=== PATIENT | male | born 1945 | race Caucasian/White ===

== ENCOUNTER 2020-01-21 07:41 | Inpatient (IN) | payer MEDICARE, OTHER, SELFPAY ==
[2020-01-21] VITALS (10 sets, daily range): BP systolic 139–201; BP diastolic 62–94; PULSE 57–77; RESP 14–30; TEMP 36.6–37.2; O2SAT 94–97; BMI 39.9
--- NOTE | 2020-01-21 07:46 | ED.SOB ---
HPI - SOB/Dyspnea General Chief Complaint: Shortness of Breath/Dyspnea Stated Complaint: SOB/ COUGH 4-5X DAYS Time Seen by Provider: 01/21/20 07:45 Source: patient and family Mode of arrival: Ambulatory Limitations: no limitations History of Present Illness HPI Narrative: 74-year-old male nonsmoker with history of asthma, hypertension hyperlipidemia presents with his in the chief complaint of 4-5 days with worsening shortness of breath cough and fever. He has not measured his fever. He denies any headache or sore throat. He denies any nausea, vomiting or diarrhea. He denies recent travel or exposure to persons known to have COVID-19. He has become weak, fatigued with poor appetite. MD Complaint: shortness of breath and cough Onset (ago): day(s) Severity: moderate Relieving factors: rest Exacerbating factors: nothing Known history of: asthma Associated symptoms: fever, cough and wheezing Treatment prior to arrival: none Related Data Home oxygen amount: none Home Medications Medication Instructions Recorded Confirmed albuterol sulfate See Rx Instructions .ROUTE .COMPLEX 01/21/20 01/21/20 atorvastatin 20 mg PO DAILY 01/21/20 01/21/20 dorzolamide-timolol See Rx Instructions .ROUTE .COMPLEX 01/21/20 01/21/20 felodipine 10 mg PO DAILY 01/21/20 01/21/20 latanoprost See Rx Instructions .ROUTE .COMPLEX 01/21/20 01/21/20 levothyroxine 200 mcg DAILY 01/21/20 01/21/20 lisinopril 40 mg PO DAILY 01/21/20 01/21/20 Allergies Allergy/AdvReac Type Severity Reaction Status Date / Time No Known Drug Allergies Allergy Verified 01/21/20 09:18 Review of Systems Constitutional Constitutional: Denies chills, Denies fatigue, Denies fever(s), Denies frequent falls, Denies lethargy and Denies weakness Eyes Eyes: Denies change in vision, Denies eye discharge, Denies irritation and Denies loss of vision ENT Ears, Nose, Mouth, and Throat: Denies change in voice, Denies dizziness, Denies neck pain, Denies sore throat and Denies throat swelling Cardiovascular Cardiovascular: Denies chest pain, Denies irregular heart rhythm, Denies lightheadedness, Denies palpitations, Denies dyspnea, Denies dyspnea on exertion and Denies orthopnea Respiratory Respiratory: Denies cough, Denies dyspnea, Denies dyspnea on exertion and Denies wheezing Gastrointestinal Gastrointestinal: Denies abdominal pain, Denies change in bowel habits, Denies diarrhea, Denies nausea and Denies vomiting Genitourinary Genitourinary: Denies hematuria, Denies flank pain, Denies urinary incontinence and Denies urinary urgency Musculoskeletal Musculoskeletal: Denies back pain, Denies muscle weakness, Denies neck pain, Denies numbness and Denies tingling Integumentary/Breasts Skin/Breast: Denies pruritus, Denies erythema, Denies rash and Denies wounds Neurologic Neurologic: Denies behavioral changes, Denies confusion, Denies dizziness, Denies frequent falls, Denies loss of vision, Denies numbness, Denies tingling and Denies weakness Psychiatric Psychiatric: Denies anxiety, Denies behavioral changes, Denies confusion, Denies depression, Denies homicidal ideation and Denies suicidal ideation Endocrine Endocrine: Denies fatigue, Denies flushing and Denies palpitations Hematologic/Lymphatic Hematologic/Lymphatic: Denies easy bruising Allergic/Immunologic Allergic/Immunologic: Denies urticaria, Denies throat swelling and Denies wheezing Patient History Social History household members: spouse Smoking Status: Never smoker Exam Narrative Exam Narrative: GENERAL: [74] year old patient appears stated age. Ill-appearing, fatigued and weak HEAD: Atraumatic. Normocephalic. EYES: Pupils equal round and reactive. Extraocular motions intact. No scleral icterus. No injection or drainage. ENT: Dry mucous membranes Nose without bleeding, purulent drainage. Throat without erythema, tonsillar hypertrophy or exudate. Airway patent. NECK: Trachea midline. Non tender CARDIOVASCULAR: Regular rate and rhythm without murmurs, gallops, or rubs. RESPIRATORY: Tachypnea crackles in bilateral bases GASTROINTESTINAL: Abdomen soft, non-tender, nondistended. EXTREMITIES: No edema or joint tenderness. BACK: Nontender without deformity or crepitance. No flank tenderness. NEURO: AOx3. SKIN: Poor skin turgor No rash or erythema of visible areas Initial Vital Signs Initial Vital Signs: Vital Signs Temperature 98.1 F 01/21/20 08:07 Pulse Rate 67 01/21/20 08:07 Respiratory Rate 22 01/21/20 08:07 Blood Pressure 149/68 H 01/21/20 08:07 Pulse Oximetry 95 01/21/20 08:07 Course Course Course Narrative: Patient with advanced age and comorbidities presents with increasing shortness of breath and subjective fever over the past few days. Chest x-ray shows a lobar infiltrate and CT demonstrates a multi lobar in a pattern consistent with COVID-19. He is clinically dehydrated with dry mucous membranes and poor skin turgor and it is thought that the crackles noted on his exam are consistent with viral pneumonia and not exacerbation of CHF hence my decision to treat with IV fluids Orders Ordered: ED Orders 01/21/20 08:20 XR chest 1V Stat 01/21/20 08:36 EKG-12 Lead Routine 01/21/20 08:40 Basic Metabolic Panel Stat C-Reactive Protein Quant Stat Complete Blood Count AUTO DIFF Stat Ferritin Stat Influenza A & B (PCR) Stat Lactate (Lactic Acid) Stat NT-proBNP (BNP-Adult 18+) Stat Procalcitonin Stat Troponin & CK Cardiac Panel Stat 01/21/20 08:45 CT chest wo con Stat 01/21/20 09:02 Blood Culture Stat Acetaminophen (Tylenol) 650 mg PO Q6HR PRN PRN Reason: Fever/Mild Pain (1-3) Albuterol/Ipratropium (Combivent Respimat) 2 puff INH RTQ6HR KEVAN Atorvastatin Calcium (Lipitor) 20 mg PO BEDTIME KEVAN Dorzolamide/Timolol (Cosopt Eye Drops) 1 drops EYE-BOTH .COMPLEX KEVAN Enoxaparin Sodium (Lovenox) 30 mg SUBCUT DAILY KEVAN Felodipine (Plendil) 10 mg PO DAILY KEVAN Latanoprost (Xalatan 0.005% Ophth) 1 drops EYE-BOTH .COMPLEX KEVAN Levothyroxine Sodium (Synthroid) 200 mcg PO 0600 KEVAN Magnesium Hydroxide (Milk Of Magnesia) 30 ml PO DAILY PRN PRN Reason: Constipation Naloxone HCl (Narcan) 0.2 mg IV Q2MIN PRN PRN Reason: Opiate Reversal Stored In Pharmacy 1 each PO PRN PRN PRN Reason: PROTOCOL Discontinued Medications Sodium Chloride (Normal Saline 0.9%) 500 mls @ 1,000 mls/hr IV BOLUS ONE Stop: 01/21/20 10:26 Last Infusion: 01/21/20 11:31 Dose: 0 mls/hr Documented by: Admin: 01/21/20 10:18 Dose: 1,000 mls/hr Documented by: EZRASENCeci Methylprednisolone (Solu-Medrol 125 Mg Vial) 125 mg IV NOW ONE Stop: 01/21/20 08:19 Last Admin: 01/21/20 08:42 Dose: 125 mg Documented by: EZRASENCeci Simvastatin (Zocor) 80 mg PO QPM KEVAN Vital Signs Vital signs: Vital Signs - 8 hr 01/21/20 08:07 01/21/20 08:30 01/21/20 08:47 Temperature 98.1 F Pulse Rate 67 63 77 Respiratory Rate 22 30 H Blood Pressure 149/68 H Blood Pressure [Left Arm] 149/68 H Pulse Oximetry 95 95 95 01/21/20 08:56 01/21/20 10:05 01/21/20 10:27 Temperature 99.0 F Pulse Rate 60 66 63 Respiratory Rate 14 16 18 Blood Pressure Blood Pressure [Left Arm] 176/73 H 201/88 H 188/83 H Pulse Oximetry 95 96 01/21/20 10:41 Temperature Pulse Rate 57 L Respiratory Rate 24 Blood Pressure Blood Pressure [Left Arm] 163/72 H Pulse Oximetry 94 MDM - SOB/Dyspnea Lab Data Result diagrams: 01/21/20 08:40 01/21/20 08:40 Labs: Lab Results 01/21/20 01/21/20 01/21/20 Range/Units 08:40 08:40 08:40 WBC 7.6 (4.5-11.0) X10^3/uL RBC 4.17 L (4.5-5.9) X10^6/uL Hgb 13.1 L (13.5-17.5) g/dL Hct 39.0 L (41-53) % MCV 93.5 (80-100) fL MCH 31.4 (26-34) PG MCHC 33.6 (30-36) % RDW 13.4 (11.6-14.8) % Plt Count 156 (150-400) X10^3/uL Neut % (Auto) Not Reportable Lymph % (Auto) Not Reportable Mcleod % (Auto) Not Reportable Eos % (Auto) Not Reportable Baso % (Auto) Not Reportable Lymph # (Auto) Not Reportable Mcleod # (Auto) Not Reportable Baso # (Auto) Not Reportable Total Counted 100 Seg Neutrophils % 61.0 (38-70) % Band Neutrophils % 12.0 H (3-7) % Lymphocytes % (Manual) 9.0 L (25-45) % Atypical Lymphs % 5.0 H ( - 0) % Monocytes % (Manual) 9.0 (2-11) % Eosinophils % (Manual) 4.0 (2-4) % Neutrophils # (Manual) 5548 (2269-9730) /uL Toxic Vacuolation Present H RBC Morphology Normal morphology Sodium 135 L (137-145) mmol/L Potassium 4.4 (3.4-5.1) mmol/L Chloride 104 (98-107) mmol/L Carbon Dioxide 25 (22-32) mmol/L BUN 26 H (9-20) mg/dL Creatinine 1.81 H (0.66-1.25) mg/dL Estimated GFR 36.6 L (>60) mL/min BUN/Creatinine Ratio 14.4 (6-22) Glucose 108 (80-110) mg/dL Lactate (0.7-2.1) mmol/L Calcium 8.3 L (8.4-10.2) mg/dL Ferritin 154 (18-464) ng/mL Total Creatine Kinase (55-170) U/L CK-MB (CK-2) (<2.37) ng/mL CK-MB (CK-2) Rel Index (1.5-5.0) % Troponin I (0.01-0.034) ng/mL C-Reactive Protein 5.6 H (<1.0) mg/dL NT-Pro-B Natriuret Pep (<450) pg/mL Procalcitonin (<0.5) ng/mL Influenza A (RT-PCR) (NEGATIVE) Influenza B (RT-PCR) (NEGATIVE) 01/21/20 01/21/20 01/21/20 Range/Units 08:40 08:40 08:40 WBC (4.5-11.0) X10^3/uL RBC (4.5-5.9) X10^6/uL Hgb (13.5-17.5) g/dL Hct (41-53) % MCV (80-100) fL MCH (26-34) PG MCHC (30-36) % RDW (11.6-14.8) % Plt Count (150-400) X10^3/uL Neut % (Auto) Lymph % (Auto) Mcleod % (Auto) Eos % (Auto) Baso % (Auto) Lymph # (Auto) Mcleod # (Auto) Baso # (Auto) Total Counted Seg Neutrophils % (38-70) % Band Neutrophils % (3-7) % Lymphocytes % (Manual) (25-45) % Atypical Lymphs % ( - 0) % Monocytes % (Manual) (2-11) % Eosinophils % (Manual) (2-4) % Neutrophils # (Manual) (4156-4930) /uL Toxic Vacuolation RBC Morphology Sodium (137-145) mmol/L Potassium (3.4-5.1) mmol/L Chloride (98-107) mmol/L Carbon Dioxide (22-32) mmol/L BUN (9-20) mg/dL Creatinine (0.66-1.25) mg/dL Estimated GFR (>60) mL/min BUN/Creatinine Ratio (6-22) Glucose (80-110) mg/dL Lactate 0.9 (0.7-2.1) mmol/L Calcium (8.4-10.2) mg/dL Ferritin (18-464) ng/mL Total Creatine Kinase 114 (55-170) U/L CK-MB (CK-2) 1.39 (<2.37) ng/mL CK-MB (CK-2) Rel Index 1.2 L (1.5-5.0) % Troponin I 0.020 (0.01-0.034) ng/mL C-Reactive Protein (<1.0) mg/dL NT-Pro-B Natriuret Pep 1100 H (<450) pg/mL Procalcitonin < 0.05 (<0.5) ng/mL Influenza A (RT-PCR) (NEGATIVE) Influenza B (RT-PCR) (NEGATIVE) 01/21/20 Range/Units 08:40 WBC (4.5-11.0) X10^3/uL RBC (4.5-5.9) X10^6/uL Hgb (13.5-17.5) g/dL Hct (41-53) % MCV (80-100) fL MCH (26-34) PG MCHC (30-36) % RDW (11.6-14.8) % Plt Count (150-400) X10^3/uL Neut % (Auto) Lymph % (Auto) Mcleod % (Auto) Eos % (Auto) Baso % (Auto) Lymph # (Auto) Mcleod # (Auto) Baso # (Auto) Total Counted Seg Neutrophils % (38-70) % Band Neutrophils % (3-7) % Lymphocytes % (Manual) (25-45) % Atypical Lymphs % ( - 0) % Monocytes % (Manual) (2-11) % Eosinophils % (Manual) (2-4) % Neutrophils # (Manual) (3089-9236) /uL Toxic Vacuolation RBC Morphology Sodium (137-145) mmol/L Potassium (3.4-5.1) mmol/L Chloride (98-107) mmol/L Carbon Dioxide (22-32) mmol/L BUN (9-20) mg/dL Creatinine (0.66-1.25) mg/dL Estimated GFR (>60) mL/min BUN/Creatinine Ratio (6-22) Glucose (80-110) mg/dL Lactate (0.7-2.1) mmol/L Calcium (8.4-10.2) mg/dL Ferritin (18-464) ng/mL Total Creatine Kinase (55-170) U/L CK-MB (CK-2) (<2.37) ng/mL CK-MB (CK-2) Rel Index (1.5-5.0) % Troponin I (0.01-0.034) ng/mL C-Reactive Protein (<1.0) mg/dL NT-Pro-B Natriuret Pep (<450) pg/mL Procalcitonin (<0.5) ng/mL Influenza A (RT-PCR) Flu a negative (NEGATIVE) Influenza B (RT-PCR) Flu b negative (NEGATIVE) Imaging Data CT scan - chest: Radiologist's Impression: SuhaProsper M 1945 [address] [address] [address] Scan Report Signed Patient: Prosper Borden R#: [id number] : 3Acct:[id number] Age/Sex: 74 / MDate of Service: 01/21/20 Loc: ED Accession Number: [id number] Procedure: CT chest wo con Ordering Provider: Jamie Case D.O. PROCEDURE: CT CHEST WO CON INDICATIONS: SOB, cough TECHNIQUE: Noncontrast 5 mm thick sections acquired from the pulmonary apices to the posterior costophrenic angles. 1 mm lung window, 5 mm thick coronal and sagittal and 7 mm axial MIP reformats were then acquired. For radiation dose reduction, the following was used: automated exposure control, adjustment of mA and/or kV according to patient size. COMPARISON: [facility], CT, THORAX WITH CONTRAST, 03/01/2014, 9:01. FINDINGS: Image quality: Diagnostic. Lungs and pleura:Disease is identified with associated tree and bud nodularity within the right upper lobe, posterior right lower lobe, and the posterior left lower lobe. No effusion or pneumothorax is identified. No lung masses identified. However, there is a centrally calcified pulmonary nodule within the posterior left lower lobe, compatible with a hamartoma that measures up to approximately 1.7 cm in diameter (image 47, series 2), previously measuring up to 1.4 cm in diameter. Mediastinum: Heart size is normal. No pericardial effusion. No mediastinal adenopathy by size criteria. Coronary and aortic atherosclerosis is present. Thoracic aorta and central pulmonary arteries are normal in size. Esophagus is normal in caliber. There is a small hiatal hernia. Bones and chest wall: No suspicious bony lesions. No vertebral body compression fractures. No axillary or supraclavicular adenopathy by size criteria. Moderate degenerative changes of the thoracic spine are noted. Abdomen: Visualized upper abdominal solid organs and bowel loops appear normal in the absence of contrast. IMPRESSION: 1. Patchy bibasilar dominant consolidation is most suggestive of pneumonia. Please correlate clinically to exclude the possibility of COVID-19 infection. 2. 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 Please consider [address] of the chest. 3. Small hiatal hernia. 4. Coronary and aortic atherosclerosis. Dictated by: Aleksandar Stoddard M.D. on 01/21/2020 at 8:31 Approved by: Aleksandar Stoddard M.D. on 01/21/2020 at 8:35 Discharge Plan Departure Patient Disposition: Admitted As Inpatient Clinical Impression: Acute renal failure, Viral pneumonia Discharge Date/Time: 01/21/20 11:22 Admit Date/Time: 01/21/20 10:56 Admit Provider: Hosea James ED Sign-out Cosign ED Attending Cosignature Attestation: I was immediately available in the department for consultation. This documentation has been reviewed and I agree with assessment and plan. Supervised by Jamie Case DO
--- NOTE | 2020-01-21 08:20 | DI.RAD.S_ITS ---
PROCEDURE: XR CHEST 1V INDICATIONS: SOB, cough, fever TECHNIQUE: One view of the chest was acquired. COMPARISON: [facility], , CHEST 2 VIEW, 10/02/2017, 9:39. FINDINGS: Surgical changes and devices: None. Lungs and pleura: Airspace disease within the right upper lobe is identified. No definite additional areas of significant airspace disease are appreciated. No effusion or pneumothorax is evident. Mediastinum: Mediastinal contours appear normal. Heart size is normal. Bones and chest wall: No suspicious bony lesions. Overlying soft tissues appear unremarkable. IMPRESSION: Right upper lobe airspace disease is suggestive of pneumonia. Dictated by: Aleksandar Stoddard M.D. on 01/21/2020 at 7:39 Approved by: Aleksandar Stoddard M.D. on 01/21/2020 at 7:40
[2020-01-21] MEDS: methylPREDNISolone 125 MG/2 ML VIAL IV (08:42)
--- NOTE | 2020-01-21 08:45 | DI.CT.S_ITS ---
PROCEDURE: CT CHEST WO CON INDICATIONS: SOB, cough TECHNIQUE: Noncontrast 5 mm thick sections acquired from the pulmonary apices to the posterior costophrenic angles. 1 mm lung window, 5 mm thick coronal and sagittal and 7 mm axial MIP reformats were then acquired. For radiation dose reduction, the following was used: automated exposure control, adjustment of mA and/or kV according to patient size. COMPARISON: [facility], CT, THORAX WITH CONTRAST, 03/01/2014, 9:01. FINDINGS: Image quality: Diagnostic. Lungs and pleura:Disease is identified with associated tree and bud nodularity within the right upper lobe, posterior right lower lobe, and the posterior left lower lobe. No effusion or pneumothorax is identified. No lung masses identified. However, there is a centrally calcified pulmonary nodule within the posterior left lower lobe, compatible with a hamartoma that measures up to approximately 1.7 cm in diameter (image 47, series 2), previously measuring up to 1.4 cm in diameter. Mediastinum: Heart size is normal. No pericardial effusion. No mediastinal adenopathy by size criteria. Coronary and aortic atherosclerosis is present. Thoracic aorta and central pulmonary arteries are normal in size. Esophagus is normal in caliber. There is a small hiatal hernia. Bones and chest wall: No suspicious bony lesions. No vertebral body compression fractures. No axillary or supraclavicular adenopathy by size criteria. Moderate degenerative changes of the thoracic spine are noted. Abdomen: Visualized upper abdominal solid organs and bowel loops appear normal in the absence of contrast. IMPRESSION: 1. Patchy bibasilar dominant consolidation is most suggestive of pneumonia. Please correlate clinically to exclude the possibility of COVID-19 infection. 2. 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 Please consider [address] of the chest. 3. Small hiatal hernia. 4. Coronary and aortic atherosclerosis. Dictated by: Aleksandar Stoddard M.D. on 01/21/2020 at 8:31 Approved by: Aleksandar Stoddard M.D. on 01/21/2020 at 8:35
[2020-01-21 08:50] LABS: Hemoglobin 13.1 g/dL (13.5-17.5); Mean Corpuscular HGB Conc 33.6 % (30-36); Mean Corpuscular Hemoglobin 31.4 PG (26-34); Mean Corpuscular Volume 93.5 fL (80-100); Platelet Count 156 X10^3/uL (150-400); Red Blood Cell Count 4.17 X10^6/uL (4.5-5.9); Red Cell Distribution Width 13.4 % (11.6-14.8); White Blood Cell Count 7.6 X10^3/uL (4.5-11.0)
--- NOTE | 2020-01-21 08:54 | PC.NURSE ---
able to drink fluids, denies nausea,vomiting or diarrhea, denies traveling outside [place], or contact with Covid
[2020-01-21 09:00] LABS: Lactate (Lactic Acid) 0.9 mmol/L (0.7-2.1)
[2020-01-21 09:09] LABS: Creatine Kinase 114 U/L (55-170)
[2020-01-21 09:11] LABS: BUN Creatinine Ratio 14.4 (6-22); Blood Urea Nitrogen 26 mg/dL (9-20); Calcium 8.3 mg/dL (8.4-10.2); Carbon Dioxide 25 mmol/L (22-32); Chloride 104 mmol/L (98-107); Estimated Glomerular Filt Rate 36.6 mL/min (>60); Glucose 108 mg/dL (80-110); HEMOLYSIS 35 (0-50); Potassium 4.4 mmol/L (3.4-5.1); Sodium 135 mmol/L (137-145)
[2020-01-21 09:13] LABS: C-Reactive Protein Quant 5.6 mg/dL (<1.0)
[2020-01-21 09:18] LABS: Add Manual Diff / Slide Review YES
[2020-01-21 09:20] LABS: Influenza A - CEPHEID Flu A NEGATIVE (NEGATIVE); Influenza B - CEPHEID Flu B NEGATIVE (NEGATIVE)
[2020-01-21 09:23] LABS: NT-proBNP (BNP-Adult 18+) 1100 pg/mL (<450)
[2020-01-21 09:25] LABS: CKMB % Relative Index 1.2 % (1.5-5.0); Creatine Kinase MB 1.39 ng/mL (<2.37)
[2020-01-21 09:33] LABS: Procalcitonin < 0.05 ng/mL (<0.5)
[2020-01-21 09:45] LABS: Ferritin 154 ng/mL (18-464)
[2020-01-21 09:46] LABS: Neutrophils Absolute Manual 5548 /uL (3000-5900); RBC Morphology Normal Morphology; Total Cells Counted 100; Toxic Vacuolation Present
[2020-01-21] MEDS: SODIUM CHLORIDE 0.9% 500 ML 1000 ML IV (10:18)
--- NOTE | 2020-01-21 10:18 | PC.NURSE ---
confirmed with dr alvarado bolus of 500ml ns, with bnp of 1100
--- NOTE | 2020-01-21 12:35 | P.HP_ITS ---
History of Present Illness History of Present Illness Date Patient Seen: 01/21/20 Time Patient Seen: 12:00 Chief complaint: SOB/ COUGH 4-5X DAYS Narrative: Patient is a 74-year-old male with history of asthma, hypertension, hyperlipidemia, NE, hypothyroidism presented to emergency department with complaints of shortness of breath and cough for the past 4-5 days. He states he had a fever on the 1st day but subsequently no fever. He has been using his albuterol inhaler without relief. He has had fatigue but denies myalgias. Denies headache, sore throat, nausea, vomiting or diarrhea. He denies recent travel or known exposure to novel gray virus. On ER evaluation, he was noted to have labored breathing with respiratory rate 20-30. O2 sat was 95% on room air. Showed right upper lobe airspace disease. Chest CT noncontrast showed patchy bilateral consolidation in the right upper, right lower and left lower lobes. His WBC was normal with lymphopenia and 5% atypical lymphocytes and toxic granulation. He also appeared in acute renal failure with BUN 26 and creatinine 1.81 versus prior baseline of BUN 21 and creatinine 1.1 on 11/17/2016. His NT proBNP was elevated at 1100 without clinical signs of CHF. His CRP was elevated at 5.6 and ferritin normal at 154. His procalcitonin is less than 0.05. Patient History Family & Social History Social History: household members spouse Prior Living Arrangements House Safety & Behavioral: Feels Safe in Current Yes Environment Been Physically Hurt or No Threatened By a Person Suicidal Ideation Description None Suicide Plan Description No Plan Tobacco & Substance use: Smoking Status Never smoker alcohol intake frequency holiday/special occasion Substance Use Type does not use Meds Home Medications and Allergies Allergies Allergy/AdvReac Type Severity Reaction Status Date / Time No Known Drug Allergies Allergy Verified 01/21/20 09:18 Review of Systems Review of Systems ROS: Yes All systems reviewed with the patient and are negative except as otherwise documented Exam Vital Signs (past 8 hours): - 01/21/20 08:07 01/21/20 08:30 01/21/20 08:47 Temperature 98.1 F Pulse Rate 67 63 77 Respiratory Rate 22 30 H Blood Pressure 149/68 H Blood Pressure [Left Arm] 149/68 H Pulse Oximetry 95 95 95 01/21/20 08:56 01/21/20 10:05 01/21/20 10:27 Temperature 99.0 F Pulse Rate 60 66 63 Respiratory Rate 14 16 18 Blood Pressure Blood Pressure [Left Arm] 176/73 H 201/88 H 188/83 H Pulse Oximetry 95 96 01/21/20 10:41 Temperature Pulse Rate 57 L Respiratory Rate 24 Blood Pressure Blood Pressure [Left Arm] 163/72 H Pulse Oximetry 94 Oxygen Delivery Method Room Air Narrative Exam Narrative: General: Alert male who is cooperative and at this time not in acute distress HEENT: Pupils equal and reactive Lungs: Bilateral diffuse rhonchi, no crackles Heart: Regular rhythm without murmur Abdomen: Obese, soft, nontender, no abdominal mass Extremities: No edema, no rash Neurological: Affect normal, sensorium intact, nonfocal Objective Labs Result Diagrams: 01/21/20 08:40 01/21/20 08:40 Labs: Laboratory Results - last 24 hr 01/21/20 01/21/20 01/21/20 08:40 08:40 08:40 WBC 7.6 RBC 4.17 L Hgb 13.1 L Hct 39.0 L MCV 93.5 MCH 31.4 MCHC 33.6 RDW 13.4 Plt Count 156 Neut % (Auto) Not Reportable Lymph % (Auto) Not Reportable [place] % (Auto) Not Reportable Eos % (Auto) Not Reportable Baso % (Auto) Not Reportable Lymph # (Auto) Not Reportable [place] # (Auto) Not Reportable Baso # (Auto) Not Reportable Total Counted 100 Seg Neutrophils % 61.0 Band Neutrophils % 12.0 H Lymphocytes % (Manual) 9.0 L Atypical Lymphs % 5.0 H Monocytes % (Manual) 9.0 Eosinophils % (Manual) 4.0 Neutrophils # (Manual) 5548 Toxic Vacuolation Present H RBC Morphology Normal morphology Sodium 135 L Potassium 4.4 Chloride 104 Carbon Dioxide 25 BUN 26 H Creatinine 1.81 H Estimated GFR 36.6 L BUN/Creatinine Ratio 14.4 Glucose 108 Lactate Calcium 8.3 L Ferritin 154 Total Creatine Kinase CK-MB (CK-2) CK-MB (CK-2) Rel Index Troponin I C-Reactive Protein 5.6 H NT-Pro-B Natriuret Pep Procalcitonin Influenza A (RT-PCR) Influenza B (RT-PCR) 01/21/20 01/21/20 01/21/20 08:40 08:40 08:40 WBC RBC Hgb Hct MCV MCH MCHC RDW Plt Count Neut % (Auto) Lymph % (Auto) [place] % (Auto) Eos % (Auto) Baso % (Auto) Lymph # (Auto) [place] # (Auto) Baso # (Auto) Total Counted Seg Neutrophils % Band Neutrophils % Lymphocytes % (Manual) Atypical Lymphs % Monocytes % (Manual) Eosinophils % (Manual) Neutrophils # (Manual) Toxic Vacuolation RBC Morphology Sodium Potassium Chloride Carbon Dioxide BUN Creatinine Estimated GFR BUN/Creatinine Ratio Glucose Lactate 0.9 Calcium Ferritin Total Creatine Kinase 114 CK-MB (CK-2) 1.39 CK-MB (CK-2) Rel Index 1.2 L Troponin I 0.020 C-Reactive Protein NT-Pro-B Natriuret Pep 1100 H Procalcitonin < 0.05 Influenza A (RT-PCR) Influenza B (RT-PCR) 01/21/20 08:40 WBC RBC Hgb Hct MCV MCH MCHC RDW Plt Count Neut % (Auto) Lymph % (Auto) [place] % (Auto) Eos % (Auto) Baso % (Auto) Lymph # (Auto) [place] # (Auto) Baso # (Auto) Total Counted Seg Neutrophils % Band Neutrophils % Lymphocytes % (Manual) Atypical Lymphs % Monocytes % (Manual) Eosinophils % (Manual) Neutrophils # (Manual) Toxic Vacuolation RBC Morphology Sodium Potassium Chloride Carbon Dioxide BUN Creatinine Estimated GFR BUN/Creatinine Ratio Glucose Lactate Calcium Ferritin Total Creatine Kinase CK-MB (CK-2) CK-MB (CK-2) Rel Index Troponin I C-Reactive Protein NT-Pro-B Natriuret Pep Procalcitonin Influenza A (RT-PCR) Flu a negative Influenza B (RT-PCR) Flu b negative Assessment & Plan Assessment & Plan narrative: 1. Suspect COVID-19 pneumonia, present on admission, active -patient presenting with classic findings of 4-5 days of respiratory symptoms, initial fever now resolved, bilateral infiltrates on chest x-ray, normal total WBC, with procalcitonin less than 0.05 -he has asthma comorbidity and also noted to be in acute renal failure -on exam elevated respiratory rate with diffuse rhonchi, O2 sats 95% range on room air -treat asthma component with inhaler -monitor O2 sats -repeat CBC and procalcitonin in a.m. 2. Asthma with exacerbation, present on admission, active -received Solu-Medrol 125 mg in the ED, will withhold additional steroid as undetermined whether steroid therapy pre may worsen COVID-19 pneumonia -use Combivent Respimat 2 puffs Q 6 hours with RT 3. Acute kidney injury, present on admission, active -as noted admit creatinine 1.81 versus baseline 1.10 on 11/17/2016 -likely prerenal associated with illness -received 1 L NS bolus in the ED, will withhold further IV hydration as there is some evidence IV hydration may worsen respiratory failure in COVID 19 pneumonia and better to keep these patients on the dry side -encourage p.o. fluid intake -hold patient's lisinopril -BMP in a.m. 4. Hypertension, present on admission, stable -patient mildly hypertensive but stable -continue felodipine ER but hold lisinopril 5. Questionable history of CAD, stable -patient states he has had NE in the past but no history of stents and is not on daily aspirin -continue patient's atorvastatin 6. Hypothyroidism, NOS, stable -continue patient's levothyroxine 7. Glaucoma, NOS -continue patient's routine eye drops Patient is admitted to hospital observation. He will be on droplet precautions. Quality VTE Deep Vein Thrombosis/Pulmonary Embolism Present on Admission: No
[2020-01-21] MEDS: ALBUTEROL/IPRATROPIUM MDI 2 PUFF INH ×2 (16:13→21:32)
[2020-01-21] MEDS: DORZOLAMIDE/TIMOLOL OPHTH 10 ML 1 DROPS EYE-BOTH (20:09)
[2020-01-21] MEDS: ATORVASTATIN 20 MG TABLET PO (20:09)
[2020-01-21] MEDS: LATANOPROST 0.005% OPHTH 2.5 ML 1 DROPS EYE-BOTH (20:10)
[2020-01-22] VITALS (12 sets, daily range): BP systolic 158–186; BP diastolic 62–90; PULSE 56–78; RESP 12–21; TEMP 36–37.6; O2SAT 94–96
[2020-01-22 05:51] LABS: Add Manual Diff / Slide Review NO; Basophils Absolute Auto 0 /uL (0-100); Basophils Percent Auto 0.3 % (0-2); Eosinophils Absolute Auto 0 /uL (0-450); Hematocrit 39.5 % (41-53); Lymphocytes Absolute Auto 800 /uL (1100-4500); Lymphocytes Percent Auto 6.7 % (25-40); Mean Corpuscular HGB Conc 32.9 % (30-36); Mean Corpuscular Hemoglobin 30.7 PG (26-34); Mean Corpuscular Volume 93.4 fL (80-100); Monocytes Absolute Auto 1200 /uL (0-900); Monocytes Percent Auto 10.2 % (3-14); Neutrophils Absolute Auto 9300 /uL (1500-7000); Neutrophils Percent Auto 82.8 % (50-75); Platelet Count 176 X10^3/uL (150-400); Red Blood Cell Count 4.23 X10^6/uL (4.5-5.9); Red Cell Distribution Width 13.3 % (11.6-14.8); White Blood Cell Count 11.3 X10^3/uL (4.5-11.0)
[2020-01-22 06:00] LABS: BUN Creatinine Ratio 16.8 (6-22); Blood Urea Nitrogen 32 mg/dL (9-20); Calcium 8.1 mg/dL (8.4-10.2); Carbon Dioxide 22 mmol/L (22-32); Chloride 106 mmol/L (98-107); Estimated Glomerular Filt Rate 34.4 mL/min (>60); Glucose 128 mg/dL (80-110); HEMOLYSIS < 15 (0-50); Potassium 5.2 mmol/L (3.4-5.1); Sodium 135 mmol/L (137-145)
[2020-01-22 06:16] LABS: Procalcitonin < 0.05 ng/mL (<0.5)
[2020-01-22] MEDS: ALBUTEROL/IPRATROPIUM MDI 2 PUFF INH ×5 (06:28→22:02)
[2020-01-22] MEDS: LEVOTHYROXINE 100 MCG TABLET 200 MCG PO (06:48)
[2020-01-22] MEDS: ENOXAPARIN 30 MG/0.3 ML SYRINGE SUBCUT (09:31)
[2020-01-22] MEDS: FELODIPINE ER 5 MG TAB 10 MG PO (09:37)
--- NOTE | 2020-01-22 12:37 | CM.DANOTE ---
DCP Assessment: EMR Reviewed: Patient is a 74 yr old male who was admitted for possible Covid-[address] Acevedo. CM/Rn called patient on hospital phone and explained role. Patient was alert and oriented x3 during Cm/RN conversation. Patient was wheezing and coughing loud enough for CM/RN to hear it over the phone. Patients nurse notified and Respiratory therapy was called. Patient lives in [facility] [place] in a single level home. Patient states he is independent with all ADLs and drives at base line. I: Medicare and [facility] medical Plan: D/C home with his to self quarantine until covid-19 test results come back. No identified D/C planning needs noted at this time. CM department will follow patient to assist with any new D/C planning needs that may arise. Taylor Phelps RN. Discharge Planning/Care Management CM Discharge Assessment Start: 01/22/20 12:32 Freq: Status: Active Protocol: Document 01/22/20 12:34 HS (Rec: 01/22/20 12:37 HS [id number]) Discharge Planning Assessment Assigned Fan Balancer Taylor Phelps RN DPOA/Assigned Designee Name Lacy Marie () Contact Information [phone] Advance Directives? Yes History Provided By Patient,Medical Record Has Patient been admitted in last 30 No days? Prior Living Arrangements House Household Members spouse Type of transporation used prior to Drives own vehicle admit Independent with ADL's Yes Is patient alert and oriented? Yes Caregiver for Another No Barriers to Discharge No Discharge Plan Home Referrals Initiated None needed Whiteboard Updated in Patient Room with No name and ext. # of Fan Balancer Comment not able to update white board due to patient being on [place] precautions and not able to go into the room.- CM information give to nurse to give to lotus when she goes into the room next. Review Status In Process Next Review Type Continued Stay Review
--- NOTE | 2020-01-22 13:44 | PC.NURSE ---
RA=95%; Rhonchi and wheezing BL throughout; pt denies SOB; intermittent cough; using phone, as needed; call light within reach; independent in room
[2020-01-22] MEDS: AZITHROMYCIN 250 MG TABLET 500 MG PO (16:05)
--- NOTE | 2020-01-22 17:35 | P.PN_ITS ---
Subjective Subjective Date Patient Seen: 01/22/20 Interval history: Prosper Borden is a 74-year-old male with a past medical history significant for hypertension, hyperlipidemia, previous MD, hypothyroidism and asthma who presented to ED with complaints of shortness of breath and cough for the past 4- 5 days. The patient is resting in bed and appears mildly uncomfortable. He continues to have a very harsh cough with paroxysms, subjective shortness of breath and wheezing. A respiratory PCR was not obtained at time of admission and has been sent and pending. He endorses mild pleurisy due to severity of cough. He has no other complaints and denies headache, chest pain, abdominal pain, nausea, vomiting, fever, chills, dysuria, diarrhea or constipation. He is voiding and eliminating without difficulty. He is up ambulating without assistance. Exam Vital Signs (past 8 hours): - 01/22/20 11:22 01/22/20 12:36 01/22/20 16:00 Temperature 96.8 F L 98.6 F Pulse Rate 62 62 Respiratory Rate 15 17 Blood Pressure 158/62 H 186/73 H Pulse Oximetry 94 95 96 01/22/20 16:14 Temperature Pulse Rate Respiratory Rate Blood Pressure Pulse Oximetry 96 Oxygen Delivery Method Room Air Oxygen Flow Rate 0 Narrative Exam Narrative: General: Older gentleman sitting in bed and in no acute distress, appears mildly uncomfortable with harsh cough and cough paroxysms, well-developed, well- nourished, appropriately interactive. HEENT: Normocephalic, atraumatic. External ears without defect. Pupils equal, round, and reactive to light. Anicteric sclerae, moist conjunctivae, and no lid lag. Neck: Supple with full range of motion. No jugular venous distension. No bruits. No lymphadenopathy or thyromegaly. Cardiovascular: Regular rate and rhythm without murmurs, rubs, or gallops appreciated. Pulmonary: Diffuse rhonchi with scattered wheeze. Normal respiratory effort with no use of accessory muscles. Abdomen: Soft, obese, bowel sounds present, nontender, nondistended. No hepatosplenomegaly or masses appreciated. Extremities: No clubbing, cyanosis, or edema. Skin: Normal temperature, turgor, and texture; no rash, ulcers, or subcutaneous nodules appreciated. Neurological: Cranial nerves grossly intact. Psychiatric: Normal mood and affect. Alert and oriented to person, place, and time. Objective Labs Result Diagrams: 01/22/20 05:28 01/22/20 05:28 Labs: Laboratory Results - last 24 hr 01/22/20 01/22/20 01/22/20 05:28 05:28 05:28 WBC 11.3 H RBC 4.23 L Hgb 13.0 L Hct 39.5 L MCV 93.4 MCH 30.7 MCHC 32.9 RDW 13.3 Plt Count 176 Neut % (Auto) 82.8 H Lymph % (Auto) 6.7 L [place] % (Auto) 10.2 Eos % (Auto) 0.0 L Baso % (Auto) 0.3 Neut # (Auto) 9300 H Lymph # (Auto) 800 L [place] # (Auto) 1200 H Eos # (Auto) 0 Baso # (Auto) 0 Sodium 135 L Potassium 5.2 H Chloride 106 Carbon Dioxide 22 BUN 32 H Creatinine 1.91 H Estimated GFR 34.4 L BUN/Creatinine Ratio 16.8 Glucose 128 H Calcium 8.1 L Procalcitonin < 0.05 Assessment & Plan Assessment & Plan narrative: Prosper Borden is a 74-year-old male with a past medical history significant for hypertension, hyperlipidemia, previous MD, hypothyroidism and asthma who presented to ED with complaints of shortness of breath and cough for the past 4- 5 days. 1. Acute viral pneumonia, possibly secondary to COVID- 19, present on admission. Active -Patient presented with classic findings of COVID- 19 viral infection with 4-5 days of respiratory symptoms, initial fever now resolved, bilateral infiltrates on chest x-ray, acute kidney injury, normal total WBC, with procalcitonin less than 0.05. Patient has asthma comorbidity. -Ordered respiratory PCR, pending. Influenza a and B negative. Coronavirus PCR pending. -Continue supportive care with supplemental oxygen as necessary to keep oxygen saturations 88-92%, Mucinex 1200 mg twice daily and Acapella 10x every 1 hour while awake. -Started azithromycin 500 mg daily for pulmonary anti-inflammatory effects and early studies showing improvement with COVID-19 infection. 2. Asthma with exacerbation, present on admission. Active. -Received Solu-Medrol 125 mg in the ED. Held any additional steroid initially due to possibility that steroid therapy may worsen COVID-19 viral pneumonia. However, patient continues to have significant wheezing and started prednisone 40 mg daily. -Continue Combivent Respimat 2 puffs every 4 hours and albuterol every 2 hours as needed for shortness of breath or wheezing. -Started azithromycin 500 mg daily for pulmonary anti-inflammatory effects and early studies showing improvement with COVID-19 infection. 3. Acute kidney injury, present on admission. Active. -Likely prerenal in associated with acute viral illness. - Initial creatinine 1.81. Unclear baseline creatinine as most recent was 1.10 in 11/17/2016. Requested records from PCP's office but no metabolic panel. Creatinine increased to 1.91 today. -Continue to avoid nephrotoxic agents. -Received 1 L NS bolus in the ED. Plan to give additional 1 L of normal saline at 100 mL/hr help improve renal function. Will then continue to hold off on further IV fluid hydration as there is some evidence IV fluid hydration may worsen respiratory failure in COVID 19 viral pneumonia and it is better to keep these patients on the dry side. -Continue to encourage p.o. fluid intake. -Continue to hold patient's lisinopril. -Continue to monitor renal function daily. 4. Hypertension, chronic, present on admission. Stable. -Patient mildly hypertensive but stable. -Continue felodipine ER 10 mg daily. Held lisinopril as above. Ordered labetalol 10 mg IV as needed for SBP > 180 mmHg sustain for 15 minutes and HR > 60 bpm. 5. Possible history of CAD. -Patient states he has had MD in the past but no history of stents and is not on daily aspirin. -Continue patient's atorvastatin 6. Hypothyroidism, chronic, present on admission. Stable. -Continue levothyroxine 200 mcg daily. 7. Glaucoma, chronic, present on admission. Stable. -Continue home eye drops. Disposition: Patient likely to discharge in 1-2 days once patient is clinically improving and his acute kidney injury is improving. Quality VTE Deep Vein Thrombosis/Pulmonary Embolism Present on Admission: No
[2020-01-22 18:04] LABS: Human Metapneumovirus Detected (Not Detect)
[2020-01-22 18:05] LABS: Adenovirus Not Detected (Not Detect); Bordetella pertussis Not Detected (Not Detect); Chlamydophila pneumoniae Not Detected (Not Detect); Coronavirus 229E Not Detected (Not Detect); Coronavirus HKU1 Not Detected (Not Detect); Coronavirus NL 63 Not Detected (Not Detect); Coronavirus OC43 Not Detected (Not Detect); Human Rhinovirus/Enterovirus Not Detected (Not Detect); Influenza A Not Detected (Not Detect); Influenza B Not Detected (Not Detect); Mycoplasma pneumoniae Not Detected (Not Detect); Parainfluenza Virus 1 Not Detected (Not Detect); Parainfluenza Virus 2 Not Detected (Not Detect); Parainfluenza Virus 3 Not Detected (Not Detect); Parainfluenza Virus 4 Not Detected (Not Detect); Respiratory Syncytial Virus Not Detected (Not Detect)
[2020-01-22] MEDS: predniSONE 20 MG TABLET 40 MG PO (18:24)
[2020-01-22] MEDS: SODIUM CHLORIDE 0.9% 1,000 ML 100 ML IV (18:25)
[2020-01-22] MEDS: BENZOCAINE/MENTHOL 1 LOZ PKT 1 EACH PO (19:43)
--- NOTE | 2020-01-22 19:54 | PC.NURSE ---
pt c/o chills. temp 99.6, refused tylenol. IVF infusing. pt had 1 diarrhea. SOB w/exertion 95%RA. Ronchi and wheezy lung sounds. cepacol for sore throat. independent in the room. call light in reach.
[2020-01-22] MEDS: ATORVASTATIN 20 MG TABLET PO (20:44)
[2020-01-22] MEDS: guaiFENesin ER 600 MG TAB 1200 MG PO (20:44)
[2020-01-22] MEDS: LATANOPROST 0.005% OPHTH 2.5 ML 1 DROPS EYE-BOTH (21:19)
[2020-01-22] MEDS: DORZOLAMIDE/TIMOLOL OPHTH 10 ML 1 DROPS EYE-BOTH (21:25)
[2020-01-23] VITALS (10 sets, daily range): BP systolic 140–174; BP diastolic 55–101; PULSE 54–77; RESP 18–22; TEMP 36.4–36.8; O2SAT 93–97
[2020-01-23] MEDS: LEVOTHYROXINE 100 MCG TABLET 200 MCG PO (05:41)
[2020-01-23 05:49] LABS: Add Manual Diff / Slide Review NO; Basophils Absolute Auto 0 /uL (0-100); Basophils Percent Auto 0.5 % (0-2); Eosinophils Absolute Auto 0 /uL (0-450); Hematocrit 40.1 % (41-53); Hemoglobin 13.3 g/dL (13.5-17.5); Lymphocytes Absolute Auto 600 /uL (1100-4500); Mean Corpuscular HGB Conc 33.3 % (30-36); Mean Corpuscular Hemoglobin 31.3 PG (26-34); Mean Corpuscular Volume 93.9 fL (80-100); Monocytes Absolute Auto 400 /uL (0-900); Monocytes Percent Auto 4.3 % (3-14); Neutrophils Absolute Auto 7700 /uL (1500-7000); Neutrophils Percent Auto 88.2 % (50-75); Platelet Count 178 X10^3/uL (150-400); Red Blood Cell Count 4.27 X10^6/uL (4.5-5.9); Red Cell Distribution Width 13.7 % (11.6-14.8); White Blood Cell Count 8.8 X10^3/uL (4.5-11.0)
[2020-01-23 05:55] LABS: Alanine Aminotransferase 20 IU/L (<50); Albumin 3.4 g/dL (3.5-5.0); Albumin Globulin Ratio 1.1 (1.0-2.8); Alkaline Phosphatase 40 U/L (38-126); Aspartate Aminotransferase 29 IU/L (17-59); BUN Creatinine Ratio 17.6 (6-22); Bilirubin Total 0.3 mg/dL (0.2-1.3); Blood Urea Nitrogen 33 mg/dL (9-20); Calcium 7.9 mg/dL (8.4-10.2); Carbon Dioxide 23 mmol/L (22-32); Chloride 107 mmol/L (98-107); Estimated Glomerular Filt Rate 35.1 mL/min (>60); Globulin 3.1 g/dL (1.7-4.1); Glucose 132 mg/dL (80-110); HEMOLYSIS < 15 (0-50); Magnesium 2.3 mg/dL (1.6-2.3); Sodium 138 mmol/L (137-145); Total Protein 6.5 g/dL (6.3-8.2)
[2020-01-23 05:56] LABS: Potassium 6.2 mmol/L (3.4-5.1)
--- NOTE | 2020-01-23 06:12 | PC.NURSE ---
Called Dr. Weir to report a Potassium 6.2. No new orders received at this time.
[2020-01-23 06:21] LABS: Procalcitonin < 0.05 ng/mL (<0.5)
[2020-01-23] MEDS: ALBUTEROL/IPRATROPIUM MDI 2 PUFF INH ×3 (07:31→16:35)
[2020-01-23 08:17] LABS: BUN Creatinine Ratio 18.3 (6-22); Blood Urea Nitrogen 33 mg/dL (9-20); Calcium 8.3 mg/dL (8.4-10.2); Carbon Dioxide 24 mmol/L (22-32); Chloride 106 mmol/L (98-107); Estimated Glomerular Filt Rate 36.9 mL/min (>60); Glucose 133 mg/dL (80-110); HEMOLYSIS < 15 (0-50); Potassium 5.4 mmol/L (3.4-5.1); Sodium 137 mmol/L (137-145)
[2020-01-23] MEDS: guaiFENesin ER 600 MG TAB 1200 MG PO (09:10)
[2020-01-23] MEDS: predniSONE 20 MG TABLET 40 MG PO (09:12)
[2020-01-23] MEDS: ENOXAPARIN 30 MG/0.3 ML SYRINGE SUBCUT (09:13)
[2020-01-23] MEDS: FELODIPINE ER 5 MG TAB 10 MG PO (09:14)
[2020-01-23] MEDS: AZITHROMYCIN 250 MG TABLET 500 MG PO (09:17)
--- NOTE | 2020-01-23 15:59 | PM.DS.1 ---
History of Present Illness History of Present Illness Date Patient Seen: 01/21/20 Chief complaint: SOB/ COUGH 4-5X DAYS Narrative: Written by Dr. James: Patient is a 74-year-old male with history of asthma, hypertension, hyperlipidemia, W[place], hypothyroidism presented to emergency department with complaints of shortness of breath and cough for the past 4-5 days. He states he had a fever on the 1st day but subsequently no fever. He has been using his albuterol inhaler without relief. He has had fatigue but denies myalgias. Denies headache, sore throat, nausea, vomiting or diarrhea. He denies recent travel or known exposure to novel gray virus. On ER evaluation, he was noted to have labored breathing with respiratory rate 20-30. O2 sat was 95% on room air. Showed right upper lobe airspace disease. Chest CT noncontrast showed patchy bilateral consolidation in the right upper, right lower and left lower lobes. His WBC was normal with lymphopenia and 5% atypical lymphocytes and toxic granulation. He also appeared in acute renal failure with BUN 26 and creatinine 1.81 versus prior baseline of BUN 21 and creatinine 1.1 on 11/17/2016. His NT proBNP was elevated at 1100 without clinical signs of CHF. His CRP was elevated at 5.6 and ferritin normal at 154. His procalcitonin is less than 0.05. Discharge Providers Provider Date of admission: 01/22/20 16:30 Discharge Date: 01/23/20 Primary care physician: Dayana Acevedo DO Discharge provider: Sammie Morales DO Summary Hospital Course Hospital Course: Prosper Borden is a 74-year-old male with a past medical history significant for hypertension, hyperlipidemia, previous [place], hypothyroidism and asthma who presented to ED with complaints of shortness of breath and cough for the past 4-5 days. 1. Acute human metapneumovirus viral pneumonia, present on admission. Improving. -Patient presented with classic findings of COVID- 19 viral infection with 4-5 days of respiratory symptoms, initial fever now resolved, bilateral infiltrates on chest x-ray, acute kidney injury, normal total WBC, with procalcitonin less than 0.05. Patient has asthma as comorbidity. -Respiratory PCR positive for human metapneumovirus. Influenza a and B negative. Coronavirus PCR pending and will call patient with results. -Continued supportive care with Mucinex 1200 mg twice daily and Acapella 10x every 1 hour while awake. -Received azithromycin 500 mg daily x 2 doses for pulmonary anti-inflammatory effects and early studies showing improvement with COVID-19 infection. -Continued airborne and droplet precautions with negative pressure isolation. 2. Asthma with exacerbation, present on admission. Resolving. -Received Solu-Medrol 125 mg in the ED. Held any additional steroid initially due to possibility that steroid therapy may worsen COVID-19 viral pneumonia. However, patient continued to have significant wheezing and started prednisone 40 mg daily for 5 days. -Continued respiratory therapy evaluation and treatment. Continued Combivent Respimat 2 puffs every 4 hours and albuterol every 2 hours as needed for shortness of breath or wheezing. Ordered supplemental oxygen as necessary to maintain oxygen saturations 88-92% which the patient did not require. -Received azithromycin 500 mg daily x2 doses for pulmonary anti-inflammatory effects and early studies showing improvement with COVID-19 infection. 3. Acute kidney injury versus chronic kidney disease stage 3, present on admission. Resolving. -Possibly bilingual sales representative of acute kidney injury and secondary to prerenal azotemia from acute viral illness versus chronic kidney disease as baseline creatinine over the last 2 years is unknown. -Initial creatinine 1.81 and trended up to 1.91. Unclear baseline creatinine as most recent at [facility] was 1.10 in 11/17/2016. Requested records from PCP's office for which patient had creatinine of 1.35 in 10/2018. Creatinine now trending down and currently 1.8. -Continued to avoid nephrotoxic agents. -Received 1 L NS bolus in the ED and additional 1 L of normal saline at 100 mL/hr help improve renal function. Held off on further IV fluid hydration as there is some evidence IV fluid hydration may worsen respiratory failure in COVID 19 viral pneumonia and it is better to keep these patients on the dry side. -Continued to encourage p.o. fluid intake. -Held lisinopril until patient is able to follow-up with PCP and have renal function rechecked. -Continued to monitor renal function daily. -Recommend repeat BMP in 1 week to assess renal function and potassium level. 4. Hypertension, chronic, present on admission. Stable. -Patient mildly hypertensive but stable. -Continued felodipine ER 10 mg daily. Held lisinopril until patient is able to follow-up with PCP and have renal function rechecked. Ordered labetalol 10 mg IV as needed for SBP > 180 mmHg sustain for 15 minutes and HR > 60 bpm. 5. Possible history of CAD. -Patient states he has had [place] in the past but no history of stents and is not on daily aspirin. -Continued atorvastatin 20 mg daily. 6. Hypothyroidism, chronic, present on admission. Stable. -Continued levothyroxine 200 mcg daily. 7. Glaucoma, chronic, present on admission. Stable. -Continued home eye drops. Exam Vital Signs (past 8 hours): - 01/23/20 09:00 01/23/20 11:15 01/23/20 11:54 Temperature 97.7 F Pulse Rate 57 L 55 L Respiratory Rate 22 18 Blood Pressure 174/101 H Pulse Oximetry 96 95 97 Oxygen Delivery Method Room Air Oxygen Flow Rate 0 Narrative Exam Narrative: General: Older gentleman sitting in bed and in no acute distress, well-developed, well-nourished, appropriately interactive. HEENT: Normocephalic, atraumatic. External ears without defect. Pupils equal, round, and reactive to light. Anicteric sclerae, moist conjunctivae, and no lid lag. Neck: Supple with full range of motion. No jugular venous distension. No bruits. No lymphadenopathy or thyromegaly. Cardiovascular: Regular rate and rhythm without murmurs, rubs, or gallops appreciated. Pulmonary: Aeration improved with scattered rhonchi with occasional wheeze. Normal respiratory effort with no use of accessory muscles. Abdomen: Soft, obese, bowel sounds present, nontender, nondistended. No hepatosplenomegaly or masses appreciated. Extremities: No clubbing, cyanosis, or edema. Skin: Normal temperature, turgor, and texture; no rash, ulcers, or subcutaneous nodules appreciated. Neurological: Cranial nerves grossly intact. Psychiatric: Normal mood and affect. Alert and oriented to person, place, and time. Objective Labs Result Diagrams: 01/23/20 05:27 01/23/20 07:30 Labs: Laboratory Results - last 24 hr 01/22/20 01/23/20 01/23/20 16:43 05:27 05:27 WBC 8.8 RBC 4.27 L Hgb 13.3 L Hct 40.1 L MCV 93.9 MCH 31.3 MCHC 33.3 RDW 13.7 Plt Count 178 Neut % (Auto) 88.2 H Lymph % (Auto) 7.0 L Greeley % (Auto) 4.3 Eos % (Auto) 0.0 L Baso % (Auto) 0.5 Neut # (Auto) 7700 H Lymph # (Auto) 600 L Greeley # (Auto) 400 Eos # (Auto) 0 Baso # (Auto) 0 Sodium Potassium Chloride Carbon Dioxide BUN Creatinine Estimated GFR BUN/Creatinine Ratio Glucose Calcium Magnesium Total Bilirubin AST ALT Alkaline Phosphatase Total Protein Albumin Globulin Albumin/Globulin Ratio Procalcitonin < 0.05 Chlamy pneumoniae PCR Not detected Adenovirus (PCR) Not detected B.parapertussis DNA PCR Not detected Coronavirus OC43 (PCR) Not detected Coronavirus HKU1 (PCR) Not detected Coronavirus 229E (PCR) Not detected Coronavirus NL63 (PCR) Not detected Human Metapneumovir PCR Detected H Influenza Type A (PCR) Not detected Influenza Type B (PCR) Not detected M. pneumoniae (PCR) Not detected Parainfluenza 1 (PCR) Not detected Parainfluenza 2 (PCR) Not detected Parainfluenza 3 (PCR) Not detected Parainfluenza 4 (PCR) Not detected RSV (PCR) Not detected Entero/Rhino (PCR) Not detected 01/23/20 01/23/20 05:27 07:30 WBC RBC Hgb Hct MCV MCH MCHC RDW Plt Count Neut % (Auto) Lymph % (Auto) Greeley % (Auto) Eos % (Auto) Baso % (Auto) Neut # (Auto) Lymph # (Auto) Greeley # (Auto) Eos # (Auto) Baso # (Auto) Sodium 138 137 Potassium 6.2 H 5.4 H Chloride 107 106 Carbon Dioxide 23 24 BUN 33 H 33 H Creatinine 1.88 H 1.80 H Estimated GFR 35.1 L 36.9 L BUN/Creatinine Ratio 17.6 18.3 Glucose 132 H 133 H Calcium 7.9 L 8.3 L Magnesium 2.3 Total Bilirubin 0.3 AST 29 ALT 20 Alkaline Phosphatase 40 Total Protein 6.5 Albumin 3.4 L Globulin 3.1 Albumin/Globulin Ratio 1.1 Procalcitonin Chlamy pneumoniae PCR Adenovirus (PCR) B.parapertussis DNA PCR Coronavirus OC43 (PCR) Coronavirus HKU1 (PCR) Coronavirus 229E (PCR) Coronavirus NL63 (PCR) Human Metapneumovir PCR Influenza Type A (PCR) Influenza Type B (PCR) M. pneumoniae (PCR) Parainfluenza 1 (PCR) Parainfluenza 2 (PCR) Parainfluenza 3 (PCR) Parainfluenza 4 (PCR) RSV (PCR) Entero/Rhino (PCR) Discharge Plan Discharge Plan Patient Disposition: Home Discharge comment: You are being discharged home. You have human metapneumovirus viral pneumonia which is a flu-like illness for which there is no treatment other than symptomatic support. You have been prescribed prednisone 40 mg daily for 3 additional days to complete treatment for asthma exacerbation. You are also being ruled out for novel coronavirus. You will need to remain in self isolation until your test has resulted which we will call you with your results or until you're at least 3 days without fever (without the aid of medication such as Tylenol or Ibuprofen), you have improvement in your respiratory symptoms, and 7 days have elapsed since your symptoms first developed. If you go out into public after this you will need to wear mask at all times until your symptoms have resolved or until 14 days after illness onset unless your test is negative. Please try to stay well hydrated get plenty of rest. You may take Tylenol as directed on bottle and as needed for fever and/or muscle aches. Please do not take ibuprofen or any NSAID as early studies show this has been associated with bad outcomes in novel coronavirus. Please follow-up with your PCP in the next 1-2 weeks and have your kidney function checked to make sure this is back to normal. Your kidney function has slightly worsened likely due to viral infection . Please do not take your lisinopril until you follow-up with your PCP and have your kidney function re-evaluated. Discharge orders & Medications Prescriptions: New prednisone 20 mg Tablet 40 mg PO DAILY Qty: 6 RF: 0 benzonatate 100 mg Capsule 100 mg PO TID PRN (Reason: Cough) Qty: 20 RF: 0 guaifenesin [Mucus Relief ER] 600 mg Tablet Extended Release 12hr 1,200 mg PO BID Qty: 20 RF: 0 Continued atorvastatin 20 mg tablet 20 mg PO DAILY RF: 0 felodipine 10 mg tablet extended release 24 hr 10 mg PO DAILY RF: 0 levothyroxine 200 mcg tablet 200 mcg DAILY RF: 0 albuterol sulfate 90 mcg/actuation HFA aerosol inhaler See Rx Instructions .ROUTE .COMPLEX RF: 0 latanoprost 0.005 % drops See Rx Instructions .ROUTE .COMPLEX RF: 0 dorzolamide-timolol 22.3-6.8 mg/mL drops See Rx Instructions .ROUTE .COMPLEX RF: 0 Discontinued lisinopril 40 mg tablet 40 mg PO DAILY RF: 0 Other Ambulatory Orders: Basic Metabolic Panel (Stat) Timeframe: 1 Week Facility: [facility] - Location: Laboratory Ordered By: Sammie Morales Follow up/Referrals: Dayana Acevedo DO [Primary Care Provider] - 1 Week Diet/Activity/Treatments Diet: Low-fat, Low-sodium and Low-cholesterol Activity: Activity as tolerated Visit Report/Discharge Packet Instructions: DI for Viral Syndrome Discharge Data Primary Care Provider: Dayana Acevedo Quality VTE Deep Vein Thrombosis/Pulmonary Embolism Present on Admission: No
--- NOTE | 2020-01-23 18:33 | PC.NURSE ---
Patient discharged via private vehicle. Was given discharge instructions, including information for scheduled PCP appointment, and new prescriptions. took patient's belonginings. IV was removed, no tele. Inhaler was given to take home and instructed to use Q6HR until it runs out. Patient was instructed to self-isolate and that he would be contacted with results to the COVID test. Patient had no further questions and no concerns or complaints.
[2020-01-24 04:22] LABS: COVID19 Sendout Not Detected (Not Detected)
== END 2020-01-23 18:36 | disposition home or self-care (01) | DRG 194 ==
LOC: ED 07:50 → AC 01-22 09:41
PROVIDERS: Internal Medicine; Admitting Provider Internal Medicine; Emergency Provider Emergency Medicine; Family Provider Family Medicine; PCP Family Medicine; Referring Provider Emergency Medicine; Visit Provider Internal Medicine
DX: J12.3 Human metapneumovirus pneumonia (principal); J45.901 Unspecified asthma with (acute) exacerbation; N17.9 Acute kidney failure, unspecified; H40.9 Unspecified glaucoma; E03.9 Hypothyroidism, unspecified; I12.9 Hypertensive chronic kidney disease with stage 1 through stage 4 chronic kidney disease, or unspecified chronic kidney disease; N18.3 Chronic kidney disease, stage 3 (moderate); I25.10 Atherosclerotic heart disease of native coronary artery without angina pectoris; E78.5 Hyperlipidemia, unspecified; Z03.818 Encounter for observation for suspected exposure to other biological agents ruled out
CPT/HCPCS: 36415; 71045; 71250; 80048; 80053; 82550; 82553; 82728; 83605; 83735; 83880; 84145; 84484; 85025; 86140; 87040; 87502; 87633; 87635; 93005; 94640; 94660; 96361; 96374; 99284; G0378; J1650; J2930

== ENCOUNTER → 2020-06-24 08:46 | Outpatient (CLI) | payer MEDICARE, OTHER, SELFPAY ==
[2020-01-21 11:53] VITALS: BMI 39.9
--- NOTE | 2020-06-24 | DI.CT.S_ITS ---
PROCEDURE: CT CHEST WO CON INDICATIONS: Shortness of breath,Pneumonia, unspecified organis TECHNIQUE: Noncontrast 5 mm thick sections acquired from the pulmonary apices to the posterior costophrenic angles. 1 mm lung window, 5 mm thick coronal and sagittal and 7 mm axial MIP reformats were then acquired. For radiation dose reduction, the following was used: automated exposure control, adjustment of mA and/or kV according to patient size. COMPARISON: [facility], CT, CT CHEST WO CON, 01/21/2020, 8:59. FINDINGS: Image quality: Excellent. Lungs and pleura: No acute air space opacities, and there has been resolution of the patchy bibasilar pneumonia pattern, previously present 01/21/20. A partially calcified granuloma is again seen at the deep costophrenic sulcus on the left posteriorly. No pleural effusions or pneumothorax. Chronic mild interstitial prominence is present in the setting of cardiomegaly to the degree that this likely represents a sequela of prior CHF. Central and peripheral airways are patent and normal in caliber. Mediastinum: Heart size is mildly enlarged, chronically. No pericardial effusion. No mediastinal adenopathy by size criteria. Thoracic aorta and central pulmonary arteries are normal in size. Esophagus is normal in caliber. No hiatal hernia. Bones and chest wall: No suspicious bony lesions. No vertebral body compression fractures. No axillary or supraclavicular adenopathy by size criteria. Thyroid gland is not well seen. Abdomen: Visualized upper abdominal solid organs and bowel loops appear normal in the absence of contrast. IMPRESSION: Resolution of prior patchy bilateral pneumonia pattern, no new pneumonia found. Chronic mild interstitial prominence in the setting of cardiomegaly may reflect sequela of prior CHF episodes. No pulmonary fibrosis found. Dictated by: Gomez Yoon M.D. on 06/24/2020 at 12:06 Approved by: Gomez Yoon M.D. on 06/24/2020 at 12:13
--- NOTE | 2020-06-24 | DI.ECHO.S_ITS ---
[facility] +---------+ Hospital +---------+ : : [address] : : : : [id number] : : : : Phone: [phone]+ Echocardiogram Report + + :Name: BELKIS CALVERT Study Date: 06/24/2020 Height: 69 in : :[facility] Weight: 260 lb : : Gender: Male BSA: 2.3 m2 : :: 1945 Age: 74 yrs BP: 165/80 mmHg: :Reason For Study: SHORTNESS OF BREATH, PNEUMONIA : : Performed By: Yadira Campos : :Referring: DONG ROOSCO : + + Interpretation Summary The ejection fraction is estimated to be 60-65%. The left atrium is severely dilated. There is mild mitral regurgitation. There is mild aortic regurgitation. Procedure: A two-dimensional transthoracic echocardiogram with color flow and Doppler was performed. The study quality was technically adequate. Comparison is made with the echocardiogram of 12/17/2015. The patient was in sinus bradycardia with heart rates between 47-54 bpm during the exam. Left Ventricle: The left ventricle is normal in size. There is mild concentric left ventricular hypertrophy. The ejection fraction is estimated to be 60-65%. Left ventricular global longitudinal strain average is 20.2%. There has been no significant change since the previous exam. Left ventricular wall motion is normal. Diastolic parameters suggest a pseudonormalization pattern, consistent with probable elevated filling pressures. Right Ventricle: The right ventricle is normal in size and function. Atria: The left atrium is severely dilated. Right atrial size is normal. There is no Doppler evidence for an interatrial shunt. Mitral Valve: The mitral valve is normal in structure and function. There is mild mitral annular calcification. There is mild mitral regurgitation. Aortic Valve: The aortic valve is trileaflet. The aortic valve is mildly calcified. There is no aortic valve stenosis. There is mild aortic regurgitation. Tricuspid Valve: The tricuspid valve is normal in structure and function. Pulmonary artery pressures cannot be estimated because of the lack of a measurable TR jet velocity but the IVC suggests a CVP of around 3 mmHg. There is trace tricuspid regurgitation. Pulmonic Valve: The pulmonic valve leaflets are thin and pliable; valve motion is normal. There is a trace or physiologic amount of pulmonic regurgitation. Great Vessels: The aortic root is normal size. The ascending aorta is mildly enlarged. The IVC is of normal diameter and collapses greater than 50% with a sniff. This suggests a low right atrial pressure of 3 mm Hg. Pericardium/ Pleura There is no pericardial effusion. There is no pleural effusion. MMode/2D Measurements & Calculations LVIDd: 5.3 cm LVOT diam: 2.3 cm LVIDs: 3.5 cm Ao root diam: 3.7 cm FS: 34.6 % asc Aorta Diam: 3.6 cm EPSS: 1.1 cm Ao Arch Diam (Prox Trans): 3.1 cm IVSd: 1.3 cm LVPWd: 1.4 cm LV rodgers. diameter/BSA (cm/m^2): 2.3 LV sys. diameter/BSA (cm/m^2): 1.5 LA A2 area: 28.7 cm2 RA long axis: 6.2 cm LA A4 area: 32.4 cm2 RA area: 18.2 cm2 LA length (vol): 7.1 cm RA vol: 45.5 ml LA vol: 111.4 ml RA : 19.7 ml/m2 LA vol index: 48.2 ml/m2 IVC diam: 1.8 cm RVD1 (basal): 3.6 cm TAPSE: 2.5 cm Doppler Measurements & Calculations Ao V2 max: 166.8 cm/sec LVOT Max Marcelino: 111.2 cm/sec Ao V2 mean: 103.8 cm/sec LV V1 max P.9 mmHg Ao max P.1 mmHg LV V1 VTI: 26.7 cm Ao mean P.2 mmHg LEONIDES(I,D): 2.9 cm2 Ao V2 VTI: 39.5 cm LEONIDES(V,D): 2.8 cm2 sev ratio: 0.68 LEONIDES indexed to BSA (cm^2/m^2): 1.2 AI P1/2t: 591.0 msec AI dec slope: 197.0 cm/sec2 MV E max marcelino: 92.2 cm/sec PA V2 max: 95.4 cm/sec MV A max marcelino: 73.5 cm/sec PA V2 mean: 68.5 cm/sec MV E/A: 1.3 PA mean P.0 mmHg Med Peak E' Marcelino: 4.8 cm/sec PA pr(Accel): 46.5 mmHg E/E' med: 19.3 Lat Peak E' Marcelino: 5.3 cm/sec E/E' lat: 17.3 E/e' average: 18.3 MV dec time: 0.24 sec SV(LVOT): 113.6 ml Reading Physician:02:00 PM
== END ==
PROVIDERS: Family Provider Family Medicine; PCP Family Medicine; Referring Provider Internal Medicine Critical Care Medicine; Visit Provider Internal Medicine Critical Care Medicine
DX: I08.0 Rheumatic disorders of both mitral and aortic valves (principal); I77.89 Other specified disorders of arteries and arterioles; J18.9 Pneumonia, unspecified organism; R06.02 Shortness of breath
CPT/HCPCS: 71250; 93306

== ENCOUNTER → 2020-06-25 08:30 | Outpatient (CLI) | payer MEDICARE, OTHER, SELFPAY ==
[2020-01-21 11:53] VITALS: BMI 39.9
[2020-06-26 09:23] LABS: COVID19 Sendout Not Detected (Not Detect)
== END ==
PROVIDERS: Family Provider Family Medicine; PCP Family Medicine; Visit Provider Physician Assistant
DX: Z11.59 Encounter for screening for other viral diseases (principal)
CPT/HCPCS: 87635

== ENCOUNTER → 2020-06-28 08:25 | Outpatient (CLI) | payer MEDICARE, OTHER, SELFPAY ==
[2020-01-21 11:53] VITALS: BMI 39.9
--- NOTE | 2020-07-03 10:26 | PM.PFT.1 ---
Pulmonary Function Test Referral & Results Date Patient Seen: 06/28/20 Requesting provider: Ludwig Lock Indication: Asthma Results: The spirometry demonstrates an FVC of 2.45 L which is 60% of predicted. The FEV1 was measured at 1.55 L which is 53% of predicted. The FEV1/FVC ratio was 63 which is 87% of predicted. Following the administration of bronchodilator there was a 42% improvement in FEF 25-75%. Lung volumes show an SVC of 2.62 L which is 60% of predicted. The diffusing capacity was measured at 20.11 which is 64% of predicted. No hemoglobin value was provided, so no correction for potential anemia could be made, if appropriate. The maximum voluntary ventilation was reduced Interpretation: This study demonstrates mild to moderate obstructive lung disease with evidence of limited benefit following bronchodilator, particularly small airway flow based on improvement in FEF 25-75% There is also moderate restrictive lung disease present based on reduction SVC There is also reduction in diffusing capacity suggesting disease at the capillary alveolar level
== END ==
PROVIDERS: Family Provider Family Medicine; PCP Family Medicine; Referring Provider Family Medicine; Visit Provider Internal Medicine Critical Care Medicine
DX: J45.20 Mild intermittent asthma, uncomplicated (principal)
CPT/HCPCS: 94060; 94726; 94729

== ENCOUNTER → 2020-09-09 14:38 | Outpatient (CLI) | payer MEDICARE, OTHER, SELFPAY ==
[2020-01-21 11:53] VITALS: BMI 39.9
[2020-09-09 16:35] LABS: COVID19 -Nasal RAPID Negative (Negative)
== END ==
PROVIDERS: Family Provider Family Medicine; PCP Family Medicine; Visit Provider Physician Assistant
DX: Z11.59 Encounter for screening for other viral diseases (principal)
CPT/HCPCS: 87635

== ENCOUNTER → 2020-09-10 10:43 | Outpatient (CLI) | payer MEDICARE, OTHER, SELFPAY ==
[2020-01-21 11:53] VITALS: BMI 39.9
--- NOTE | 2020-09-12 04:17 | DI.NM.S_ITS ---
DATE OF SERVICE: 09/11/2020 ORDERING PROVIDER: Rosalie Powell M.D. INDICATIONS: The patient is a 75-year-old obese male with a history of CAD and dyspnea. CARDIAC STRESS: The patient was initially stressed on the treadmill, but was unable to obtain an adequate heart rate response and therefore was converted to a pharmacologic stress test after 4 minutes 30 seconds of exercise with the infusion of 0.4 mg of regadensonon. With this, he had a normal hemodynamic response. He had no chest discomfort, but had significant dyspnea. His resting ECG shows sinus rhythm with an incomplete RBBB. There were no significant ST- segment shifts with stress. He had rare isolated PVCs, but no concerning arrhythmias. Per protocol, 27.5 millicuries of technetium-99 Myoview were injected and the patient was imaged 15 minutes later using a gated SPECT acquisition protocol. He returned the following day and was reinjected with an additional 25.2 millicuries of technetium-99 Myoview and was imaged 30 minutes later, again using a gated SPECT acquisition protocol. FINDINGS: 1. Raw Data: There is marginal image quality in part because of the patient's large size. He was unable to lie prone. The lung/heart ratio was normal at 0.39 with a TID ratio of 0.92. 2. Quantitated Gated SPECT: Post-stress ejection fraction is estimated at 69% without any focal wall motion abnormality, and specifically the inferior wall has normal contractility. The resting ejection fraction is 66%. Left ventricular volumes are moderately increased with a resting end-diastolic volume of 172 mL. 3. Myocardial Perfusion Imaging: Post-stress supine images show a fairly normal myocardial perfusion pattern with a subtle diffuse decrease in tracer activity in the proximal to mid inferior wall in a pattern that would be consistent with diaphragmatic attenuation. Unfortunately, prone imaging was not available to assess for this. The resting images show an identical perfusion pattern without any areas of improvement and specifically in the inferior wall. IMPRESSION: 1. Probable normal myocardial effusion study for ischemia. 2. Subtle, diffuse fixed inferior defect that likely represents attenuation artifact given the absence of any wall motion abnormality, although prone images are not available and a previous nontransmural infarction cannot be entirely excluded. There is no evidence for any myocardial ischemia. 3. Normal left ventricular systolic function with moderately increased left ventricular volumes. 4. Reduced exercise capacity, but no angina or ECG evidence of ischemia with pharmacologic vasodilator stress. He had rare isolated PVCs, but no concerning arrhythmias. Prosper Borden - KISHAN/karishma/doris doc#: [id number]/job#: [id number] dd: 09/11/2020 13:07:00 dt: 09/11/2020 14:26:00 DICTATING MD/COPIES TO: Chilo Pastrana MD; Rosalie Powell MD; Dayana Acevedo DO COPIES MNE: ALBERT; ;
== END ==
PROVIDERS: Family Provider Family Medicine; PCP Family Medicine; Referring Provider Internal Medicine Cardiovascular Disease; Visit Provider Internal Medicine Cardiovascular Disease
DX: I25.10 Atherosclerotic heart disease of native coronary artery without angina pectoris (principal); I47.2 Ventricular tachycardia; I48.0 Paroxysmal atrial fibrillation; E66.9 Obesity, unspecified
CPT/HCPCS: 78452; 93017; A9502; J2785

== ENCOUNTER 2020-12-10 13:43 | Observation (INO) | payer MEDICARE, OTHER, SELFPAY ==
[2020-01-21 11:53] VITALS: BMI 39.9
[2020-12-10] VITALS (8 sets, daily range): BP systolic 139–196; BP diastolic 64–89; PULSE 49–62; RESP 18–25; TEMP 36.1–37.1; O2SAT 96–98; BMI 38.5
--- NOTE | 2020-12-10 14:00 | DI.RAD.S_ITS ---
PROCEDURE: XR CHEST 1V INDICATIONS: chest pain TECHNIQUE: One view of the chest was acquired. COMPARISON: [facility], CR, XR CHEST 1V, 01/21/2020, 8:30. FINDINGS: Surgical changes and devices: None. Lungs and pleura: Lungs are clear. No pleural effusions or pneumothorax. Mediastinum: Mediastinal contours appear normal. Heart size is normal. Bones and chest wall: No suspicious bony lesions. Overlying soft tissues appear unremarkable. IMPRESSION: No acute process. Dictated by: Hailey Guajardo M.D. on 12/10/2020 at 14:24 Approved by: Hailey Guajardo M.D. on 12/10/2020 at 14:24
--- NOTE | 2020-12-10 14:16 | DI.CT.S_ITS ---
PROCEDURE: CT HEAD/BRAIN WO CON INDICATIONS: L sided numbness and tingling x 3 days. TECHNIQUE: Noncontrast 4.5 mm thick angled axial sections acquired from the foramen magnum to the vertex, with coronal and sagittal reformats. For radiation dose reduction, the following was used: automated exposure control, adjustment of mA and/or kV according to patient size. COMPARISON: [facility], MR, STROKE PROTOCOL, 12/17/2015, 11:23. [facility], CT, HEAD WITHOUT CONTRAST, 11/05/2013, 20:32. [facility], CT, HEAD WITHOUT CONTRAST, 07/05/2014, 7:26. [facility], CT, HEAD WITHOUT CONTRAST, 12/16/2015, 23:23. FINDINGS: Image quality: Excellent. CSF spaces: Basal cisterns are patent. No extra-axial fluid collections. The ventricles are symmetric in size and shape. Brain: No intracranial bleeds or masses. There is cerebral volume loss for age, with resultant ventricular and sulcal prominence. There are periventricular and deep white matter chronic small vessel ischemic changes. There is intracranial internal carotid artery atherosclerosis. Skull and face: Calvarium and visualized facial bones appear intact, without suspicious lesions. Sinuses: Visualized sinuses and mastoids are clear. IMPRESSION: No imaging explanation is found for the patient's presenting symptoms. If there is strong clinical suspicion for an acute stroke, please consider an MRI for further evaluation, as it is more sensitive (assuming that there is no contraindication to MRI). Note is made of age-appropriate brain parenchymal volume loss and chronic small vessel ischemic changes. Dictated by: Jovanny Lombardi M.D. on 12/10/2020 at 14:13 Approved by: Jovanny Lombardi M.D. on 12/10/2020 at 14:16
--- NOTE | 2020-12-10 14:18 | ED.CHESTPAIN ---
HPI - Chest Pain <Teena SeguraCOREY - Last Filed: 12/10/20 16:35> General Chief Complaint: Chest Pain Stated Complaint: LEFT SIDE NUMBNESS AND CHEST PRESSURE Time Seen by Provider: 12/10/20 14:01 Source: patient Mode of arrival: Ambulatory Limitations: no limitations History of Present Illness HPI narrative: 75yo male with a history of hypertension, HLD, TIA, ME, and AFib on apixaban, presents to the emergency department for left-sided numbness and tingling for the past 3 days. Patient states this started 3 days ago on Wednesday in the numbness and tingling has slowly improved. He also developed constant substernal chest pressure at the same time. He denies any aggravating or alleviating factors to his chest pressure, denies any worsening with activity or resolution with rest. Patient states the chest pressure has remained the same. He denies any fevers, chills, shortness of breath, nausea, vomiting, diarrhea, vision changes, dizziness, facial droop, difficulty speaking, difficulty swallowing, or any other concerns. Patient states he started a new medication, ezetimibe, on Nov 20 for cholesterol. Related Data Home Medications Medication Instructions Recorded Confirmed albuterol sulfate 2 puff INHALATION Q4H PRN 01/21/20 12/10/20 atorvastatin 20 mg PO DAILY 01/21/20 12/10/20 felodipine 10 mg PO DAILY 01/21/20 12/10/20 latanoprost See Rx Instructions .ROUTE .COMPLEX 01/21/20 12/10/20 levothyroxine 200 mcg DAILY 01/21/20 12/10/20 apixaban 5 mg PO BID 12/10/20 12/10/20 aspirin 81 mg PO DAILY 12/10/20 12/10/20 dorzolamide 1 drp OPHTHALMIC (EYE) TID 12/10/20 12/10/20 finasteride 5 mg PO DAILY 12/10/20 12/10/20 fluticasone propion-salmeterol 1 inh INHALATION BID 12/10/20 12/10/20 [Advair Diskus] fluticasone propionate 2 spray INTRANASAL BEDTIME 12/10/20 12/10/20 hydralazine 10 mg PO TID 12/10/20 12/10/20 hydrochlorothiazide 25 mg PO DAILY 12/10/20 12/10/20 metoprolol succinate 25 mg PO BID 12/10/20 12/10/20 prednisolone acetate 1 drp EYE-LEFT QID 12/10/20 12/10/20 tamsulosin 0.8 mg PO BEDTIME 12/10/20 12/10/20 trospium 20 mg PO DAILY 12/10/20 12/10/20 Allergies Allergy/AdvReac Type Severity Reaction Status Date / Time No Known Drug Allergies Allergy Verified 06/25/20 09:26 Review of Systems <COREY Wagner - Last Filed: 12/10/20 16:35> Review of Systems Narrative: REVIEW OF SYSTEMS: GENERAL: Denies fevers. HENT: No head trauma. CARDIOVASCULAR: Reports chest pressure, see HPI. RESPIRATORY: No shortness of breath. GASTROINTESTINAL: No nausea or vomiting. MUSCULOSKELETAL: No weakness or injury. INTEGUMENTARY: No rash, lesions, or pruritus. NEURO: Reports numbness and tingling to left side of face, arm, and leg, see HPI. Patient History <COREY Wagner - Last Filed: 12/10/20 16:35> Medical History Atrial fibrillation CAD (coronary artery disease) CKD (chronic kidney disease) HLD (hyperlipidemia) HTN (hypertension) Hypothyroidism TIA (transient ischemic attack) Surgical History H/O knee surgery H/O shoulder surgery Social History household members: spouse Smoking Status: Never smoker Smoking Status: Never smoker alcohol intake frequency: holidays/special occasions only Substance Use Type: does not use Exam <COREY Wagner - Last Filed: 12/10/20 16:35> Initial Vital Signs Initial Vital Signs: Vital Signs Temperature 97.7 F 12/10/20 13:50 Pulse Rate 56 L 12/10/20 13:50 Respiratory Rate 18 12/10/20 13:50 Blood Pressure 196/86 H 12/10/20 13:50 Pulse Oximetry 98 12/10/20 13:50 PHYSICAL EXAMINATION: GENERAL: Awake and alert, answers questions probably. HENT: Normocephalic. Ear canals patent. Oral mucosa is pink and moist. EYES: PERRLA, EOMIs, conjunctiva pink, sclera white, no periorbital swelling. NECK: Full ROM, no midline or spinal tenderness. CARDIOVASCULAR: S1 and S2 sounds normal. Regular rate and rhythm, no murmurs, clicks, or bruits. RESPIRATORY: Normal respiratory rate, trachea midline, airway patent. No stridor, nasal flaring or accessory muscle use. Lungs are clear in all mcclain without wheeze, rhonchi, or crackles. : Abdomen soft without tenderness. MUSCULOSKELETAL: Normal gait and coordination. Equal tone and mass bilaterally. Equal strength bilaterally to upper and lower extremities. No spinal tenderness. EXTREMITIES: CMS intact. Moves all extremities. SKIN: Warm, dry, soft, appropriate color for ethnicity. No lesions, rashes, or wounds to visualized areas. NEURO: Alert and Oriented X 3. GCS: 15. Good coordination. No ataxia, or sensory deficits, or cognitive issues. Light touch sensation intact and equal to lower and upper extremities, sensation intact and equal to face. Cranial Nerves: II: Visual mcclain grossly intact. III & IV & : EOMIs V: Able to open and close jaw. VII: Facial movements symetrical. Able to close eyelids tightly. VIII: Hearing grossly intact, adequate balance. X: Uvula pronation intact. XI: Patient is able to shrug shoulders. XII: Patient is able to stick out tongue and move it side to side. PSYCH: Appropriate affect and mood. <Melanie Sierra DO - Last Filed: 12/11/20 10:03> Initial Vital Signs Initial Vital Signs: Vital Signs Temperature 97.7 F 12/10/20 13:50 Pulse Rate 56 L 12/10/20 13:50 Respiratory Rate 18 12/10/20 13:50 Blood Pressure 196/86 H 12/10/20 13:50 Pulse Oximetry 98 12/10/20 13:50 Scores <COREY Wagner - Last Filed: 12/10/20 16:35> HEART Score Heart Score history: Moderately Suspicious Heart Score EKG: Normal Heart Score Age: > or = 65 years old Heart Score risk factors: > 3 risk factors or hx of atherosclerotic disease Heart Score troponin: < or = to normal limit Heart Score Total: 5 Course <COREY Wagner - Last Filed: 12/10/20 16:35> Course Course Narrative: CT angio vaginally ordered, canceled due to bump in creatinine and decreased GFR. 1524: I spoke with hospitalist, Dr. Pepper, accepts for admission. Requesting MRI brain without. Imaging ordered, patient scheduled for MRI at 1700. 1604: Patient updated on plan of care, consents to admission. Denies any pacemaker or aneurysm clips. Orders Ordered: Acetaminophen (Acetaminophen 325 Mg Tablet) 650 mg PO Q6HR PRN PRN Reason: Fever/Mild Pain (1-3) Albuterol (Albuterol 2.5 Mg/3 Ml Neb (Adult)) 2.5 mg INH [id number] PRN PRN Reason: dyspnea Apixaban (Apixaban 5 Mg Tablet) 5 mg PO BID [facility] Last Admin: 12/11/20 08:26 Dose: 5 mg Documented by: Admin: 12/10/20 20:51 Dose: 5 mg Documented by: TERESA Aspirin (Aspirin Ec 81 Mg Tablet) 81 mg PO DAILY [facility] Last Admin: 12/11/20 08:26 Dose: 81 mg Documented by: MELISSA Atorvastatin Calcium (Atorvastatin 20 Mg Tablet) 20 mg PO DAILY [facility] Last Admin: 12/11/20 08:26 Dose: 20 mg Documented by: MELISSA Dorzolamide/Timolol (Dorzolamide/Timolol Ophth 10 Ml) 1 drops EYE-BOTH TID [facility] Last Admin: 12/11/20 08:24 Dose: 1 drops Documented by: MELISSA Famotidine (Famotidine 20 Mg Tablet) 20 mg PO BEDTIME [facility] Felodipine (Felodipine Er 5 Mg Tab) 10 mg PO DAILY [facility] Last Admin: 12/11/20 08:24 Dose: 10 mg Documented by: MELISSA Finasteride (Finasteride 5 Mg Tablet) 5 mg PO DAILY [facility] Last Admin: 12/11/20 08:26 Dose: 5 mg Documented by: MELISSA Hydralazine HCl (Hydralazine 10 Mg Tablet) 10 mg PO TID [facility] Last Admin: 12/11/20 08:25 Dose: 10 mg Documented by: Admin: 12/10/20 20:52 Dose: 10 mg Documented by: TERESA Hydrochlorothiazide (Hydrochlorothiazide 25 Mg Tablet) 25 mg PO DAILY [facility] Last Admin: 12/11/20 08:26 Dose: 25 mg Documented by: MELISSA Latanoprost (Latanoprost 0.005% Ophth 2.5 Ml) 1 drops EYE-BOTH DAILY [facility] Last Admin: 12/11/20 08:27 Dose: Not Given Documented by: Admin: 12/11/20 01:53 Dose: Not Given Documented by: ASHUTOSH Levothyroxine Sodium (Levothyroxine 100 Mcg Tablet) 200 mcg PO DAILY [facility] Last Admin: 12/11/20 08:26 Dose: 200 mcg Documented by: MELISSA Metoprolol Succinate (Metoprolol Er 25 Mg Tablet) 25 mg PO BID [facility] Last Admin: 12/11/20 08:25 Dose: 25 mg Documented by: Admin: 12/10/20 20:52 Dose: 25 mg Documented by: TERESA Prednisolone Acetate (Prednisolone Ophth Susp) 1 drops EYE-LEFT QID [facility] Last Admin: 12/11/20 08:24 Dose: 1 drop Documented by: Admin: 12/10/20 19:28 Dose: 1 drop Documented by: TERESA Fluticasone/Salmeterol (Fluticasone/Salmeterol 250/50 60 Puff Diskus) 1 puff INH BID [facility] Last Admin: 12/11/20 09:22 Dose: 1 puff Documented by: Admin: 12/10/20 21:23 Dose: Not Given Documented by: IMER Tamsulosin HCl (Tamsulosin 0.4 Mg Capsule) 0.8 mg PO BEDTIME [facility] Last Admin: 12/10/20 20:52 Dose: 0.8 mg Documented by: TERESA Discontinued Medications Albuterol/Ipratropium (Albuterol/Ipratropium 3 Ml Ampul) 3 ml INH RTBID [facility] Last Admin: 12/11/20 09:27 Dose: Not Given Documented by: Admin: 12/10/20 21:23 Dose: Not Given Documented by: IMER Famotidine (Famotidine 20 Mg Tablet) 20 mg PO BID [facility] Last Admin: 12/10/20 20:51 Dose: 20 mg Documented by: TERESA Latanoprost (Latanoprost 0.005% Ophth 2.5 Ml) 1 drops EYE-BOTH .COMPLEX [facility] Last Admin: 12/10/20 23:42 Dose: 1 drops Documented by: ASHUTOSH Consultations Consultation #1: Patient staffed with Dr. Sierra, discussed test, test results, plan of care. Vital Signs Vital signs: Vital Signs - 8 hr 12/10/20 13:50 12/10/20 14:15 12/10/20 14:30 Temperature 97.7 F Pulse Rate 56 L 54 L 49 L Respiratory Rate 18 19 25 H Blood Pressure 196/86 H Pulse Oximetry 98 98 96 12/10/20 14:31 Temperature Pulse Rate 52 L Respiratory Rate 23 Blood Pressure 169/76 H Pulse Oximetry 97 <Melanie Sierra, - Last Filed: 12/11/20 10:03> Orders Ordered: Acetaminophen (Acetaminophen 325 Mg Tablet) 650 mg PO Q6HR PRN PRN Reason: Fever/Mild Pain (1-3) Albuterol (Albuterol 2.5 Mg/3 Ml Neb (Adult)) 2.5 mg INH [id number] PRN PRN Reason: dyspnea Apixaban (Apixaban 5 Mg Tablet) 5 mg PO BID [facility] Last Admin: 12/11/20 08:26 Dose: 5 mg Documented by: Admin: 12/10/20 20:51 Dose: 5 mg Documented by: TERESA Aspirin (Aspirin Ec 81 Mg Tablet) 81 mg PO DAILY [facility] Last Admin: 12/11/20 08:26 Dose: 81 mg Documented by: MELISSA Atorvastatin Calcium (Atorvastatin 20 Mg Tablet) 20 mg PO DAILY [facility] Last Admin: 12/11/20 08:26 Dose: 20 mg Documented by: MELISSA Dorzolamide/Timolol (Dorzolamide/Timolol Ophth 10 Ml) 1 drops EYE-BOTH TID [facility] Last Admin: 12/11/20 08:24 Dose: 1 drops Documented by: MELISSA Famotidine (Famotidine 20 Mg Tablet) 20 mg PO BEDTIME [facility] Felodipine (Felodipine Er 5 Mg Tab) 10 mg PO DAILY [facility] Last Admin: 12/11/20 08:24 Dose: 10 mg Documented by: MELISSA Finasteride (Finasteride 5 Mg Tablet) 5 mg PO DAILY [facility] Last Admin: 12/11/20 08:26 Dose: 5 mg Documented by: MELISSA Hydralazine HCl (Hydralazine 10 Mg Tablet) 10 mg PO TID [facility] Last Admin: 12/11/20 08:25 Dose: 10 mg Documented by: Admin: 12/10/20 20:52 Dose: 10 mg Documented by: TERESA Hydrochlorothiazide (Hydrochlorothiazide 25 Mg Tablet) 25 mg PO DAILY [facility] Last Admin: 12/11/20 08:26 Dose: 25 mg Documented by: MELISSA Latanoprost (Latanoprost 0.005% Ophth 2.5 Ml) 1 drops EYE-BOTH DAILY [facility] Last Admin: 12/11/20 08:27 Dose: Not Given Documented by: Admin: 12/11/20 01:53 Dose: Not Given Documented by: ASHUTOSH Levothyroxine Sodium (Levothyroxine 100 Mcg Tablet) 200 mcg PO DAILY [facility] Last Admin: 12/11/20 08:26 Dose: 200 mcg Documented by: MELISSA Metoprolol Succinate (Metoprolol Er 25 Mg Tablet) 25 mg PO BID [facility] Last Admin: 12/11/20 08:25 Dose: 25 mg Documented by: Admin: 12/10/20 20:52 Dose: 25 mg Documented by: TERESA Prednisolone Acetate (Prednisolone Ophth Susp) 1 drops EYE-LEFT QID [facility] Last Admin: 12/11/20 08:24 Dose: 1 drop Documented by: Admin: 12/10/20 19:28 Dose: 1 drop Documented by: TERESA Fluticasone/Salmeterol (Fluticasone/Salmeterol 250/50 60 Puff Diskus) 1 puff INH BID [facility] Last Admin: 12/11/20 09:22 Dose: 1 puff Documented by: Admin: 12/10/20 21:23 Dose: Not Given Documented by: IMER Tamsulosin HCl (Tamsulosin 0.4 Mg Capsule) 0.8 mg PO BEDTIME [facility] Last Admin: 12/10/20 20:52 Dose: 0.8 mg Documented by: TERESA Discontinued Medications Albuterol/Ipratropium (Albuterol/Ipratropium 3 Ml Ampul) 3 ml INH RTBID [facility] Last Admin: 12/11/20 09:27 Dose: Not Given Documented by: Admin: 12/10/20 21:23 Dose: Not Given Documented by: IMER Famotidine (Famotidine 20 Mg Tablet) 20 mg PO BID [facility] Last Admin: 12/10/20 20:51 Dose: 20 mg Documented by: TERESA Latanoprost (Latanoprost 0.005% Ophth 2.5 Ml) 1 drops EYE-BOTH .COMPLEX [facility] Last Admin: 12/10/20 23:42 Dose: 1 drops Documented by: ASHUTOSH Vital Signs Vital signs: Vital Signs - 8 hr 12/10/20 13:50 12/10/20 14:15 12/10/20 14:30 Temperature 97.7 F Pulse Rate 56 L 54 L 49 L Respiratory Rate 18 19 25 H Blood Pressure 196/86 H Pulse Oximetry 98 98 96 12/10/20 14:31 Temperature Pulse Rate 52 L Respiratory Rate 23 Blood Pressure 169/76 H Pulse Oximetry 97 MDM - Chest Pain <COREY Wagner - Last Filed: 12/10/20 16:35> Medical Records Data Attestation: I reviewed the patient's medical records. Lab Data Attestation: I reviewed the patient's lab results. Result diagrams: 12/11/20 06:24 12/11/20 06:24 Labs: Lab Results 12/10/20 12/10/20 12/10/20 Range/Units 14:10 14:10 14:10 WBC 8.6 (4.5-11.0) X10^3/uL RBC 4.72 (4.5-5.9) X10^6/uL Hgb 14.5 (13.5-17.5) g/dL Hct 43.6 (41-53) % MCV 92.4 (80-100) fL MCH 30.8 (26-34) PG MCHC 33.3 (30-36) % RDW 13.6 (11.6-14.8) % Plt Count 194 (150-400) X10^3/uL Neut % (Auto) 69.1 (50-75) % Lymph % (Auto) 17.0 L (25-40) % Crane % (Auto) 9.0 (3-14) % Eos % (Auto) 4.1 H (2-4) % Baso % (Auto) 0.8 (0-2) % Neut # (Auto) 5900 (0382-5902) /uL Lymph # (Auto) 1500 (0469-9114) /uL Crane # (Auto) 800 (0-900) /uL Eos # (Auto) 400 (0-450) /uL Baso # (Auto) 100 (0-100) /uL PT 16.4 H (10.1-12.7) SECONDS INR 1.4 H (0.9-1.3) APTT 40 H (26.4-36.2) SECONDS Sodium 138 (137-145) mmol/L Potassium 4.5 (3.4-5.1) mmol/L Chloride 102 (98-107) mmol/L Carbon Dioxide 33 H (22-32) mmol/L BUN 32 H (9-20) mg/dL Creatinine 2.58 H (0.66-1.25) mg/dL Estimated GFR 24.3 L (>60) mL/min BUN/Creatinine Ratio 12.4 (6-22) Glucose 101 (80-110) mg/dL Calcium 9.4 (8.4-10.2) mg/dL Total Bilirubin 0.4 (0.2-1.3) mg/dL AST 29 (17-59) IU/L ALT 28 (<50) IU/L Alkaline Phosphatase 46 (38-126) U/L Total Creatine Kinase 64 (55-170) U/L CK-MB (CK-2) TNP CK-MB (CK-2) Rel Index TNP Troponin I 0.012 (0.01-0.034) ng/mL Total Protein 7.6 (6.3-8.2) g/dL Albumin 4.2 (3.5-5.0) g/dL Globulin 3.4 (1.7-4.1) g/dL Albumin/Globulin Ratio 1.2 (1.0-2.8) Lipase 97 (23-300) U/L SARS-CoV-2 (PCR) (Negative) 12/10/20 Range/Units 15:45 WBC (4.5-11.0) X10^3/uL RBC (4.5-5.9) X10^6/uL Hgb (13.5-17.5) g/dL Hct (41-53) % MCV (80-100) fL MCH (26-34) PG MCHC (30-36) % RDW (11.6-14.8) % Plt Count (150-400) X10^3/uL Neut % (Auto) (50-75) % Lymph % (Auto) (25-40) % Crane % (Auto) (3-14) % Eos % (Auto) (2-4) % Baso % (Auto) (0-2) % Neut # (Auto) (5340-4338) /uL Lymph # (Auto) (7854-3661) /uL Crane # (Auto) (0-900) /uL Eos # (Auto) (0-450) /uL Baso # (Auto) (0-100) /uL PT (10.1-12.7) SECONDS INR (0.9-1.3) APTT (26.4-36.2) SECONDS Sodium (137-145) mmol/L Potassium (3.4-5.1) mmol/L Chloride (98-107) mmol/L Carbon Dioxide (22-32) mmol/L BUN (9-20) mg/dL Creatinine (0.66-1.25) mg/dL Estimated GFR (>60) mL/min BUN/Creatinine Ratio (6-22) Glucose (80-110) mg/dL Calcium (8.4-10.2) mg/dL Total Bilirubin (0.2-1.3) mg/dL AST (17-59) IU/L ALT (<50) IU/L Alkaline Phosphatase (38-126) U/L Total Creatine Kinase (55-170) U/L CK-MB (CK-2) CK-MB (CK-2) Rel Index Troponin I (0.01-0.034) ng/mL Total Protein (6.3-8.2) g/dL Albumin (3.5-5.0) g/dL Globulin (1.7-4.1) g/dL Albumin/Globulin Ratio (1.0-2.8) Lipase (23-300) U/L SARS-CoV-2 (PCR) Negative (Negative) Imaging Data Chest x-ray: Radiologist's Impression: [address] [id number] ReportSigned Patient: Prosper Borden RMR#: [id number]: 3Acct:[id number]/Sex: 75 / MDate of Service: 12/10/20Loc: EDAccession Number: [id number] Procedure: XR chest 1V Ordering Provider: Melanie Sierra D.O. PROCEDURE: XR CHEST 1V INDICATIONS: chest pain TECHNIQUE: One view of the chest was acquired. COMPARISON: [facility], , XR CHEST 1V, 01/21/2020, 8:30. FINDINGS: Surgical changes and devices: None. Lungs and pleura: Lungs are clear. No pleural effusions or pneumothorax. Mediastinum: Mediastinal contours appear normal. Heart size is normal. Bones and chest wall: No suspicious bony lesions. Overlying soft tissues appear unremarkable. IMPRESSION: No acute process. Dictated by: Hailey Guajardo M.D. on 12/10/2020 at 14:24 Approved by: Hailey Guajardo M.D. on 12/10/2020 at 14:24 CT scan - head: Radiologist's Impression: [address] [id number] Scan ReportSigned Patient: Prosper Borden R#: [id number]: 1943cct:[id number]/Sex: 75 / MDate of Service: 12/10/20Loc: EDAccession Number: [id number] Procedure: CT head/brain wo con Ordering Provider: Teena Segura PROCEDURE: CT HEAD/BRAIN WO CON INDICATIONS: L sided numbness and tingling x 3 days. TECHNIQUE: Noncontrast 4.5 mm thick angled axial sections acquired from the foramen magnum to the vertex, with coronal and sagittal reformats. For radiation dose reduction, the following was used: automated exposure control, adjustment of mA and/or kV according to patient size. COMPARISON: [facility], , STROKE PROTOCOL, 12/17/2015, 11:23. [facility], CT, HEAD WITHOUT CONTRAST, 11/05/2013, 20:32. [facility], CT, HEAD WITHOUT CONTRAST, 07/05/2014, 7:26. [facility], CT, HEAD WITHOUT CONTRAST, 12/16/2015, 23:23. FINDINGS: Image quality: Excellent. CSF spaces: Basal cisterns are patent. No extra-axial fluid collections. The ventricles are symmetric in size and shape. Brain: No intracranial bleeds or masses. There is cerebral volume loss for age, with resultant ventricular and sulcal prominence. There are periventricular and deep white matter chronic small vessel ischemic changes. There is intracranial internal carotid artery atherosclerosis. Skull and face: Calvarium and visualized facial bones appear intact, without suspicious lesions. Sinuses: Visualized sinuses and mastoids are clear. IMPRESSION: No imaging explanation is found for the patient's presenting symptoms. If there is strong clinical suspicion for an acute stroke, please consider an MRI for further evaluation, as it is more sensitive (assuming that there is no contraindication to MRI). Note is made of age-appropriate brain parenchymal volume loss and chronic small vessel ischemic changes. Dictated by: Jovanny Lombardi M.D. on 12/10/2020 at 14:13 Approved by: Jovanny Lombardi M.D. on 12/10/2020 at 14:16 ECG Data Interpretation: 1354: Sinus rhythm, rate 53, LA interval 222, QTC 424. No ST elevation. Right bundle branch block as noted on previous EKG on 01/21/20. Artifact noted in lead 2 and 3. EKG also viewed by Dr. Sierra per protocol. MDM Narrative Medical decision making narrative: 75-year-old male with HTN, HLD, RF, ME, and past TIA, presents emergency department for left-sided numbness and tingling and constant chest pressure for the past 3 days. Patient's initial cardiac workup is negative for any signs of ACS at this time, EKG without ST depression or elevation. Troponin is negative, 1 troponin was drawn as chest pain has been constant for the past 3 days. Patient does have a heart score of 5 given risk factors, consulted hospitalist for admission to Obs. Dr. Pepper accepted. Left-sided numbness and tingling increases suspicion for an additional TIA. CT without contrast is negative. CT angio was originally ordered but later canceled given patient's creatinine of 2.58 and GFR 24.3. NIH score of 0, light touch sensation remains intact to face, and upper and lower extremities. Consulted with hospitalist, brain without ordered to further investigate possible TIA. It is reassuring that symptoms are improving today however, agree that further imaging and MRI as needed. No signs of infection, patient is hemodynamically stable without fever. He does have a lower heart rate in the 50s which appears to be similar from hospital stay approximately year ago. He is not symptomatic, he is not dizzy at this time. Patient was updated on plan of care, consented to admission and MRI. <Melanie Sierra, DO - Last Filed: 12/11/20 10:03> Lab Data Labs: Lab Results 12/10/20 12/10/20 12/10/20 Range/Units 14:10 14:10 14:10 WBC 8.6 (4.5-11.0) X10^3/uL RBC 4.72 (4.5-5.9) X10^6/uL Hgb 14.5 (13.5-17.5) g/dL Hct 43.6 (41-53) % MCV 92.4 (80-100) fL MCH 30.8 (26-34) PG MCHC 33.3 (30-36) % RDW 13.6 (11.6-14.8) % Plt Count 194 (150-400) X10^3/uL Neut % (Auto) 69.1 (50-75) % Lymph % (Auto) 17.0 L (25-40) % Crane % (Auto) 9.0 (3-14) % Eos % (Auto) 4.1 H (2-4) % Baso % (Auto) 0.8 (0-2) % Neut # (Auto) 5900 (0178-8781) /uL Lymph # (Auto) 1500 (2204-8771) /uL Crane # (Auto) 800 (0-900) /uL Eos # (Auto) 400 (0-450) /uL Baso # (Auto) 100 (0-100) /uL PT 16.4 H (10.1-12.7) SECONDS INR 1.4 H (0.9-1.3) APTT 40 H (26.4-36.2) SECONDS Sodium 138 (137-145) mmol/L Potassium 4.5 (3.4-5.1) mmol/L Chloride 102 (98-107) mmol/L Carbon Dioxide 33 H (22-32) mmol/L BUN 32 H (9-20) mg/dL Creatinine 2.58 H (0.66-1.25) mg/dL Estimated GFR 24.3 L (>60) mL/min BUN/Creatinine Ratio 12.4 (6-22) Glucose 101 (80-110) mg/dL Calcium 9.4 (8.4-10.2) mg/dL Total Bilirubin 0.4 (0.2-1.3) mg/dL AST 29 (17-59) IU/L ALT 28 (<50) IU/L Alkaline Phosphatase 46 (38-126) U/L Total Creatine Kinase 64 (55-170) U/L CK-MB (CK-2) TNP CK-MB (CK-2) Rel Index TNP Troponin I 0.012 (0.01-0.034) ng/mL Total Protein 7.6 (6.3-8.2) g/dL Albumin 4.2 (3.5-5.0) g/dL Globulin 3.4 (1.7-4.1) g/dL Albumin/Globulin Ratio 1.2 (1.0-2.8) Lipase 97 (23-300) U/L SARS-CoV-2 (PCR) (Negative) 12/10/20 Range/Units 15:45 WBC (4.5-11.0) X10^3/uL RBC (4.5-5.9) X10^6/uL Hgb (13.5-17.5) g/dL Hct (41-53) % MCV (80-100) fL MCH (26-34) PG MCHC (30-36) % RDW (11.6-14.8) % Plt Count (150-400) X10^3/uL Neut % (Auto) (50-75) % Lymph % (Auto) (25-40) % Crane % (Auto) (3-14) % Eos % (Auto) (2-4) % Baso % (Auto) (0-2) % Neut # (Auto) (6625-2224) /uL Lymph # (Auto) (2884-4015) /uL Crane # (Auto) (0-900) /uL Eos # (Auto) (0-450) /uL Baso # (Auto) (0-100) /uL PT (10.1-12.7) SECONDS INR (0.9-1.3) APTT (26.4-36.2) SECONDS Sodium (137-145) mmol/L Potassium (3.4-5.1) mmol/L Chloride (98-107) mmol/L Carbon Dioxide (22-32) mmol/L BUN (9-20) mg/dL Creatinine (0.66-1.25) mg/dL Estimated GFR (>60) mL/min BUN/Creatinine Ratio (6-22) Glucose (80-110) mg/dL Calcium (8.4-10.2) mg/dL Total Bilirubin (0.2-1.3) mg/dL AST (17-59) IU/L ALT (<50) IU/L Alkaline Phosphatase (38-126) U/L Total Creatine Kinase (55-170) U/L CK-MB (CK-2) CK-MB (CK-2) Rel Index Troponin I (0.01-0.034) ng/mL Total Protein (6.3-8.2) g/dL Albumin (3.5-5.0) g/dL Globulin (1.7-4.1) g/dL Albumin/Globulin Ratio (1.0-2.8) Lipase (23-300) U/L SARS-CoV-2 (PCR) Negative (Negative) Discharge Plan Departure Patient Disposition: Admitted as Observation Clinical Impression: Numbness and tingling, Chest pressure Acute renal failure Qualifiers: Acute renal failure type: unspecified Qualified Code(s): N17.9 - Acute kidney failure, unspecified Admit Date/Time: 12/10/20 16:10 Admit Provider: Delvin Pepper <Melanie Sierra DO - Last Filed: 12/11/20 10:03> Cosign ED Attending Cosignature Attestation: I was immediately available in the department for consultation. Documentation has been reviewed. Patient case was discussed at length. Patient has had chest pain for 3 days, has had tingling and numbness with otherwise normal NIH/neuro exam, patient is not an appropriate tPA candidate for potential CVA. Head CT is negative, CT angiography cannot be obtained secondary to GFR. Patient's last GFR is approximately a year ago so unclear if this is an acute kidney injury or slowly worsening renal dysfunction. Patient's troponin and EKG do not show any acute changes with 3 days of chest pain/pressure symptoms so ACS is unlikely. Patient was accepted for observation by the hospitalist they did request MRI which was obtained in the emergency department and shows no acute evidence of infarction but with diffuse atrophy and [id number] periventricular deep white matter changes. Were elevated initially but with concern for CVA did not wish to acute lower more than 25% with goal SBP < 185.
[2020-12-10 14:23] LABS: Add Manual Diff / Slide Review NO; Basophils Absolute Auto 100 /uL (0-100); Basophils Percent Auto 0.8 % (0-2); Eosinophils Absolute Auto 400 /uL (0-450); Eosinophils Percent Auto 4.1 % (2-4); Hematocrit 43.6 % (41-53); Hemoglobin 14.5 g/dL (13.5-17.5); Lymphocytes Absolute Auto 1500 /uL (1100-4500); Mean Corpuscular HGB Conc 33.3 % (30-36); Mean Corpuscular Hemoglobin 30.8 PG (26-34); Mean Corpuscular Volume 92.4 fL (80-100); Monocytes Absolute Auto 800 /uL (0-900); Neutrophils Absolute Auto 5900 /uL (1500-7000); Neutrophils Percent Auto 69.1 % (50-75); Platelet Count 194 X10^3/uL (150-400); Red Blood Cell Count 4.72 X10^6/uL (4.5-5.9); Red Cell Distribution Width 13.6 % (11.6-14.8); White Blood Cell Count 8.6 X10^3/uL (4.5-11.0)
[2020-12-10 14:29] LABS: INR 1.4 (0.9-1.3); Prothrombin Time 16.4 SECONDS (10.1-12.7)
[2020-12-10 14:32] LABS: PTT Partial Thromboplastin Tim 40 SECONDS (26.4-36.2)
[2020-12-10 14:37] LABS: Alanine Aminotransferase 28 IU/L (<50); Albumin 4.2 g/dL (3.5-5.0); Albumin Globulin Ratio 1.2 (1.0-2.8); Alkaline Phosphatase 46 U/L (38-126); Aspartate Aminotransferase 29 IU/L (17-59); BUN Creatinine Ratio 12.4 (6-22); Bilirubin Total 0.4 mg/dL (0.2-1.3); Blood Urea Nitrogen 32 mg/dL (9-20); Calcium 9.4 mg/dL (8.4-10.2); Carbon Dioxide 33 mmol/L (22-32); Chloride 102 mmol/L (98-107); Creatine Kinase 64 U/L (55-170); Estimated Glomerular Filt Rate 24.3 mL/min (>60); Globulin 3.4 g/dL (1.7-4.1); Glucose 101 mg/dL (80-110); HEMOLYSIS < 15 (0-50); Lipase 97 U/L (23-300); Potassium 4.5 mmol/L (3.4-5.1); Sodium 138 mmol/L (137-145); Total Protein 7.6 g/dL (6.3-8.2)
[2020-12-10 14:49] LABS: Troponin I 0.012 ng/mL (0.01-0.034)
--- NOTE | 2020-12-10 15:41 | DI.MRI.S_ITS ---
PROCEDURE: MR HEAD/BRAIN WO CON INDICATIONS: L sided numbness, r/o TIA/stroke TECHNIQUE: Non-contrast axial T1 spin echo, axial T2 fast spin echo, sagittal and axial FLAIR, coronal T2 fast spin echo, axial gradient echo, axial diffusion and ADC through the brain. COMPARISON: [facility], CT, CT HEAD/BRAIN WO CON, 12/10/2020, 14:54. FINDINGS: Image quality: Excellent. CSF spaces: Ventricles appear symmetric in size and shape. Basal cisterns are patent. No extra-axial fluid collections. Brain: No intracranial bleeds or mass effects. There is cerebral volume loss for age. There are periventricular and deep white matter chronic small vessel ischemic changes. Brainstem appears normal. Diffusion-weighted images show no acute ischemic insults. No chronic ischemic insults. Normal intravascular flow voids are present. Skull and face: Calvarial bone marrow is normal in signal. Orbits are normal. Sinuses: Sinuses and mastoids are clear. IMPRESSION: 1. No evidence of acute infarction. 2. No evidence of intracranial bleed, midline shift or mass effect. 3. Diffuse atrophy and [id number] periventricular and deep white matter chronic small vessel ischemic changes. Dictated by: Paulo Nagy M.D. on 12/10/2020 at 17:33 Approved by: Paulo Nagy M.D. on 12/10/2020 at 17:35
[2020-12-10 16:35] LABS: COVID19 -Nasal RAPID Negative (Negative)
--- NOTE | 2020-12-10 17:57 | PM.HP.1 ---
History of Present Illness History of Present Illness Date Patient Seen: 12/10/20 Time Patient Seen: 17:57 Chief complaint: LEFT SIDE NUMBNESS AND CHEST PRESSURE Narrative: Prosper Borden is a 75-year-old male with a past medical history of atrial fibrillation on apixaban, CAD, hypertension, hyperlipidemia, TIA, hypothyroid, BPH, COPD, possible CKD who presented with left-sided pins and needle sensation for the past 2 days and substernal chest pressure. The patient denies any focal weakness, numbness, or tingling. He is able to ambulate as much as he usually does, which is not typically far because of bilateral knee and hip pain. Shortly after this he also started complaining of a vague substernal chest pain. He cannot find the words to describe the pain but states that is best described as a pressure like sensation over the middle of his chest. It is been constant, nonradiating, not associated with exertion. He has had no nausea, vomiting, abdominal pain, diaphoresis, nocturia, slow stream. In the emergency room, patient was mildly hypertensive, baseline bradycardic with a rate in the 50s, other vital signs were unremarkable. Initial laboratory evaluation showed an unremarkable CBC. Coagulation studies showed an INR of 1.4, patient is on apixaban. Chemistry revealed a creatinine of 2.58. Last known creatinine was about a year ago at 1.8. Current baseline is unknown. No prior records are available for review, and patient's spouse does not drive in the evening so she is at home. Troponin was within normal limits at 0.012. Lipase was negative. COVID-19 testing was negative. Patient was admitted for further evaluation of possible TIA, chest pain, and mainly possible ZACH. Patient History Medical History Atrial fibrillation CAD (coronary artery disease) CKD (chronic kidney disease) HLD (hyperlipidemia) HTN (hypertension) Hypothyroidism TIA (transient ischemic attack) Surgical History H/O knee surgery H/O shoulder surgery Family & Social History Social History: household members spouse Safety & Behavioral: Feels Safe in Current Yes Environment Been Physically Hurt or No Threatened By a Person Tobacco & Substance use: Smoking Status Never smoker alcohol intake frequency holiday/special occasion Substance Use Type does not use Meds Home Medications and Allergies Home Medications Medication Instructions Recorded Confirmed Type albuterol sulfate 2 puff INHALATION Q4H PRN 01/21/20 12/10/20 History atorvastatin 20 mg PO DAILY 01/21/20 12/10/20 History felodipine 10 mg PO DAILY 01/21/20 12/10/20 History latanoprost See Rx Instructions .ROUTE .COMPLEX 01/21/20 12/10/20 History levothyroxine 200 mcg DAILY 01/21/20 12/10/20 History apixaban 5 mg PO BID 12/10/20 12/10/20 History aspirin 81 mg PO DAILY 12/10/20 12/10/20 History dorzolamide 1 drp OPHTHALMIC (EYE) TID 12/10/20 12/10/20 History finasteride 5 mg PO DAILY 12/10/20 12/10/20 History fluticasone propion-salmeterol 1 inh INHALATION BID 12/10/20 12/10/20 History [Advair Diskus] fluticasone propionate 2 spray INTRANASAL BEDTIME 12/10/20 12/10/20 History hydralazine 10 mg PO TID 12/10/20 12/10/20 History hydrochlorothiazide 25 mg PO DAILY 12/10/20 12/10/20 History metoprolol succinate 25 mg PO BID 12/10/20 12/10/20 History prednisolone acetate 1 drp EYE-LEFT QID 12/10/20 12/10/20 History tamsulosin 0.8 mg PO BEDTIME 12/10/20 12/10/20 History trospium 20 mg PO DAILY 12/10/20 12/10/20 History Allergies Allergy/AdvReac Type Severity Reaction Status Date / Time No Known Drug Allergies Allergy Verified 06/25/20 09:26 Review of Systems Review of Systems Narrative: All other systems reviewed with the patient and are negative unless otherwise stated. Exam Vital Signs (past 8 hours): - 12/10/20 13:50 12/10/20 14:15 12/10/20 14:30 Temperature 97.7 F Pulse Rate 56 L 54 L 49 L Respiratory Rate 18 19 25 H Blood Pressure 196/86 H Pulse Oximetry 98 98 96 12/10/20 14:31 Temperature Pulse Rate 52 L Respiratory Rate 23 Blood Pressure 169/76 H Pulse Oximetry 97 Oxygen Delivery Method Room Air Narrative Exam Narrative: GENERAL APPEARANCE: Well developed, well nourished, obese male with a BMI of 38.5, in no acute distress. SKIN: Inspection of the skin reveals no rashes, ulcerations or petechiae. HEENT: Normocephalic atraumatic, extraocular muscles are intact, oropharynx is clear and mucous membranes are moist, neck is supple without adenopathy NECK: Supple and symmetric. There was no thyroid enlargement, and no tenderness, or masses were felt. CHEST: Normal AP diameter and normal contour without any kyphoscoliosis. LUNGS: Auscultation of the lungs revealed no wheezes, rhonchi, or rales. CARDIOVASCULAR: There was a regular rate and rhythm without any murmurs, gallops, rubs. Peripheral pulses were 2+ and symmetric. ABDOMEN: Soft and nontender with normal bowel sounds. No ascites was noted. MUSCULOSKELETAL: There was no tenderness or effusions noted. Muscle strength and tone were normal. EXTREMITIES: No cyanosis, clubbing or edema. NEUROLOGIC: Alert and oriented x 3. Impaired short and group home memory. Strength is +5/5 in the Upper Extremities and Lower Extremities Bilaterally. Sensation to touch was normal. Psych: Flat affect, calm, cooperative with stable behavir. Objective ECG Impression: Sinus bradycardia with 1st degree AV block with premature supraventricular complexes Right bundle branch block Artifact in lead(s) and baseline wander makes interpretation difficult Imaging CT scan - head: Radiologist's impression: IMPRESSION: No imaging explanation is found for the patient's presenting symptoms. If there is strong clinical suspicion for an acute stroke, please consider an MRI for further evaluation, as it is more sensitive (assuming that there is no contraindication to MRI). Note is made of age-appropriate brain parenchymal volume loss and chronic small vessel ischemic changes. Chest x-ray: My impression: unremarkable chest xray. Radiologist's impression: PROCEDURE: XR CHEST 1V INDICATIONS: chest pain TECHNIQUE: One view of the chest was acquired. COMPARISON: [facility], , XR CHEST 1V, 01/21/2020, 8:30. FINDINGS: Surgical changes and devices: None. Lungs and pleura: Lungs are clear. No pleural effusions or pneumothorax. Mediastinum: Mediastinal contours appear normal. Heart size is normal. Bones and chest wall: No suspicious bony lesions. Overlying soft tissues appear unremarkable. IMPRESSION: No acute process. Labs Result Diagrams: 12/10/20 14:10 12/10/20 14:10 Labs: Laboratory Results - last 24 hr 12/10/20 12/10/20 12/10/20 14:10 14:10 14:10 WBC 8.6 RBC 4.72 Hgb 14.5 Hct 43.6 MCV 92.4 MCH 30.8 MCHC 33.3 RDW 13.6 Plt Count 194 Neut % (Auto) 69.1 Lymph % (Auto) 17.0 L [place] % (Auto) 9.0 Eos % (Auto) 4.1 H Baso % (Auto) 0.8 Neut # (Auto) 5900 Lymph # (Auto) 1500 [place] # (Auto) 800 Eos # (Auto) 400 Baso # (Auto) 100 PT 16.4 H INR 1.4 H APTT 40 H Sodium 138 Potassium 4.5 Chloride 102 Carbon Dioxide 33 H BUN 32 H Creatinine 2.58 H Estimated GFR 24.3 L BUN/Creatinine Ratio 12.4 Glucose 101 Calcium 9.4 Total Bilirubin 0.4 AST 29 ALT 28 Alkaline Phosphatase 46 Total Creatine Kinase 64 CK-MB (CK-2) TNP CK-MB (CK-2) Rel Index TNP Troponin I 0.012 Total Protein 7.6 Albumin 4.2 Globulin 3.4 Albumin/Globulin Ratio 1.2 Lipase 97 SARS-CoV-2 (PCR) 12/10/20 15:45 WBC RBC Hgb Hct MCV MCH MCHC RDW Plt Count Neut % (Auto) Lymph % (Auto) [place] % (Auto) Eos % (Auto) Baso % (Auto) Neut # (Auto) Lymph # (Auto) [place] # (Auto) Eos # (Auto) Baso # (Auto) PT INR APTT Sodium Potassium Chloride Carbon Dioxide BUN Creatinine Estimated GFR BUN/Creatinine Ratio Glucose Calcium Total Bilirubin AST ALT Alkaline Phosphatase Total Creatine Kinase CK-MB (CK-2) CK-MB (CK-2) Rel Index Troponin I Total Protein Albumin Globulin Albumin/Globulin Ratio Lipase SARS-CoV-2 (PCR) Negative Assessment & Plan Assessment & Plan narrative: Prosper Borden is a 75-year-old male with a past medical history of atrial fibrillation on apixaban, CAD, hypertension, hyperlipidemia, TIA, hypothyroid, BPH, COPD, possible CKD who presented with left-sided pins and needle sensation for the past 2 days and substernal chest pressure. Admitted for further evaluation of these symptoms and possible ZACH. 1. ZACH, likely on CKD stage III, present on admission - unknown baseline creatinine, most recently 1.8 about a year ago, was normal in 2017 last. Creatinine 2.58 on admission. Appears euvolemic at this time, source not entirely clear from physical exam or history. - UA pending, renal ultrasound ordered. Will check bladder scan this evening to see if obstruction is present given history of BPH. - troponin negative, patient in sinus bradycardia, cardiac hypoperfusion less likely. - will check limited TTE, recently done with stress testing as an outpatient and was unremarkable. - if stable, may be continued progression of chronic kidney disease. 2. Chest pressure, subacute, present on admission - ACS thought to be highly unlikely at this time. Troponin within normal limits. Symptoms constant x3 days. Does have prior history of CAD / DC per report, no outside records available for review. - will repeat troponin at 8 hours. EKG shows an old RBBB, no acute signs of ischemia. - trial of famotidine to see if improvement for GERD. - recent stress testing 10/2020 was deemed low risk, echocardiogram was also unremarkable. Limited TTE as noted above to reassess if any EF changes or wall motion abnormalities. 3. L sided tingling sensation, acute, present on admission, improved - patient with NIHSS of 0 on admission. No focal neurological deficits. No neck pain and negative Spurling's maneuver on admission. - Will order MRI given history of TIA and facial involvement. - Limited TTE as noted above. - patient is already on statin therapy, asa, and apixaban for atrial fibrillation - given ZACH, check MRI without contrast, consider vascular imaging if positive. - ordered PT/OT evaluations - ordered A1c, TSH. 4. paroxysmal atrial fibrillation ,chronic - sinus bradycardia on EKG and telemetry thus far. Continue home beta marcos and apixaban. 5. COPD, chronic - patient with recent outpatient PFTs showing mixed obstructive and restrictive pattern - replace home meds with duonebs BID, prn albuterol. - respiratory therapy evaluation 6. ZEESHAN, chronic - patient reports BIPAP therapy at night. Will order CPAP, ask patient to bring home machine. Given metabolic alkalosis suspect a baseline hypercarbia, no indication at the moment to check blood gases. 7. HTN, chronic - patient hypertensive in the emergency room, 169/76 upon admission to the floor. Will continue home medications this evening, suspect may need to make slight adjustments. 8. HLD, chronic - continue home statin 9. BPH, chronic - no reported symptoms. Continue home medications but check bladder scan and renal ultrasound given ZACH to r/o obstruction. 10 hypothyroidism, chronic - continue home levothyroxine, repeat TSH as noted above. Code: Full Dispo: Admitted under observation status DVT: on apixaban
--- NOTE | 2020-12-10 18:15 | DI.ECHO.S_ITS ---
[facility] +---------+ : : [address] : : : : [id number] : : : : Phone: [phone]+ Echocardiogram Report + + :Name: BELKIS CALVERT Study Date: 12/11/2020 Height: 69 in : :[facility] ReadingLocation: Weight: 260 lb : : Gender: Male BSA: 2.3 m2 : :: 1945 Age: 75 yrs BP: 139/64 mmHg: :Reason For Study: CHEST PAIN, ZACH, HISTORY OF CAD : :Ordering Physician: VERONICA, : :BRUCE VILLAR Performed By: Yadira Campos : :Referring: BRUCE MARTIN : + + Interpretation Summary The ejection fraction is estimated to be 55-60%. Left ventricular global longitudinal strain average is -17.4%. The left atrium is severely dilated. Procedure: A two-dimensional transthoracic echocardiogram with color flow and Doppler was performed in limited views only to assess wall motion and ejection fraction. The study quality was technically adequate. Comparison is made with the echocardiogram of 06/24/2020. The heart rate ranged between 45- 65 bpm during the study. Left Ventricle: The left ventricle is normal in size. There is mild concentric left ventricular hypertrophy. The ejection fraction is estimated to be 55-60%. Left ventricular global longitudinal strain average is -17.4%. Left ventricular wall motion is normal. Right Ventricle: The right ventricle is normal in size and function. Atria: The left atrium is severely dilated. The left atrium has remained unchanged in size since the prior echo exam. Right atrial size is normal. Great Vessels: The IVC is of normal diameter and collapses greater than 50% with a sniff. This suggests a low right atrial pressure of 3 mm Hg. Pericardium/ Pleura There is no pericardial effusion. There is no pleural effusion. MMode/2D Measurements & Calculations LVIDd: 5.4 cm LA A2 area: 33.4 cm2 LVIDs: 3.7 cm LA A4 area: 36.1 cm2 FS: 31.8 % LA length (vol): 7.2 cm IVSd: 1.3 cm LA vol: 142.9 ml LVPWd: 1.4 cm LA vol index: 61.9 ml/m2 LV rodgers. diameter/BSA (cm/m^2): 2.3 LV sys. diameter/BSA (cm/m^2): 1.6 RA long axis: 6.4 cm RVD1 (basal): 3.9 cm RA area: 25.0 cm2 TAPSE: 2.3 cm RA vol: 82.7 ml RA : 35.8 ml/m2 IVC diam: 1.6 cm Reading Physician:11:47 AM
[2020-12-10] MEDS: prednisoLONE OPHTH SUSP 1 DROPS EYE-LEFT (19:28)
[2020-12-10] MEDS: APIXABAN 5 MG TABLET PO (20:51)
[2020-12-10] MEDS: FAMOTIDINE 20 MG TABLET PO (20:51)
[2020-12-10] MEDS: TAMSULOSIN 0.4 MG CAPSULE 0.8 MG PO (20:52)
[2020-12-10] MEDS: METOPROLOL ER 25 MG TABLET PO (20:52)
[2020-12-10] MEDS: HYDRALAZINE 10 MG TABLET PO (20:52)
[2020-12-10 22:17] LABS: BUN Creatinine Ratio 13.4 (6-22); Blood Urea Nitrogen 33 mg/dL (9-20); Calcium 8.6 mg/dL (8.4-10.2); Carbon Dioxide 33 mmol/L (22-32); Chloride 102 mmol/L (98-107); Estimated Glomerular Filt Rate 25.5 mL/min (>60); Glucose 147 mg/dL (80-110); HEMOLYSIS < 15 (0-50); Potassium 3.6 mmol/L (3.4-5.1); Sodium 137 mmol/L (137-145)
[2020-12-10 22:29] LABS: Troponin I 0.017 ng/mL (0.01-0.034)
[2020-12-10] MEDS: LATANOPROST 0.005% OPHTH 2.5 ML 1 DROPS EYE-BOTH (23:42)
[2020-12-11] VITALS (7 sets, daily range): BP systolic 143–175; BP diastolic 58–78; PULSE 51–75; RESP 14–18; TEMP 36.6–36.8; O2SAT 93–97
--- NOTE | 2020-12-11 06:30 | PC.NURSE ---
Pt requires UA- urine collected on 12/10 but no results are available and Lab reports no samples waiting under pt's name. Provider aware, order placed and pt informed.
[2020-12-11 06:39] LABS: Add Manual Diff / Slide Review NO; Basophils Absolute Auto 100 /uL (0-100); Basophils Percent Auto 0.8 % (0-2); Eosinophils Absolute Auto 300 /uL (0-450); Hematocrit 39.5 % (41-53); Hemoglobin 12.9 g/dL (13.5-17.5); Lymphocytes Absolute Auto 1500 /uL (1100-4500); Lymphocytes Percent Auto 20.1 % (25-40); Mean Corpuscular HGB Conc 32.7 % (30-36); Mean Corpuscular Hemoglobin 30.4 PG (26-34); Mean Corpuscular Volume 92.9 fL (80-100); Monocytes Absolute Auto 600 /uL (0-900); Monocytes Percent Auto 8.7 % (3-14); Neutrophils Absolute Auto 5000 /uL (1500-7000); Neutrophils Percent Auto 66.4 % (50-75); Platelet Count 166 X10^3/uL (150-400); Red Blood Cell Count 4.25 X10^6/uL (4.5-5.9); Red Cell Distribution Width 13.5 % (11.6-14.8); White Blood Cell Count 7.5 X10^3/uL (4.5-11.0)
[2020-12-11 06:48] LABS: Alanine Aminotransferase 22 IU/L (<50); Albumin 3.4 g/dL (3.5-5.0); Albumin Globulin Ratio 1.3 (1.0-2.8); Alkaline Phosphatase 37 U/L (38-126); Aspartate Aminotransferase 23 IU/L (17-59); BUN Creatinine Ratio 13.7 (6-22); Bilirubin Total 0.4 mg/dL (0.2-1.3); Bilirubin Unconjugated 0.5 mg/dL (0.0-1.1); Blood Urea Nitrogen 32 mg/dL (9-20); Calcium 8.4 mg/dL (8.4-10.2); Carbon Dioxide 29 mmol/L (22-32); Chloride 103 mmol/L (98-107); Estimated Glomerular Filt Rate 27.2 mL/min (>60); Globulin 2.7 g/dL (1.7-4.1); Glucose 121 mg/dL (80-110); HEMOLYSIS < 15 (0-50); Potassium 4.1 mmol/L (3.4-5.1); Sodium 135 mmol/L (137-145); Total Protein 6.1 g/dL (6.3-8.2)
[2020-12-11 07:28] LABS: Bacteria Urine Few (2-10); Culture Indicated Urine Cult Not Indicated; RBC Urine 0-1/HPF (0-5/HPF); Squamous Epithelial Cell Urine 1-5 /HPF (0-5/HPF); WBC Urine 0-1/HPF (0-5/HPF)
[2020-12-11 07:41] LABS: TSH w/ Reflex to FT4 < 0.02 uIU/mL (0.47-4.68)
--- NOTE | 2020-12-11 08:00 | DI.US.S_ITS ---
PROCEDURE: US RENAL COMPLETE INDICATIONS: ZACH TECHNIQUE: Real-time scanning was performed of the kidneys and bladder, with image documentation. COMPARISON: None. FINDINGS: Kidneys: Kidneys are normal in size. Right kidney measures 11.2 cm long; left kidney measures 12.6 cm long. Right renal cortical thickness is 1.6 cm; left renal cortical thickness is 1.7 cm. Renal cortical echotexture is normal. No hydronephrosis or nephrolithiasis. No suspicious solid mass lesions. Bladder: Pre-void bladder is decompressed and not well evaluated. Miscellaneous: No free pelvic fluid. IMPRESSION: No hydronephrosis or nephrolithiasis. Dictated by: Meng Bazan M.D. on 12/11/2020 at 8:48 Approved by: Meng Bazan M.D. on 12/11/2020 at 8:49
[2020-12-11 08:16] LABS: Free T4, Direct Thyroxine 2.11 ng/dL (0.78-2.19)
[2020-12-11] MEDS: prednisoLONE OPHTH SUSP 1 DROPS EYE-LEFT ×2 (08:24→13:31)
[2020-12-11] MEDS: FELODIPINE ER 5 MG TAB 10 MG PO (08:24)
[2020-12-11] MEDS: DORZOLAMIDE/TIMOLOL OPHTH 10 ML 1 DROPS EYE-BOTH (08:24)
[2020-12-11] MEDS: METOPROLOL ER 25 MG TABLET PO (08:25)
[2020-12-11] MEDS: HYDRALAZINE 10 MG TABLET PO (08:25)
[2020-12-11] MEDS: hydroCHLOROthiazide 25 MG TABLET PO (08:26)
[2020-12-11] MEDS: FINASTERIDE 5 MG TABLET PO (08:26)
[2020-12-11] MEDS: APIXABAN 5 MG TABLET PO (08:26)
[2020-12-11] MEDS: ASPIRIN EC 81 MG TABLET PO (08:26)
[2020-12-11] MEDS: LEVOTHYROXINE 100 MCG TABLET 200 MCG PO (08:26)
[2020-12-11] MEDS: ATORVASTATIN 20 MG TABLET PO (08:26)
[2020-12-11] MEDS: FLUTICASONE/SALMETEROL 250/50 60 PUFF DISKUS INH (09:22)
[2020-12-11 10:22] LABS: Appearance Urine UA CLEAR; Bacteria Urine None Seen; Bilirubin Urine UA NEGATIVE (NEGATIVE); Color Urine UA YELLOW; Glucose Urine UA NEGATIVE (Negative); Ketones Urine UA NEGATIVE (NEGATIVE); Leukocyte Esterase Urine UA NEGATIVE (NEGATIVE); Nitrite Urine UA NEGATIVE (Negative); Occult Blood Urine UA TRACE-LYSED (Negative); Protein Urine UA 2+ (Negative); RBC Urine None Seen (0-5/HPF); Specific Gravity Urine UA 1.015 (1.000-1.035); Urobilinogen Urine UA 0.2 E.U./dL (0.2); WBC Urine None Seen (0-5/HPF)
[2020-12-11 10:29] LABS: Culture Indicated Urine Cult Not Indicated; Squamous Epithelial Cell Urine 1-5 /HPF (0-5/HPF)
--- NOTE | 2020-12-11 11:29 | PC.NURSE ---
Assess- Patient visiting with his now, he denies pain. Using the urinal to void. Patient has not shown any signs or symptoms of tia, cva. Up with one person assist. Medication and eye gtts given to patient and tolerated well. He is waiting to talk to the Doctor.
--- NOTE | 2020-12-11 12:23 | OT.IPNOTE ---
Per Dr. James pt to be discharged and OT eval orders not needed, therefore discharge Ot eval orders.
--- NOTE | 2020-12-11 12:58 | PT-IP ANOTE ---
Per Dr. James, pt does not have the need for therapy service. DC pt from PT
--- NOTE | 2020-12-11 14:05 | CM.DANOTE ---
DCP/Assessment: Reviewed chart. Patient is a 75yr old male admitted to [facility] with chest pain. PCP is Dayana Acevedo. Primary payor is 1)Medicare 2)[facility]. Met with patient and spouse/Lacy at bedside explained CM/SW role. Patient reports that he is completely I in all ADL's. Patient and spouse do not anticipate any d/c planning needs. Patient hopeful he will be discharging today. P: Home. MELLISA Valdovinos Discharge Planning/Care Management CM Discharge Assessment Start: 12/11/20 13:54 Freq: Status: Active Protocol: Document 12/11/20 13:54 KJS (Rec: 12/11/20 14:04 KJS [id number]) Discharge Planning Assessment Assigned Director Online Marketing MELLISA Valdovinos Contact Information Lacy Marie (spouse) # Advance Directives? Yes History Provided By Patient,Medical Record Prior Living Arrangements House Household Members spouse Type of transporation used prior to Drives own vehicle admit Independent with ADL's Yes Is patient alert and oriented? Yes Caregiver for Another No Barriers to Discharge No Discharge Plan Home Transportation Arrangement Family to provide transport. Referrals Initiated None needed Whiteboard Updated in Patient Room with Yes name and ext. # of Director Online Marketing Review Status In Process Next Review Type Continued Stay Review
--- NOTE | 2020-12-11 17:13 | P.DS_ITS ---
History of Present Illness History of Present Illness Chief complaint: LEFT SIDE NUMBNESS AND CHEST PRESSURE Narrative: Prosper Borden is a 75-year-old male with a past medical history of atrial fibrillation on apixaban, CAD, hypertension, hyperlipidemia, TIA, hypothyroid, BPH, COPD, possible CKD who presented with left-sided pins and needle sensation for the past 2 days and substernal chest pressure. The patient denies any focal weakness, numbness, or tingling. He is able to ambulate as much as he usually does, which is not typically far because of bilateral knee and hip pain. Shortly after this he also started complaining of a vague substernal chest pain. He cannot find the words to describe the pain but states that is best described as a pressure like sensation over the middle of his chest. It is been constant, nonradiating, not associated with exertion. He has had no nausea, vomiting, abdominal pain, diaphoresis, nocturia, slow stream. In the emergency room, patient was mildly hypertensive, baseline bradycardic with a rate in the 50s, other vital signs were unremarkable. Initial laboratory evaluation showed an unremarkable CBC. Coagulation studies showed an INR of 1.4, patient is on apixaban. Chemistry revealed a creatinine of 2.58. Last known creatinine was about a year ago at 1.8. Current baseline is unknown. No prior records are available for review, and patient's spouse does not drive in the evening so she is at home. Troponin was within normal limits at 0.012. Lipase was negative. COVID-19 testing was negative. Patient was admitted for further evaluation of possible TIA, chest pain, and mainly possible ZACH. Discharge Providers Provider Date of admission: 12/10/20 16:10 Discharge Date: 12/11/20 Primary care physician: Dayana Acevedo DO Consults: 12/10/20 18:06 Consult to Occupational Therapy Evaluate & Treat Comment: Physician Instructions: Evaluate and treat Consult to Physical Therapy Evaluate & Treat Comment: Physician Instructions: Evaluate and Treat 12/10/20 18:18 Consult to Respiratory Therapy Evaluate & Treat Comment: Physician Instructions: Evaluate and treat Discharge provider: Hosea James MD Summary Hospital Course Discharge Diagnosis: 1. Noncardiac chest pain 2. Paresthesias 3. Chronic kidney disease with progression 4. Coronary artery disease 5. Iatrogenic hyperthyroidism Patient admitted to observation service with complaints of chest pain and paresthesia. In regards to chest pain, he had serial negative enzymes and no ischemic changes on EKG/telemetry. He had very recent normal stress test in October 2020. A limited echo showed normal LVEF 55-60%, no RWMA. Patient not having chest pain at time of discharge. In regards to left-sided paresthesias, brain MRI did not show acute CVA or other findings to explain paresthesia. Doubt this is TIA. Consider outpatient Neurology if persistent or recurrent. Patient is noted to have progression of chronic kidney disease. His baseline creatinine is 1.8 from about a year ago. Creatinine on admission 2.58 with repeat creatinine 2.34. Renal ultrasound was normal. Recommend he have repeat renal labs in a month through PCP. Patient is on thyroid replacement with levothyroxine. He is noted to have suppressed TSH of 0.02 with a high normal free T4 of 2.11. I lowered his thyroid replacement from 200 mcg down to 175 mcg daily levothyroxine. Status at Discharge Cognitive/behavioral status at discharge: oriented Functional status at discharge: independent ambulation Overall status at discharge: patient is back to baseline Exam Vital Signs (past 8 hours): - 12/11/20 09:28 12/11/20 09:37 12/11/20 13:00 Temperature 98.0 F 97.8 F Pulse Rate 55 L 75 73 Respiratory Rate 14 16 17 Blood Pressure 150/65 H Pulse Oximetry 93 93 Oxygen Delivery Method Room Air Oxygen Flow Rate 0 Objective Labs Result Diagrams: 12/11/20 06:24 12/11/20 06:24 Labs: Laboratory Results - last 24 hr 12/10/20 12/11/20 12/11/20 21:54 06:24 06:24 WBC 7.5 RBC 4.25 L Hgb 12.9 L Hct 39.5 L MCV 92.9 MCH 30.4 MCHC 32.7 RDW 13.5 Plt Count 166 Neut % (Auto) 66.4 Lymph % (Auto) 20.1 L [place] % (Auto) 8.7 Eos % (Auto) 4.0 Baso % (Auto) 0.8 Neut # (Auto) 5000 Lymph # (Auto) 1500 [place] # (Auto) 600 Eos # (Auto) 300 Baso # (Auto) 100 Sodium 137 135 L Potassium 3.6 4.1 Chloride 102 103 Carbon Dioxide 33 H 29 BUN 33 H 32 H Creatinine 2.47 H 2.34 H Estimated GFR 25.5 L 27.2 L BUN/Creatinine Ratio 13.4 13.7 Glucose 147 H 121 H Hemoglobin A1c Calcium 8.6 8.4 Magnesium 2.0 Total Bilirubin 0.4 Conjugated Bilirubin 0.0 Unconjugated Bilirubin 0.5 AST 23 ALT 22 Alkaline Phosphatase 37 L Troponin I 0.017 Total Protein 6.1 L Albumin 3.4 L Globulin 2.7 Albumin/Globulin Ratio 1.3 TSH Free T4 Urine Color Urine Appearance Urine pH Ur Specific [place] Urine Protein Urine Glucose (UA) Urine Ketones Urine Occult Blood Urine Nitrate Urine Bilirubin Urine Urobilinogen Ur Leukocyte Esterase Urine RBC Urine WBC Ur Squamous Epith Cells Urine Bacteria Ur Culture Indicated? 12/11/20 12/11/20 12/11/20 06:24 06:24 07:10 WBC RBC Hgb Hct MCV MCH MCHC RDW Plt Count Neut % (Auto) Lymph % (Auto) [place] % (Auto) Eos % (Auto) Baso % (Auto) Neut # (Auto) Lymph # (Auto) [place] # (Auto) Eos # (Auto) Baso # (Auto) Sodium Potassium Chloride Carbon Dioxide BUN Creatinine Estimated GFR BUN/Creatinine Ratio Glucose Hemoglobin A1c 6.0 Calcium Magnesium Total Bilirubin Conjugated Bilirubin Unconjugated Bilirubin AST ALT Alkaline Phosphatase Troponin I Total Protein Albumin Globulin Albumin/Globulin Ratio TSH < 0.02 L Free T4 2.11 Urine Color Urine Appearance Urine pH Ur Specific [place] Urine Protein Urine Glucose (UA) Urine Ketones Urine Occult Blood Urine Nitrate Urine Bilirubin Urine Urobilinogen Ur Leukocyte Esterase Urine RBC 0-1/hpf Urine WBC 0-1/hpf Ur Squamous Epith Cells 1-5 /hpf Urine Bacteria Few (2-10) H Ur Culture Indicated? Cult not indicated 12/11/20 07:10 WBC RBC Hgb Hct MCV MCH MCHC RDW Plt Count Neut % (Auto) Lymph % (Auto) [place] % (Auto) Eos % (Auto) Baso % (Auto) Neut # (Auto) Lymph # (Auto) [place] # (Auto) Eos # (Auto) Baso # (Auto) Sodium Potassium Chloride Carbon Dioxide BUN Creatinine Estimated GFR BUN/Creatinine Ratio Glucose Hemoglobin A1c Calcium Magnesium Total Bilirubin Conjugated Bilirubin Unconjugated Bilirubin AST ALT Alkaline Phosphatase Troponin I Total Protein Albumin Globulin Albumin/Globulin Ratio TSH Free T4 Urine Color Yellow Urine Appearance Clear Urine pH 6.0 Ur Specific [place] 1.015 Urine Protein 2+ H Urine Glucose (UA) Negative Urine Ketones Negative Urine Occult Blood Trace-lysed Urine Nitrate Negative Urine Bilirubin Negative Urine Urobilinogen 0.2 Ur Leukocyte Esterase Negative Urine RBC None seen Urine WBC None seen Ur Squamous Epith Cells 1-5 /hpf Urine Bacteria None seen Ur Culture Indicated? Cult not indicated PFSH Medical History Atrial fibrillation CAD (coronary artery disease) CKD (chronic kidney disease) HLD (hyperlipidemia) HTN (hypertension) Hypothyroidism TIA (transient ischemic attack) Surgical History H/O knee surgery H/O shoulder surgery Social History household members: spouse Smoking Status: Never smoker Discharge Plan Discharge Plan Patient Disposition: Home Provider Discharge Comment: Have PCP order blood work in one month to recheck kidneys and thyroid. Discharge orders & Medications Prescriptions: New levothyroxine 175 mcg tablet 175 mcg PO DAILY Qty: 30 RF: 1 Continued atorvastatin 20 mg tablet 20 mg PO DAILY RF: 0 felodipine 10 mg tablet extended release 24 hr 10 mg PO DAILY RF: 0 albuterol sulfate 90 mcg/actuation HFA aerosol inhaler 2 puff inhalation Q4H PRN (Reason: Wheezing) RF: 0 latanoprost 0.005 % drops See Rx Instructions .ROUTE .COMPLEX RF: 0 hydralazine 10 mg Tablet 10 mg PO TID RF: 0 fluticasone propion-salmeterol [Advair Diskus] 250-50 mcg/dose Blister With Device 1 inh INHALATION BID RF: 0 prednisolone acetate 1 % Drops,Suspension 1 drp EYE-LEFT QID RF: 0 tamsulosin 0.4 mg Capsule 0.8 mg PO BEDTIME RF: 0 aspirin 81 mg Tablet 81 mg PO DAILY RF: 0 hydrochlorothiazide 25 mg Tablet 25 mg PO DAILY RF: 0 metoprolol succinate 25 mg Tablet Extended Release 24 Hr 25 mg PO BID RF: 0 fluticasone propionate 50 mcg/actuation [place],Suspension 2 spray INTRANASAL BEDTIME RF: 0 finasteride 5 mg Tablet 5 mg PO DAILY RF: 0 dorzolamide 2 % Drops 1 drp OPHTHALMIC (EYE) TID RF: 0 trospium 20 mg Tablet 20 mg PO DAILY RF: 0 apixaban 5 mg Tablet 5 mg PO BID RF: 0 Discontinued levothyroxine 200 mcg tablet 200 mcg DAILY RF: 0 Follow up/Referrals: Dayana Acevedo DO [Primary Care Provider] - Diet/Activity/Treatments Diet: Regular Visit Report/Discharge Packet Instructions: Transient Ischemic Attack, Acute Kidney Injury, Levothyroxine Discharge Data Primary Care Provider: Dayana Acevedo Attending Provider: Delvin Pepper
== END 2020-12-11 14:57 | disposition home or self-care (01) ==
LOC: ED 15:33 → AC 16:15
PROVIDERS: Emergency Medicine; Nurse Practitioner Family; Admitting Provider Internal Medicine; Emergency Provider Nurse Practitioner; Family Provider Family Medicine; PCP Family Medicine; Referring Provider Nurse Practitioner; Visit Provider Internal Medicine
DX: R07.9 Chest pain, unspecified (principal); R20.2 Paresthesia of skin; I10 Essential (primary) hypertension; E78.5 Hyperlipidemia, unspecified; Z86.73 Personal history of transient ischemic attack (TIA), and cerebral infarction without residual deficits; I25.2 Old myocardial infarction; E03.9 Hypothyroidism, unspecified; J44.9 Chronic obstructive pulmonary disease, unspecified; N18.30 Chronic kidney disease, stage 3 unspecified; I48.0 Paroxysmal atrial fibrillation; G47.33 Obstructive sleep apnea (adult) (pediatric); N40.0 Benign prostatic hyperplasia without lower urinary tract symptoms; Z20.822 Contact with and (suspected) exposure to COVID-19
CPT/HCPCS: 36415; 70450; 70551; 71045; 76770; 80048; 80053; 80076; 81001; 81003; 81015; 82550; 83036; 83690; 83735; 84439; 84443; 84484; 85025; 85610; 85730; 87635; 93005; 93307; 94640; 99284; C9803; G0378; A9270

== ENCOUNTER 2021-03-27 03:44 | Observation (INO) | payer MEDICARE, OTHER, SELFPAY ==
[2020-12-10 18:17] VITALS: BMI 38.5
[2021-03-27] VITALS (19 sets, daily range): BP systolic 130–182; BP diastolic 55–73; PULSE 48–68; RESP 13–24; TEMP 36.3–37.1; O2SAT 86–98; BMI 36.9
--- NOTE | 2021-03-27 04:01 | DI.RAD.S_ITS ---
PROCEDURE: XR CHEST 1V INDICATIONS: chest feels full, shortness of breath TECHNIQUE: One view of the chest was acquired. COMPARISON: [facility], CR, XR CHEST 1V, 12/10/2020, 14:10. FINDINGS: Surgical changes and devices: None. Lungs and pleura: Lungs are clear. No pleural effusions or pneumothorax. Mediastinum: Mediastinal contours appear normal. Heart is enlarged. Bones and chest wall: No suspicious bony lesions. Overlying soft tissues appear unremarkable. IMPRESSION: No acute cardiopulmonary disease process. Dictated by: Yaima Em MD, PhD on 03/27/2021 at 9:07 Approved by: Yaima Em MD, PhD on 03/27/2021 at 9:07
--- NOTE | 2021-03-27 04:04 | ED_ITS ---
HPI - Chest Pain General Chief Complaint: Chest Pain Stated Complaint: Numbness, possible heart issues Time Seen by Provider: 03/27/21 03:50 Source: patient Mode of arrival: Ambulatory Limitations: no limitations History of Present Illness HPI narrative: This is a 75-year-old male who comes emergency department with complaint of chest fullness. Patient states he just feels like his chest is full. He states it does not feel like pain he does not describe it as pressure but that there is a fullness to it. Patient also states it feels numb that he has had lidocaine. Patient states he has been feeling short of breath. He finds he is worse with exertion. Patient has not had any fevers, no cold, cough for chills. Patient denies any diaphoresis. No nausea or vomiting. He has not had any diarrhea constipation. He denies any new urinary symptoms. He is not appreciate any swelling or pain in his lower extremities or his upper extremities. Patient does have a cardiac history of atrial fibrillation. He is anticoagulated on aspirin 81 mg as well as Eliquis. Patient has were recently traveling and he had a lot of high sodium foods which he does not normally have. He has not had any recent medication changes in the last 2 months but did recently established with a ultrasonic seaming machine operator. He has chronic kidney disease they believe stage III. There has not been any discussion about dialysis. Patient denies any history of cardiac stents. He denies any other surgeries besides remote orthopedic surgery. Patient denies any allergies. No tobacco, occasional alcohol. No illicit. He is accompanied by his . Dayana Grover is his PCP. Dr. Powell his forensic chemist and Dr. Figueroa his ultrasonic seaming machine operator. Related Data Home Medications Medication Instructions Recorded Confirmed albuterol sulfate 2 puff INHALATION Q4H PRN 01/21/20 12/10/20 atorvastatin 20 mg PO DAILY 01/21/20 12/10/20 felodipine 10 mg PO DAILY 01/21/20 12/10/20 latanoprost See Rx Instructions .ROUTE .COMPLEX 01/21/20 12/10/20 apixaban 5 mg PO BID 12/10/20 12/10/20 aspirin 81 mg PO DAILY 12/10/20 12/10/20 dorzolamide 1 drp OPHTHALMIC (EYE) TID 12/10/20 12/10/20 finasteride 5 mg PO DAILY 12/10/20 12/10/20 fluticasone propion-salmeterol 1 inh INHALATION BID 12/10/20 12/10/20 [Advair Diskus] fluticasone propionate 2 spray INTRANASAL BEDTIME 12/10/20 12/10/20 hydralazine 10 mg PO TID 12/10/20 12/10/20 hydrochlorothiazide 25 mg PO DAILY 12/10/20 12/10/20 metoprolol succinate 25 mg PO BID 12/10/20 12/10/20 prednisolone acetate 1 drp EYE-LEFT QID 12/10/20 12/10/20 tamsulosin 0.8 mg PO BEDTIME 12/10/20 12/10/20 trospium 20 mg PO DAILY 12/10/20 12/10/20 Previous Rx's Medication Instructions Recorded levothyroxine 175 mcg PO DAILY #30 tab 12/11/20 Allergies Allergy/AdvReac Type Severity Reaction Status Date / Time No Known Drug Allergies Allergy Verified 06/25/20 09:26 Review of Systems Review of Systems ROS Unobtainable: All systems reviewed & are unremarkable except as noted in HPI and below Patient History Medical History Atrial fibrillation CAD (coronary artery disease) CKD (chronic kidney disease) HLD (hyperlipidemia) HTN (hypertension) Hypothyroidism TIA (transient ischemic attack) Surgical History H/O knee surgery H/O shoulder surgery Social History household members: spouse Smoking Status: Never smoker Smoking Status: Never smoker alcohol intake frequency: holidays/special occasions only Substance Use Type: does not use Exam Narrative Exam Narrative: GENERAL: Alert and oriented x three, obese male in mild distress. HEENT: Head normocephalic, atraumatic, EOMI, pupils reactive, face symmetric, moist mucous membranes NECK: Supple, full range of motion CARDIOVASCULAR: Regular rate and rhythm without murmurs, rubs or gallops. JVD appreciated. No swelling bilateral lower extremities. RESPIRATORY: Breath sounds equal bilaterally, no wheezes rales or rhonchi. No crackles. Tachypnea after ambulating but time patient improves shortly. Patient speaks in full sentences. ABDOMEN: Soft, nontender. Normoactive bowel sounds all 4 quadrants. No guarding or rebound, rigidity, no mass, no bruit or pulsatile mass. : No CVA tenderness EXTREMITIES: Normal range of motion, no clubbing or edema. Neurovascularly intact NEUROLOGICAL: Cranial nerves II through XII grossly intact. Moving all extremities SKIN: Warm, dry, no petechiae, no rashes or lesions. Initial Vital Signs Initial Vital Signs: Vital Signs Temperature 98 F 03/27/21 03:45 Pulse Rate 60 03/27/21 03:45 Respiratory Rate 21 03/27/21 03:45 Blood Pressure 171/72 H 03/27/21 03:45 Pulse Oximetry 97 03/27/21 03:45 Course Orders Ordered: ED Orders 03/27/21 EKG-12 Lead Stat 03/27/21 03:53 EKG-12 Lead Stat 03/27/21 03:54 EKG-12 Lead Stat 03/27/21 04:00 Complete Blood Count AUTO DIFF Stat Comprehensive Metabolic Panel Stat Lipase Stat NT-proBNP (BNP-Adult 18+) Stat Partial Thromboplastin Time Stat Prothrombin Time INR Stat Thyroid Stimulating Hormone Stat Troponin & CK Cardiac Panel Stat 03/27/21 04:01 XR chest 1V Stat 03/27/21 04:15 COVID19 - ADMIT (FRUIT VENDOR swab/PCR) Stat 03/27/21 06:05 Troponin I Stat Sodium Chloride (Normal Saline 0.9%) 1,000 mls @ 150 mls/hr IV CONT KEVAN Last Admin: 03/27/21 04:21 Dose: 150 mls/hr Documented by: NAY Nitroglycerin (Nitroglycerin 0.4 Mg Sl Tab) 0.4 mg SL [id number] PRN PRN Reason: chest pain Last Admin: 03/27/21 04:22 Dose: 0.4 mg Documented by: Admin: 03/27/21 04:13 Dose: 0.4 mg Documented by: NAY Discontinued Medications Aspirin (Aspirin 81 Mg Chew Tab) 324 mg PO NOW ONE Stop: 03/27/21 04:01 Last Admin: 03/27/21 04:10 Dose: 324 mg Documented by: NAY Furosemide (Furosemide 100 Mg/10 Ml Vial) 80 mg IV NOW ONE Stop: 03/27/21 04:51 Last Admin: 03/27/21 05:03 Dose: 80 mg Documented by: NAY Reevaluation(s) Reevaluation #1: recheck, patient was given nitro. States he may have had some change and then goes to sleep and refuses a 3rd nitro. Time: 05:38 Reevaluation #2: Patient chest fullness had resolved. Reevaluation #3: Patient was feeling improved but when he ambulates his pulse ox dropped to 86% on room air. Patient does not complain of increased chest pressure shortness of breath but he is mildly more tachypneic and appears to l ook more fatigued. Consultations Consultation #1: Dr. Eaton accepts for observation. Time: 07:16 Vital Signs Vital signs: Vital Signs - 8 hr 03/27/21 03:45 03/27/21 03:54 03/27/21 04:00 Temperature 98 F Pulse Rate 60 53 L 50 L Respiratory Rate 21 20 17 Blood Pressure 171/72 H Pulse Oximetry 97 94 96 03/27/21 04:13 03/27/21 04:15 03/27/21 04:20 Temperature Pulse Rate 48 L 48 L 49 L Respiratory Rate 18 20 Blood Pressure 159/70 H Pulse Oximetry 95 95 03/27/21 04:22 03/27/21 04:25 03/27/21 04:30 Temperature Pulse Rate 49 L 48 L 48 L Respiratory Rate 14 13 Blood Pressure 159/70 H Pulse Oximetry 93 93 03/27/21 04:31 Temperature Pulse Rate Respiratory Rate Blood Pressure 142/63 H Pulse Oximetry MDM - Chest Pain Lab Data Attestation: I reviewed the patient's lab results. Result diagrams: 03/27/21 04:00 03/27/21 04:00 Labs: Lab Results 03/27/21 03/27/21 03/27/21 Range/Units 04:00 04:00 04:00 WBC (4.5-11.0) X10^3/uL RBC (4.5-5.9) X10^6/uL Hgb (13.5-17.5) g/dL Hct (41-53) % MCV (80-100) fL MCH (26-34) PG MCHC (30-36) % RDW (11.6-14.8) % Plt Count (150-400) X10^3/uL Neut % (Auto) (50-75) % Lymph % (Auto) (25-40) % [place] % (Auto) (3-14) % Eos % (Auto) (2-4) % Baso % (Auto) (0-2) % Neut # (Auto) (4444-5085) /uL Lymph # (Auto) (9621-6809) /uL [place] # (Auto) (0-900) /uL Eos # (Auto) (0-450) /uL Baso # (Auto) (0-100) /uL PT 16.7 H (10.1-12.7) SECONDS INR 1.5 H (0.9-1.3) APTT 41 H (26.4-36.2) SECONDS Sodium (137-145) mmol/L Potassium (3.4-5.1) mmol/L Chloride (98-107) mmol/L Carbon Dioxide (22-32) mmol/L BUN (9-20) mg/dL Creatinine (0.66-1.25) mg/dL Estimated GFR (>60) mL/min BUN/Creatinine Ratio (6-22) Glucose (80-110) mg/dL Calcium (8.4-10.2) mg/dL Total Bilirubin (0.2-1.3) mg/dL AST (17-59) IU/L ALT (<50) IU/L Alkaline Phosphatase (38-126) U/L Total Creatine Kinase (55-170) U/L CK-MB (CK-2) CK-MB (CK-2) Rel Index Troponin I (0.01-0.034) ng/mL NT-Pro-B Natriuret Pep 1630 H (<450) pg/mL Total Protein (6.3-8.2) g/dL Albumin (3.5-5.0) g/dL Globulin (1.7-4.1) g/dL Albumin/Globulin Ratio (1.0-2.8) Lipase (23-300) U/L TSH 0.309 L (0.47-4.68) uIU/mL SARS-CoV-2 (PCR) (Negative) 03/27/21 03/27/21 03/27/21 Range/Units 04:00 04:00 04:15 WBC 9.1 (4.5-11.0) X10^3/uL RBC 3.98 L (4.5-5.9) X10^6/uL Hgb 12.3 L (13.5-17.5) g/dL Hct 37.1 L (41-53) % MCV 93.4 (80-100) fL MCH 30.8 (26-34) PG MCHC 33.0 (30-36) % RDW 13.8 (11.6-14.8) % Plt Count 204 (150-400) X10^3/uL Neut % (Auto) 70.3 (50-75) % Lymph % (Auto) 14.8 L (25-40) % [place] % (Auto) 8.9 (3-14) % Eos % (Auto) 5.0 H (2-4) % Baso % (Auto) 1.0 (0-2) % Neut # (Auto) 6400 (3134-7658) /uL Lymph # (Auto) 1300 (9876-1467) /uL [place] # (Auto) 800 (0-900) /uL Eos # (Auto) 500 H (0-450) /uL Baso # (Auto) 100 (0-100) /uL PT (10.1-12.7) SECONDS INR (0.9-1.3) APTT (26.4-36.2) SECONDS Sodium 137 (137-145) mmol/L Potassium 4.1 (3.4-5.1) mmol/L Chloride 105 (98-107) mmol/L Carbon Dioxide 24 (22-32) mmol/L BUN 38 H (9-20) mg/dL Creatinine 2.40 H (0.66-1.25) mg/dL Estimated GFR 26.4 L (>60) mL/min BUN/Creatinine Ratio 15.8 (6-22) Glucose 111 H (80-110) mg/dL Calcium 8.6 (8.4-10.2) mg/dL Total Bilirubin 0.4 (0.2-1.3) mg/dL AST 23 (17-59) IU/L ALT 13 (<50) IU/L Alkaline Phosphatase 45 (38-126) U/L Total Creatine Kinase 65 (55-170) U/L CK-MB (CK-2) TNP CK-MB (CK-2) Rel Index TNP Troponin I < 0.012 (0.01-0.034) ng/mL NT-Pro-B Natriuret Pep (<450) pg/mL Total Protein 7.0 (6.3-8.2) g/dL Albumin 3.9 (3.5-5.0) g/dL Globulin 3.1 (1.7-4.1) g/dL Albumin/Globulin Ratio 1.3 (1.0-2.8) Lipase 61 (23-300) U/L TSH (0.47-4.68) uIU/mL SARS-CoV-2 (PCR) Negative (Negative) 03/27/21 Range/Units 06:05 WBC (4.5-11.0) X10^3/uL RBC (4.5-5.9) X10^6/uL Hgb (13.5-17.5) g/dL Hct (41-53) % MCV (80-100) fL MCH (26-34) PG MCHC (30-36) % RDW (11.6-14.8) % Plt Count (150-400) X10^3/uL Neut % (Auto) (50-75) % Lymph % (Auto) (25-40) % [place] % (Auto) (3-14) % Eos % (Auto) (2-4) % Baso % (Auto) (0-2) % Neut # (Auto) (7233-5142) /uL Lymph # (Auto) (0514-6536) /uL [place] # (Auto) (0-900) /uL Eos # (Auto) (0-450) /uL Baso # (Auto) (0-100) /uL PT (10.1-12.7) SECONDS INR (0.9-1.3) APTT (26.4-36.2) SECONDS Sodium (137-145) mmol/L Potassium (3.4-5.1) mmol/L Chloride (98-107) mmol/L Carbon Dioxide (22-32) mmol/L BUN (9-20) mg/dL Creatinine (0.66-1.25) mg/dL Estimated GFR (>60) mL/min BUN/Creatinine Ratio (6-22) Glucose (80-110) mg/dL Calcium (8.4-10.2) mg/dL Total Bilirubin (0.2-1.3) mg/dL AST (17-59) IU/L ALT (<50) IU/L Alkaline Phosphatase (38-126) U/L Total Creatine Kinase (55-170) U/L CK-MB (CK-2) CK-MB (CK-2) Rel Index Troponin I < 0.012 (0.01-0.034) ng/mL NT-Pro-B Natriuret Pep (<450) pg/mL Total Protein (6.3-8.2) g/dL Albumin (3.5-5.0) g/dL Globulin (1.7-4.1) g/dL Albumin/Globulin Ratio (1.0-2.8) Lipase (23-300) U/L TSH (0.47-4.68) uIU/mL SARS-CoV-2 (PCR) (Negative) Imaging Data Chest x-ray: Radiologist's Impression: Cardiomegaly. No passive venous congestion. Clear lungs. ECG Data Attestation: I personally reviewed and interpreted this ECG as follows: Prior ECG tracings: available for review Interpretation: Regular AFib verses bradycardia rate of 55 QRS of 132 and QTC of 476. Patient has right bundle-branch block. Patient does have PVC. No new acute elevation is appreciated in comparison to prior from 12/10/2020. HER2 shows undetermined rhythm but appears likely sinus. Rate of 45 P are 210 QRS of 134 and QTC of 467. Right bundle branch block. MDM Narrative Medical decision making narrative: This is a 75-year-old male who comes in with complaint of chest fullness intermittently over the last few days. Patient does not describe it as chest pain or pressure but more as fullness. Patient does have chronic kidney disease, he has cardiac history with atrial fibrillation but no cardiac stents. He is anticoagulated on aspirin and Eliquis. He is on mul tiple antihypertensive, it did dyslipidemia medications the H and has Flovent and albuterol inhalers. Patient only medication change recently with his levothyroxine was adjusted last month and half. Renal disease appears to be stable. His troponin is negative x2 here in the department with no obvious acute EKG changes. Patient may be in atrial fibrillation heart rates in the 50s to 60s but it does appear regular there may be P waves present. Patient is COVID negative. Chest x-ray shows cardiomegaly but no clear pulmonary edema but BNP is elevated. Suspect patient has some fluid overload may be some difficulty with squeeze secondary to his history. Discussed with the hospitalist about keeping for observation when he dropped his O2 with ambulation. Dr. Eaton accepts and patient and family aware of plan to stay. Discharge Plan Departure Patient Disposition: Home Clinical Impression: CHF (congestive heart failure), Atypical chest pain Prescriptions: No Action atorvastatin 20 mg tablet 20 mg PO DAILY RF: 0 felodipine 10 mg tablet extended release 24 hr 10 mg PO DAILY RF: 0 albuterol sulfate 90 mcg/actuation HFA aerosol inhaler 2 puff inhalation Q4H PRN (Reason: Wheezing) RF: 0 latanoprost 0.005 % drops See Rx Instructions .ROUTE .COMPLEX RF: 0 hydralazine 10 mg Tablet 10 mg PO TID RF: 0 fluticasone propion-salmeterol [Advair Diskus] 250-50 mcg/dose Blister With Device 1 inh INHALATION BID RF: 0 prednisolone acetate 1 % Drops,Suspension 1 drp EYE-LEFT QID RF: 0 tamsulosin 0.4 mg Capsule 0.8 mg PO BEDTIME RF: 0 aspirin 81 mg Tablet 81 mg PO DAILY RF: 0 hydrochlorothiazide 25 mg Tablet 25 mg PO DAILY RF: 0 metoprolol succinate 25 mg Tablet Extended Release 24 Hr 25 mg PO BID RF: 0 fluticasone propionate 50 mcg/actuation [place],Suspension 2 spray INTRANASAL BEDTIME RF: 0 finasteride 5 mg Tablet 5 mg PO DAILY RF: 0 dorzolamide 2 % Drops 1 drp OPHTHALMIC (EYE) TID RF: 0 trospium 20 mg Tablet 20 mg PO DAILY RF: 0 apixaban 5 mg Tablet 5 mg PO BID RF: 0 levothyroxine 175 mcg tablet 175 mcg PO DAILY Qty: 30 RF: 1 Referrals: Dayana Acevedo DO [Primary Care Provider] -
[2021-03-27] MEDS: ASPIRIN 81 MG CHEW TAB 324 MG PO (04:10)
[2021-03-27] MEDS: NITROGLYCERIN 0.4 MG SL TAB SL ×2 (04:13→04:22)
[2021-03-27 04:15] LABS: Add Manual Diff / Slide Review NO; Basophils Absolute Auto 100 /uL (0-100); Eosinophils Absolute Auto 500 /uL (0-450); Hematocrit 37.1 % (41-53); Hemoglobin 12.3 g/dL (13.5-17.5); Lymphocytes Absolute Auto 1300 /uL (1100-4500); Lymphocytes Percent Auto 14.8 % (25-40); Mean Corpuscular Hemoglobin 30.8 PG (26-34); Mean Corpuscular Volume 93.4 fL (80-100); Monocytes Absolute Auto 800 /uL (0-900); Monocytes Percent Auto 8.9 % (3-14); Neutrophils Absolute Auto 6400 /uL (1500-7000); Neutrophils Percent Auto 70.3 % (50-75); Platelet Count 204 X10^3/uL (150-400); Red Blood Cell Count 3.98 X10^6/uL (4.5-5.9); Red Cell Distribution Width 13.8 % (11.6-14.8); White Blood Cell Count 9.1 X10^3/uL (4.5-11.0)
[2021-03-27] MEDS: SODIUM CHLORIDE 0.9% 1,000 ML 150 ML IV (04:21)
[2021-03-27 04:25] LABS: INR 1.5 (0.9-1.3); Prothrombin Time 16.7 SECONDS (10.1-12.7)
[2021-03-27 04:28] LABS: PTT Partial Thromboplastin Tim 41 SECONDS (26.4-36.2)
[2021-03-27 04:32] LABS: Alanine Aminotransferase 13 IU/L (<50); Albumin 3.9 g/dL (3.5-5.0); Albumin Globulin Ratio 1.3 (1.0-2.8); Alkaline Phosphatase 45 U/L (38-126); Aspartate Aminotransferase 23 IU/L (17-59); BUN Creatinine Ratio 15.8 (6-22); Bilirubin Total 0.4 mg/dL (0.2-1.3); Blood Urea Nitrogen 38 mg/dL (9-20); Calcium 8.6 mg/dL (8.4-10.2); Carbon Dioxide 24 mmol/L (22-32); Chloride 105 mmol/L (98-107); Creatine Kinase 65 U/L (55-170); Estimated Glomerular Filt Rate 26.4 mL/min (>60); Globulin 3.1 g/dL (1.7-4.1); Glucose 111 mg/dL (80-110); HEMOLYSIS 20 (0-50); Lipase 61 U/L (23-300); Potassium 4.1 mmol/L (3.4-5.1); Sodium 137 mmol/L (137-145)
[2021-03-27 04:40] LABS: NT-proBNP (BNP-Adult 18+) 1630 pg/mL (<450)
[2021-03-27 04:43] LABS: Troponin I < 0.012 ng/mL (0.01-0.034)
[2021-03-27] MEDS: FUROSEMIDE 100 MG/10 ML VIAL 80 MG IV (05:03)
[2021-03-27 05:27] LABS: Thyroid Stimulating Hormone 0.309 uIU/mL (0.47-4.68)
[2021-03-27 06:27] LABS: COVID19 - ADMIT (NP swab/PCR) Negative (Negative)
[2021-03-27 06:56] LABS: Troponin I < 0.012 ng/mL (0.01-0.034)
--- NOTE | 2021-03-27 09:09 | PC.NURSE ---
Addendum entered by Marge Wilkerson R.N. 03/27/21 09:16: Dr. Pepper at bedside with patient. Original Note: Admit note: Patient awake, alert, and oriented. Placed on Tele on arrival, no C/O chest pain or dizziness. HR 43-48, Dr. Pepper made aware. Spouse at bedside (Lacy) very helpful with health hx and medication reconciliation. Oriented to room, environment, and plan of care. Up OOB to use urinal. No change in sx with activity. Received from ED on O2 at 2L, 97%. Weaned to RA, 96%. No change in breathing effort. Uses Cpap at HS, spouse to bring from home. Bed alarm active, call light within reach.
--- NOTE | 2021-03-27 09:19 | P.HP_ITS ---
History of Present Illness History of Present Illness Date Patient Seen: 03/27/21 Time Patient Seen: 09:19 Chief complaint: Numbness, possible heart issues Narrative: Prosper Borden is a 75-year-old male with a past medical history of atrial fibrillation on apixaban, CAD, hypertension, hyperlipidemia, TIA, hypothyroid, BPH, COPD, possible CKD who presented with left-sided pins and needle sensation for the past several days days and substernal chest pressure. The patient denies any focal weakness, numbness, or tingling. He is able to ambulate as much as he usually does, which is not typically far because of bilateral knee and hip pain. Shortly after this he also started complaining of a vague substernal chest pain. He cannot find the words to describe the pain but states that is best described as a pressure like sensation over the middle of his chest. It is been constant, nonradiating, not associated with exertion. He had a very similar presentation back in December of this year with a negative evaluation at that time. He has had no nausea, vomiting, abdominal pain, diaphoresis, nocturia, slow stream. In the emergency room, the patient was mildly hypertensive, mildly bradycardic in the upper 40s to low 50s, he did desaturate to 86% on room air but the patient has a history of ZEESHAN and this was when he was sleeping. Upon arrival to the hospital floor he was saturating at 96% on room air. Initial laboratory values revealed an unremarkable CBC, INR of 1.5, negative troponin, creatinine of 2.4 although this is similar to his discharge creatinine from his prior admission and it is unknown what his current baseline is. ProBNP was mildly elevated at 1630. TSH was 0.309. COVID-19 testing was negative. Chest x-ray was unremarkable. Patient was admitted for further evaluation. Patient History Medical History Atrial fibrillation CAD (coronary artery disease) CKD (chronic kidney disease) HLD (hyperlipidemia) HTN (hypertension) Hypothyroidism TIA (transient ischemic attack) Surgical History H/O knee surgery H/O shoulder surgery Family & Social History Social History: household members spouse Prior Living Arrangements House Safety & Behavioral: Feels Safe in Current Yes Environment Tobacco & Substance use: Smoking Status Never smoker alcohol intake frequency holiday/special occasion Substance Use Type does not use Meds Home Medications and Allergies Home Medications Medication Instructions Recorded Confirmed Type albuterol sulfate 2 puff INHALATION Q4H PRN 01/21/20 03/27/21 History atorvastatin 20 mg PO DAILY 01/21/20 03/27/21 History felodipine 10 mg PO BID 01/21/20 03/27/21 History latanoprost See Rx Instructions .ROUTE .COMPLEX 01/21/20 03/27/21 History apixaban 5 mg PO BID 12/10/20 03/27/21 History aspirin 81 mg PO DAILY 12/10/20 03/27/21 History dorzolamide 1 drp OPHTHALMIC (EYE) BID 12/10/20 03/27/21 History finasteride 5 mg PO DAILY 12/10/20 03/27/21 History fluticasone propion-salmeterol 1 inh INHALATION BID 12/10/20 03/27/21 History [Advair Diskus] fluticasone propionate 2 spray INTRANASAL BEDTIME 12/10/20 03/27/21 History hydralazine 10 mg PO TID 12/10/20 03/27/21 History hydrochlorothiazide 25 mg PO DAILY 12/10/20 03/27/21 History tamsulosin 0.8 mg PO BEDTIME 12/10/20 03/27/21 History trospium 20 mg PO DAILY 12/10/20 03/27/21 History levothyroxine 175 mcg PO DAILY #30 tab 12/11/20 03/27/21 Rx clonidine HCl 0.1 mg PO DAILY 03/27/21 03/27/21 History ezetimibe 10 mg PO DAILY 03/27/21 03/27/21 History Allergies Allergy/AdvReac Type Severity Reaction Status Date / Time No Known Drug Allergies Allergy Verified 06/25/20 09:26 Review of Systems Review of Systems Narrative: All other systems reviewed with the patient and are negative unless otherwise stated. Exam Vital Signs (past 8 hours): - 03/27/21 03:45 03/27/21 03:54 03/27/21 04:00 Temperature 98 F Pulse Rate 60 53 L 50 L Respiratory Rate 21 20 17 Blood Pressure 171/72 H Pulse Oximetry 97 94 96 03/27/21 04:13 03/27/21 04:15 03/27/21 04:20 Temperature Pulse Rate 48 L 48 L 49 L Respiratory Rate 18 20 Blood Pressure 159/70 H Pulse Oximetry 95 95 03/27/21 04:22 03/27/21 04:25 03/27/21 04:30 Temperature Pulse Rate 49 L 48 L 48 L Respiratory Rate 14 13 Blood Pressure 159/70 H Pulse Oximetry 93 93 03/27/21 04:31 03/27/21 07:13 Temperature Pulse Rate 68 Respiratory Rate 24 Blood Pressure 142/63 H Pulse Oximetry 86 L Oxygen Delivery Method Room Air Narrative Exam Narrative: GENERAL APPEARANCE: Well developed, well nourished, obese male with a BMI of 36.9, in no acute distress. SKIN: Inspection of the skin reveals no rashes, ulcerations or petechiae. HEENT: Normocephalic atraumatic, extraocular muscles are intact, oropharynx is clear and mucous membranes are moist, neck is supple without adenopathy NECK: Supple and symmetric. There was no thyroid enlargement, and no tenderness, or masses were felt. CHEST: Normal AP diameter and normal contour without any kyphoscoliosis. LUNGS: Auscultation of the lungs revealed no wheezes, rhonchi, or rales. CARDIOVASCULAR: There was a regular rate and rhythm without any murmurs, gallops, rubs. Peripheral pulses were 2+ and symmetric. ABDOMEN: Soft and nontender with normal bowel sounds. No ascites was noted. MUSCULOSKELETAL: There was no tenderness or effusions noted. Muscle strength and tone were normal. EXTREMITIES: No cyanosis, clubbing. Trace - 1+ pitting edema bilateral lower extremities. NEUROLOGIC: Alert and oriented x 3. Impaired short and detention memory. Strength is +5/5 in the Upper Extremities and Lower Extremities Bilaterally. Sensation to touch was normal. Psych: Flat affect, calm, cooperative with stable behavir. Objective Labs Result Diagrams: 03/27/21 04:00 03/27/21 04:00 Labs: Laboratory Results - last 24 hr 03/27/21 03/27/21 03/27/21 04:00 04:00 04:00 WBC RBC Hgb Hct MCV MCH MCHC RDW Plt Count Neut % (Auto) Lymph % (Auto) [place] % (Auto) Eos % (Auto) Baso % (Auto) Neut # (Auto) Lymph # (Auto) [place] # (Auto) Eos # (Auto) Baso # (Auto) PT 16.7 H INR 1.5 H APTT 41 H Sodium Potassium Chloride Carbon Dioxide BUN Creatinine Estimated GFR BUN/Creatinine Ratio Glucose Calcium Total Bilirubin AST ALT Alkaline Phosphatase Total Creatine Kinase CK-MB (CK-2) CK-MB (CK-2) Rel Index Troponin I NT-Pro-B Natriuret Pep 1630 H Total Protein Albumin Globulin Albumin/Globulin Ratio Lipase TSH 0.309 L SARS-CoV-2 (PCR) 03/27/21 03/27/21 03/27/21 04:00 04:00 04:15 WBC 9.1 RBC 3.98 L Hgb 12.3 L Hct 37.1 L MCV 93.4 MCH 30.8 MCHC 33.0 RDW 13.8 Plt Count 204 Neut % (Auto) 70.3 Lymph % (Auto) 14.8 L [place] % (Auto) 8.9 Eos % (Auto) 5.0 H Baso % (Auto) 1.0 Neut # (Auto) 6400 Lymph # (Auto) 1300 [place] # (Auto) 800 Eos # (Auto) 500 H Baso # (Auto) 100 PT INR APTT Sodium 137 Potassium 4.1 Chloride 105 Carbon Dioxide 24 BUN 38 H Creatinine 2.40 H Estimated GFR 26.4 L BUN/Creatinine Ratio 15.8 Glucose 111 H Calcium 8.6 Total Bilirubin 0.4 AST 23 ALT 13 Alkaline Phosphatase 45 Total Creatine Kinase 65 CK-MB (CK-2) TNP CK-MB (CK-2) Rel Index TNP Troponin I < 0.012 NT-Pro-B Natriuret Pep Total Protein 7.0 Albumin 3.9 Globulin 3.1 Albumin/Globulin Ratio 1.3 Lipase 61 TSH SARS-CoV-2 (PCR) Negative 03/27/21 06:05 WBC RBC Hgb Hct MCV MCH MCHC RDW Plt Count Neut % (Auto) Lymph % (Auto) [place] % (Auto) Eos % (Auto) Baso % (Auto) Neut # (Auto) Lymph # (Auto) [place] # (Auto) Eos # (Auto) Baso # (Auto) PT INR APTT Sodium Potassium Chloride Carbon Dioxide BUN Creatinine Estimated GFR BUN/Creatinine Ratio Glucose Calcium Total Bilirubin AST ALT Alkaline Phosphatase Total Creatine Kinase CK-MB (CK-2) CK-MB (CK-2) Rel Index Troponin I < 0.012 NT-Pro-B Natriuret Pep Total Protein Albumin Globulin Albumin/Globulin Ratio Lipase TSH SARS-CoV-2 (PCR) Assessment & Plan Assessment & Plan narrative: Prosper Borden is a 75-year-old male with a past medical history of atrial fibrillation on apixaban, CAD, hypertension, hyperlipidemia, TIA, hypothyroid, BPH, COPD, possible CKD who presented with left-sided pins and needle sensation for the past 2 days and substernal chest pressure. Admitted for further evaluation of these symptoms and elevated Creatinine. 1. Likely CKD stage III, present on admission - unknown baseline creatinine, Creatinine 2.4 on admission, similar to previous presentation. - UA pending, renal ultrasound ordered. Will check bladder scan this evening to see if obstruction is present given history of BPH. - troponin negative, patient in sinus bradycardia, cardiac hypoperfusion less l ikely. - will check limited TTE, recently done with stress testing as an outpatient and was unremarkable. - if stable, may be continued progression of chronic kidney disease. 2. Chest pressure, subacute, present on admission - ACS thought to be highly unlikely at this time. Troponin within normal limits. Symptoms constant for some time. Does have prior history of CAD / [place] per report, no outside records available for review. - will repeat troponin at 8 hours. EKG shows an old RBBB, no acute signs of ischemia. - trial of famotidine to see if improvement for GERD. - recent stress testing 10/2020 was deemed low risk, echocardiogram was also unremarkable. Limited TTE as noted above to reassess if any EF changes or wall motion abnormalities. - possible this may be related to diastolic heart failure, will continue lasix 3. L sided tingling sensation, chronic, present on admission, improved - patient with NIHSS of 0 on admission. No focal neurological deficits. - MRI and testing worked up previous admission, recommend outpatient neurology. 4. possible acute, likely diastolic heart failure. - improved symptoms with IV lasix, will continue further diuresis. TTE ordered. 5. paroxysmal atrial fibrillation ,chronic - sinus bradycardia on EKG and telemetry thus far. Continue home beta marcos and apixaban. 6. COPD, chronic, without exacerbation - patient with recent outpatient PFTs showing mixed obstructive and restrictive pattern - replace home meds with duonebs BID, prn albuterol. - respiratory therapy evaluation 7. ZEESHAN, chronic - patient reports BIPAP therapy at night. Certainly at risk for heart failure given ZEESHAN. 8. HTN, chronic - patient hypertensive in the emergency room. Will continue home medications this evening, may need to make slight adjustments including possible diuresis. 9. HLD, chronic - continue home statin 10. BPH, chronic - no reported symptoms. Continue home medications but check bladder scan and renal ultrasound given ZACH to r/o obstruction. 11 hypothyroidism, chronic - continue home levothyroxine, TSH .307. Code: Full, surrogate decision maker is patient's spouse. Dispo: Admitted under observation status, pending TTE for further evaluation. DVT: on apixaban Quality MIPS - Admit I confirm the patient?s Advance Care Plan is present, Code status is documented, Surrogate decision maker is in patient?s record [If Yes, STOP here]: Yes
[2021-03-27] MEDS: OXYBUTYNIN 5 MG ER TAB PO (10:07)
[2021-03-27] MEDS: ASPIRIN EC 81 MG TABLET PO (10:08)
[2021-03-27] MEDS: EZETIMIBE 10 MG TABLET PO (10:08)
[2021-03-27] MEDS: FINASTERIDE 5 MG TABLET PO (10:08)
[2021-03-27] MEDS: APIXABAN 5 MG TABLET PO ×2 (10:08→21:07)
[2021-03-27] MEDS: ATORVASTATIN 20 MG TABLET PO (10:08)
[2021-03-27] MEDS: FAMOTIDINE 20 MG TABLET PO (10:08)
--- NOTE | 2021-03-27 12:22 | DI.ECHO.S_ITS ---
[facility]---------+ [facility] +---------+ : : [address] : : : : [id number] : : : : Phone: [phone]---------+ Echocardiogram Report + + :Name: BELKIS CALVERT Study Date: 03/28/2021 Height: 69 in : :[facility] ReadingLocation: Weight: 250 lb : : Gender: Male BSA: 2.3 m2 : :: 1945 Age: 75 yrs BP: 130/63 mmHg: :Reason For Study: Chest pain : :Ordering Physician: : :BRUCE MARTIN Performed By: Ravi Mina : :Referring: BRUCE MARTIN : + + Interpretation Summary The left ventricle is normal in size. Left ventricular wall thickness is mildly increased. Left ventricular systolic function is normal. The ejection fraction is estimated to be 60-65%. There are no focal wall motion abnormalities. Diastolic parameters suggest a pseudonormalization pattern, consistent with probable elevated filling pressures. The right ventricle is normal in size and function. The right ventricular systolic pressure is estimated to be at least 35 mmHg based on an estimated right atrial pressure of 3 mm Hg. The left atrium is severely dilated. The right atrium is normal in size. There is mild mitral regurgitation. There is mild to moderate aortic regurgitation. There is no other significant valvular heart disease. The ascending aorta is mildly enlarged. Procedure: A two-dimensional transthoracic echocardiogram with color flow and Doppler was performed. The study quality was technically adequate. Comparison is made with the echocardiogram of 12/11/2020. The patient was in sinus bradycardia with heart rates between 42-47 bpm during the exam. Left Ventricle: The left ventricle is normal in size. Left ventricular wall thickness is mildly increased. Left ventricular systolic function is normal. The ejection fraction is estimated to be 60-65%. There are no focal wall motion abnormalities. Diastolic parameters suggest a pseudonormalization pattern, consistent with probable elevated filling pressures. Right Ventricle: The right ventricle is normal in size and function. Atria: The left atrium is severely dilated. The right atrium is normal in size. There is no Doppler evidence for an interatrial shunt. Mitral Valve: The mitral valve is normal in structure and function. There is mild mitral regurgitation. Aortic Valve: The aortic valve is trileaflet. The aortic valve opens well. There is mild to moderate aortic regurgitation. Tricuspid Valve: The tricuspid valve is normal in structure and function. There is mild tricuspid regurgitation. The right ventricular systolic pressure is estimated to be at least 35 mmHg based on an estimated right atrial pressure of 3 mm Hg. Pulmonic Valve: The pulmonic valve is not well visualized. There is a trace or physiologic amount of pulmonic regurgitation. There is no other significant valvular heart disease. Great Vessels: The aortic root is normal size. The ascending aorta is mildly enlarged. The IVC is of normal diameter and collapses greater than 50% with a sniff. This suggests a low right atrial pressure of 3 mm Hg. Pericardium/ Pleura There is no pericardial effusion. There is no pleural effusion. MMode/2D Measurements & Calculations LVIDd: 5.6 cm LVOT diam: 2.3 cm LVIDs: 4.1 cm Ao root diam: 3.7 cm FS: 27.5 % asc Aorta Diam: 3.6 cm IVSd: 1.3 cm LVPWd: 1.4 cm LV rodgers. diameter/BSA (cm/m^2): 2.5 LV sys. diameter/BSA (cm/m^2): 1.8 LA A2 area: 32.6 cm2 RA area: 15.6 cm2 LA A4 area: 33.4 cm2 LA length (vol): 7.1 cm LA vol: 131.0 ml LA vol index: 57.7 ml/m2 TAPSE: 2.3 cm Doppler Measurements & Calculations Ao V2 max: 172.4 cm/sec LVOT Max Marcelino: 107.9 cm/sec Ao V2 mean: 115.5 cm/sec LV V1 max P.7 mmHg Ao max P.9 mmHg LV V1 VTI: 26.4 cm Ao mean P.0 mmHg LEONIDES(I,D): 2.6 cm2 Ao V2 VTI: 41.8 cm LEONIDES(V,D): 2.6 cm2 sev ratio: 0.63 LEONIDES indexed to BSA (cm^2/m^2): 1.1 AI P1/2t: 487.6 msec AI dec slope: 270.9 cm/sec2 MV E max marcelino: 85.1 cm/sec TR max marcelino: 283.2 cm/sec MV A max marcelino: 80.2 cm/sec TR max P.1 mmHg MV E/A: 1.1 PA V2 max: 128.4 cm/sec Med Peak E' Marcelino: 4.4 cm/sec PA V2 mean: 75.9 cm/sec E/E' med: 19.3 PA mean P.7 mmHg Lat Peak E' Marcelino: 5.8 cm/sec PA pr(Accel): 38.5 mmHg E/E' lat: 14.7 E/e' average: 17.0 MV dec time: 0.31 sec SV(LVOT): 108.0 ml Reading Physician:12:17 PM
[2021-03-27] MEDS: FUROSEMIDE 40 MG/4 ML VIAL IV (16:18)
[2021-03-27 16:30] LABS: BUN Creatinine Ratio 16.6 (6-22); Blood Urea Nitrogen 41 mg/dL (9-20); Calcium 8.5 mg/dL (8.4-10.2); Carbon Dioxide 27 mmol/L (22-32); Chloride 103 mmol/L (98-107); Estimated Glomerular Filt Rate 25.5 mL/min (>60); Glucose 88 mg/dL (80-110); HEMOLYSIS < 15 (0-50); Potassium 4.2 mmol/L (3.4-5.1); Sodium 137 mmol/L (137-145)
[2021-03-27 16:40] LABS: Troponin I < 0.012 ng/mL (0.01-0.034)
[2021-03-27] MEDS: TAMSULOSIN 0.4 MG CAPSULE 0.8 MG PO (21:07)
[2021-03-28] VITALS (10 sets, daily range): BP systolic 155–180; BP diastolic 52–80; PULSE 52–71; RESP 15–18; TEMP 36.6–36.8; O2SAT 93–97
[2021-03-28] MEDS: LEVOTHYROXINE 75 MCG TABLET PO (05:32)
[2021-03-28] MEDS: LEVOTHYROXINE 100 MCG TABLET PO (05:32)
[2021-03-28] MEDS: SODIUM CHLORIDE 0.9% FLUSH 10 ML IV (07:27)
[2021-03-28] MEDS: FUROSEMIDE 40 MG/4 ML VIAL IV (07:27)
[2021-03-28 07:33] LABS: BUN Creatinine Ratio 18.5 (6-22); Blood Urea Nitrogen 45 mg/dL (9-20); Calcium 8.5 mg/dL (8.4-10.2); Carbon Dioxide 26 mmol/L (22-32); Chloride 103 mmol/L (98-107); Glucose 110 mg/dL (80-110); HEMOLYSIS < 15 (0-50); Magnesium 2.2 mg/dL (1.6-2.3); Potassium 3.7 mmol/L (3.4-5.1); Sodium 137 mmol/L (137-145)
[2021-03-28 07:42] LABS: Troponin I < 0.012 ng/mL (0.01-0.034)
--- NOTE | 2021-03-28 07:45 | PC.NURSE ---
Addendum entered by Dena Webber R.N. 03/28/21 14:23: Patient A/O x 4, patient denied SOB, dizziness or lightheadedness the rest of the morning. VSS. Patient voiding in urinal. Lungs CTA, patient 96%on RA. Patient's present for discharge, given instructions regarding f/u appointment. Patient educated on medication, instructed to no longer take hydrochlorothiazide (per Dr. Pepper), educated on Lasix, daily weight, diet and s/s of worsening condition. Patient and verbalized understanding. IV removed, patient tolerated. Patient discharged via wheelchair accompanied by and with [employer] assistance. Original Note: Patient reports feeling SOB, endorses numbness in bilateral face, mild chest pressure. Denies N/V, radiating pain to UE, dizziness or lightheadedness. VS taken, notified, RT called for STAT EKG.
[2021-03-28] MEDS: FAMOTIDINE 20 MG TABLET PO (08:13)
[2021-03-28] MEDS: ASPIRIN EC 81 MG TABLET PO (08:13)
[2021-03-28] MEDS: cloNIDine 0.1 MG TABLET PO (08:13)
[2021-03-28] MEDS: APIXABAN 5 MG TABLET PO (08:13)
[2021-03-28] MEDS: ATORVASTATIN 20 MG TABLET PO (08:13)
[2021-03-28] MEDS: EZETIMIBE 10 MG TABLET PO (08:13)
[2021-03-28] MEDS: OXYBUTYNIN 5 MG ER TAB PO (08:14)
[2021-03-28] MEDS: FINASTERIDE 5 MG TABLET PO (08:14)
--- NOTE | 2021-03-28 12:54 | CM.DANOTE ---
Discharge Planning/Care Management DCP: assessment: case received, EMR reviewed and met with pt during Team Bedside Rounds. Dr. Pepper explained to all that pt would have ECHO today and he expected pt would be able to go home after that. Pt expressed his agreement with same. Admission status: OBS: confirmed by UR SANCHEZ Keating. Payer: Medicare and [facility] P: likely home after ECHO. A d/c order is in place but the d/c specifics are not completed. CM Discharge Assessment Start: 03/28/21 12:53 Freq: Status: Active Protocol: Document 03/28/21 12:53 ITV (Rec: 03/28/21 12:54 ITV [id number]) Discharge Planning Assessment Advance Directives? No History Provided By Patient,Medical Record Prior Living Arrangements House Household Members spouse Discharge Plan Home Transportation Arrangement Family to provide transport. Referrals Initiated None needed
--- NOTE | 2021-03-28 13:37 | P.DS_ITS ---
History of Present Illness History of Present Illness Date Patient Seen: 03/28/21 Time Patient Seen: 13:37 Chief complaint: Numbness, possible heart issues Narrative: Prosper Borden is a 75-year-old male with a past medical history of atrial fibrillation on apixaban, CAD, hypertension, hyperlipidemia, TIA, hypothyroid, BPH, COPD, possible CKD who presented with left-sided pins and needle sensation for the past several days days and substernal chest pressure. The patient denies any focal weakness, numbness, or tingling. He is able to ambulate as much as he usually does, which is not typically far because of bilateral knee and hip pain. Shortly after this he also started complaining of a vague substernal chest pain. He cannot find the words to describe the pain but states that is best described as a pressure like sensation over the middle of his chest. It is been constant, nonradiating, not associated with exertion. He had a very similar presentation back in December of this year with a negative evaluation at that time. He has had no nausea, vomiting, abdominal pain, diaphoresis, nocturia, slow stream. In the emergency room, the patient was mildly hypertensive, mildly bradycardic in the upper 40s to low 50s, he did desaturate to 86% on room air but the patient has a history of ZEESHAN and this was when he was sleeping. Upon arrival to the hospital floor he was saturating at 96% on room air. Initial laboratory values revealed an unremarkable CBC, INR of 1.5, negative troponin, creatinine of 2.4 although this is similar to his discharge creatinine from his prior admission and it is unknown what his current baseline is. ProBNP was mildly elevated at 1630. TSH was 0.309. COVID-19 testing was negative. Chest x-ray was unremarkable. Patient was admitted for further evaluation. Discharge Providers Provider Date of admission: 03/27/21 07:23 Discharge Date: 03/28/21 Primary care physician: Dayana Acevedo DO Discharge provider: Delvin Pepper DO Summary Hospital Course Hospital Course: Prosper Borden is a 75-year-old male with a past medical history of atrial fibrillation on apixaban, CAD, hypertension, hyperlipidemia, TIA, hypothyroid, BPH, COPD, possible CKD who presented with left-sided pins and needle sensation for the past 2 days and substernal chest pressure. Admitted for further evaluation of these symptoms and elevated Creatinine. 1. Likely CKD stage III, present on admission - unknown baseline creatinine, Creatinine 2.4 on admission, similar to previous presentation. His creatinine over the course of his stay remained near 2.4 and this likely represents his baseline. - UA pending, renal ultrasound ordered. Will check bladder scan this evening to see if obstruction is present given history of BPH. - troponin negative, patient in sinus bradycardia, cardiac hypoperfusion less likely. - if stable, may be continued progression of chronic kidney disease. 2. Acute diastolic heart failure, present on admission, improved - ACS thought to be highly unlikely at this time. Troponin within normal limits. Symptoms constant for some time. Does have prior history of CAD / CO per report, no outside records available for review. - troponins were checked and were not elevated over the course of his stay. EKG shows an old RBBB, no acute signs of ischemia. - trial of famotidine to see if improvement for GERD did not show improvement. - recent stress testing 10/2020 was deemed low risk, echocardiogram was also unremarkable. Limited TTE was performed which showed an EF of 60-65% with no focal wall motion abnormalities but did show evidence of diastolic dysfunction. -patient was diuresed with furosemide, will continue furosemide 40 mg p.o. daily and recommend close follow-up with primary care for further monitoring. 3. L sided tingling sensation, chronic, present on admission, improved - patient with NIHSS of 0 on admission. No focal neurological deficits. - MRI and testing worked up previous admission, recommend outpatient neurology evaluation. 4. Paroxysmal atrial fibrillation ,chronic - sinus bradycardia on EKG and telemetry. Continue home beta marcos and apixa ban. 5. COPD, chronic, without exacerbation - patient with recent outpatient PFTs showing mixed obstructive and restrictive pattern - replaced home meds with duonebs BID, prn albuterol during his hospital stay. 7. ZEESHAN, chronic - patient reports BIPAP therapy at night. Certainly at risk for heart failure given ZEESHAN. 8. HTN, chronic - patient hypertensive in the emergency room. No significant changes were made except for the addition of oral furosemide as noted above and his hydrochlorothiazide should be discontinued as well. 9. HLD, chronic - continued home statin 10. BPH, chronic - no reported symptoms. Continued home medications. 11 hypothyroidism, chronic - continued home levothyroxine, TSH .307. Exam Vital Signs (past 8 hours): - 03/28/21 08:00 03/28/21 08:01 03/28/21 08:13 Temperature 97.9 F Pulse Rate 68 71 Respiratory Rate 15 Blood Pressure 180/80 H 180/80 H Pulse Oximetry 97 96 03/28/21 10:17 03/28/21 11:12 03/28/21 12:00 Temperature 98.0 F Pulse Rate 64 Respiratory Rate 15 Blood Pressure 165/73 H Pulse Oximetry 96 96 97 Oxygen Delivery Method Room Air Oxygen Flow Rate 0 Narrative Exam Narrative: GENERAL APPEARANCE: Well developed, well nourished, obese male with a BMI of 36.9, in no acute distress. SKIN: Inspection of the skin reveals no rashes, ulcerations or petechiae. HEENT: Normocephalic atraumatic, extraocular muscles are intact, oropharynx is clear and mucous membranes are moist, neck is supple without adenopathy NECK: Supple and symmetric. There was no thyroid enlargement, and no tenderness, or masses were felt. CHEST: Normal AP diameter and normal contour without any kyphoscoliosis. LUNGS: Auscultation of the lungs revealed no wheezes, rhonchi, or rales. CARDIOVASCULAR: There was a regular rate and rhythm without any murmurs, gallops, rubs. Peripheral pulses were 2+ and symmetric. ABDOMEN: Soft and nontender with normal bowel sounds. No ascites was noted. MUSCULOSKELETAL: There was no tenderness or effusions noted. Muscle strength and tone were normal. EXTREMITIES: No cyanosis, clubbing. Trace - 1+ pitting edema bilateral lower extremities. NEUROLOGIC: Alert and oriented x 3. Impaired short and mcfp memory. Strength is +5/5 in the Upper Extremities and Lower Extremities Bilaterally. Sensation to touch was normal. Psych: Flat affect, calm, cooperative with stable behavir. Objective Labs Result Diagrams: 03/27/21 04:00 03/28/21 06:45 Labs: Laboratory Results - last 24 hr 03/27/21 03/27/21 03/28/21 15:29 15:29 06:45 Sodium 137 137 Potassium 4.2 3.7 Chloride 103 103 Carbon Dioxide 27 26 BUN 41 H 45 H Creatinine 2.47 H 2.43 H Estimated GFR 25.5 L 26.0 L BUN/Creatinine Ratio 16.6 18.5 Glucose 88 110 Calcium 8.5 8.5 Magnesium 2.2 Troponin I < 0.012 03/28/21 06:45 Sodium Potassium Chloride Carbon Dioxide BUN Creatinine Estimated GFR BUN/Creatinine Ratio Glucose Calcium Magnesium Troponin I < 0.012 [facility] Medical History Atrial fibrillation CAD (coronary artery disease) CKD (chronic kidney disease) HLD (hyperlipidemia) HTN (hypertension) Hypothyroidism TIA (transient ischemic attack) Surgical History H/O knee surgery H/O shoulder surgery Social History household members: spouse Smoking Status: Never smoker Discharge Plan Discharge Plan Patient Disposition: Home Provider Discharge Comment: You were admitted to the hospital with volume overload, improved with oral diuretic medication called furosemide. Please follow up with your PCP next week if possible for possible dosing adjustments. I recommend you follow your weight every day at home, try to stick to a low salt diet. Discharge orders & Medications Prescriptions: New furosemide 40 mg tablet 40 mg PO DAILY 30 Days Qty: 30 RF: 0 Continued atorvastatin 20 mg tablet 20 mg PO DAILY RF: 0 felodipine 10 mg tablet extended release 24 hr 10 mg PO BID RF: 0 albuterol sulfate 90 mcg/actuation HFA aerosol inhaler 2 puff inhalation Q4H PRN (Reason: Wheezing) RF: 0 latanoprost 0.005 % drops 1 drp EYE-BOTH BEDTIME RF: 0 hydralazine 10 mg Tablet 10 mg PO TID RF: 0 fluticasone propion-salmeterol [Advair Diskus] 250-50 mcg/dose Blister With Device 1 inh INHALATION BID RF: 0 tamsulosin 0.4 mg Capsule 0.8 mg PO BEDTIME RF: 0 aspirin 81 mg Tablet 81 mg PO DAILY RF: 0 fluticasone propionate 50 mcg/actuation [facility],Suspension 2 spray INTRANASAL BEDTIME RF: 0 finasteride 5 mg Tablet 5 mg PO DAILY RF: 0 dorzolamide 2 % Drops 1 drp ophthalmic (eye) BEDTIME RF: 0 trospium 20 mg Tablet 20 mg PO DAILY RF: 0 apixaban 5 mg Tablet 5 mg PO BID RF: 0 levothyroxine 175 mcg tablet 175 mcg PO DAILY Qty: 30 RF: 1 clonidine HCl 0.1 mg tablet 0.1 mg PO DAILY RF: 0 ezetimibe 10 mg tablet 10 mg PO DAILY RF: 0 Discontinued hydrochlorothiazide 25 mg Tablet 25 mg PO DAILY RF: 0 Follow up/Referrals: Dayana Acevedo DO [Primary Care Provider] - Diet/Activity/Treatments Diet: Diet as Tolerated and Low-sodium Activity: As tolerated Discharge Data Primary Care Provider: Dayana Acevedo Attending Provider: Ofe Eaton
== END 2021-03-28 14:15 | disposition home or self-care (01) ==
LOC: ED 07:21 → AC 07:24
PROVIDERS: Internal Medicine; Nurse Practitioner Family; Admitting Provider Internal Medicine; Emergency Provider Emergency Medicine; Family Provider Family Medicine; PCP Family Medicine; Referring Provider Emergency Medicine; Visit Provider Internal Medicine
DX: R07.9 Chest pain, unspecified (principal); R20.2 Paresthesia of skin; R79.82 Elevated C-reactive protein (CRP); I50.31 Acute diastolic (congestive) heart failure; J44.9 Chronic obstructive pulmonary disease, unspecified; I48.0 Paroxysmal atrial fibrillation; I25.10 Atherosclerotic heart disease of native coronary artery without angina pectoris; E78.5 Hyperlipidemia, unspecified; E03.9 Hypothyroidism, unspecified; I10 Essential (primary) hypertension; G47.33 Obstructive sleep apnea (adult) (pediatric); E66.9 Obesity, unspecified; Z86.73 Personal history of transient ischemic attack (TIA), and cerebral infarction without residual deficits; Z20.822 Contact with and (suspected) exposure to COVID-19
CPT/HCPCS: 36415; 71045; 80048; 80053; 82550; 83690; 83735; 83880; 84443; 84484; 85025; 85610; 85730; 87635; 93005; 93306; 94760; 96361; 96374; 96376; 99284; C9803; G0378; A9270; J1940

== ENCOUNTER 2021-09-23 07:45 | Emergency (ER) | payer MEDICARE, OTHER, SELFPAY ==
[2021-09-16 14:13] VITALS: BMI 36.9
[2021-09-23] VITALS (18 sets, daily range): BP systolic 179–202; BP diastolic 76–86; PULSE 53–73; RESP 18–26; TEMP 37; O2SAT 94–97; BMI 38.9
--- NOTE | 2021-09-23 07:50 | DI.RAD.S_ITS ---
PROCEDURE: XR CHEST 1V INDICATIONS: chest pain TECHNIQUE: One view of the chest was acquired. COMPARISON: [facility], CR, XR CHEST 1V, 03/27/2021, 4:04. FINDINGS: Surgical changes and devices: None. Lungs and pleura: Pulmonary vascular congestion is seen. No definite focal infiltrate. No pleural effusions or pneumothorax. Mediastinum: Mediastinal contours appear normal. Heart size is mildly enlarged. Bones and chest wall: No suspicious bony lesions. Overlying soft tissues appear unremarkable. IMPRESSION: Cardiomegaly and mild pulmonary vascular congestion. No definite focal infiltrate, pleural effusion or pneumothorax. Dictated by: Paulo Nagy M.D. on 09/23/2021 at 8:13 Approved by: Paulo Nagy M.D. on 09/23/2021 at 8:13
[2021-09-23 08:06] LABS: Add Manual Diff / Slide Review NO; Basophils Absolute Auto 100 /uL (0-100); Basophils Percent Auto 0.8 % (0-2); Eosinophils Absolute Auto 100 /uL (0-450); Eosinophils Percent Auto 1.4 % (2-4); Hemoglobin 12.7 g/dL (13.5-17.5); Lymphocytes Absolute Auto 400 /uL (1100-4500); Lymphocytes Percent Auto 4.3 % (25-40); Mean Corpuscular HGB Conc 33.3 % (30-36); Mean Corpuscular Hemoglobin 30.4 PG (26-34); Mean Corpuscular Volume 91.2 fL (80-100); Monocytes Absolute Auto 600 /uL (0-900); Monocytes Percent Auto 7.2 % (3-14); Neutrophils Absolute Auto 7000 /uL (1500-7000); Neutrophils Percent Auto 86.3 % (50-75); Platelet Count 171 X10^3/uL (150-400); Red Blood Cell Count 4.17 X10^6/uL (4.5-5.9); Red Cell Distribution Width 14.2 % (11.6-14.8); White Blood Cell Count 8.2 X10^3/uL (4.5-11.0)
--- NOTE | 2021-09-23 08:09 | ED_ITS ---
HPI - Chest Pain General Chief Complaint: Chest Pain Stated Complaint: chest pains Time Seen by Provider: 09/23/21 07:49 Source: patient Mode of arrival: Ambulatory Limitations: no limitations History of Present Illness HPI narrative: Patient is a 76-year-old male. History of atrial fibrillation on apixaban. Diagnosed with heart failure. Is on Lasix. Also has a history of asthma. Is here for evaluation of chest discomfort. He has had chest discomfort off and on for the past 2 weeks. He has talk with his primary doctor. He was prescribed nitroglycerin. He has been taking nitroglycerin over the past 24 hours which she states does help his discomfort but then the symptoms return. He is currently asymptomatic. He also has a history of asthma. Does not have a rescue inhaler. He has been trying to get a rescue inhaler for the past week but there is been ?miscommunication ?between the doctor in the pharmacy and he has been unable to pick this medicine up. He does have lower extremity swelling but does not think that this is any worse than what it normally is. No abdominal pain. No nausea vomiting. No fevers. He did receive his COVID and flu shot yesterday. Was admitted earlier this year for chest discomfort he states this is different than that. Related Data Home Medications Medication Instructions Recorded Confirmed albuterol sulfate 90 mcg/actuation 2 puff INHALATION Q4H PRN 01/21/20 09/18/21 aerosol inhaler atorvastatin 20 mg tablet 20 mg PO DAILY 01/21/20 09/18/21 felodipine 10 mg tablet,extended 10 mg PO BID 01/21/20 09/18/21 release 24 hr latanoprost 0.005 % eye drops 1 drp EYE-BOTH BEDTIME 01/21/20 09/18/21 apixaban 5 mg tablet 5 mg PO BID 12/10/20 09/18/21 aspirin 81 mg tablet 81 mg PO DAILY 12/10/20 09/18/21 dorzolamide 2 % eye drops 1 drp OPHTHALMIC (EYE) BEDTIME 12/10/20 09/18/21 finasteride 5 mg tablet 5 mg PO DAILY 12/10/20 09/18/21 fluticasone 250 mcg-salmeterol 50 1 inh INHALATION BID 12/10/20 09/18/21 mcg/dose blistr powdr for inhalation (Advair Diskus) fluticasone propionate 50 2 spray INTRANASAL BEDTIME 12/10/20 09/18/21 mcg/actuation nasal spray,suspension tamsulosin 0.4 mg capsule 0.8 mg PO BEDTIME 12/10/20 09/18/21 trospium 20 mg tablet 20 mg PO DAILY 12/10/20 09/18/21 clonidine HCl 0.1 mg tablet 0.1 mg PO DAILY 03/27/21 09/18/21 ezetimibe 10 mg tablet 10 mg PO DAILY 03/27/21 09/18/21 furosemide 40 mg tablet 40 mg PO DAILY tab 09/18/21 09/18/21 hydralazine 25 mg tablet 25 mg PO TID tab 09/18/21 09/18/21 metoprolol succinate 25 mg 25 mg PO BID tab 09/18/21 09/18/21 tablet,extended release 24 hr Previous Rx's Medication Instructions Recorded levothyroxine 175 mcg tablet 175 mcg PO DAILY #30 tab 12/11/20 prednisone 20 mg tablet 20 mg PO DAILY 5 Days #5 tab 09/23/21 Allergies Allergy/AdvReac Type Severity Reaction Status Date / Time No Known Drug Allergies Allergy Verified 09/23/21 08:02 Review of Systems Constitutional Constitutional: Denies fever(s) Cardiovascular Cardiovascular: Reports as per HPI, Reports system reviewed and no additional complaints, except as documented and Reports chest pain Respiratory Respiratory: Reports as per HPI and Reports system reviewed and no additional complaints, except as documented Gastrointestinal Gastrointestinal: Reports system reviewed and no additional complaints, except as documented Musculoskeletal Musculoskeletal: Reports system reviewed and no additional complaints, except as documented and Reports as per HPI Integumentary/Breasts Skin/Breast: Reports system reviewed and no additional complaints, except as documented Hematologic/Lymphatic On Anticoagulants: Yes Patient History Medical History Atrial fibrillation CAD (coronary artery disease) CKD (chronic kidney disease) HLD (hyperlipidemia) HTN (hypertension) Hypothyroidism TIA (transient ischemic attack) Surgical History H/O knee surgery H/O shoulder surgery Family History (Updated 09/18/21 @ 13:52 by Fior Carrillo RN) Father Hypertension Social History marital status: household members: spouse Smoking Status: Never smoker substance use type: does not use Smoking Status: Never smoker alcohol intake frequency: holidays/special occasions only Substance Use Type: does not use Exam Initial Vital Signs Initial Vital Signs: Vital Signs Pulse Rate 68 09/23/21 07:54 Pulse Oximetry 96 09/23/21 07:54 Const General: cooperative and healthy appearing HENMT Head: normal to inspection and normocephalic Resp Effort & Inspection: labored, no respiratory distress and tachypneic Auscultation: wheezes Cardio Rate: regular rate Rhythm: regular rhythm GI Inspection: normal to inspection Palpation: soft Skin General: no rashes or lesions noted Neuro General: patient alert, patient awake, patient oriented x3 and moves all extremities Extrem General: normal to inspection, capillary refill normal and edema Psych Appearance: grossly normal and well kempt Scores GCS [place] coma scale eye opening: Spontaneous Karla coma scale verbal response: Orientated [place] coma scale motor response: Obey commands Karla coma scale total score: 15 Course Orders Ordered: ED Orders 09/23/21 07:50 XR chest 1V Stat EKG-12 Lead Stat 09/23/21 07:59 Complete Blood Count AUTO DIFF Stat Comprehensive Metabolic Panel Stat Lipase Stat NT-proBNP (BNP-Adult 18+) Stat Partial Thromboplastin Time Stat Prothrombin Time INR Stat Troponin & CK Cardiac Panel Stat 09/23/21 08:07 RT Consult Eval and Treat Now 09/23/21 08:21 EKG-12 Lead Stat 09/23/21 08:30 COVID19 -Nasal swab/Pre-Proc Stat 09/23/21 10:10 Troponin I Stat Discontinued Medications Albuterol/Ipratropium (Albuterol/Ipratropium 3 Ml Ampul) 3 ml INH NOW ONE Stop: 09/23/21 08:08 Last Admin: 09/23/21 09:17 Dose: Not Given Documented by: COTY Methylprednisolone (Methylprednisolone 125 Mg/2 Ml Vial) 125 mg IV NOW ONE Stop: 09/23/21 09:47 Last Admin: 09/23/21 10:04 Dose: 125 mg Documented by: ROSALIO Vital Signs Vital signs: Vital Signs - 8 hr 09/23/21 07:54 09/23/21 08:00 09/23/21 08:02 Temperature 98.6 F Pulse Rate 68 66 70 Respiratory Rate 20 Blood Pressure 184/78 H 186/86 H Pulse Oximetry 96 95 96 09/23/21 08:30 09/23/21 08:31 09/23/21 09:00 Temperature Pulse Rate 61 60 55 L Respiratory Rate 24 25 H 19 Blood Pressure 179/77 H Pulse Oximetry 96 95 95 09/23/21 09:01 09/23/21 09:30 09/23/21 09:31 Temperature Pulse Rate 53 L 66 67 Respiratory Rate 18 Blood Pressure 182/79 H 189/86 H Pulse Oximetry 94 96 96 MDM - Chest Pain Lab Data Result diagrams: 09/23/21 07:59 09/23/21 07:59 Labs: Lab Results 09/23/21 09/23/21 09/23/21 Range/Units 07:59 07:59 07:59 WBC 8.2 (4.5-11.0) X10^3/uL RBC 4.17 L (4.5-5.9) X10^6/uL Hgb 12.7 L (13.5-17.5) g/dL Hct 38.0 L (41-53) % MCV 91.2 (80-100) fL MCH 30.4 (26-34) PG MCHC 33.3 (30-36) % RDW 14.2 (11.6-14.8) % Plt Count 171 (150-400) X10^3/uL Neut % (Auto) 86.3 H (50-75) % Lymph % (Auto) 4.3 L (25-40) % [place] % (Auto) 7.2 (3-14) % Eos % (Auto) 1.4 L (2-4) % Baso % (Auto) 0.8 (0-2) % Neut # (Auto) 7000 (3277-7666) /uL Lymph # (Auto) 400 L (7627-3198) /uL [place] # (Auto) 600 (0-900) /uL Eos # (Auto) 100 (0-450) /uL Baso # (Auto) 100 (0-100) /uL PT 16.0 H (10.1-12.7) SECONDS INR 1.4 H (0.9-1.3) APTT 37 H (26.4-36.2) SECONDS Sodium 137 (137-145) mmol/L Potassium 4.5 (3.4-5.1) mmol/L Chloride 104 (98-107) mmol/L Carbon Dioxide 24 (22-32) mmol/L BUN 39 H (9-20) mg/dL Creatinine 2.75 H (0.66-1.25) mg/dL Estimated GFR 22.5 L (>60) mL/min BUN/Creatinine Ratio 14.2 (6-22) Glucose 102 (80-110) mg/dL Calcium 8.5 (8.4-10.2) mg/dL Total Bilirubin 0.6 (0.2-1.3) mg/dL AST 27 (17-59) IU/L ALT 20 (<50) IU/L Alkaline Phosphatase 41 (38-126) U/L Total Creatine Kinase 106 (55-170) U/L CK-MB (CK-2) 0.64 (<2.37) ng/mL CK-MB (CK-2) Rel Index 0.6 L (1.5-5.0) % Troponin I 0.022 (0.01-0.034) ng/mL NT-Pro-B Natriuret Pep 1500 H (<450) pg/mL Total Protein 6.9 (6.3-8.2) g/dL Albumin 4.0 (3.5-5.0) g/dL Globulin 2.9 (1.7-4.1) g/dL Albumin/Globulin Ratio 1.4 (1.0-2.8) Lipase 110 (23-300) U/L SARS-CoV-2 (PCR) (Negative) 09/23/21 09/23/21 Range/Units 08:30 10:10 WBC (4.5-11.0) X10^3/uL RBC (4.5-5.9) X10^6/uL Hgb (13.5-17.5) g/dL Hct (41-53) % MCV (80-100) fL MCH (26-34) PG MCHC (30-36) % RDW (11.6-14.8) % Plt Count (150-400) X10^3/uL Neut % (Auto) (50-75) % Lymph % (Auto) (25-40) % [place] % (Auto) (3-14) % Eos % (Auto) (2-4) % Baso % (Auto) (0-2) % Neut # (Auto) (4027-0178) /uL Lymph # (Auto) (8993-3521) /uL [place] # (Auto) (0-900) /uL Eos # (Auto) (0-450) /uL Baso # (Auto) (0-100) /uL PT (10.1-12.7) SECONDS INR (0.9-1.3) APTT (26.4-36.2) SECONDS Sodium (137-145) mmol/L Potassium (3.4-5.1) mmol/L Chloride (98-107) mmol/L Carbon Dioxide (22-32) mmol/L BUN (9-20) mg/dL Creatinine (0.66-1.25) mg/dL Estimated GFR (>60) mL/min BUN/Creatinine Ratio (6-22) Glucose (80-110) mg/dL Calcium (8.4-10.2) mg/dL Total Bilirubin (0.2-1.3) mg/dL AST (17-59) IU/L ALT (<50) IU/L Alkaline Phosphatase (38-126) U/L Total Creatine Kinase (55-170) U/L CK-MB (CK-2) (<2.37) ng/mL CK-MB (CK-2) Rel Index (1.5-5.0) % Troponin I 0.018 (0.01-0.034) ng/mL NT-Pro-B Natriuret Pep (<450) pg/mL Total Protein (6.3-8.2) g/dL Albumin (3.5-5.0) g/dL Globulin (1.7-4.1) g/dL Albumin/Globulin Ratio (1.0-2.8) Lipase (23-300) U/L SARS-CoV-2 (PCR) Negative (Negative) Imaging Data Chest x-ray: Radiologist's Impression: [address] [address] XRay Report Signed Patient: Prosper Borden MR#: [id number] : 1945 Acct:[id number] Age/Sex: 76 / M Date of Service: 09/23/21 Loc: ED Accession Number: [id number] ?? Procedure: XR chest 1V Ordering Provider: Willam Landry D.O. PROCEDURE:? XR CHEST 1V ? INDICATIONS:? chest pain ? TECHNIQUE:? One view of the chest was acquired.? ? COMPARISON:? [facility], CR, XR CHEST 1V, 03/27/2021, 4:04. ? FINDINGS:? ? Surgical changes and devices:? None.? ? Lungs and pleura:? Pulmonary vascular congestion is seen.? No definite focal infiltrate.? No pleural effusions or pneumothorax.? ? Mediastinum:? Mediastinal contours appear normal.? Heart size is mildly enlarged.? ? Bones and chest wall:? No suspicious bony lesions.? Overlying soft tissues appear unremarkable.? ? IMPRESSION:? Cardiomegaly and mild pulmonary vascular congestion.? No definite focal infiltrate, pleural effusion or pneumothorax. ? ? Dictated by: Paulo Nagy M.D. on 09/23/2021 at 8:13 ? ? Approved by: Paulo Nagy M.D. on 09/23/2021 at 8:13?? ECG Data Attestation: I personally reviewed and interpreted this ECG as follows: Interpretation: Sinus rhythm Ventricular rate is 66 First-degree AV block the MN interval 216 milliseconds Right bundle branch block QRS [address] T wave changes EKG with discomfort Sinus rhythm Ventricular rate is 63 First-degree AV block MN interval 2-6 milliseconds Right bundle branch block QRS 1 to a milliseconds Occasional PACs No ST T wave changes Unchanged from initial EKG MDM Narrative Medical decision making narrative: Patient had an unchanged EKG from when he was having discomfort and when he was symptom-free. His chest x-ray is unremarkable. Troponins are negative x2. He did have quite a bit of wheezing however for some reason he declined a nebulizer and also an albuterol inhaler. He just gave statement that ?I can do it ?when asked why he would not want this medication. He did understand that I thought he would potentially improve with a treatment however he still would not like any albuterol. His is at bedside for this discussion. He was given steroids. He did agree to stay for 2nd troponin which was subsequently unremar kable. He has a prescription for albuterol at home. Will provide an AeroChamber. Will provide steroids. 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 He expressed understanding and agreement. Discharge Plan Departure Patient Disposition: Home Clinical Impression: Atypical chest pain, Diffuse wheezing Instructions: DI for Atypical Chest Pain Activity Restrictions/Additional Instructions: Recommend that you continue to take all of your medications as directed. 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 Return to the emergency department for any new or worsening symptoms. The steroids that you were given a prescription for today will start tomorrow 09/24/2021. Prescriptions: New prednisone 20 mg tablet 20 mg PO DAILY 5 Days Qty: 5 0RF No Action hydralazine 25 mg tablet 25 mg PO TID 0RF furosemide 40 mg tablet 40 mg PO DAILY 0RF metoprolol succinate 25 mg tablet extended release 24 hr 25 mg PO BID 0RF atorvastatin 20 mg tablet 20 mg PO DAILY 0RF Label Comments: TAKE 1 TABLET BY MOUTH ONCE DAILY IN THE EVENING FOR CHOLESTEROL felodipine 10 mg tablet extended release 24 hr 10 mg PO BID 0RF Label Comments: TAKE 1 TABLET BY MOUTH ONCE DAILY albuterol sulfate 90 mcg/actuation HFA aerosol inhaler 2 puff inhalation Q4H PRN (Reason: Wheezing) 0RF Label Comments: INHALE 2 PUFFS BY MOUTH EVERY 4 HOURS NEEDED FOR WHEEZE Rx Instructions: 2 puffs prn for shortness of breath latanoprost 0.005 % drops 1 drp EYE-BOTH BEDTIME 0RF Rx Instructions: 1 drop in affected BOTH eyes daily at HS fluticasone propion-salmeterol [Advair Diskus] 250-50 mcg/dose Blister With Device 1 inh INHALATION BID 0RF tamsulosin 0.4 mg Capsule 0.8 mg PO BEDTIME 0RF aspirin 81 mg Tablet 81 mg PO DAILY 0RF fluticasone propionate 50 mcg/actuation [place],Suspension 2 spray INTRANASAL BEDTIME 0RF finasteride 5 mg Tablet 5 mg PO DAILY 0RF dorzolamide 2 % Drops 1 drp ophthalmic (eye) BEDTIME 0RF trospium 20 mg Tablet 20 mg PO DAILY 0RF apixaban 5 mg Tablet 5 mg PO BID 0RF levothyroxine 175 mcg tablet 175 mcg PO DAILY Qty: 30 1RF clonidine HCl 0.1 mg tablet 0.1 mg PO DAILY 0RF Label Comments: TAKE 1 TABLET BY MOUTH ONCE DAILY FOR HIGH BLOOD PRESSURE ezetimibe 10 mg tablet 10 mg PO DAILY 0RF Referrals: Dayana Acevedo DO [Primary Care Provider] -
[2021-09-23 08:13] LABS: INR 1.4 (0.9-1.3)
[2021-09-23 08:16] LABS: PTT Partial Thromboplastin Tim 37 SECONDS (26.4-36.2)
[2021-09-23 08:19] LABS: Alanine Aminotransferase 20 IU/L (<50); Albumin Globulin Ratio 1.4 (1.0-2.8); Alkaline Phosphatase 41 U/L (38-126); Aspartate Aminotransferase 27 IU/L (17-59); BUN Creatinine Ratio 14.2 (6-22); Bilirubin Total 0.6 mg/dL (0.2-1.3); Blood Urea Nitrogen 39 mg/dL (9-20); Calcium 8.5 mg/dL (8.4-10.2); Carbon Dioxide 24 mmol/L (22-32); Chloride 104 mmol/L (98-107); Creatine Kinase 106 U/L (55-170); Estimated Glomerular Filt Rate 22.5 mL/min (>60); Globulin 2.9 g/dL (1.7-4.1); Glucose 102 mg/dL (80-110); Lipase 110 U/L (23-300); Potassium 4.5 mmol/L (3.4-5.1); Sodium 137 mmol/L (137-145); Total Protein 6.9 g/dL (6.3-8.2)
[2021-09-23 08:31] LABS: NT-proBNP (BNP-Adult 18+) 1500 pg/mL (<450); Troponin I 0.022 ng/mL (0.01-0.034)
[2021-09-23 08:34] LABS: CKMB % Relative Index 0.6 % (1.5-5.0); Creatine Kinase MB 0.64 ng/mL (<2.37)
[2021-09-23 08:35] LABS: HEMOLYSIS < 15 (0-50)
[2021-09-23 08:54] LABS: COVID19 -Nasal RAPID Negative (Negative)
[2021-09-23] MEDS: methylPREDNISolone 125 MG/2 ML VIAL IV (10:04)
[2021-09-23 11:01] LABS: Troponin I 0.018 ng/mL (0.01-0.034)
== END 2021-09-23 12:20 | disposition home or self-care (01) ==
PROVIDERS: Emergency Provider Emergency Medicine; Family Provider Family Medicine; PCP Family Medicine
DX: R07.89 Other chest pain (principal); I44.0 Atrioventricular block, first degree; I45.10 Unspecified right bundle-branch block; R06.2 Wheezing; Z20.822 Contact with and (suspected) exposure to COVID-19
CPT/HCPCS: 36415; 71045; 80053; 82550; 82553; 83690; 83880; 84484; 85025; 85610; 85730; 87635; 93005; 96374; 99284; C9803; J2930

== ENCOUNTER → 2021-10-01 09:45 | Outpatient (CLI) | payer MEDICARE, OTHER, SELFPAY ==
[2021-09-16 14:13] VITALS: BMI 36.9
[2021-10-01 12:26] LABS: COVID19 -Nasal RAPID Negative (Negative)
== END ==
PROVIDERS: Family Provider Family Medicine; PCP Family Medicine; Visit Provider Surgery
DX: Z01.812 Encounter for preprocedural laboratory examination (principal); Z20.822 Contact with and (suspected) exposure to COVID-19
CPT/HCPCS: 87635; C9803

== ENCOUNTER 2021-10-02 09:42 | Day surgery (SDC) | payer MEDICARE, OTHER, SELFPAY ==
[2021-09-16 14:13] VITALS: BMI 36.9
--- NOTE | 2021-10-02 | PATH_ITS ---
[facility] Accession Number: [id number] . 01 Material submitted: . PART A: cecum - CECAL POLYP X4 PART B: colon - TRANSVERSE COLON POLYPS X2 PART C: sigmoid colon - SIGMOID COLON POLYP X2 . 02 Diagnosis: A. Cecal Polyp x4: Multiple (approximately seven) portions of tubular adenoma. . B. Transverse Colon Polyps x2: Portions of tubular adenoma x4. . C. Sigmoid Colon Polyp x2: Portions of tubular adenoma x2. MRV 10/06/2021 1054 Local . 02 Electronically signed: . Zully Velásquez MD, Pathologist NPI- [id number] . 01 Gross description: . Part A: CECAL POLYP X4: Received in formalin are 7 fragment(s) of larios, soft tissue measuring 0.7 x 0.4 x 0.4 cm to 0.3 x 0.2 x 0.2 cm submitted entirely in 1 cassette(s) Part B: TRANSVERSE COLON POLYPS X2: Received in formalin are 4 fragment(s) of larios, soft tissue measuring 0.5 x 0.5 x 0.5 cm to 0.4 x 0.3 x 0.2 cm submitted entirely in 1 cassette(s) Part C: SIGMOID COLON POLYP X2: Received in formalin are 2 fragment(s) of larios, soft tissue measuring 0.6 x 0.4 x 0.1 cm to 0.6 x 0.3 x 0.1 cm submitted entirely in 1 cassette(s) /QBJ 10/03/2021 0835 Local . 02 Pathologist provided ICD-10: K63.5 . 02 CPT . 279181, 422803, [id number] Performed at: 01 [facility] [address] [place] [address] [address], [place] [id number] MD Rishabh Coello MD Phone: [phone] Performed at: 02 [facility] [address] [place] [id number] MD Glendy Pacheco MD Phone: [phone]
[2021-10-02 10:16] VITALS: BP 199/87; PULSE 70; RESP 16; TEMP 36.4; O2SAT 98; BMI 38.9
[2021-10-02] MEDS: LACTATED RINGERS 1,000 ML 42 ML IV (10:42)
--- NOTE | 2021-10-02 11:34 | PM.PREOP ---
Pre-operative Note COVID-19 COVID-19 status: Negative Result date/Date tested (Pos, Neg/Pending): 10/01/21 Interval Note History & Physical reviewed/Exam performed by Physician: Yes Changes to H&P: No ASA Class (for procedural sedation): III
[2021-10-02] MEDS: fentaNYL 250 MCG/5 ML INJ IV (11:45)
[2021-10-02] MEDS: MIDAZOLAM 5 MG/5 ML VIAL IV (12:00)
--- NOTE | 2021-10-02 12:19 | PM.OP.COLON ---
Operative Date/Time/Diagnoses Date of procedure: 10/02/21 Time of procedure: 12:19 Pre-op diagnosis: History of colon polyps Post-op diagnosis: same Procedure & Clinicians Study performed: Colonoscopy Same procedure as scheduled: Yes Indications: History of colon polyps Surgeon: Heriberto Mathew Procedure Notes SCOAP/Timeout: Yes Procedure in detail: Procedure: The patient was brought to the endoscopy suite, placed in left lateral decubitus position. The patient was connected to monitoring devices. A time-out was performed. Sedation was administered. Once the patient was adequately sedated, a digital rectal exam was performed and was normal. The scope was then inserted and advanced to the cecum where the appendiceal orifice was identified and photographed. The scope was then slowly withdrawn over greater than 6 minutes. Mucosa was thoroughly inspected. There were 4 polyps in the cecum, all less than 1 cm. Two of these were removed with cold forceps and 2 were removed with cold snare. There were 2 polyps in the transverse colon less than a cm removed with cold snare. There were 3 small sigmoid polyps removed with cold forceps. There were scattered sigmoid diverticula. The scope was retroflexed in the rectum. No other abnormalities were noted. The scope was straightened and removed. The patient was awakened and brought to recovery. Versed: 3 mg Fentanyl: 50 mcg EBL: 2 Findings: 4 small polyps in the cecum, 2 small polyps in the transverse colon and 2 small polyps in the sigmoid colon Scope withdrawal time: 23 Sedation minutes: 35 Findings: divertiulosis and polyp(s) Post-procedure Recommendations: Will call with biopsy results
[2021-10-02 12:21] VITALS: BP 154/66; PULSE 51; RESP 14; TEMP 36.4; O2SAT 96
[2021-10-02 12:26] VITALS: BP 164/68; PULSE 52; RESP 9; O2SAT 93
[2021-10-02 12:31] VITALS: BP 146/75; PULSE 52; RESP 10; O2SAT 95
[2021-10-02 12:51] VITALS: BP 173/89; PULSE 58; RESP 14; O2SAT 97
== END 2021-10-02 13:08 | disposition home or self-care (01) ==
PROVIDERS: Family Provider Family Medicine; PCP Family Medicine; Referring Provider Surgery; Visit Provider Surgery
PROC: 0DJD8ZZ Inspection of Lower Intestinal Tract, Via Natural or Artificial Opening Endoscopic (ICD-10-PCS; CPT 45378; principal; 2021-10-02 10:45)
DX: Z12.11 Encounter for screening for malignant neoplasm of colon (principal); Z86.010 Personal history of colon polyps; K57.30 Diverticulosis of large intestine without perforation or abscess without bleeding; I48.91 Unspecified atrial fibrillation; Z79.01 Long term (current) use of anticoagulants; D12.0 Benign neoplasm of cecum; D12.3 Benign neoplasm of transverse colon; D12.5 Benign neoplasm of sigmoid colon
CPT/HCPCS: 45385; 45380; 99152; 99153; J2250; J3010

== ENCOUNTER → 2022-03-27 09:18 | Outpatient (CLI) | payer MEDICARE, OTHER, SELFPAY ==
[2021-09-16 14:13] VITALS: BMI 36.9
--- NOTE | 2022-03-27 | DI.ECHO.S_ITS ---
[facility] +---------+ : : [address] : : : : [id number] : : : : Phone: [phone]+ Echocardiogram Report + + :Name: BELKIS CALVERT Study Date: 03/27/2022 Height: 69 in : :[facility] ReadingLocation: Weight: 264 lb : : Gender: Male BSA: 2.3 m2 : :: 1945 Age: 76 yrs BP: 139/63 mmHg: :Reason For Study: Dyspnea : :Ordering Physician: CHARLIE, : :SUSHANT Performed By: Ravi Mina : :Referring: SUSHANT GUERRA : + + Interpretation Summary Left ventricular size is at the upper limits of normal. The ejection fraction is estimated to be 60-65%. There has been no significant change in LV EF since the previous exam. Diastolic parameters suggest a pseudonormalization pattern, consistent with probable elevated filling pressures. No significant change in diastolic dysfunction. The right ventricle is normal in size and function. A patent foramen ovale is suspected. Previously not reported. There is mild to moderate mitral regurgitation. Compared to the prior echo study, there has been an increase in the severity of mitral regurgitation. There is mild to moderate aortic regurgitation. Compared to the prior echo study, there has been no change in the severity of aortic regurgitation. There is mild to moderate tricuspid regurgitation. Compared to the prior echo exam, there has been an increase in TR severity. The right ventricular systolic pressure is estimated to be at least 53 mmHg based on an estimated right atrial pressure of 3 mm Hg. Previously 35 mmHg. Compared to the prior echo exam, there has been an increase in the severity of pulmonary hypertension. Procedure: A two-dimensional transthoracic echocardiogram with color flow and Doppler was performed. The study quality was technically adequate. Comparison is made with the echocardiogram of 03/28/2021. The patient was in normal sinus rhythm during the exam. The patient had frequent PACs during the exam. Left Ventricle: There is mild concentric left ventricular hypertrophy. Left ventricular size is at the upper limits of normal. Proximal septal thickening is noted. There is no echo evidence for significant left ventricular outflow tract obstruction. There is no thrombus. Left ventricular systolic function is normal. The ejection fraction is estimated to be 60-65%. There has been no significant change since the previous exam. There are no focal wall motion abnormalities. Diastolic parameters suggest a pseudonormalization pattern, consistent with probable elevated filling pressures. Right Ventricle: The right ventricle is normal in size and function. Atria: The left atrium is severely dilated. The left atrium has remained unchanged in size since the prior echo exam. The right atrium is mildly dilated. A patent foramen ovale is suspected. The thickening of interatrial septum suggests lipomatous hypertrophy. Mitral Valve: There is mild mitral annular calcification. The mitral valve leaflets are slightly calcified. There is mild to moderate mitral regurgitation. Compared to the prior echo study, there has been an increase in the severity of mitral regurgitation. Aortic Valve: There is mild aortic valve sclerosis. There is discrete nodular thickening of the right coronary cusp. There is no aortic valve stenosis. There is mild to moderate aortic regurgitation. Compared to the prior echo study, there has been no change in the severity of aortic regurgitation. Tricuspid Valve: The tricuspid valve is normal. There is mild to moderate tricuspid regurgitation. The right ventricular systolic pressure is estimated to be at least 53 mmHg based on an estimated right atrial pressure of 3 mm Hg. Compared to the prior echo exam, there has been an increase in TR severity. Compared to the prior echo exam, there has been an increase in the severity of pulmonary hypertension. Pulmonic Valve: The pulmonic valve is not well seen, but is grossly normal. There is trace pulmonic regurgitation. Great Vessels: The aortic root is normal size. The ascending aorta is at the upper limits of normal in size. The IVC is of normal diameter and collapses greater than 50% with a sniff. This suggests a low right atrial pressure of 3 mm Hg. Pericardium/ Pleura There is no pericardial effusion. There is no pleural effusion. MMode/2D Measurements & Calculations LVIDd: 5.7 cm LVOT diam: 2.3 cm LVIDs: 3.8 cm Ao root diam: 3.5 cm FS: 33.7 % asc Aorta Diam: 3.6 cm IVSd: 1.4 cm LVPWd: 1.2 cm LV rodgers. diameter/BSA (cm/m^2): 2.5 LV sys. diameter/BSA (cm/m^2): 1.6 LA A2 area: 33.9 cm2 RA long axis: 6.2 cm LA A4 area: 36.0 cm2 RA area: 22.7 cm2 LA length (vol): 7.6 cm RA vol: 70.6 ml LA vol: 135.9 ml RA : 30.4 ml/m2 LA vol index: 58.5 ml/m2 TAPSE: 2.9 cm LVAd ap4: 42.3 cm2 Doppler Measurements & Calculations Ao V2 max: 204.4 cm/sec LVOT Max Marcelino: 117.9 cm/sec Ao V2 mean: 137.1 cm/sec LV V1 max P.6 mmHg Ao max P.7 mmHg LV V1 VTI: 26.8 cm Ao mean P.5 mmHg LEONIDES(I,D): 2.5 cm2 Ao V2 VTI: 44.1 cm LEONIDES(V,D): 2.3 cm2 sev ratio: 0.61 LEONIDES indexed to BSA (cm^2/m^2): 1.1 AI P1/2t: 315.2 msec AI dec slope: 321.8 cm/sec2 MV E max marcelino: 106.9 cm/sec TR max marcelino: 354.3 cm/sec MV A max marcelino: 71.3 cm/sec TR max P.2 mmHg MV E/A: 1.5 Med Peak E' Marcelino: 4.2 cm/sec E/E' med: 25.4 Lat Peak E' Marcelino: 5.3 cm/sec E/E' lat: 20.3 E/e' average: 22.8 MV dec time: 0.21 sec SV(LVOT): 108.2 ml Reading Physician:05:26 PM
== END ==
PROVIDERS: Family Provider Family Medicine; PCP Family Medicine; Referring Provider Internal Medicine Cardiovascular Disease; Visit Provider Internal Medicine Cardiovascular Disease
DX: R06.00 Dyspnea, unspecified (principal); I34.0 Nonrheumatic mitral (valve) insufficiency; I35.1 Nonrheumatic aortic (valve) insufficiency; I07.1 Rheumatic tricuspid insufficiency; I27.20 Pulmonary hypertension, unspecified
CPT/HCPCS: 93306

== ENCOUNTER 2022-04-06 18:38 | Emergency (ER) | payer MEDICARE, OTHER, SELFPAY ==
[2021-09-16 14:13] VITALS: BMI 36.9
[2022-04-06] VITALS (9 sets, daily range): BP systolic 167–184; BP diastolic 72–84; PULSE 64–80; RESP 16–24; TEMP 36.8; O2SAT 94–97; BMI 23.6
[2022-04-06 19:32] LABS: Add Manual Diff / Slide Review NO; Basophils Absolute Auto 100 /uL (0-100); Basophils Percent Auto 0.9 % (0-2); Eosinophils Absolute Auto 300 /uL (0-450); Eosinophils Percent Auto 4.3 % (2-4); Hematocrit 26.3 % (41-53); Hemoglobin 8.7 g/dL (13.5-17.5); Lymphocytes Absolute Auto 800 /uL (1100-4500); Lymphocytes Percent Auto 10.6 % (25-40); Mean Corpuscular HGB Conc 33.2 % (30-36); Mean Corpuscular Hemoglobin 29.5 PG (26-34); Mean Corpuscular Volume 88.7 fL (80-100); Monocytes Absolute Auto 600 /uL (0-900); Monocytes Percent Auto 7.6 % (3-14); Neutrophils Absolute Auto 6100 /uL (1500-7000); Neutrophils Percent Auto 76.6 % (50-75); Platelet Count 269 X10^3/uL (150-400); Red Blood Cell Count 2.96 X10^6/uL (4.5-5.9); Red Cell Distribution Width 15.1 % (11.6-14.8)
[2022-04-06 19:56] LABS: Alanine Aminotransferase 17 IU/L (<50); Albumin Globulin Ratio 1.2 (1.0-2.8); Alkaline Phosphatase 49 U/L (38-126); Aspartate Aminotransferase 25 IU/L (17-59); BUN Creatinine Ratio 13.5 (6-22); Bilirubin Total 0.3 mg/dL (0.2-1.3); Blood Urea Nitrogen 44 mg/dL (9-20); Calcium 8.1 mg/dL (8.4-10.2); Carbon Dioxide 28 mmol/L (22-32); Chloride 104 mmol/L (98-107); Estimated Glomerular Filt Rate 19 mL/min (>60); Globulin 3.3 g/dL (1.7-4.1); Glucose 143 mg/dL (80-110); HEMOLYSIS 17 (0-50); Potassium 4.4 mmol/L (3.4-5.1); Sodium 139 mmol/L (137-145); Total Protein 7.3 g/dL (6.3-8.2)
[2022-04-06 19:59] LABS: INR 1.7 (0.9-1.3); Prothrombin Time 19.2 SECONDS (10.1-12.7)
--- NOTE | 2022-04-06 20:57 | ED_ITS ---
HPI - Recheck/Abnormal Lab/Rx General Chief Complaint: Recheck/Abnormal Lab/Rx Stated Complaint: Needs Transfusion Time Seen by Provider: 04/06/22 20:54 Source: patient Mode of arrival: Ambulatory History of Present Illness HPI narrative: 76-year-old male nonsmoker with history of CHF, hypertension, hyperlipidemia, CKD, and Afib on anticoagulation presents at the request of his rn relief charge for evaluation. He has been feeling short of breath for the past few weeks and went to see his rn relief charge who performed examination including labs which noted his hemoglobin to be down and requested he be sent here for transfusion. He denies any abnormal bleeding or dark stools. He denies any change in medications or diet. He admits to increased shortness of breath with exertion and generalized fatigue. He is not dizzy or lightheaded. Denies any chest pain, fever, chills nor nausea or vomiting. Related Data Home Medications Medication Instructions Recorded Confirmed albuterol sulfate 90 mcg/actuation 2 puff INHALATION Q4H PRN 01/21/20 10/02/21 aerosol inhaler atorvastatin 20 mg tablet 20 mg PO DAILY 01/21/20 10/02/21 felodipine 10 mg tablet,extended 10 mg PO BID 01/21/20 10/02/21 release 24 hr latanoprost 0.005 % eye drops 1 drp EYE-BOTH BEDTIME 01/21/20 10/02/21 apixaban 5 mg tablet 5 mg PO BID 12/10/20 10/02/21 aspirin 81 mg tablet 81 mg PO DAILY 12/10/20 10/02/21 dorzolamide 2 % eye drops 1 drp OPHTHALMIC (EYE) BEDTIME 12/10/20 10/02/21 finasteride 5 mg tablet 5 mg PO DAILY 12/10/20 10/02/21 fluticasone 250 mcg-salmeterol 50 1 inh INHALATION BID 12/10/20 10/02/21 mcg/dose blistr powdr for inhalation (Advair Diskus) fluticasone propionate 50 2 spray INTRANASAL BEDTIME 12/10/20 10/02/21 mcg/actuation nasal spray,suspension tamsulosin 0.4 mg capsule 0.8 mg PO BEDTIME 12/10/20 10/02/21 trospium 20 mg tablet 20 mg PO DAILY 02/09/21 12/02/21 clonidine HCl 0.1 mg tablet 0.1 mg PO DAILY 03/27/21 10/02/21 ezetimibe 10 mg tablet 10 mg PO DAILY 03/27/21 10/02/21 furosemide 40 mg tablet 40 mg PO DAILY tab 09/18/21 10/02/21 hydralazine 25 mg tablet 25 mg PO TID tab 09/18/21 10/02/21 metoprolol succinate 25 mg 25 mg PO BID tab 09/18/21 10/02/21 tablet,extended release 24 hr Previous Rx's Medication Instructions Recorded levothyroxine 175 mcg tablet 175 mcg PO DAILY #30 tab 12/11/20 Allergies Allergy/AdvReac Type Severity Reaction Status Date / Time No Known Drug Allergies Allergy Verified 04/06/22 18:54 Review of Systems Review of Systems Narrative: GENERAL: See HPI HEENT: Denies sinus pain, ear pain, sore throat, difficulty swallowing, dizziness. RESPIRATORY: See HPI CARDIOVASCULAR: See HPI GASTROINTESTINAL: See HPI : Denies dysuria, frequency, incontinence, hematuria, urinary retention. MUSCULOSKELETAL: denies weakness, joint pain, or bony pain SKIN: Denies rash, skin lesions, or other NEUROLOGIC: Denies weakness, headache, numbness, change in speech, confusion, seizures, incoordination. PSYCHIATRIC: No concerning psychosocial issues. 12 point review of systems is negative except for those stated above Patient History Medical History Atrial fibrillation CAD (coronary artery disease) CKD (chronic kidney disease) HLD (hyperlipidemia) HTN (hypertension) Hypothyroidism TIA (transient ischemic attack) Surgical History H/O knee surgery H/O shoulder surgery H/O thyroidectomy Family History Father Hypertension Social History marital status: household members: spouse Smoking Status: Never smoker substance use type: does not use Smoking Status: Never smoker alcohol intake frequency: holidays/special occasions only Substance Use Type: does not use Exam Narrative Exam Narrative: GENERAL: [76] year old patient appears stated age. Well-developed patient, in mild distress. Short of breath with exertion with relatively decent recovery HEAD: Atraumatic. Normocephalic. EYES: Pupils equal round and reactive. Extraocular motions intact. No scleral icterus. No injection or drainage. ENT: Nose without bleeding, purulent drainage. Throat without erythema, tonsillar hypertrophy or exudate. Airway patent. NECK: Trachea midline. Non tender CARDIOVASCULAR: Regular rate and rhythm without murmurs, gallops, or rubs. RESPIRATORY: Clear to auscultation. Breath sounds equal bilaterally. No wheezes, rales, or rhonchi. GASTROINTESTINAL: Abdomen soft, non-tender, nondistended. RECTAL: Very weakly positive on Hemoccult if anything EXTREMITIES: No edema or joint tenderness. BACK: Nontender without deformity or crepitance. No flank tenderness. NEURO: AOx3. SKIN: No rash or erythema of visible areas Initial Vital Signs Initial Vital Signs: Vital Signs Temperature 98.2 F 04/06/22 18:51 Pulse Rate 80 04/06/22 18:51 Respiratory Rate 19 04/06/22 18:51 Blood Pressure 167/72 H 04/06/22 18:51 Pulse Oximetry 95 04/06/22 18:51 Course Orders Ordered: ED Orders 04/06/22 18:54 CMP [Comprehensive Metabolic Panel] Stat 04/06/22 19:02 Packed Cells Stat Type and Screen Stat 04/06/22 19:07 PT [Prothrombin Time INR] Stat 04/06/22 19:08 CBC Auto Diff [Complete Blood Count AUTO DIFF] Stat Vital Signs Vital signs: Vital Signs - 8 hr 04/06/22 21:30 04/06/22 22:00 04/06/22 22:30 Temperature Pulse Rate 64 65 78 Respiratory Rate 16 18 21 Blood Pressure Pulse Oximetry 94 96 96 04/06/22 22:49 04/06/22 23:00 04/06/22 23:30 Temperature Pulse Rate 70 75 70 Respiratory Rate 24 17 20 Blood Pressure 180/74 H Pulse Oximetry 95 94 96 04/07/22 00:00 04/07/22 00:24 04/07/22 00:29 Temperature 98.3 F Pulse Rate 67 74 66 Respiratory Rate 19 20 21 Blood Pressure 179/74 H 179/74 H Pulse Oximetry 95 95 04/07/22 00:30 04/07/22 00:40 04/07/22 00:42 Temperature 98.2 F Pulse Rate 68 75 77 Respiratory Rate 21 21 20 Blood Pressure 171/71 H 171/71 H Pulse Oximetry 95 95 04/07/22 01:00 04/07/22 01:30 04/07/22 02:00 Temperature Pulse Rate 67 68 70 Respiratory Rate 20 20 21 Blood Pressure Pulse Oximetry 94 96 96 04/07/22 02:30 04/07/22 02:31 04/07/22 02:44 Temperature 97.7 F Pulse Rate 66 63 68 Respiratory Rate 19 17 18 Blood Pressure 165/72 H 172/70 H Pulse Oximetry 94 94 95 04/07/22 02:45 04/07/22 02:59 04/07/22 03:00 Temperature 97.9 F 98.4 F Pulse Rate 61 60 67 Respiratory Rate 20 20 22 Blood Pressure 172/70 H 159/70 H Pulse Oximetry 97 94 04/07/22 03:30 04/07/22 05:04 Temperature 97.6 F Pulse Rate 65 72 Respiratory Rate 19 18 Blood Pressure 170/77 H Pulse Oximetry 94 MDM - Recheck/Abnormal Lab/Rx Lab Data Result diagrams: 04/06/22 19:08 04/06/22 18:54 Labs: Lab Results 04/06/22 04/06/22 04/06/22 Range/Units 18:54 19:02 19:07 WBC (4.5-11.0) X10^3/uL RBC (4.5-5.9) X10^6/uL Hgb (13.5-17.5) g/dL Hct (41-53) % MCV (80-100) fL MCH (26-34) PG MCHC (30-36) % RDW (11.6-14.8) % Plt Count (150-400) X10^3/uL Neut % (Auto) (50-75) % Lymph % (Auto) (25-40) % [place] % (Auto) (3-14) % Eos % (Auto) (2-4) % Baso % (Auto) (0-2) % Neut # (Auto) (8878-0647) /uL Lymph # (Auto) (7521-2674) /uL [place] # (Auto) (0-900) /uL Eos # (Auto) (0-450) /uL Baso # (Auto) (0-100) /uL PT 19.2 H (10.1-12.7) SECONDS INR 1.7 H (0.9-1.3) Sodium 139 (137-145) mmol/L Potassium 4.4 (3.4-5.1) mmol/L Chloride 104 (98-107) mmol/L Carbon Dioxide 28 (22-32) mmol/L BUN 44 H (9-20) mg/dL Creatinine 3.26 H (0.66-1.25) mg/dL Estimated GFR 19 L (>60) mL/min BUN/Creatinine Ratio 13.5 (6-22) Glucose 143 H (80-110) mg/dL Calcium 8.1 L (8.4-10.2) mg/dL Total Bilirubin 0.3 (0.2-1.3) mg/dL AST 25 (17-59) IU/L ALT 17 (<50) IU/L Alkaline Phosphatase 49 (38-126) U/L Total Protein 7.3 (6.3-8.2) g/dL Albumin 4.0 (3.5-5.0) g/dL Globulin 3.3 (1.7-4.1) g/dL Albumin/Globulin Ratio 1.2 (1.0-2.8) Blood Type O Positive Antibody Screen Negative Crossmatch See Detail 04/06/22 Range/Units 19:08 WBC 8.0 (4.5-11.0) X10^3/uL RBC 2.96 L (4.5-5.9) X10^6/uL Hgb 8.7 L (13.5-17.5) g/dL Hct 26.3 L (41-53) % MCV 88.7 (80-100) fL MCH 29.5 (26-34) PG MCHC 33.2 (30-36) % RDW 15.1 H (11.6-14.8) % Plt Count 269 (150-400) X10^3/uL Neut % (Auto) 76.6 H (50-75) % Lymph % (Auto) 10.6 L (25-40) % [place] % (Auto) 7.6 (3-14) % Eos % (Auto) 4.3 H (2-4) % Baso % (Auto) 0.9 (0-2) % Neut # (Auto) 6100 (8939-7087) /uL Lymph # (Auto) 800 L (2577-8998) /uL [place] # (Auto) 600 (0-900) /uL Eos # (Auto) 300 (0-450) /uL Baso # (Auto) 100 (0-100) /uL PT (10.1-12.7) SECONDS INR (0.9-1.3) Sodium (137-145) mmol/L Potassium (3.4-5.1) mmol/L Chloride (98-107) mmol/L Carbon Dioxide (22-32) mmol/L BUN (9-20) mg/dL Creatinine (0.66-1.25) mg/dL Estimated GFR (>60) mL/min BUN/Creatinine Ratio (6-22) Glucose (80-110) mg/dL Calcium (8.4-10.2) mg/dL Total Bilirubin (0.2-1.3) mg/dL AST (17-59) IU/L ALT (<50) IU/L Alkaline Phosphatase (38-126) U/L Total Protein (6.3-8.2) g/dL Albumin (3.5-5.0) g/dL Globulin (1.7-4.1) g/dL Albumin/Globulin Ratio (1.0-2.8) Blood Type Antibody Screen Crossmatch [facility] Narrative Medical decision making narrative: Though patient's hemoglobin is above typical caught office for transfusion he has been symptomatic for at least the past few weeks and with his cardiac history is rn relief charge wants him to receive some blood. There is no obvious source of bleeding though he is on anticoagulation which clearly raises concern. Hemoccults maybe very weakly positive but is not terribly convincing. He does have a subtle worsening of malfunction which may contribute as well. He is given 2 units of blood here in the emergency department and feels improved. Return precautions given and questions answered to his apparent satisfaction Discharge Plan Departure Patient Disposition: Home Clinical Impression: Symptomatic anemia Instructions: Anemia Activity Restrictions/Additional Instructions: *You have been diagnosed with [symptomatic anemia, given 2 units of packed red blood cells *What to do: *Please continue to take your regular medications as directed. [ ] New medication prescriptions sent to your pharmacy: [ ] [ ] New medication written as a paper prescription [x ] No new medications given *Please follow up with your primary care provider in 2-3 days, call for an appointment. Let them know you were seen in the Emergency Department and that we ask that you be seen in follow up. We will electronically transmit a record of today's note if your PCP is in our system *If you do not have a primary care provider please contact the [facility] Resource line at [phone]. They will ask some questions about your medical history and help get you set up with a doctor in the community. *Return to Emergency Department if you should have any new, worsening or concerning symptoms, such as [fever greater than 101 F, shaking chills, worsening pain, persistent vomiting or other bothersome symptoms] Prescriptions: No Action hydralazine 25 mg tablet 25 mg PO TID 0RF furosemide 40 mg tablet 40 mg PO DAILY 0RF metoprolol succinate 25 mg tablet extended release 24 hr 25 mg PO BID 0RF atorvastatin 20 mg tablet 20 mg PO DAILY 0RF Label Comments: TAKE 1 TABLET BY MOUTH ONCE DAILY IN THE EVENING FOR CHOLESTEROL felodipine 10 mg tablet extended release 24 hr 10 mg PO BID 0RF Label Comments: TAKE 1 TABLET BY MOUTH ONCE DAILY albuterol sulfate 90 mcg/actuation HFA aerosol inhaler 2 puff inhalation Q4H PRN (Reason: Wheezing) 0RF Label Comments: INHALE 2 PUFFS BY MOUTH EVERY 4 HOURS NEEDED FOR WHEEZE Rx Instructions: 2 puffs prn for shortness of breath latanoprost 0.005 % drops 1 drp EYE-BOTH BEDTIME 0RF Rx Instructions: 1 drop in affected BOTH eyes daily at HS fluticasone propion-salmeterol [Advair Diskus] 250-50 mcg/dose Blister With Device 1 inh INHALATION BID 0RF tamsulosin 0.4 mg Capsule 0.8 mg PO BEDTIME 0RF aspirin 81 mg Tablet 81 mg PO DAILY 0RF fluticasone propionate 50 mcg/actuation [place],Suspension 2 spray INTRANASAL BEDTIME 0RF finasteride 5 mg Tablet 5 mg PO DAILY 0RF dorzolamide 2 % Drops 1 drp ophthalmic (eye) BEDTIME 0RF trospium 20 mg Tablet 20 mg PO DAILY 0RF apixaban 5 mg Tablet 5 mg PO BID 0RF levothyroxine 175 mcg tablet 175 mcg PO DAILY Qty: 30 1RF clonidine HCl 0.1 mg tablet 0.1 mg PO DAILY 0RF Label Comments: TAKE 1 TABLET BY MOUTH ONCE DAILY FOR HIGH BLOOD PRESSURE ezetimibe 10 mg tablet 10 mg PO DAILY 0RF Referrals: Dayana Acevedo DO [Primary Care Provider] - Visit Report Forms: Patient Portal/API
--- NOTE | 2022-04-06 21:08 | PC.NURSE ---
Pt reports feeling SOB and really tired for the last several weeks. Pt says they were finally able to see their document control clerk who told them to come to the ER due to a low Hgb. Pt is SOB while resting in bed. Denies chest pain or headache. Pt reports hx of asthma. Call light within reach.
[2022-04-07] VITALS (17 sets, daily range): BP systolic 159–179; BP diastolic 70–77; PULSE 58–77; RESP 17–22; TEMP 36.4–36.9; O2SAT 94–97
== END 2022-04-07 06:00 | disposition home or self-care (01) ==
PROVIDERS: Emergency Medicine; Emergency Provider Emergency Medicine; Family Provider Family Medicine; PCP Family Medicine
DX: D64.89 Other specified anemias (principal)
CPT/HCPCS: 36430; 80053; 85025; 85610; 86850; 86900; 86901; 99284; P9016

== ENCOUNTER → 2022-04-09 07:50 | Outpatient (CLI) | payer MEDICARE, OTHER, SELFPAY ==
[2021-09-16 14:13] VITALS: BMI 36.9
[2022-04-09 08:44] LABS: COVID19 -Nasal RAPID Negative (Negative)
== END ==
PROVIDERS: Family Provider Family Medicine; PCP Family Medicine; Referring Provider Internal Medicine; Visit Provider Internal Medicine
DX: Z20.822 Contact with and (suspected) exposure to COVID-19 (principal)
CPT/HCPCS: 87635; C9803

== ENCOUNTER → 2022-04-09 07:52 | Outpatient (CLI) | payer MEDICARE, OTHER, SELFPAY ==
[2021-09-16 14:13] VITALS: BMI 36.9
--- NOTE | 2022-04-15 09:39 | PM.PFT.1 ---
Pulmonary Function Test Referral & Results Date Patient Seen: 04/09/22 Requesting provider: Ludwig Lock Results: The spirometry demonstrates an FVC of 1.63 L which is 41% of predicted. The FEV1 was measured at 0.94 L which is 33% of predicted. The FEV1/FVC ratio was 58 which is 80% of predicted. Following the administration of bronchodilator there was a 27% improvement in FEV1 and a 112% improvement in FEF 25-75%. Lung volumes show an SVC of 2.26 L which is 52% of predicted. The diffusing capacity was measured at 13.55 which is 43% of predicted. No hemoglobin value was provided, so no correction for potential anemia could be made, if appropriate. The maximum voluntary ventilation was reduced Interpretation: This study demonstrates probably severe obstructive lung disease based on reduction FEV1 which is notably less than 1 L. There is evidence however of significant benefit following bronchodilator based on improvement in both FEV1 and FEF 25-75% There is also moderately severe reduction in lung volumes suggesting significant restrictive lung disease is also present There is also a moderately severe reduction diffusing capacity suggesting significant disease at the capillary alveolar level Compared to PFTs performed in June 2020, current study shows further decline in FEV1 which was previously at 1.55 L now currently 0.94 L. lung volumes are also somewhat diminished as is diffusing capacity compared to previous study Clinical correlation suggested
== END ==
PROVIDERS: Family Provider Family Medicine; PCP Family Medicine; Referring Provider Internal Medicine Critical Care Medicine; Visit Provider Internal Medicine Critical Care Medicine
DX: J45.20 Mild intermittent asthma, uncomplicated (principal); Z20.822 Contact with and (suspected) exposure to COVID-19
CPT/HCPCS: 87635; 94060; 94726; 94729; C9803

== ENCOUNTER 2022-04-16 17:43 | Inpatient (IN) | payer MEDICARE, OTHER, SELFPAY ==
[2021-09-16 14:13] VITALS: BMI 36.9
[2022-04-16] VITALS (21 sets, daily range): BP systolic 147–193; BP diastolic 65–85; PULSE 59–85; RESP 19–30; TEMP 36.9; O2SAT 93–99; BMI 38.9; BMI 38.2
--- NOTE | 2022-04-16 17:49 | DI.RAD.S_ITS ---
PROCEDURE: XR CHEST 1V INDICATIONS: chest pain TECHNIQUE: One view of the chest was acquired. COMPARISON: [facility], CR, XR CHEST 1V, 09/23/2021, 7:50. FINDINGS: Surgical changes and devices: Electronic device is seen projecting over the left upper chest. Lungs and pleura: Mild hazy opacities are seen in the lung bases bilaterally. On its of the central pulmonary vasculature and interstitial markings are seen. Haziness of the costophrenic angles may represent small pleural effusions. Mediastinum: Mediastinal contours appear normal. Heart size is mildly enlarged. Bones and chest wall: No suspicious bony lesions. Overlying soft tissues appear unremarkable. Degenerative changes are seen in the shoulders. IMPRESSION: Bilateral hazy lower lung opacities and small pleural effusions are suspicious for pulmonary edema. Cardiomegaly. Dictated by: Meng Bazan M.D. on 04/16/2022 at 18:42 Approved by: Meng Bazan M.D. on 04/16/2022 at 18:44
[2022-04-16 18:09] LABS: Add Manual Diff / Slide Review NO; Basophils Absolute Auto 100 /uL (0-100); Basophils Percent Auto 0.8 % (0-2); Eosinophils Absolute Auto 300 /uL (0-450); Eosinophils Percent Auto 4.3 % (2-4); Hemoglobin 9.4 g/dL (13.5-17.5); Lymphocytes Absolute Auto 900 /uL (1100-4500); Lymphocytes Percent Auto 11.6 % (25-40); Mean Corpuscular HGB Conc 33.4 % (30-36); Mean Corpuscular Hemoglobin 29.5 PG (26-34); Mean Corpuscular Volume 88.1 fL (80-100); Monocytes Absolute Auto 800 /uL (0-900); Monocytes Percent Auto 10.2 % (3-14); Neutrophils Absolute Auto 5600 /uL (1500-7000); Neutrophils Percent Auto 73.1 % (50-75); Platelet Count 234 X10^3/uL (150-400); Red Blood Cell Count 3.18 X10^6/uL (4.5-5.9); Red Cell Distribution Width 16.2 % (11.6-14.8); White Blood Cell Count 7.7 X10^3/uL (4.5-11.0)
--- NOTE | 2022-04-16 18:12 | ED.CHESTPAIN ---
HPI - Chest Pain General Chief Complaint: Chest Pain Stated Complaint: chest pain/pressure Time Seen by Provider: 04/16/22 17:49 Source: patient and EMS Mode of arrival: EMS Limitations: no limitations History of Present Illness HPI narrative: Patient is a 76-year-old male. Has a history of asthma CHF and chronic kidney disease. Does not currently have a primary care provider. Does see cardiology and also Nephrology. Was advised to come to the emergency department today by the saturation equipment operator for evaluation of shortness of breath. Initially the patient declined to do this however earlier in the afternoon he started to have some chest discomfort. No fevers. He recently did receive blood because of a low hemoglobin and hematocrit that was ordered by his survey engineer. He also states that his survey engineer took him off of his Lasix. He has had greater than a 10 lb weight gain over the past week. He is very short of breath specifically on exertion. States he can only walk approximately 6 before having to stop. Was using his nebulizers and inhalers at home without any improvement. Does express lower extremity swelling. No abdominal tenderness. No nausea vomiting. No skin rashes. Related Data Home Medications Medication Instructions Recorded Confirmed albuterol sulfate 90 mcg/actuation 2 puff inhalation Q4H PRN Wheezing 01/21/20 10/02/21 aerosol inhaler atorvastatin 20 mg tablet 20 mg PO DAILY 01/21/20 10/02/21 felodipine 10 mg tablet,extended 10 mg PO BID 01/21/20 10/02/21 release 24 hr latanoprost 0.005 % eye drops 1 drp EYE-BOTH BEDTIME 01/21/20 10/02/21 apixaban 5 mg tablet 5 mg PO BID 12/10/20 10/02/21 aspirin 81 mg tablet 81 mg PO DAILY 12/10/20 10/02/21 dorzolamide 2 % eye drops 1 drp ophthalmic (eye) BEDTIME 12/10/20 10/02/21 finasteride 5 mg tablet 5 mg PO DAILY 12/10/20 10/02/21 fluticasone 250 mcg-salmeterol 50 1 inh inhalation BID 12/10/20 10/02/21 mcg/dose blistr powdr for inhalation (Advair Diskus) fluticasone propionate 50 2 spray intranasal BEDTIME 12/10/20 10/02/21 mcg/actuation nasal spray,suspension tamsulosin 0.4 mg capsule 0.8 mg PO BEDTIME 12/10/20 10/02/21 trospium 20 mg tablet 20 mg PO DAILY 12/10/20 10/02/21 clonidine HCl 0.1 mg tablet 0.1 mg PO DAILY Hypertension 03/27/21 10/02/21 ezetimibe 10 mg tablet 10 mg PO DAILY 03/27/21 10/02/21 furosemide 40 mg tablet 40 mg PO DAILY 09/18/21 10/02/21 hydralazine 25 mg tablet 25 mg PO TID 09/18/21 10/02/21 metoprolol succinate 25 mg 25 mg PO BID 09/18/21 10/02/21 tablet,extended release 24 hr Previous Rx's Medication Instructions Recorded levothyroxine 175 mcg tablet 175 mcg PO DAILY #30 tabs 12/11/20 Allergies Allergy/AdvReac Type Severity Reaction Status Date / Time No Known Drug Allergies Allergy Verified 04/06/22 18:54 Review of Systems Review of Systems ROS Unobtainable: All systems reviewed & are unremarkable except as noted in HPI and below Patient History Medical History Atrial fibrillation CAD (coronary artery disease) CKD (chronic kidney disease) HLD (hyperlipidemia) HTN (hypertension) Hypothyroidism TIA (transient ischemic attack) Surgical History H/O knee surgery H/O shoulder surgery H/O thyroidectomy Family History Father Hypertension Social History marital status: household members: spouse Smoking Status: Never smoker substance use type: does not use Smoking Status: Never smoker alcohol intake frequency: holidays/special occasions only Substance Use Type: does not use Exam Initial Vital Signs Initial Vital Signs: Vital Signs Pulse Rate 69 04/16/22 17:48 Respiratory Rate 30 H 04/16/22 17:48 Pulse Oximetry 93 04/16/22 17:48 Const General: cooperative, diaphoretic and ill appearing [facility] Head: normal to inspection and normocephalic Face and sinus: normal facial exam Chest Chest: normal inspection of the chest and No tenderness Resp Effort & Inspection: labored, respiratory distress and tachypneic Auscultation: diminished lung sounds, rhonchi and wheezes Cardio Rate: regular rate Rhythm: regular rhythm GI Inspection: normal to inspection Palpation: soft, No firm and No tender Skin General: no rashes or lesions noted Neuro General: patient alert, patient awake, patient oriented x3 and moves all extremities Speech: speech normal Motor: muscle tone normal throughout Extrem General: capillary refill normal and edema Psych Appearance: grossly normal and well kempt Course Orders Ordered: ED Orders 04/16/22 17:49 XR chest 1V Stat EKG-12 Lead Stat 04/16/22 17:50 Complete Blood Count AUTO DIFF Stat Comprehensive Metabolic Panel Stat Lipase Stat NT-proBNP (BNP-Adult 18+) Stat Partial Thromboplastin Time Stat Prothrombin Time INR Stat Thyroid Stimulating Hormone Stat Troponin & CK Cardiac Panel Stat 04/16/22 18:15 RT Consult Eval and Treat Now 04/16/22 19:49 COVID19 -Nasal RAPID/Pre-Proc Stat 04/16/22 20:00 EKG-12 Lead Stat 04/16/22 20:06 Magnesium Stat Troponin & CK Cardiac Panel Stat 04/16/22 20:54 Urine Microscopic Stat 04/16/22 21:58 EC echo doppler complete Stat 04/17/22 01:00 BMP [Basic Metabolic Panel] Urgent 04/17/22 05:00 Basic Metabolic Panel Routine Complete Blood Count AUTO DIFF Routine Magnesium Routine Acetaminophen (Acetaminophen 325 Mg Tablet) 650 mg PO Q6HR PRN PRN Reason: pain, fever Albuterol (Albuterol 2.5 Mg/3 Ml Neb (Adult)) 2.5 mg INH [id number] PRN PRN Reason: Shortness Of Breath Apixaban (Apixaban 5 Mg Tablet) 5 mg PO BID KEVAN Atorvastatin Calcium (Atorvastatin 20 Mg Tablet) 20 mg PO DAILY KEVAN Clonidine HCl (Clonidine 0.1 Mg Tablet) 0.1 mg PO DAILY KEVAN Finasteride (Finasteride 5 Mg Tablet) 5 mg PO DAILY KEVAN Furosemide (Furosemide 100 Mg/10 Ml Vial) 60 mg IV BID KEVAN Hydralazine HCl (Hydralazine 25 Mg Tablet) 25 mg PO TID KEVAN Levothyroxine Sodium (Levothyroxine 150 Mcg Tablet) 150 mcg PO 0600 KEVAN Levothyroxine Sodium (Levothyroxine 25 Mcg Tablet) 25 mcg PO 0600 KEVAN Metoprolol Succinate (Metoprolol Er 25 Mg Tablet) 25 mg PO BID [facility] Naloxone HCl (Naloxone 0.4 Mg/Ml Vial) 0.2 mg IV Q2MIN PRN PRN Reason: Opiate Reversal Non-Formulary Medication (Felodipine) 10 mg PO BID [facility] Ondansetron HCl (Ondansetron 4 Mg/2 Ml Inj) 4 mg IV Q8HR PRN PRN Reason: Nausea And Vomiting Tamsulosin HCl (Tamsulosin 0.4 Mg Capsule) 0.8 mg PO BEDTIME KEVAN Discontinued Medications Albuterol/Ipratropium (Albuterol/Ipratropium 3 Ml Ampul) 3 ml INH Q20M KEVAN Stop: 04/16/22 18:56 Last Admin: 04/16/22 19:08 Dose: 3 ml Documented By: Admin: 04/16/22 19:07 Dose: 3 ml Documented By: Admin: 04/16/22 18:26 Dose: 3 ml Documented By: MORIS Aspirin (Aspirin 81 Mg Chew Tab) 324 mg PO NOW ONE Stop: 04/16/22 17:50 Last Admin: 04/16/22 18:49 Dose: Not Given Documented By: GAUDENCIO Furosemide (Furosemide 100 Mg/10 Ml Vial) 80 mg IV NOW ONE Stop: 04/16/22 18:15 Last Admin: 04/16/22 18:21 Dose: 80 mg Documented By: CHELY Sodium Chloride (Normal Saline 0.9%) 1,000 mls @ 150 mls/hr IV CONT KEVAN Last Infusion: 04/16/22 23:15 Dose: 0 mls/hr Documented By: Admin: 04/16/22 18:22 Dose: 150 mls/hr Documented By: CHELY Magnesium Sulfate (Magnesium Sulfate) 2 gm in 50 mls @ 25 mls/hr IV NOW ONE Stop: 04/16/22 21:24 Last Infusion: 04/16/22 22:04 Dose: 0 mls/hr Documented By: NR Co-signed By: AT Admin: 04/16/22 19:44 Dose: 25 mls/hr Documented By: EB Co-signed By: GAUDENCIO(2) Nitroglycerin (Nitroglycerin) 50 mg in 250 mls @ 4.5 mls/hr IV TITRATE KEVAN; Protocol Last Titration: 04/16/22 23:06 Dose: 0 mcg/min, 0 mls/hr Documented By: Admin: 04/16/22 19:35 Dose: 15 mcg/min, 4.5 mls/hr Documented By: MALCOM Furosemide 120 mg/ Sodium (Chloride) 62 mls @ 124 mls/hr IV NOW ONE Stop: 04/17/22 00:01 Methylprednisolone (Methylprednisolone 125 Mg/2 Ml Vial) 125 mg IV NOW ONE Stop: 04/16/22 19:26 Last Admin: 04/16/22 19:44 Dose: 125 mg Documented By: MALCOM Metolazone (Metolazone 2.5 Mg Tablet) 2.5 mg PO NOW ONE Stop: 04/17/22 00:01 Nitroglycerin (Nitroglycerin Oint 1 Inch/Gm Oint...G.) 1 inch TOP NOW ONE Stop: 04/16/22 22:53 Last Admin: 04/16/22 23:05 Dose: 1 inch Documented By: FRANKO Non-Formulary Medication (Levothyroxine) 175 mcg PO DAILY KEVAN Vital Signs Vital signs: Vital Signs - 8 hr 04/16/22 17:53 04/16/22 17:48 04/16/22 18:00 Temperature 98.5 F Pulse Rate 63 69 Respiratory Rate 22 30 H Blood Pressure 193/85 H 177/77 H Pulse Oximetry 94 93 Oxygen Delivery Method Room Air Oxygen Flow Rate 04/16/22 18:00 04/16/22 18:25 04/16/22 18:30 Temperature Pulse Rate 61 59 L 59 L Respiratory Rate 25 H 22 23 Blood Pressure Pulse Oximetry 94 93 99 Oxygen Delivery Method Nasal Cannula Oxygen Flow Rate 3 04/16/22 18:31 04/16/22 18:31 04/16/22 19:00 Temperature Pulse Rate 59 L 60 Respiratory Rate 24 26 H Blood Pressure 180/80 H Pulse Oximetry 99 96 Oxygen Delivery Method Oxygen Flow Rate 04/16/22 19:01 04/16/22 19:01 04/16/22 19:30 Temperature Pulse Rate 60 73 Respiratory Rate 24 25 H Blood Pressure 168/74 H Pulse Oximetry 96 98 Oxygen Delivery Method Oxygen Flow Rate 04/16/22 20:00 04/16/22 20:30 04/16/22 20:56 Temperature Pulse Rate 70 73 85 Respiratory Rate 24 25 H 28 H Blood Pressure Pulse Oximetry 97 94 96 Oxygen Delivery Method Oxygen Flow Rate 04/16/22 20:56 04/16/22 21:00 04/16/22 21:00 Temperature Pulse Rate 78 Respiratory Rate 26 H Blood Pressure 189/70 H 171/74 H Pulse Oximetry 97 Oxygen Delivery Method Oxygen Flow Rate 04/16/22 21:30 04/16/22 21:31 04/16/22 21:31 Temperature Pulse Rate 73 73 Respiratory Rate 23 24 Blood Pressure 155/68 H Pulse Oximetry 96 96 Oxygen Delivery Method Oxygen Flow Rate 04/16/22 22:00 04/16/22 22:01 04/16/22 22:01 Temperature Pulse Rate 66 69 Respiratory Rate 21 19 Blood Pressure 147/65 H Pulse Oximetry 95 95 Oxygen Delivery Method Oxygen Flow Rate MDM - Chest Pain Medical Records Data Attestation: I reviewed the patient's medical records. Lab Data Attestation: I reviewed the patient's lab results. Result diagrams: 04/16/22 17:50 04/16/22 17:50 Labs: Lab Results 04/16/22 04/16/22 04/16/22 Range/Units 17:50 17:50 17:50 WBC 7.7 (4.5-11.0) X10^3/uL RBC 3.18 L (4.5-5.9) X10^6/uL Hgb 9.4 L (13.5-17.5) g/dL Hct 28.0 L (41-53) % MCV 88.1 (80-100) fL MCH 29.5 (26-34) PG MCHC 33.4 (30-36) % RDW 16.2 H (11.6-14.8) % Plt Count 234 (150-400) X10^3/uL Neut % (Auto) 73.1 (50-75) % Lymph % (Auto) 11.6 L (25-40) % [place] % (Auto) 10.2 (3-14) % Eos % (Auto) 4.3 H (2-4) % Baso % (Auto) 0.8 (0-2) % Neut # (Auto) 5600 (5858-9994) /uL Lymph # (Auto) 900 L (5941-6902) /uL [place] # (Auto) 800 (0-900) /uL Eos # (Auto) 300 (0-450) /uL Baso # (Auto) 100 (0-100) /uL PT 13.2 H D (10.1-12.7) SECONDS INR 1.2 (0.9-1.3) APTT 37 H (26.4-36.2) SECONDS Sodium 139 (137-145) mmol/L Potassium 5.5 H (3.4-5.1) mmol/L Chloride 109 H (98-107) mmol/L Carbon Dioxide 22 (22-32) mmol/L BUN 39 H (9-20) mg/dL Creatinine 3.41 H (0.66-1.25) mg/dL Estimated GFR 18 L (>60) mL/min BUN/Creatinine Ratio 11.4 (6-22) Glucose 98 (80-110) mg/dL Calcium 8.2 L (8.4-10.2) mg/dL Magnesium (1.6-2.3) mg/dL Total Bilirubin 0.5 (0.2-1.3) mg/dL AST 20 (17-59) IU/L ALT 14 (<50) IU/L Alkaline Phosphatase 46 (38-126) U/L Total Creatine Kinase 82 (55-170) U/L CK-MB (CK-2) TNP CK-MB (CK-2) Rel Index TNP Troponin I 0.020 (0.01-0.034) ng/mL NT-Pro-B Natriuret Pep (<450) pg/mL Total Protein 7.1 (6.3-8.2) g/dL Albumin 4.0 (3.5-5.0) g/dL Globulin 3.1 (1.7-4.1) g/dL Albumin/Globulin Ratio 1.3 (1.0-2.8) Lipase 59 (23-300) U/L TSH (0.47-4.68) uIU/mL Urine RBC (0-5/HPF) Urine WBC (0-5/HPF) Urine Bacteria (None) Granular Casts (None) Ur Culture Indicated? SARS-CoV-2 (PCR) (Negative) 04/16/22 04/16/22 04/16/22 Range/Units 17:50 17:50 19:49 WBC (4.5-11.0) X10^3/uL RBC (4.5-5.9) X10^6/uL Hgb (13.5-17.5) g/dL Hct (41-53) % MCV (80-100) fL MCH (26-34) PG MCHC (30-36) % RDW (11.6-14.8) % Plt Count (150-400) X10^3/uL Neut % (Auto) (50-75) % Lymph % (Auto) (25-40) % [place] % (Auto) (3-14) % Eos % (Auto) (2-4) % Baso % (Auto) (0-2) % Neut # (Auto) (1477-9742) /uL Lymph # (Auto) (3608-5698) /uL [place] # (Auto) (0-900) /uL Eos # (Auto) (0-450) /uL Baso # (Auto) (0-100) /uL PT (10.1-12.7) SECONDS INR (0.9-1.3) APTT (26.4-36.2) SECONDS Sodium (137-145) mmol/L Potassium (3.4-5.1) mmol/L Chloride (98-107) mmol/L Carbon Dioxide (22-32) mmol/L BUN (9-20) mg/dL Creatinine (0.66-1.25) mg/dL Estimated GFR (>60) mL/min BUN/Creatinine Ratio (6-22) Glucose (80-110) mg/dL Calcium (8.4-10.2) mg/dL Magnesium (1.6-2.3) mg/dL Total Bilirubin (0.2-1.3) mg/dL AST (17-59) IU/L ALT (<50) IU/L Alkaline Phosphatase (38-126) U/L Total Creatine Kinase (55-170) U/L CK-MB (CK-2) CK-MB (CK-2) Rel Index Troponin I (0.01-0.034) ng/mL NT-Pro-B Natriuret Pep 6180 H (<450) pg/mL Total Protein (6.3-8.2) g/dL Albumin (3.5-5.0) g/dL Globulin (1.7-4.1) g/dL Albumin/Globulin Ratio (1.0-2.8) Lipase (23-300) U/L TSH 0.584 (0.47-4.68) uIU/mL Urine RBC (0-5/HPF) Urine WBC (0-5/HPF) Urine Bacteria (None) Granular Casts (None) Ur Culture Indicated? SARS-CoV-2 (PCR) Negative (Negative) 04/16/22 04/16/22 04/16/22 Range/Units 20:06 20:06 20:54 WBC (4.5-11.0) X10^3/uL RBC (4.5-5.9) X10^6/uL Hgb (13.5-17.5) g/dL Hct (41-53) % MCV (80-100) fL MCH (26-34) PG MCHC (30-36) % RDW (11.6-14.8) % Plt Count (150-400) X10^3/uL Neut % (Auto) (50-75) % Lymph % (Auto) (25-40) % [place] % (Auto) (3-14) % Eos % (Auto) (2-4) % Baso % (Auto) (0-2) % Neut # (Auto) (3410-0275) /uL Lymph # (Auto) (1349-6714) /uL [place] # (Auto) (0-900) /uL Eos # (Auto) (0-450) /uL Baso # (Auto) (0-100) /uL PT (10.1-12.7) SECONDS INR (0.9-1.3) APTT (26.4-36.2) SECONDS Sodium (137-145) mmol/L Potassium (3.4-5.1) mmol/L Chloride (98-107) mmol/L Carbon Dioxide (22-32) mmol/L BUN (9-20) mg/dL Creatinine (0.66-1.25) mg/dL Estimated GFR (>60) mL/min BUN/Creatinine Ratio (6-22) Glucose (80-110) mg/dL Calcium (8.4-10.2) mg/dL Magnesium 3.4 H (1.6-2.3) mg/dL Total Bilirubin (0.2-1.3) mg/dL AST (17-59) IU/L ALT (<50) IU/L Alkaline Phosphatase (38-126) U/L Total Creatine Kinase 80 (55-170) U/L CK-MB (CK-2) TNP CK-MB (CK-2) Rel Index TNP Troponin I 0.017 (0.01-0.034) ng/mL NT-Pro-B Natriuret Pep (<450) pg/mL Total Protein (6.3-8.2) g/dL Albumin (3.5-5.0) g/dL Globulin (1.7-4.1) g/dL Albumin/Globulin Ratio (1.0-2.8) Lipase (23-300) U/L TSH (0.47-4.68) uIU/mL Urine RBC None seen (0-5/HPF) Urine WBC None seen (0-5/HPF) Urine Bacteria None seen (None) Granular Casts 0-1/lpf (None) Ur Culture Indicated? Cult not indicated SARS-CoV-2 (PCR) (Negative) Urine Dip Bedside Urine Glucose Negative Bedside Urine Bilirubin - Negative Bedside Urine Ketone - Negative Urine Specific Van 1.015 Bedside Urine Occult Blood - Negative Bedside Urine pH 5.5 Bedside Urine Protein ++ 100 Bedside Urine Urobilinogen - Negative Bedside Urine Nitrite - Negative Bedside Urine Leukocytes - Negative Esterase Imaging Data Chest x-ray: Radiologist's Impression: [address] [address] XRay Report Signed Patient: Prosper Borden MR#: [id number] : 1945 Acct:[id number] Age/Sex: 76 / M Date of Service: 04/16/22 Loc: ED Accession Number: [id number] ?? Procedure: XR chest 1V Ordering Provider: Jamie Case D.O. PROCEDURE:? XR CHEST 1V ? INDICATIONS:? chest pain ? TECHNIQUE:? One view of the chest was acquired.? ? COMPARISON:? [facility], DILEEP, XR CHEST 1V, 09/23/2021, 7:50. ? FINDINGS:? ? Surgical changes and devices:? Electronic device is seen projecting over the left upper chest. ? Lungs and pleura:? Mild hazy opacities are seen in the lung bases bilaterally.? On its of the central pulmonary vasculature and interstitial markings are seen.? Haziness of the costophrenic angles may represent small pleural effusions. ? Mediastinum:? Mediastinal contours appear normal.? Heart size is mildly enlarged.? ? Bones and chest wall:? No suspicious bony lesions.? Overlying soft tissues appear unremarkable.? Degenerative changes are seen in the shoulders. ? IMPRESSION:? Bilateral hazy lower lung opacities and small pleural effusions are suspicious for pulmonary edema.? Cardiomegaly. ? ? Dictated by: Meng Bazan M.D. on 04/16/2022 at 18:42 ? ? Approved by: Meng Bazan M.D. on 04/16/2022 at 18:44 ECG Data Attestation: I personally reviewed and interpreted this ECG as follows: Interpretation: Sinus rhythm Ventricular rate is 61 Occasional PACs Right bundle-branch block Normal axis No ST T wave changes Repeat EKG Sinus rhythm Ventricular rate of 70 Sinus arrhythmia with first-degree AV block and NV interval at 214 milliseconds I bundle branch block Normal axis No ST T wave changes MDM Narrative Medical decision making narrative: Patient was in respiratory distress. He has decreased lung sounds bilaterally with wheezing and also bilateral lower extremity edema. Chest x-ray looks like fluid overload. Has an elevated BNP. Was given DuoNeb which improved his symptoms somewhat however he potentially could be having CHF exacerbation as well. Was he hypertensive. Patient finished the 1st DuoNeb in have his 2nd he had to get up in use the restroom when he came back he was id much worse respiratory status. Was hypoxic. Requiring oxygen. His nebulizer treatments were continued. Was given magnesium and steroids. Patient was also given Lasix at the time of his 1st nebulizer treatment. He became hypoxic he was started on a nitroglycerin drip. Consider BiPAP however feel that we could initially hold on this treatment however will be started if needed. After he finished the nebulizer treatments his lung sounds were improved however still diminished in still having wheezing. He stated that he did feel somewhat better. I did discuss the case with his saturation equipment operator who stated that patient did not need emergent dialysis and should be treated with diuretics. Discussed the case with Dr. Florence on-call for Hospital Medicine who will admit for further evaluation and treatment. Critical Care Time Critical Care Time Critical Care Time: Yes Total Critical Care Time: 45 Attestation: The high probability of a clinically significant, sudden or life threatening deterioration of the cardiovascular and respiratory system(s) required my full and direct attention, intervention and personal management. The aggregate critical care time was []45 minutes. This time is in addition to time spent performing reported procedures but includes the following: []X Data Review and interpretation [x] Patient assessment and monitoring of vital signs [x] Documentation [x] Medication orders and management Discharge Plan Departure Patient Disposition: Admitted As Inpatient Clinical Impression: CHF exacerbation, Asthma exacerbation, Hypoxia, Acute respiratory distress Admit Date/Time: 04/16/22 22:07 Admit Provider: Suresh Florence
[2022-04-16 18:21] LABS: Alanine Aminotransferase 14 IU/L (<50); Albumin Globulin Ratio 1.3 (1.0-2.8); Alkaline Phosphatase 46 U/L (38-126); Aspartate Aminotransferase 20 IU/L (17-59); BUN Creatinine Ratio 11.4 (6-22); Bilirubin Total 0.5 mg/dL (0.2-1.3); Blood Urea Nitrogen 39 mg/dL (9-20); Calcium 8.2 mg/dL (8.4-10.2); Carbon Dioxide 22 mmol/L (22-32); Chloride 109 mmol/L (98-107); Creatine Kinase 82 U/L (55-170); Estimated Glomerular Filt Rate 18 mL/min (>60); Globulin 3.1 g/dL (1.7-4.1); Glucose 98 mg/dL (80-110); HEMOLYSIS < 15 (0-50); Lipase 59 U/L (23-300); Sodium 139 mmol/L (137-145); Total Protein 7.1 g/dL (6.3-8.2)
[2022-04-16] MEDS: FUROSEMIDE 100 MG/10 ML VIAL 80 MG IV (18:21)
[2022-04-16] MEDS: SODIUM CHLORIDE 0.9% 1,000 ML 150 ML IV (18:22)
[2022-04-16 18:23] LABS: INR 1.2 (0.9-1.3); Prothrombin Time 13.2 SECONDS (10.1-12.7)
[2022-04-16 18:25] LABS: PTT Partial Thromboplastin Tim 37 SECONDS (26.4-36.2)
[2022-04-16 18:26] LABS: Potassium 5.5 mmol/L (3.4-5.1)
[2022-04-16] MEDS: ALBUTEROL/IPRATROPIUM 3 ML AMPUL INH ×3 (18:26→19:08)
--- NOTE | 2022-04-16 18:42 | RT ---
pt idana neb tx well, at bedside and no distress noted. Pt on 3 lpm nc
[2022-04-16 19:08] LABS: Thyroid Stimulating Hormone 0.584 uIU/mL (0.47-4.68)
[2022-04-16] MEDS: NITROGLYCERIN 50 MG/250 ML INFUS..BTL IV (19:35)
[2022-04-16 19:36] LABS: NT-proBNP (BNP-Adult 18+) 6180 pg/mL (<450)
[2022-04-16] MEDS: MAGNESIUM SULFATE 2 GM/50 ML PIGGYBACK IV (19:44)
[2022-04-16] MEDS: methylPREDNISolone 125 MG/2 ML VIAL IV (19:44)
[2022-04-16 20:48] LABS: Magnesium 3.4 mg/dL (1.6-2.3)
[2022-04-16 20:53] LABS: Creatine Kinase 80 U/L (55-170); Troponin I 0.017 ng/mL (0.01-0.034)
--- NOTE | 2022-04-16 21:58 | DI.ECHO.S_ITS ---
[facility] + [facility] +---------+ : : [address] : : : : [address] : : : : [place], : : : : [place] [address] : : : : Phone: [phone] [id number] Echocardiogram Report + + :Name: BELKIS CALVERT Study Date: 04/17/2022 Height: 69 in : :[facility] ReadingLocation: Weight: 264 lb : : Gender: Male BSA: 2.3 m2 : :: 1945 Age: 76 yrs BP: 158/65 mmHg: :Reason For Study: Congestive Heart Failure : :Ordering Physician: : :YAS ROSE Performed By: Ravi Mina : :Referring: YAS ROSE : + + Interpretation Summary There is mild-moderate concentric left ventricular hypertrophy. The ejection fraction is estimated to be 60-65%. The right ventricle is normal in size and function. Visually the left atrium is mildly dilated. The right atrium is normal in size. There is mild mitral regurgitation. There is mild aortic regurgitation. There is mild tricuspid regurgitation. PASP is approximately 65 to 70 mmHg. Compared to the prior study dated 03/27/2022, there is a slight decrease in mitral, tricuspid and aortic regurgitation. Pulmonary artery systolic pressure has increased however. Procedure: A two-dimensional transthoracic echocardiogram with color flow and Doppler was performed in limited views only. The study quality was technically adequate. Comparison is made with the echocardiogram of 03/27/2022. Left Ventricle: The left ventricle is normal in size. There is mild-moderate concentric left ventricular hypertrophy. Left ventricular systolic function is normal. The ejection fraction is estimated to be 60-65%. There are no focal wall motion abnormalities. Diastolic function was not assessed. Right Ventricle: The right ventricle is normal in size and function. Atria: Visually the left atrium is mildly dilated. The right atrium is normal in size. Mitral Valve: The mitral valve is normal. There is mild mitral regurgitation. Aortic Valve: The aortic valve opens well. There is mild aortic regurgitation. Tricuspid Valve: The tricuspid valve is normal. There is mild tricuspid regurgitation. PASP is approximately 65 to 70 mmHg. Great Vessels: The IVC is dilated (diameter is greater than 2.1 cm) and it collapses less than 50% with a sniff. This suggests a high right atrial pressure of 15 mm Hg. Pericardium/ Pleura There is no pericardial effusion. There is no pleural effusion. MMode/2D Measurements & Calculations LVIDd: 5.7 cm TAPSE: 2.2 cm LVIDs: 3.6 cm IVSd: 1.4 cm LVPWd: 1.3 cm LV rodgers. diameter/BSA (cm/m^2): 2.5 LV sys. diameter/BSA (cm/m^2): 1.6 FS: 36.7 % IVC diam: 3.2 cm Doppler Measurements & Calculations TR max wyatt: 357.6 cm/sec TR max P.1 mmHg Reading Physician:10:49 AM
[2022-04-16 21:59] LABS: COVID19 -Nasal RAPID Negative (Negative)
[2022-04-16 22:03] LABS: Granular Casts Urine 0-1/LPF; RBC Urine None Seen (0-5/HPF); WBC Urine None Seen (0-5/HPF)
[2022-04-16 22:04] LABS: Bacteria Urine None Seen; Culture Indicated Urine Cult Not Indicated
--- NOTE | 2022-04-16 22:36 | PM.HP.1 ---
History of Present Illness History of Present Illness Date Patient Seen: 04/16/22 Time Patient Seen: 22:00 Chief complaint: chest pain/pressure Narrative: Mr. Borden is a 76M with PMH afib, CKD stage 4, CAD, HTN, hypothyroidism, asthma, ZEESHAN who presents with shortness of breath. He states he has had shortness of breath for quite some time. It has become progressively worse to have shortness of breath with very little exertion. He states he was recently taken of lasix and eliquis, but this is not clear why. He also has recently been anemic and transfused per cardiology. He has noted a 10lb weight gain within the last weak. He has tried his nebulizer with no improvement. He has lower extremity swelling. No cough, fevers/chills. In the ED workup was done, vitals notable for tachypnea and high blood pressure. He was placed on nitro drip which was able to be weaned off. Labs notable for wBC 7.7, hgb 9.4. Na 139, k 5.5, BUN 39, creatinine 3.41. INR 1.2. LFTs ok. trop 0.20. BNP 6180. COVID negative. Chest xray shows bilateral hazy lung opacities with small pleural effusions consistent with pulmonary edema and also noted cardiomegaly. He was ordered for lasix and admitted for further treatment. Patient History Medical History Atrial fibrillation CAD (coronary artery disease) CKD (chronic kidney disease) HLD (hyperlipidemia) HTN (hypertension) Hypothyroidism TIA (transient ischemic attack) Surgical History H/O knee surgery H/O shoulder surgery H/O thyroidectomy Family & Social History Family History Father Hypertension Social History: household members spouse Prior Living Arrangements House Safety & Behavioral: Feels Safe in Current Yes Environment Been Physically Hurt or No Threatened By a Person Tobacco & Substance use: Smoking Status Never smoker alcohol intake current alcohol intake frequency holiday/special occasion Substance Use Type does not use Meds Home Medications and Allergies Home Medications Medication Instructions Recorded Confirmed Type albuterol sulfate 90 mcg/actuation 2 puff inhalation Q4H PRN Wheezing 01/21/20 04/17/22 History aerosol inhaler atorvastatin 20 mg tablet 20 mg PO DAILY 01/21/20 04/17/22 History felodipine 10 mg tablet,extended 10 mg PO BID 01/21/20 04/17/22 History release 24 hr latanoprost 0.005 % eye drops 1 drp EYE-BOTH BEDTIME 01/21/20 04/17/22 History finasteride 5 mg tablet 5 mg PO DAILY 12/10/20 04/17/22 History fluticasone 250 mcg-salmeterol 50 1 inh inhalation BID 12/10/20 04/17/22 History mcg/dose blistr powdr for inhalation (Advair Diskus) tamsulosin 0.4 mg capsule 0.8 mg PO BEDTIME 12/10/20 04/17/22 History trospium 20 mg tablet 20 mg PO DAILY 12/10/20 04/17/22 History levothyroxine 175 mcg tablet 175 mcg PO DAILY #30 tabs 12/11/20 04/17/22 Rx clonidine HCl 0.1 mg tablet 0.2 mg PO DAILY Hypertension 03/27/21 04/17/22 History ezetimibe 10 mg tablet 10 mg PO DAILY 03/27/21 04/17/22 History hydralazine 25 mg tablet 25 mg PO TID 09/18/21 04/17/22 History metoprolol succinate 25 mg 25 mg PO BID 09/18/21 04/17/22 History tablet,extended release 24 hr albuterol sulfate 90 mcg/actuation 2 puff inhalation Q4HR PRN Wheezing 04/17/22 04/17/22 History aerosol inhaler montelukast 10 mg tablet 10 mg PO DAILY 04/17/22 04/17/22 History nitroglycerin 0.4 mg sublingual 0.4 mg sublingual Q5M PRN Chest 04/17/22 04/17/22 History tablet Pain Allergies Allergy/AdvReac Type Severity Reaction Status Date / Time No Known Drug Allergies Allergy Verified 04/06/22 18:54 Review of Systems Review of Systems Narrative: 14 systems reviewed and negative aside from what is noted in HPI Exam Vital Signs (past 8 hours): - 04/16/22 23:05 04/16/22 20:00 04/16/22 20:30 Temperature Pulse Rate 71 70 73 Respiratory Rate 24 25 H Blood Pressure 159/71 H Pulse Oximetry 97 94 Oxygen Delivery Method Oxygen Flow Rate 04/16/22 20:56 04/16/22 20:56 04/16/22 21:00 Temperature Pulse Rate 85 Respiratory Rate 28 H Blood Pressure 189/70 H 171/74 H Pulse Oximetry 96 Oxygen Delivery Method Oxygen Flow Rate 04/16/22 21:00 04/16/22 21:30 04/16/22 21:31 Temperature Pulse Rate 78 73 73 Respiratory Rate 26 H 23 24 Blood Pressure Pulse Oximetry 97 96 96 Oxygen Delivery Method Oxygen Flow Rate 04/16/22 21:31 04/16/22 22:00 04/16/22 22:01 Temperature Pulse Rate 66 69 Respiratory Rate 21 19 Blood Pressure 155/68 H Pulse Oximetry 95 95 Oxygen Delivery Method Oxygen Flow Rate 04/16/22 22:01 04/16/22 22:30 04/16/22 22:30 Temperature Pulse Rate 72 Respiratory Rate 23 Blood Pressure 147/65 H 151/67 H Pulse Oximetry 95 Oxygen Delivery Method Oxygen Flow Rate 04/16/22 23:00 04/16/22 23:00 04/16/22 23:30 Temperature Pulse Rate 70 Respiratory Rate 19 Blood Pressure 159/71 H 163/74 H Pulse Oximetry 97 Oxygen Delivery Method Room Air Oxygen Flow Rate 04/16/22 23:30 04/17/22 00:00 04/17/22 00:01 Temperature Pulse Rate 73 65 Respiratory Rate 21 12 Blood Pressure 147/65 H Pulse Oximetry 97 96 Oxygen Delivery Method Room Air Oxygen Flow Rate 04/17/22 00:01 04/17/22 00:30 04/17/22 00:31 Temperature Pulse Rate 60 57 L Respiratory Rate 12 24 Blood Pressure 148/68 H Pulse Oximetry 95 96 Oxygen Delivery Method Room Air Oxygen Flow Rate 04/17/22 00:31 04/17/22 01:34 04/17/22 01:26 Temperature 98.1 F Pulse Rate 59 L 77 Respiratory Rate 23 22 Blood Pressure 165/71 H Pulse Oximetry 96 96 97 Oxygen Delivery Method Nasal Cannula Oxygen Flow Rate 3 3 04/17/22 03:33 04/17/22 02:03 Temperature 97.4 F L Pulse Rate 67 Respiratory Rate 24 Blood Pressure 158/65 H Pulse Oximetry 96 Oxygen Delivery Method Nasal Cannula Oxygen Flow Rate Oxygen Delivery Method Nasal Cannula Oxygen Flow Rate 3 Narrative Exam Narrative: GEN: mild respiratory distress HEENT: moist mucous membranes, PERRL NECK: trachea midline, +jvd CV: regular rate and rhythm, no murmurs PULM: crackles bilaterally ABD: soft, nontender, nondistended, no organomegaly, normal bowel sounds EXT: warm and well perfused, 3+ pitting edema NEURO: awake, alert, oriented, no focal deficits Objective Labs Result Diagrams: 04/16/22 17:50 04/17/22 01:35 Labs: Laboratory Results - last 24 hr 04/16/22 04/16/22 04/16/22 17:50 17:50 17:50 WBC 7.7 RBC 3.18 L Hgb 9.4 L Hct 28.0 L MCV 88.1 MCH 29.5 MCHC 33.4 RDW 16.2 H Plt Count 234 Neut % (Auto) 73.1 Lymph % (Auto) 11.6 L [place] % (Auto) 10.2 Eos % (Auto) 4.3 H Baso % (Auto) 0.8 Neut # (Auto) 5600 Lymph # (Auto) 900 L [place] # (Auto) 800 Eos # (Auto) 300 Baso # (Auto) 100 PT 13.2 H D INR 1.2 APTT 37 H ABG pH ABG pCO2 ABG pO2 ABG HCO3 ABG Total CO2 ABG O2 Saturation ABG Base Excess FiO2 Sodium 139 Potassium 5.5 H Chloride 109 H Carbon Dioxide 22 BUN 39 H Creatinine 3.41 H Estimated GFR 18 L BUN/Creatinine Ratio 11.4 Glucose 98 Calcium 8.2 L Magnesium Total Bilirubin 0.5 AST 20 ALT 14 Alkaline Phosphatase 46 Total Creatine Kinase 82 CK-MB (CK-2) TNP CK-MB (CK-2) Rel Index TNP Troponin I 0.020 NT-Pro-B Natriuret Pep Total Protein 7.1 Albumin 4.0 Globulin 3.1 Albumin/Globulin Ratio 1.3 Lipase 59 TSH Urine RBC Urine WBC Urine Bacteria Granular Casts Ur Culture Indicated? SARS-CoV-2 (PCR) 04/16/22 04/16/22 04/16/22 17:50 17:50 19:49 WBC RBC Hgb Hct MCV MCH MCHC RDW Plt Count Neut % (Auto) Lymph % (Auto) [place] % (Auto) Eos % (Auto) Baso % (Auto) Neut # (Auto) Lymph # (Auto) [place] # (Auto) Eos # (Auto) Baso # (Auto) PT INR APTT ABG pH ABG pCO2 ABG pO2 ABG HCO3 ABG Total CO2 ABG O2 Saturation ABG Base Excess FiO2 Sodium Potassium Chloride Carbon Dioxide BUN Creatinine Estimated GFR BUN/Creatinine Ratio Glucose Calcium Magnesium Total Bilirubin AST ALT Alkaline Phosphatase Total Creatine Kinase CK-MB (CK-2) CK-MB (CK-2) Rel Index Troponin I NT-Pro-B Natriuret Pep 6180 H Total Protein Albumin Globulin Albumin/Globulin Ratio Lipase TSH 0.584 Urine RBC Urine WBC Urine Bacteria Granular Casts Ur Culture Indicated? SARS-CoV-2 (PCR) Negative 04/16/22 04/16/22 04/16/22 20:06 20:06 20:54 WBC RBC Hgb Hct MCV MCH MCHC RDW Plt Count Neut % (Auto) Lymph % (Auto) [place] % (Auto) Eos % (Auto) Baso % (Auto) Neut # (Auto) Lymph # (Auto) [place] # (Auto) Eos # (Auto) Baso # (Auto) PT INR APTT ABG pH ABG pCO2 ABG pO2 ABG HCO3 ABG Total CO2 ABG O2 Saturation ABG Base Excess FiO2 Sodium Potassium Chloride Carbon Dioxide BUN Creatinine Estimated GFR BUN/Creatinine Ratio Glucose Calcium Magnesium 3.4 H Total Bilirubin AST ALT Alkaline Phosphatase Total Creatine Kinase 80 CK-MB (CK-2) TNP CK-MB (CK-2) Rel Index TNP Troponin I 0.017 NT-Pro-B Natriuret Pep Total Protein Albumin Globulin Albumin/Globulin Ratio Lipase TSH Urine RBC None seen Urine WBC None seen Urine Bacteria None seen Granular Casts 0-1/lpf Ur Culture Indicated? Cult not indicated SARS-CoV-2 (PCR) 04/16/22 04/17/22 22:43 01:35 WBC RBC Hgb Hct MCV MCH MCHC RDW Plt Count Neut % (Auto) Lymph % (Auto) [place] % (Auto) Eos % (Auto) Baso % (Auto) Neut # (Auto) Lymph # (Auto) [place] # (Auto) Eos # (Auto) Baso # (Auto) PT INR APTT ABG pH 7.42 ABG pCO2 32.3 L ABG pO2 108 H ABG HCO3 21 L ABG Total CO2 22 ABG O2 Saturation 98 ABG Base Excess -3.0 L FiO2 21 Sodium 138 Potassium 5.8 H Chloride 108 H Carbon Dioxide 19 L BUN 40 H Creatinine 3.59 H Estimated GFR 17 L BUN/Creatinine Ratio 11.1 Glucose 168 H Calcium 8.1 L Magnesium Total Bilirubin AST ALT Alkaline Phosphatase Total Creatine Kinase CK-MB (CK-2) CK-MB (CK-2) Rel Index Troponin I NT-Pro-B Natriuret Pep Total Protein Albumin Globulin Albumin/Globulin Ratio Lipase TSH Urine RBC Urine WBC Urine Bacteria Granular Casts Ur Culture Indicated? SARS-CoV-2 (PCR) Assessment & Plan Assessment & Plan narrative: Mr. Borden is a 76M with PMH CAD, CKD, TIA, HTN, afib and asthma who presents to the hospital with shortness of breath found to have CHF exacerbation. 1. Acute hypoxemic respiratory failure with acute pulmonary edema and acute CHF exacerbation -lasix recently stopped as outpatient -per team facilitator has not been planned for imminent dialysis and urinates well -will diurese with 80mg IV BID lasix with goal >2L negative fluid balance daily -ordered ECHO -continue nebs PRN, think acute asthma exacerbation is less likely -fluid restriction, low salt diet 2. ZACH on CKD stage 4, with hyperkalemia -will try diuresis as above, if diurese well would expect improved creatinine and lower potassium -order insulin and dextrose -recheck BMP in four hours -if diuresis not successful will need transfer for dialysis 3. Hypertension -continue hydralazine, metoprolol 4. 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 BPH -continue tamsulosin 6. Hypothyroid -continue synthroid 7. ZEESHAN -ordered for home BIPAP CODE: Full Proxy: Lacy Marie, I have utilized all available resources to reconcile the patient's home medications. Time Spent With Patient Critical Care time: I spent a total of [] minutes of critical care time on this patient's care today; this time is exclusive of procedural time. Quality MIPS - Admit I confirm the patient?s Advance Care Plan is present, Code status is documented, Surrogate decision maker is in patient?s record [If Yes, STOP here]: Yes
[2022-04-16 22:52] LABS: Fractionated Inspired Oxygen 21; HCO3 ABG 21 mmol/L (22-26); Oxygen Saturation ABG 98 % (95-100); PCO2 ABG 32.3 mmHg (35-45); PO2 ABG 108 mmHg (80-100); TCO2 ABG 22 mmol/L (21-31); pH ABG 7.42 (7.35-7.45)
[2022-04-16] MEDS: NITROGLYCERIN OINT 1 INCH/GM OINT...G. TOP (23:05)
[2022-04-17] VITALS (25 sets, daily range): BP systolic 147–169; BP diastolic 58–74; PULSE 57–86; RESP 12–24; TEMP 36.2–37.2; O2SAT 94–97
[2022-04-17 02:02] LABS: Sodium 138 mmol/L (137-145)
[2022-04-17 02:03] LABS: BUN Creatinine Ratio 11.1 (6-22); Blood Urea Nitrogen 40 mg/dL (9-20); Calcium 8.1 mg/dL (8.4-10.2); Carbon Dioxide 19 mmol/L (22-32); Chloride 108 mmol/L (98-107); Estimated Glomerular Filt Rate 17 mL/min (>60); Glucose 168 mg/dL (80-110); Potassium 5.8 mmol/L (3.4-5.1)
[2022-04-17 02:04] LABS: HEMOLYSIS < 15 (0-50)
[2022-04-17] MEDS: FUROSEMIDE 100 MG/10 ML VIAL 80 MG IV ×3 (02:53→20:43)
[2022-04-17] MEDS: INSULIN REGULAR 100 UNIT/ML 3 ML VIAL 10 UNIT IV ×2 (02:54→07:17)
[2022-04-17] MEDS: DEXTROSE 10 % IN WATER 250 ML 999 ML IV ×2 (02:54→07:17)
--- NOTE | 2022-04-17 03:19 | PC.ADMIT ---
[email or web address] Admission Note: Pt arrived to unit in stretcher, able to ambulate to bathroom to urinate.Visibly SOB on ambulation, SPO2 @ 88% RA. Placed on 3L NC up to 94-96% Audible wheezing. Placed on telemetry, HOB raised for pt comfort. BP mildly elevated, HR WNL but irregular beat. Generalized edema, 1+ pitting. Reports SOB on exertion and at rest, reports intermittent dry nonproductive cough. Refusing Leblanc Cath insertion, provider aware. Zio patch on L upper chest. Nitro paste intact on L upper chest, provider aware, OK to leave on 12 hours, remove 11 AM 04/17. Pt reports having stopped aspirin 81 mg, apixaban 5 mg, and furosemide 80 mg BID on 04/06/2022 per provider order. Confirmed w/ spouse. Alert and oriented, denies chest pain, headache, dizziness, numbness or tingling. Airway intact. Personal night-time BiPAP placed and RT notified of pt status. The patient,Prosper Borden,76 y/o, was given written information regarding hospital policies, unit procedures and contact persons. Patient's smoking status: Never smoker. Vital Signs - 8 hr 04/16/22 23:05 04/16/22 19:30 04/16/22 20:00 Temperature Pulse Rate 71 73 70 Respiratory Rate 25 H 24 Blood Pressure 159/71 H Pulse Oximetry 98 97 Oxygen Delivery Method Oxygen Flow Rate 04/16/22 20:30 04/16/22 20:56 04/16/22 20:56 Temperature Pulse Rate 73 85 Respiratory Rate 25 H 28 H Blood Pressure 189/70 H Pulse Oximetry 94 96 Oxygen Delivery Method Oxygen Flow Rate 04/16/22 21:00 04/16/22 21:00 04/16/22 21:30 Temperature Pulse Rate 78 73 Respiratory Rate 26 H 23 Blood Pressure 171/74 H Pulse Oximetry 97 96 Oxygen Delivery Method Oxygen Flow Rate 04/16/22 21:31 04/16/22 21:31 04/16/22 22:00 Temperature Pulse Rate 73 66 Respiratory Rate 24 21 Blood Pressure 155/68 H Pulse Oximetry 96 95 Oxygen Delivery Method Oxygen Flow Rate 04/16/22 22:01 04/16/22 22:01 04/16/22 22:30 Temperature Pulse Rate 69 Respiratory Rate 19 Blood Pressure 147/65 H 151/67 H Pulse Oximetry 95 Oxygen Delivery Method Oxygen Flow Rate 04/16/22 22:30 04/16/22 23:00 04/16/22 23:00 Temperature Pulse Rate 72 70 Respiratory Rate 23 19 Blood Pressure 159/71 H Pulse Oximetry 95 97 Oxygen Delivery Method Room Air Oxygen Flow Rate 04/16/22 23:30 04/16/22 23:30 04/17/22 00:00 Temperature Pulse Rate 73 65 Respiratory Rate 21 12 Blood Pressure 163/74 H Pulse Oximetry 97 96 Oxygen Delivery Method Room Air Oxygen Flow Rate 04/17/22 00:01 04/17/22 00:01 04/17/22 00:30 Temperature Pulse Rate 60 57 L Respiratory Rate 12 24 Blood Pressure 147/65 H Pulse Oximetry 95 96 Oxygen Delivery Method Room Air Oxygen Flow Rate 04/17/22 00:31 04/17/22 00:31 04/17/22 01:34 Temperature Pulse Rate 59 L Respiratory Rate 23 Blood Pressure 148/68 H Pulse Oximetry 96 96 Oxygen Delivery Method Nasal Cannula Oxygen Flow Rate 3 04/17/22 01:26 04/17/22 02:03 Temperature 98.1 F Pulse Rate 77 Respiratory Rate 22 Blood Pressure 165/71 H Pulse Oximetry 97 Oxygen Delivery Method Nasal Cannula Oxygen Flow Rate 3
[2022-04-17 05:24] LABS: Add Manual Diff / Slide Review NO; Basophils Absolute Auto 0 /uL (0-100); Basophils Percent Auto 0.3 % (0-2); Eosinophils Absolute Auto 0 /uL (0-450); Eosinophils Percent Auto 0.1 % (2-4); Hematocrit 27.1 % (41-53); Hemoglobin 9.1 g/dL (13.5-17.5); Lymphocytes Absolute Auto 400 /uL (1100-4500); Lymphocytes Percent Auto 4.7 % (25-40); Mean Corpuscular HGB Conc 33.4 % (30-36); Mean Corpuscular Hemoglobin 29.5 PG (26-34); Mean Corpuscular Volume 88.3 fL (80-100); Monocytes Absolute Auto 100 /uL (0-900); Neutrophils Absolute Auto 8600 /uL (1500-7000); Neutrophils Percent Auto 93.9 % (50-75); Platelet Count 242 X10^3/uL (150-400); Red Blood Cell Count 3.07 X10^6/uL (4.5-5.9); Red Cell Distribution Width 16.1 % (11.6-14.8); White Blood Cell Count 9.1 X10^3/uL (4.5-11.0)
[2022-04-17] MEDS: LEVOTHYROXINE 25 MCG TABLET PO (05:51)
[2022-04-17] MEDS: LEVOTHYROXINE 150 MCG TABLET PO (05:51)
[2022-04-17 06:35] LABS: BUN Creatinine Ratio 11.8 (6-22); Blood Urea Nitrogen 42 mg/dL (9-20); Calcium 7.9 mg/dL (8.4-10.2); Carbon Dioxide 19 mmol/L (22-32); Chloride 107 mmol/L (98-107); Estimated Glomerular Filt Rate 17 mL/min (>60); Glucose 182 mg/dL (80-110); Potassium 5.8 mmol/L (3.4-5.1); Sodium 136 mmol/L (137-145)
[2022-04-17 06:36] LABS: HEMOLYSIS < 15 (0-50); Magnesium 2.8 mg/dL (1.6-2.3)
[2022-04-17] MEDS: ALBUTEROL 2.5 MG/3 ML NEB (ADULT) INH (07:10)
[2022-04-17] MEDS: SODIUM CHLORIDE 0.9% FLUSH 10 ML IV ×2 (08:08→10:24)
[2022-04-17] MEDS: CALCIUM CHLORIDE IV (08:09)
[2022-04-17] MEDS: SODIUM CHLORIDE 0.9% IV (08:09)
[2022-04-17] MEDS: APIXABAN 5 MG TABLET PO ×2 (10:16→20:40)
[2022-04-17] MEDS: ATORVASTATIN 20 MG TABLET PO (10:16)
[2022-04-17] MEDS: METOPROLOL ER 25 MG TABLET PO ×2 (10:17→20:42)
[2022-04-17] MEDS: cloNIDine 0.1 MG TABLET PO (10:17)
[2022-04-17] MEDS: FINASTERIDE 5 MG TABLET PO (10:18)
[2022-04-17] MEDS: HYDRALAZINE 25 MG TABLET PO ×3 (10:18→20:42)
[2022-04-17] MEDS: metOLazone 2.5 MG TABLET 5 MG PO (11:15)
[2022-04-17] MEDS: FELODIPINE 10 MG 10 EACH PO ×2 (11:52→20:43)
[2022-04-17 13:00] LABS: Carbon Dioxide 20 mmol/L (22-32); Chloride 106 mmol/L (98-107); Potassium 5.5 mmol/L (3.4-5.1); Sodium 138 mmol/L (137-145)
[2022-04-17 13:01] LABS: BUN Creatinine Ratio 12.9 (6-22); Blood Urea Nitrogen 44 mg/dL (9-20); Calcium 8.1 mg/dL (8.4-10.2); Estimated Glomerular Filt Rate 18 mL/min (>60); Glucose 128 mg/dL (80-110); HEMOLYSIS < 15 (0-50)
--- NOTE | 2022-04-17 14:08 | PM.PN.1 ---
Subjective Subjective Interval history: c/o weakness Exam Vital Signs (past 8 hours): - 04/17/22 07:11 04/17/22 07:00 04/17/22 10:17 Temperature 98.1 F Pulse Rate 72 77 82 Respiratory Rate 22 18 Blood Pressure 159/69 H 163/70 H Pulse Oximetry 97 96 Oxygen Delivery Method Nasal Cannula Oxygen Flow Rate 3 4 04/17/22 10:17 04/17/22 10:18 04/17/22 10:54 Temperature Pulse Rate 82 82 78 Respiratory Rate Blood Pressure 163/70 H 163/70 H 167/70 H Pulse Oximetry Oxygen Delivery Method Oxygen Flow Rate 04/17/22 10:54 04/17/22 11:25 04/17/22 11:00 Temperature 98.2 F Pulse Rate 70 75 Respiratory Rate 19 Blood Pressure 167/70 H 169/74 H Pulse Oximetry 96 95 Oxygen Delivery Method Room Air Oxygen Flow Rate 4 Oxygen Delivery Method Room Air Oxygen Flow Rate 4 Const General: cooperative and well developed Orientation: alert, awake and oriented x3 HENMT Head: normal to inspection Ears: external ears normal Mouth: oral mucosae normal Eyes Pupils: PERRL EOM: EOM intact bilaterally Neck Neck: normal visual inspection and full ROM Resp Effort & Inspection: normal respiratory effort Auscultation: clear to auscultation bilaterally Cardio Rate: regular rate Rhythm: regular rhythm GI Palpation: soft and no hepatosplenomegaly Auscultation: normal bowel sounds Skin General: no rashes or lesions noted Neuro General: patient alert, patient awake, patient oriented x3, moves all extremities and no focal motor deficits Speech: speech normal Extrem General: normal to inspection, full ROM and no pedal edema Psych Appearance: grossly normal Objective Labs Result Diagrams: 04/17/22 05:05 04/17/22 11:45 Labs: Laboratory Results - last 24 hr 04/16/22 04/16/22 04/16/22 17:50 17:50 17:50 WBC 7.7 RBC 3.18 L Hgb 9.4 L Hct 28.0 L MCV 88.1 MCH 29.5 MCHC 33.4 RDW 16.2 H Plt Count 234 Neut % (Auto) 73.1 Lymph % (Auto) 11.6 L [place] % (Auto) 10.2 Eos % (Auto) 4.3 H Baso % (Auto) 0.8 Neut # (Auto) 5600 Lymph # (Auto) 900 L [place] # (Auto) 800 Eos # (Auto) 300 Baso # (Auto) 100 PT 13.2 H D INR 1.2 APTT 37 H ABG pH ABG pCO2 ABG pO2 ABG HCO3 ABG Total CO2 ABG O2 Saturation ABG Base Excess FiO2 Sodium 139 Potassium 5.5 H Chloride 109 H Carbon Dioxide 22 BUN 39 H Creatinine 3.41 H Estimated GFR 18 L BUN/Creatinine Ratio 11.4 Glucose 98 Calcium 8.2 L Magnesium Total Bilirubin 0.5 AST 20 ALT 14 Alkaline Phosphatase 46 Total Creatine Kinase 82 CK-MB (CK-2) TNP CK-MB (CK-2) Rel Index TNP Troponin I 0.020 NT-Pro-B Natriuret Pep Total Protein 7.1 Albumin 4.0 Globulin 3.1 Albumin/Globulin Ratio 1.3 Lipase 59 TSH Urine RBC Urine WBC Urine Bacteria Granular Casts Ur Culture Indicated? SARS-CoV-2 (PCR) 04/16/22 04/16/22 04/16/22 17:50 17:50 19:49 WBC RBC Hgb Hct MCV MCH MCHC RDW Plt Count Neut % (Auto) Lymph % (Auto) [place] % (Auto) Eos % (Auto) Baso % (Auto) Neut # (Auto) Lymph # (Auto) [place] # (Auto) Eos # (Auto) Baso # (Auto) PT INR APTT ABG pH ABG pCO2 ABG pO2 ABG HCO3 ABG Total CO2 ABG O2 Saturation ABG Base Excess FiO2 Sodium Potassium Chloride Carbon Dioxide BUN Creatinine Estimated GFR BUN/Creatinine Ratio Glucose Calcium Magnesium Total Bilirubin AST ALT Alkaline Phosphatase Total Creatine Kinase CK-MB (CK-2) CK-MB (CK-2) Rel Index Troponin I NT-Pro-B Natriuret Pep 6180 H Total Protein Albumin Globulin Albumin/Globulin Ratio Lipase TSH 0.584 Urine RBC Urine WBC Urine Bacteria Granular Casts Ur Culture Indicated? SARS-CoV-2 (PCR) Negative 04/16/22 04/16/22 04/16/22 20:06 20:06 20:54 WBC RBC Hgb Hct MCV MCH MCHC RDW Plt Count Neut % (Auto) Lymph % (Auto) [place] % (Auto) Eos % (Auto) Baso % (Auto) Neut # (Auto) Lymph # (Auto) [place] # (Auto) Eos # (Auto) Baso # (Auto) PT INR APTT ABG pH ABG pCO2 ABG pO2 ABG HCO3 ABG Total CO2 ABG O2 Saturation ABG Base Excess FiO2 Sodium Potassium Chloride Carbon Dioxide BUN Creatinine Estimated GFR BUN/Creatinine Ratio Glucose Calcium Magnesium 3.4 H Total Bilirubin AST ALT Alkaline Phosphatase Total Creatine Kinase 80 CK-MB (CK-2) TNP CK-MB (CK-2) Rel Index TNP Troponin I 0.017 NT-Pro-B Natriuret Pep Total Protein Albumin Globulin Albumin/Globulin Ratio Lipase TSH Urine RBC None seen Urine WBC None seen Urine Bacteria None seen Granular Casts 0-1/lpf Ur Culture Indicated? Cult not indicated SARS-CoV-2 (PCR) 04/16/22 04/17/22 04/17/22 22:43 01:35 05:05 WBC 9.1 RBC 3.07 L Hgb 9.1 L Hct 27.1 L MCV 88.3 MCH 29.5 MCHC 33.4 RDW 16.1 H Plt Count 242 Neut % (Auto) 93.9 H D Lymph % (Auto) 4.7 L [place] % (Auto) 1.0 L Eos % (Auto) 0.1 L Baso % (Auto) 0.3 Neut # (Auto) 8600 H Lymph # (Auto) 400 L [place] # (Auto) 100 Eos # (Auto) 0 Baso # (Auto) 0 PT INR APTT ABG pH 7.42 ABG pCO2 32.3 L ABG pO2 108 H ABG HCO3 21 L ABG Total CO2 22 ABG O2 Saturation 98 ABG Base Excess -3.0 L FiO2 21 Sodium 138 Potassium 5.8 H Chloride 108 H Carbon Dioxide 19 L BUN 40 H Creatinine 3.59 H Estimated GFR 17 L BUN/Creatinine Ratio 11.1 Glucose 168 H Calcium 8.1 L Magnesium Total Bilirubin AST ALT Alkaline Phosphatase Total Creatine Kinase CK-MB (CK-2) CK-MB (CK-2) Rel Index Troponin I NT-Pro-B Natriuret Pep Total Protein Albumin Globulin Albumin/Globulin Ratio Lipase TSH Urine RBC Urine WBC Urine Bacteria Granular Casts Ur Culture Indicated? SARS-CoV-2 (PCR) 04/17/22 04/17/22 05:05 11:45 WBC RBC Hgb Hct MCV MCH MCHC RDW Plt Count Neut % (Auto) Lymph % (Auto) [place] % (Auto) Eos % (Auto) Baso % (Auto) Neut # (Auto) Lymph # (Auto) [place] # (Auto) Eos # (Auto) Baso # (Auto) PT INR APTT ABG pH ABG pCO2 ABG pO2 ABG HCO3 ABG Total CO2 ABG O2 Saturation ABG Base Excess FiO2 Sodium 136 L 138 Potassium 5.8 H 5.5 H Chloride 107 106 Carbon Dioxide 19 L 20 L BUN 42 H 44 H Creatinine 3.56 H 3.41 H Estimated GFR 17 L 18 L BUN/Creatinine Ratio 11.8 12.9 Glucose 182 H 128 H Calcium 7.9 L 8.1 L Magnesium 2.8 H Total Bilirubin AST ALT Alkaline Phosphatase Total Creatine Kinase CK-MB (CK-2) CK-MB (CK-2) Rel Index Troponin I NT-Pro-B Natriuret Pep Total Protein Albumin Globulin Albumin/Globulin Ratio Lipase TSH Urine RBC Urine WBC Urine Bacteria Granular Casts Ur Culture Indicated? SARS-CoV-2 (PCR) PFSH Medical History Atrial fibrillation CAD (coronary artery disease) CKD (chronic kidney disease) HLD (hyperlipidemia) HTN (hypertension) Hypothyroidism TIA (transient ischemic attack) Surgical History H/O knee surgery H/O shoulder surgery H/O thyroidectomy Family History Father Hypertension Social History marital status: household members: spouse Smoking Status: Never smoker alcohol intake: current substance use type: does not use Assessment & Plan Assessment & Plan narrative: Acute hypoxic respiratory failure secondary to possibly CHF exacerbation - continue diuresis - pt was pending for dialysis per his nephrology ECHO with EF 60 % -fluid restriction, low salt diet HFpEF likely preserved EF heart failure - diuresis ZACH on CKD stage 4 - continue diuresis -pt needs to be transferred to hospital with nephrology and dialysis available - transferring process started ( no beds available yet) Hyperkalemia - given insulin, D10 and lasix, calcium chloride improved from 5.8 to 5.5 - BMP daily Hypertension -continue hydralazine, metoprolol Afib -continue metoprolol -no anticoagulation ( per cardiology) BPH -continue tamsulosin Hypothyroid -continue synthroid ZEESHAN -continue home BIPAP CODE: Full Proxy: Lacy Marie, Time Spent With Patient Critical Care time: I spent a total of [] minutes of critical care time on this patient's care today; this time is exclusive of procedural time.
--- NOTE | 2022-04-17 15:00 | CM.DANOTE ---
Initial DCP Assessment Note Pt is a 76 yo male, resident of [place], arrives w/increased shortness of breath and admitted for treatment of Acute hypoxemic respiratory failure with acute pulmonary edema and acute CHF exacerbation,ZACH on CKD stage 4, with hyperkalemia, Hypertension, Afib, ZEESHAN According to Dr Norton, patient is a transfer candidate for higher level of care, possible need for dialysis, RN Coordinator is attempting PCP: Dayana Acevedo Payer: MARYLOU/Mac Reviewed chart, met w/patient to introduce role. Patient lives at home w/spouse, says he was able to tolerate more activity but since an asthma attack 2 months ago he becomes very SOB with movement and requires rest breaks with activity. Patient/spouse have three adult children. One son Annie and his live in another house on patient/spouse's property Patient awaiting more information about medical POC during this visit; states he hopes to return home [place], w/spouse to assist. Patient says spouse is indp and active and assists him as needed Awaiting transfer; if patient remains admitted at for medical management, will reassess DC needs closer to medical stability MELLISA Lea Discharge Planning/Care Management CM Discharge Assessment Start: 04/17/22 14:54 Freq: Status: Active Protocol: Document 04/17/22 14:54 CELINE (Rec: 04/17/22 15:00 CELINE [id number]) Discharge Planning Assessment Assigned Teaching Associate MELLISA Khan DPOA/Assigned Designee Name Lacy Marie, spouse Contact Information [phone] Advance Directives? Yes Advance Directives on File No History Provided By Patient,Medical Record Prior Living Arrangements House Household Members spouse Type of transportation used prior to Drives own vehicle admit Independent with ADL's Yes: Poor activity tolerance last 2 months Is patient alert and oriented? Yes Needs Assistance With Meal Prep,Managing Medications ,Home Chores / Shopping Discharge Plan Transfer to Higher Level of Care Referrals Initiated None needed
--- NOTE | 2022-04-17 16:50 | PC.NURSE ---
Pt refused urinary catheter insertion.
[2022-04-17] MEDS: ALBUTEROL/IPRATROPIUM 3 ML AMPUL INH (19:18)
[2022-04-17] MEDS: CALCIUM GLUCONATE 4.65 MEQ in SODIUM CHLORIDE 0.9% 50 ML 180 MEQ IV (20:40)
[2022-04-17] MEDS: TAMSULOSIN 0.4 MG CAPSULE 0.8 MG PO (20:40)
[2022-04-18] VITALS (23 sets, daily range): BP systolic 145–159; BP diastolic 53–69; PULSE 55–86; RESP 16–20; TEMP 36.6–36.9; O2SAT 92–97
[2022-04-18] MEDS: LEVOTHYROXINE 25 MCG TABLET PO (05:58)
[2022-04-18] MEDS: LEVOTHYROXINE 150 MCG TABLET PO (05:58)
[2022-04-18] MEDS: ALBUTEROL/IPRATROPIUM 3 ML AMPUL INH ×4 (06:59→19:23)
[2022-04-18] MEDS: cloNIDine 0.1 MG TABLET PO (08:47)
[2022-04-18] MEDS: ATORVASTATIN 20 MG TABLET PO (08:47)
[2022-04-18] MEDS: APIXABAN 5 MG TABLET PO ×2 (08:47→20:49)
[2022-04-18] MEDS: HYDRALAZINE 25 MG TABLET PO ×3 (08:48→20:49)
[2022-04-18] MEDS: FINASTERIDE 5 MG TABLET PO (08:48)
[2022-04-18] MEDS: FELODIPINE 10 MG 10 EACH PO ×2 (08:48→20:52)
[2022-04-18] MEDS: METOPROLOL ER 25 MG TABLET PO ×2 (08:49→20:49)
[2022-04-18] MEDS: FUROSEMIDE 100 MG/10 ML VIAL 80 MG IV ×2 (08:59→20:49)
--- NOTE | 2022-04-18 10:51 | P.PN_ITS ---
Subjective Subjective Interval history: pt feels better, denies chest pain, shortness of breath, nausea, vomiting Exam Vital Signs (past 8 hours): - 04/18/22 04:32 04/18/22 03:00 04/18/22 07:02 Temperature 97.9 F Pulse Rate 69 Respiratory Rate 20 Blood Pressure 154/63 H Pulse Oximetry 92 92 94 Oxygen Delivery Method Nasal Cannula Room Air Oxygen Flow Rate 0 3 04/18/22 08:47 04/18/22 08:48 04/18/22 08:49 Temperature Pulse Rate 67 67 67 Respiratory Rate Blood Pressure 158/68 H 158/68 H 158/68 H Pulse Oximetry Oxygen Delivery Method Oxygen Flow Rate 04/18/22 08:40 Temperature 98.1 F Pulse Rate 67 Respiratory Rate 20 Blood Pressure 158/68 H Pulse Oximetry 92 Oxygen Delivery Method Oxygen Flow Rate 3 Oxygen Delivery Method Room Air Oxygen Flow Rate 3 Const General: cooperative and well developed Orientation: alert, awake and oriented x3 HENMT Head: normal to inspection Ears: external ears normal Mouth: oral mucosae normal Eyes Pupils: PERRL EOM: EOM intact bilaterally Neck Neck: normal visual inspection and full ROM Resp Effort & Inspection: normal respiratory effort Auscultation: clear to auscultation bilaterally Cardio Rate: regular rate Rhythm: regular rhythm GI Palpation: soft and no hepatosplenomegaly Auscultation: normal bowel sounds Skin General: no rashes or lesions noted Neuro General: patient alert, patient awake, patient oriented x3, moves all extremities and no focal motor deficits Speech: speech normal Extrem General: normal to inspection, full ROM and no pedal edema Psych Appearance: grossly normal Objective Labs Result Diagrams: 04/17/22 05:05 04/17/22 11:45 Labs: Laboratory Results - last 24 hr 04/17/22 11:45 Sodium 138 Potassium 5.5 H Chloride 106 Carbon Dioxide 20 L BUN 44 H Creatinine 3.41 H Estimated GFR 18 L BUN/Creatinine Ratio 12.9 Glucose 128 H Calcium 8.1 L PFSH Medical History Atrial fibrillation CAD (coronary artery disease) CKD (chronic kidney disease) HLD (hyperlipidemia) HTN (hypertension) Hypothyroidism TIA (transient ischemic attack) Surgical History H/O knee surgery H/O shoulder surgery H/O thyroidectomy Family History Father Hypertension Social History marital status: household members: spouse Smoking Status: Never smoker alcohol intake: current substance use type: does not use Assessment & Plan Assessment & Plan narrative: Acute hypoxic respiratory failure secondary to possibly CHF exacerbation ( ECHO with EF 60 %) - continue diuresis -fluid restriction, low salt diet HFpEF ( ECHO with EF 60 %) likely preserved EF heart failure - continue diuresis ZACH on CKD stage 4 cr 3.4 GFR 17 - continue diuresis -pt pending for transfer to hospital with nephrology and dialysis available Hyperkalemia - 5.5 yesterday -pending for CMP now Hypertension -continue hydralazine, metoprolol Afib -continue metoprolol -no anticoagulation ( per cardiology) BPH -continue tamsulosin Hypothyroid -continue synthroid ZEESHAN -continue home BIPAP CODE: Full Proxy: Lacy Marie, dispo: pending for transfer Time Spent With Patient Critical Care time: I spent a total of [] minutes of critical care time on this patient's care to day; this time is exclusive of procedural time.
--- NOTE | 2022-04-18 11:01 | PC.NURSE ---
Pt a&o, follows commands, up with SBA. attentive at bedside. RT in to see Pt.
[2022-04-18 11:29] LABS: Add Manual Diff / Slide Review NO; Basophils Absolute Auto 100 /uL (0-100); Eosinophils Absolute Auto 200 /uL (0-450); Eosinophils Percent Auto 2.3 % (2-4); Hematocrit 29.4 % (41-53); Hemoglobin 9.8 g/dL (13.5-17.5); Lymphocytes Absolute Auto 1200 /uL (1100-4500); Lymphocytes Percent Auto 11.2 % (25-40); Mean Corpuscular HGB Conc 33.2 % (30-36); Mean Corpuscular Hemoglobin 29.2 PG (26-34); Mean Corpuscular Volume 87.9 fL (80-100); Monocytes Absolute Auto 1100 /uL (0-900); Monocytes Percent Auto 10.6 % (3-14); Neutrophils Absolute Auto 7800 /uL (1500-7000); Neutrophils Percent Auto 74.9 % (50-75); Platelet Count 248 X10^3/uL (150-400); Red Blood Cell Count 3.35 X10^6/uL (4.5-5.9); Red Cell Distribution Width 16.3 % (11.6-14.8); White Blood Cell Count 10.4 X10^3/uL (4.5-11.0)
[2022-04-18 11:40] LABS: Alanine Aminotransferase 15 IU/L (<50); Albumin 3.9 g/dL (3.5-5.0); Albumin Globulin Ratio 1.3 (1.0-2.8); Alkaline Phosphatase 42 U/L (38-126); Aspartate Aminotransferase 20 IU/L (17-59); BUN Creatinine Ratio 14.9 (6-22); Bilirubin Total 0.4 mg/dL (0.2-1.3); Blood Urea Nitrogen 55 mg/dL (9-20); Calcium 8.5 mg/dL (8.4-10.2); Carbon Dioxide 25 mmol/L (22-32); Chloride 103 mmol/L (98-107); Estimated Glomerular Filt Rate 16 mL/min (>60); Glucose 124 mg/dL (80-110); HEMOLYSIS < 15 (0-50); Potassium 4.5 mmol/L (3.4-5.1); Sodium 139 mmol/L (137-145); Total Protein 6.9 g/dL (6.3-8.2)
[2022-04-18] MEDS: TAMSULOSIN 0.4 MG CAPSULE 0.8 MG PO (20:49)
[2022-04-19] VITALS (17 sets, daily range): BP systolic 112–169; BP diastolic 36–75; PULSE 58–85; RESP 16–20; TEMP 36.5–37.1; O2SAT 92–98
[2022-04-19] MEDS: LEVOTHYROXINE 25 MCG TABLET PO (06:12)
[2022-04-19] MEDS: LEVOTHYROXINE 150 MCG TABLET PO (06:13)
[2022-04-19] MEDS: ALBUTEROL/IPRATROPIUM 3 ML AMPUL INH ×4 (07:29→19:33)
[2022-04-19] MEDS: SODIUM CHLORIDE 0.9% FLUSH 10 ML IV ×2 (08:55→21:01)
[2022-04-19] MEDS: SODIUM BICARB 8.4% SYRINGE 50 MEQ IV (08:55)
[2022-04-19 09:16] LABS: BUN Creatinine Ratio 16.3 (6-22); Blood Urea Nitrogen 63 mg/dL (9-20); Calcium 8.4 mg/dL (8.4-10.2); Carbon Dioxide 27 mmol/L (22-32); Chloride 102 mmol/L (98-107); Estimated Glomerular Filt Rate 15 mL/min (>60); Glucose 95 mg/dL (80-110); HEMOLYSIS < 15 (0-50); Potassium 4.4 mmol/L (3.4-5.1); Sodium 140 mmol/L (137-145)
--- NOTE | 2022-04-19 11:01 | P.PN_ITS ---
Subjective Subjective Interval history: pt c/o weakness, wheezing his at bedside , Exam Vital Signs (past 8 hours): - 04/19/22 06:00 04/19/22 07:29 04/19/22 09:24 Temperature 98.1 F 97.7 F Pulse Rate 58 L 61 Respiratory Rate 16 20 Blood Pressure 150/60 H 169/60 H Pulse Oximetry 93 93 98 Oxygen Delivery Method Room Air Oxygen Flow Rate 0 0 04/19/22 10:49 04/19/22 09:30 Temperature Pulse Rate 85 Respiratory Rate 18 Blood Pressure Pulse Oximetry 95 93 Oxygen Delivery Method Room Air Room Air Oxygen Flow Rate 0 Oxygen Delivery Method Room Air Oxygen Flow Rate 0 Const General: cooperative and well developed Orientation: alert, awake and oriented x3 HENMT Head: normal to inspection Ears: external ears normal Mouth: oral mucosae normal Eyes Pupils: PERRL EOM: EOM intact bilaterally Neck Neck: normal visual inspection and full ROM Resp Effort & Inspection: normal respiratory effort Auscultation: clear to auscultation bilaterally Cardio Rate: regular rate Rhythm: regular rhythm GI Palpation: soft and no hepatosplenomegaly Auscultation: normal bowel sounds Skin General: no rashes or lesions noted Neuro General: patient alert, patient awake, patient oriented x3, moves all extremities and no focal motor deficits Speech: speech normal Extrem General: normal to inspection, full ROM and no pedal edema Psych Appearance: grossly normal Objective Labs Result Diagrams: 04/18/22 11:12 04/19/22 08:30 Labs: Laboratory Results - last 24 hr 04/18/22 04/18/22 04/19/22 11:12 11:12 08:30 WBC 10.4 RBC 3.35 L Hgb 9.8 L Hct 29.4 L MCV 87.9 MCH 29.2 MCHC 33.2 RDW 16.3 H Plt Count 248 Neut % (Auto) 74.9 Lymph % (Auto) 11.2 L [place] % (Auto) 10.6 Eos % (Auto) 2.3 Baso % (Auto) 1.0 Neut # (Auto) 7800 H Lymph # (Auto) 1200 [place] # (Auto) 1100 H Eos # (Auto) 200 Baso # (Auto) 100 Sodium 139 140 Potassium 4.5 4.4 Chloride 103 102 Carbon Dioxide 25 27 BUN 55 H 63 H Creatinine 3.68 H 3.86 H Estimated GFR 16 L 15 L BUN/Creatinine Ratio 14.9 16.3 Glucose 124 H 95 Calcium 8.5 8.4 Total Bilirubin 0.4 AST 20 ALT 15 Alkaline Phosphatase 42 Total Protein 6.9 Albumin 3.9 Globulin 3.0 Albumin/Globulin Ratio 1.3 PFSH Medical History Atrial fibrillation CAD (coronary artery disease) CKD (chronic kidney disease) HLD (hyperlipidemia) HTN (hypertension) Hypothyroidism TIA (transient ischemic attack) Surgical History H/O knee surgery H/O shoulder surgery H/O thyroidectomy Family History Father Hypertension Social History marital status: household members: spouse Smoking Status: Never smoker alcohol intake: current substance use type: does not use Assessment & Plan Assessment & Plan narrative: Acute hypoxic respiratory failure secondary to possibly CHF exacerbation ( ECHO with EF 60 %) - IMPROVED, ON ra -fluid restriction, low salt diet HFpEF ( ECHO with EF 60 %) likely preserved EF heart failure - continue diuresis now 40 mg IV BID ZACH on CKD stage 4 cr 3.4 GFR 17 on admission now worsening cr 3.86, GFR 15 pt needs to be transferred to facility with nephrology and dialysis available I have notified director and staff about stst transferring him I have notified charge nurse Jeffery to call all facilities and find bed I will contact available nephrology for at least via phone consult - continue diuresis -given one dose bicarbs Hyperkalemia -improved -continue daily BMP Hypertension -continue hydralazine, metoprolol Afib -continue metoprolol -no anticoagulation ( per cardiology) BPH -continue tamsulosin Hypothyroid -continue synthroid ZEESHAN -continue home BIPAP H/O Asthma/Wheezing - duonebs Q 6 h CODE: Full Proxy: Lacy Marie, dispo: pending for transfer discussed with hospitalist director dr Florence, pt, , charge nurse Jeffery and CM Time Spent With Patient Critical Care time: I spent a total of [] minutes of critical care time on this patient's care today; this time is exclusive of procedural time.
[2022-04-19] MEDS: APIXABAN 5 MG TABLET PO ×2 (11:05→20:57)
[2022-04-19] MEDS: ATORVASTATIN 20 MG TABLET PO (11:05)
[2022-04-19] MEDS: HYDRALAZINE 25 MG TABLET PO ×2 (11:05→20:57)
[2022-04-19] MEDS: METOPROLOL ER 25 MG TABLET PO ×2 (11:05→20:57)
[2022-04-19] MEDS: FUROSEMIDE 40 MG/4 ML VIAL IV ×2 (11:06→20:57)
[2022-04-19] MEDS: FINASTERIDE 5 MG TABLET PO (11:06)
[2022-04-19] MEDS: FELODIPINE 10 MG 10 EACH PO (11:37)
[2022-04-19 12:23] LABS: COVID19 -Nasal RAPID Negative (Negative)
--- NOTE | 2022-04-19 18:41 | PC.NURSE ---
Spoke to Dr. Damon in person that pt has clonidine patch 0.2 mg weekly and that the pt states today is the 7th day that he has had the clonidine patch and removed it. Dr. Damon states she will put in order.
[2022-04-19] MEDS: TAMSULOSIN 0.4 MG CAPSULE 0.8 MG PO (21:01)
--- NOTE | 2022-04-19 22:42 | PC.NURSE ---
Addendum entered by Lela Gramajo R.N. 04/20/22 01:41: At shift change day RN was told that patient had a Clonidine patch on which he removed on day shift stating he uses a 0.2mg patch weekly and noted that he had declined his po Clonidine earlier on that shift. Order in computer for 0.1mg patch weekly starting on April 26. Ross NICOLE, contacted to clarify order (and reviewed recent BP's) but declined to do so stating she would have a.m. hospitalist clarify in the morning. Addendum entered by Lela Gramajo R.N. 04/19/22 22:46: Remains on fluid restriction of 1500cc/24h Original Note: Patient is alert and oriented. Breath sounds CTA with RA sat of 94%; denies SOB at rest but states he is SOB with exertion. HR irregular w/telemetry reading of SR w/BBB + PAC's; wearing Zio patch. Denies nausea. BT present and abdomen is soft. Has urinary urgency/frequency related to diuretic use but denies dysuria and is continent; has declined use of indwelling catheter. Independent with mobility and is steady on feet; denies weakness. Denies pain. Fall risk score is moderate but patient is independent so alarm is not activated. Verbalizes understanding to call for assistance if feeling weak or lightheaded when getting out of bed.
[2022-04-20] VITALS (7 sets, daily range): BP systolic 148–180; BP diastolic 52–65; PULSE 57–80; RESP 16–18; TEMP 36.7–37; O2SAT 93–95
[2022-04-20] MEDS: LEVOTHYROXINE 150 MCG TABLET PO (06:16)
[2022-04-20] MEDS: LEVOTHYROXINE 25 MCG TABLET PO (06:16)
[2022-04-20] MEDS: ALBUTEROL/IPRATROPIUM 3 ML AMPUL INH (07:25)
[2022-04-20 08:30] LABS: BUN Creatinine Ratio 18.5 (6-22); Blood Urea Nitrogen 69 mg/dL (9-20); Calcium 8.2 mg/dL (8.4-10.2); Carbon Dioxide 31 mmol/L (22-32); Chloride 102 mmol/L (98-107); Estimated Glomerular Filt Rate 16 mL/min (>60); Glucose 105 mg/dL (80-110); HEMOLYSIS < 15 (0-50); Potassium 4.1 mmol/L (3.4-5.1); Sodium 139 mmol/L (137-145)
[2022-04-20] MEDS: FINASTERIDE 5 MG TABLET PO (10:05)
[2022-04-20] MEDS: FUROSEMIDE 40 MG/4 ML VIAL IV (10:05)
[2022-04-20] MEDS: ATORVASTATIN 20 MG TABLET PO (10:05)
[2022-04-20] MEDS: APIXABAN 5 MG TABLET PO (10:05)
[2022-04-20] MEDS: HYDRALAZINE 25 MG TABLET PO (10:06)
[2022-04-20] MEDS: METOPROLOL ER 25 MG TABLET PO (10:06)
[2022-04-20] MEDS: SODIUM CHLORIDE 0.9% FLUSH 10 ML IV (10:06)
[2022-04-20] MEDS: FELODIPINE 10 MG 10 EACH PO (10:36)
--- NOTE | 2022-04-20 12:12 | PM.DS.1 ---
History of Present Illness History of Present Illness Date Patient Seen: 04/16/22 Time Patient Seen: 22:00 Chief complaint: chest pain/pressure Narrative: Mr. Borden is a 76M with PMH afib, CKD stage 4, CAD, HTN, hypothyroidism, asthma, ZEESHAN who presents with shortness of breath. He states he has had shortness of breath for quite some time. It has become progressively worse to have shortness of breath with very little exertion. He states he was recently taken of lasix and eliquis, but this is not clear why. He also has recently been anemic and transfused per cardiology. He has noted a 10lb weight gain within the last weak. He has tried his nebulizer with no improvement. He has lower extremity swelling. No cough, fevers/chills. In the ED workup was done, vitals notable for tachypnea and high blood pressure. He was placed on nitro drip which was able to be weaned off. Labs notable for wBC 7.7, hgb 9.4. Na 139, k 5.5, BUN 39, creatinine 3.41. INR 1.2. LFTs ok. trop 0.20. BNP 6180. COVID negative. Chest xray shows bilateral hazy lung opacities with small pleural effusions consistent with pulmonary edema and also noted cardiomegaly. He was ordered for lasix and admitted for further treatment. Discharge Providers Provider Date of admission: 04/16/22 22:07 Discharge Date: 04/20/22 Primary care physician: Doctor Carter MD Discharge provider: Rose Mary Norton Summary Hospital Course Discharge Diagnosis: CHF exacerbation, Hospital Course: ? Acute hypoxic respiratory failure- ? secondary to possibly? CHF exacerbation? ( ECHO with EF 60 %), improved on aggressive diuresis HFpEF (? ECHO with EF 60 %) likely preserved EF heart failure, continued diuresis IV, discharging on lasix 40 mg daily po ?ZACH on CKD stage 4 cr/bun remaind at baseline and on d/c 3.7 cr, GFR 16, pt needs closely f/u with his nephrology, Hyperkalemia-improved/resolved ?Hypertension-continued hydralazine, metoprolol ?Afib -continued metoprolol, no anticoagulation ( per cardiology) ? BPH -continued tamsulosin ?Hypothyroid-continued synthroid ?ZEESHAN-continued? home BIPAP H/O Asthma/Wheezing- duonebs Q 6 h Exam Vital Signs (past 8 hours): - 04/20/22 05:10 04/20/22 05:10 04/20/22 07:25 Temperature 98.6 F Pulse Rate 57 L Respiratory Rate 16 Blood Pressure 148/52 H Pulse Oximetry 95 95 93 Oxygen Delivery Method Room Air Room Air Oxygen Flow Rate 0 0 04/20/22 09:00 04/20/22 10:06 04/20/22 10:06 Temperature 98.3 F Pulse Rate 64 64 Respiratory Rate 18 Blood Pressure 180/65 H 180/65 H 180/65 H Pulse Oximetry 95 Oxygen Delivery Method Oxygen Flow Rate 0 04/20/22 10:36 04/20/22 10:36 Temperature Pulse Rate 80 80 Respiratory Rate Blood Pressure Pulse Oximetry Oxygen Delivery Method Oxygen Flow Rate Oxygen Delivery Method Room Air Oxygen Flow Rate 0 Const General: cooperative and well developed Orientation: alert, awake and oriented x3 HENMT Head: normal to inspection Ears: external ears normal Mouth: oral mucosae normal Eyes Pupils: PERRL EOM: EOM intact bilaterally Neck Neck: normal visual inspection and full ROM Resp Effort & Inspection: normal respiratory effort Auscultation: clear to auscultation bilaterally Cardio Rate: regular rate Rhythm: regular rhythm GI Palpation: soft and no hepatosplenomegaly Auscultation: normal bowel sounds Skin General: no rashes or lesions noted Neuro General: patient alert, patient awake, patient oriented x3, moves all extremities and no focal motor deficits Speech: speech normal Extrem General: normal to inspection, full ROM and no pedal edema Psych Appearance: grossly normal Objective Labs Result Diagrams: 04/18/22 11:12 04/20/22 08:03 Labs: Laboratory Results - last 24 hr 04/19/22 04/20/22 12:03 08:03 Sodium 139 Potassium 4.1 Chloride 102 Carbon Dioxide 31 BUN 69 H Creatinine 3.73 H Estimated GFR 16 L BUN/Creatinine Ratio 18.5 Glucose 105 Calcium 8.2 L SARS-CoV-2 (PCR) Negative [facility] Medical History Atrial fibrillation CAD (coronary artery disease) CKD (chronic kidney disease) HLD (hyperlipidemia) HTN (hypertension) Hypothyroidism TIA (transient ischemic attack) Surgical History H/O knee surgery H/O shoulder surgery H/O thyroidectomy Family History Father Hypertension Social History marital status: household members: spouse Smoking Status: Never smoker alcohol intake: current substance use type: does not use Discharge Plan Discharge Plan Patient Disposition: Home Discharge orders & Medications Prescriptions: New furosemide [Lasix] 40 mg tablet 40 mg PO DAILY Qty: 30 0RF Continued hydralazine 25 mg tablet 25 mg PO TID metoprolol succinate 25 mg tablet extended release 24 hr 25 mg PO BID atorvastatin 20 mg tablet 20 mg PO DAILY Label Comments: TAKE 1 TABLET BY MOUTH ONCE DAILY IN THE EVENING FOR CHOLESTEROL felodipine 10 mg tablet extended release 24 hr 10 mg PO BID Label Comments: TAKE 1 TABLET BY MOUTH ONCE DAILY albuterol sulfate 90 mcg/actuation HFA aerosol inhaler 2 puff inhalation Q4H PRN (Reason: Wheezing) Label Comments: INHALE 2 PUFFS BY MOUTH EVERY 4 HOURS NEEDED FOR WHEEZE Rx Instructions: 2 puffs prn for shortness of breath latanoprost 0.005 % drops 1 drp EYE-BOTH BEDTIME Rx Instructions: 1 drop in affected BOTH eyes daily at HS fluticasone propion-salmeterol [Advair Diskus] 250-50 mcg/dose Blister With Device 1 inh INHALATION BID tamsulosin 0.4 mg Capsule 0.8 mg PO BEDTIME finasteride 5 mg Tablet 5 mg PO DAILY trospium 20 mg Tablet 20 mg PO DAILY levothyroxine 175 mcg tablet 175 mcg PO DAILY Qty: 30 1RF clonidine HCl 0.1 mg tablet 0.2 mg PO DAILY Label Comments: TAKE 1 TABLET BY MOUTH ONCE DAILY FOR HIGH BLOOD PRESSURE ezetimibe 10 mg tablet 10 mg PO DAILY nitroglycerin 0.4 mg Tablet, Sublingual 0.4 mg SUBLINGUAL Q5M PRN (Reason: Chest Pain) Rx Instructions: do not exceed 3 doses per episode montelukast 10 mg Tablet 10 mg PO DAILY albuterol sulfate 90 mcg/actuation Hfa Aerosol Inhaler 2 puff INHALATION Q4HR PRN (Reason: Wheezing) Follow up/Referrals: Miscellaneous,Doctor, [Primary Care Provider] - Dayana Acevedo DO [Family Provider] - Discharge Data Primary Care Provider: Miscellaneous,Doctor
--- NOTE | 2022-04-20 13:13 | CM.DPC ---
DCP Discharge Home Per MD, consulted with [employer] and pt has made improvements and therefore hospital transfer no longer needed and pt medically stable to d/c home with outpt follow up. Per RN, pt has been independent in room with steady gait and some urinary frequency which is mostly baseline and very supportive spouse and local family. Plan: Patient to d/c home today via family POV and no further SW needs at this time. MELLISA Velarde
--- NOTE | 2022-04-20 15:17 | PC.NURSE ---
Discharge Note Patient A&O, VSS, RA. No complaints of pain/discomfort. Discharge packet reviewed with patient, all questions/concerns addressed. PIV/TELE discontinued. Prescriptions given to . Patient able to pack all belongings and dress self. Patient taken down via wheelchair to POV.
== END 2022-04-20 14:00 | disposition home or self-care (01) | DRG 291 ==
LOC: ED 21:50 → AC 22:07
PROVIDERS: Emergency Medicine; Internal Medicine; Admitting Provider Internal Medicine; Emergency Provider Emergency Medicine; Family Provider Family Medicine; Referring Provider Emergency Medicine; Visit Provider Internal Medicine
DX: I13.0 Hypertensive heart and chronic kidney disease with heart failure and stage 1 through stage 4 chronic kidney disease, or unspecified chronic kidney disease (principal); I50.33 Acute on chronic diastolic (congestive) heart failure; J96.01 Acute respiratory failure with hypoxia; N18.4 Chronic kidney disease, stage 4 (severe); I48.91 Unspecified atrial fibrillation; N40.0 Benign prostatic hyperplasia without lower urinary tract symptoms; E03.9 Hypothyroidism, unspecified; G47.33 Obstructive sleep apnea (adult) (pediatric); E87.5 Hyperkalemia; J45.909 Unspecified asthma, uncomplicated; E78.5 Hyperlipidemia, unspecified; I25.10 Atherosclerotic heart disease of native coronary artery without angina pectoris; Z20.822 Contact with and (suspected) exposure to COVID-19
CPT/HCPCS: 36415; 36600; 51798; 71045; 80048; 80053; 81003; 81015; 82550; 82805; 83690; 83735; 83880; 84443; 84484; 85025; 85610; 85730; 87635; 93005; 93010; 93307; 94640; 94760; 96365; 96366; 96368; 96375; 99284; 99291; C9803; J0610; J1940; J2930; J3475; J7613

== ENCOUNTER → 2022-05-27 09:57 | Outpatient (CLI) | payer MEDICARE, OTHER, SELFPAY ==
[2021-09-16 14:13] VITALS: BMI 36.9
[2022-04-16 22:25] VITALS: BMI 38.2
--- NOTE | 2022-05-27 | DI.NM.S_ITS ---
PROCEDURE: NM LENORA PERF SPECT R&S PHARM Rest and pharmacological stress myocardial perfusion SPECT with gated imaging and ejection fraction RADIOPHARMACEUTICAL: 25.8 mCi Tc-99m tetrafosmin IV at rest and 26.1 mCi Tc-99m tetrafosmin IV at peak effect of pharmacological stress. [id number] was performed. INDICATIONS: Shortness of breath TECHNIQUE: Radiopharmaceutical was injected at peak stress test, and also at rest. SPECT images were obtained. SPECT myocardial perfusion images were displayed in short axis, horizontal long axis, and vertical long axis views. Gated images were reviewed using Diarize software. COMPARISON: None. CARDIAC STRESS: A pharmacologic stress test was performed under the supervision of an attending staff, using an infusion of Regadenoson. Hemodynamic data: There is normal blood pressure and heart rate response to pharmacologic stress. Symptoms: The patient denied anginal chest pain. EKG: No diagnostic changes of ischemia; frequent PVCs noted. FINDINGS: Raw data: There is good myocardial uptake of radiotracer. No significant motion artifacts. Oetr-yg-[id number] ratio is 0.31 (normal is less than 0.38 for tetrafosmin tracer). Left ventricle function: Gated images demonstrate normal left ventricular wall thickening. No segmental wall motion abnormalities. No transient ischemic dilation; TID is 0.84 (normal less than 1.3). Left ventricle resting end diastolic volume is 183 mL. Left ventricle stress ejection fraction is 62%; normal range is above 45%. Myocardial perfusion: There is a small size, mild intensity mostly fixed distal inferolateral wall defect. IMPRESSION: 1. Probably normal myocardial perfusion. 2. There is a small size, mild intensity mostly fixed distal inferolateral wall defect however there is evidence of diaphragm elevation on the raw images. In addition, wall motion is normal making this most consistent with diaphragmatic attenuation. 3. Increased LVEDV at 183 mL. 4. Normal calculated LVEF at 62%. Dictated by: Alma Delia Gan D.O. on 05/28/2022 at 16:12 Approved by: Alma Delia Gan D.O. on 05/28/2022 at 16:17
[2022-05-27 10:58] LABS: COVID19 -Nasal RAPID Negative (Negative)
== END ==
PROVIDERS: Family Provider Family Medicine; Referring Provider Nurse Practitioner Family; Visit Provider Nurse Practitioner Family
DX: I50.30 Unspecified diastolic (congestive) heart failure (principal); R06.02 Shortness of breath; Z20.822 Contact with and (suspected) exposure to COVID-19
CPT/HCPCS: 78452; 87635; 93017; A9502; J2785

== ENCOUNTER 2022-07-22 10:39 | Inpatient (IN) | payer MEDICARE, OTHER, SELFPAY ==
[2022-04-16 22:25] VITALS: BMI 38.2
[2022-07-22] VITALS (57 sets, daily range): BP systolic 135–185; BP diastolic 68–103; PULSE 59–111; RESP 10–32; TEMP 36.3–37.1; O2SAT 87–98; BMI 36.9
--- NOTE | 2022-07-22 10:49 | DI.RAD.S_ITS ---
PROCEDURE: XR CHEST 1V INDICATIONS: shortness of breath TECHNIQUE: One view of the chest was acquired. COMPARISON: [facility], CR, XR CHEST 1V, 04/16/2022, 17:50. [facility], CR, XR CHEST 1V, 09/23/2021, 7:50. FINDINGS: Surgical changes and devices: None. Lungs and pleura: Bilateral hazy opacities most pronounced at the mid and lower lungs. Suspect small layering pleural effusions. No pneumothorax. Mediastinum: Cardiac silhouette is enlarged as before. Bones and chest wall: No suspicious bony lesions. Overlying soft tissues appear unremarkable. IMPRESSION: Findings compatible with at least moderate fluid overload/CHF, increased compared to the prior exam. Dictated by: Meng Whiet M.D. on 07/22/2022 at 11:16 Approved by: Meng White M.D. on 07/22/2022 at 11:19
--- NOTE | 2022-07-22 10:51 | ED_ITS ---
HPI - General Adult General Chief complaint: Shortness of Breath/Dyspnea Stated complaint: SOB, O2 levels at 83, sent by [facility] Time Seen by Provider: 07/22/22 10:51 Source: patient Mode of arrival: Wheelchair History of Present Illness HPI narrative: 76-year-old gentleman with a history of atrial fibrillation rate controlled on apixaban, asthma, end-stage renal disease not yet on dialysis, hypothyroidism, sleep apnea and hypertension presented to urgent care complaining of 3 months of dyspnea, orthopnea now unable to walk 3-4 feet. Oxygen saturations with minimal exertion were in the low 80s. He insisted on driving himself to the emergency department. He does not describe any recent fevers, vomiting, abdominal pain, diarrhea or constipation. He has not been having headaches. He states that he has been having difficulty sleeping because he can not lay down flat and appears physically exhausted with increased work of breathing. Related Data Home Medications Medication Instructions Recorded Confirmed albuterol sulfate 90 mcg/actuation 2 puff inhalation Q4H PRN Wheezing 01/21/20 04/17/22 aerosol inhaler atorvastatin 20 mg tablet 20 mg PO DAILY 01/21/20 04/17/22 felodipine 10 mg tablet,extended 10 mg PO BID 01/21/20 04/17/22 release 24 hr latanoprost 0.005 % eye drops 1 drp EYE-BOTH BEDTIME 01/21/20 04/17/22 finasteride 5 mg tablet 5 mg PO DAILY 12/10/20 04/17/22 fluticasone 250 mcg-salmeterol 50 1 inh inhalation BID 12/10/20 04/17/22 mcg/dose blistr powdr for inhalation (Advair Diskus) tamsulosin 0.4 mg capsule 0.8 mg PO BEDTIME 12/10/20 04/17/22 trospium 20 mg tablet 20 mg PO DAILY 12/10/20 04/17/22 clonidine HCl 0.1 mg tablet 0.2 mg PO DAILY Hypertension 03/27/21 04/17/22 ezetimibe 10 mg tablet 10 mg PO DAILY 03/27/21 04/17/22 hydralazine 25 mg tablet 25 mg PO TID 09/18/21 04/17/22 metoprolol succinate 25 mg 25 mg PO BID 09/18/21 04/17/22 tablet,extended release 24 hr albuterol sulfate 90 mcg/actuation 2 puff inhalation Q4HR PRN Wheezing 04/17/22 04/17/22 aerosol inhaler montelukast 10 mg tablet 10 mg PO DAILY 04/17/22 04/17/22 nitroglycerin 0.4 mg sublingual 0.4 mg sublingual Q5M PRN Chest 04/17/22 04/17/22 tablet Pain Previous Rx's Medication Instructions Recorded levothyroxine 175 mcg tablet 175 mcg PO DAILY #30 tabs 12/11/20 furosemide 40 mg tablet (Lasix) 40 mg PO DAILY #30 tabs 04/20/22 Allergies Allergy/AdvReac Type Severity Reaction Status Date / Time No Known Drug Allergies Allergy Verified 07/22/22 10:49 Review of Systems Review of Systems Narrative: Remainder of complete review of systems is otherwise unremarkable except for that included in the HPI. Patient History Medical History Atrial fibrillation CAD (coronary artery disease) CKD (chronic kidney disease) HLD (hyperlipidemia) HTN (hypertension) Hypothyroidism TIA (transient ischemic attack) Surgical History H/O knee surgery H/O shoulder surgery H/O thyroidectomy Family History Father Hypertension Social History marital status: household members: spouse Smoking Status: Never smoker alcohol intake: current substance use type: does not use Smoking Status: Never smoker alcohol intake frequency: holidays/special occasions only Substance Use Type: does not use Exam Initial Vital Signs Initial Vital Signs: Vital Signs Pulse Rate 94 H 07/22/22 10:44 General: Fatigued in chronically ill appearing, overall increased work of breathing but able to speak in 7 8 word sentences. Able to give a complete and coherent history. Well-nourished well-developed HEENT: Moist mucous membranes, normal sclera with reactive pupils, Neck: Unable to evaluate JVD due to body habitus Respiratory: Lungs with scattered end expiratory wheeze, poor overall movement I do not appreciate rales at this time Cardiac: Irregular rhythm, no murmurs no bruits Abdomen: Soft, obese, nontender, good bowel tones, no flank pain Skin: Warm and dry, no rashes Neurologic: Grossly neurologically intact with no obvious asymmetries or abnormalities Extremities: No trauma, well perfused, 1+ bilateral lower extremity edema Psych: Cooperative, appropriate insight and affect Course Orders Ordered: ED Orders 07/22/22 10:49 XR chest 1V Stat EKG-12 Lead Stat Measure peak expiratory flow ONCE RT Consult Eval and Treat Now 07/22/22 11:33 Complete Blood Count AUTO DIFF Stat Comprehensive Metabolic Panel Stat Lactate (Lactic Acid) Stat NT-proBNP (BNP-Adult 18+) Stat Prothrombin Time INR Stat 07/22/22 12:23 COVID19 -Nasal RAPID/Pre-Proc Stat 07/22/22 12:51 BiPAP Ventilatory Support RT PROTOCOL 07/22/22 12:53 CT chest wo con Stat 07/22/22 13:05 VBG [Venous Blood Gas] Stat 07/22/22 13:09 Respiratory Panel (Film Array) Stat 07/22/22 13:28 Blood Culture Stat Furosemide 100 mg/ Sodium (Chloride) 60 mls @ 3 mls/hr IV CONT KEVAN Last Admin: 07/22/22 18:05 Dose: 5 mg/hr, 3 mls/hr Documented By: RL Discontinued Medications Ceftriaxone Sodium 2,000 mg/ (Sodium Chloride) 100 mls @ 200 mls/hr IV NOW ONE Stop: 07/22/22 12:52 Last Infusion: 07/22/22 14:02 Dose: 0 mls/hr Documented By: Admin: 07/22/22 13:22 Dose: 200 mls/hr Documented By: RB Azithromycin 500 mg/ Dextrose 250 mls @ 250 mls/hr IV NOW ONE Stop: 07/22/22 12:52 Last Infusion: 07/22/22 15:24 Dose: 0 mls/hr Documented By: Admin: 07/22/22 13:22 Dose: 250 mls/hr Documented By: RB Furosemide 120 mg/ Sodium (Chloride) 62 mls @ 124 mls/hr IV NOW ONE Stop: 07/22/22 14:14 Last Infusion: 07/22/22 16:06 Dose: 0 mls/hr Documented By: Admin: 07/22/22 15:34 Dose: 124 mls/hr Documented By: RB Nitroglycerin (Nitroglycerin Oint 1 Inch/Gm Oint...G.) 1 inch TOP NOW ONE Stop: 07/22/22 12:52 Last Admin: 07/22/22 13:00 Dose: 1 inch Documented By: RB Vital Signs Vital signs: Vital Signs - 8 hr 07/22/22 10:45 07/22/22 10:44 07/22/22 10:45 Temperature 97.4 F L Pulse Rate 98 H 94 H 100 H Respiratory Rate 20 Blood Pressure 135/75 Pulse Oximetry 90 L Oxygen Delivery Method Room Air Oxygen Flow Rate Fraction of Inspired Oxygen 07/22/22 10:45 07/22/22 11:00 07/22/22 11:30 Temperature Pulse Rate 82 88 Respiratory Rate 22 20 Blood Pressure 135/75 Pulse Oximetry 93 94 Oxygen Delivery Method Nasal Cannula Nasal Cannula Oxygen Flow Rate 2 2 Fraction of Inspired Oxygen 07/22/22 11:35 07/22/22 11:35 07/22/22 11:45 Temperature Pulse Rate 85 88 Respiratory Rate 21 20 Blood Pressure 162/74 H Pulse Oximetry 94 94 Oxygen Delivery Method Oxygen Flow Rate Fraction of Inspired Oxygen 07/22/22 11:46 07/22/22 12:02 07/22/22 11:46 Temperature Pulse Rate 90 Respiratory Rate 19 Blood Pressure 177/103 H 173/77 H Pulse Oximetry 94 Oxygen Delivery Method Oxygen Flow Rate Fraction of Inspired Oxygen 07/22/22 12:00 07/22/22 12:00 07/22/22 12:15 Temperature Pulse Rate 76 Respiratory Rate 14 Blood Pressure 173/77 H 174/81 H Pulse Oximetry 94 Oxygen Delivery Method Oxygen Flow Rate Fraction of Inspired Oxygen 07/22/22 12:15 07/22/22 12:30 07/22/22 12:31 Temperature Pulse Rate 83 76 Respiratory Rate 13 Blood Pressure 172/78 H Pulse Oximetry 95 95 Oxygen Delivery Method Oxygen Flow Rate Fraction of Inspired Oxygen 07/22/22 12:31 07/22/22 12:45 07/22/22 12:45 Temperature Pulse Rate 79 76 Respiratory Rate 13 19 Blood Pressure 176/97 H Pulse Oximetry 94 94 Oxygen Delivery Method Oxygen Flow Rate Fraction of Inspired Oxygen 07/22/22 13:00 07/22/22 13:00 07/22/22 13:00 Temperature 97.5 F L Pulse Rate 90 90 Respiratory Rate 20 Blood Pressure 183/90 H 183/91 H Pulse Oximetry 94 Oxygen Delivery Method Oxygen Flow Rate Fraction of Inspired Oxygen 07/22/22 13:15 07/22/22 13:25 07/22/22 13:25 Temperature Pulse Rate 82 92 H Respiratory Rate 23 23 Blood Pressure 155/79 H Pulse Oximetry 93 94 Oxygen Delivery Method Nasal Cannula Oxygen Flow Rate 2 Fraction of Inspired Oxygen 07/22/22 13:30 07/22/22 13:30 07/22/22 13:56 Temperature Pulse Rate 77 90 Respiratory Rate 19 Blood Pressure 176/81 H Pulse Oximetry 93 93 Oxygen Delivery Method Nasal Cannula Nasal Cannula Oxygen Flow Rate 2 2 Fraction of Inspired Oxygen 07/22/22 13:58 07/22/22 13:58 07/22/22 14:00 Temperature Pulse Rate 91 H Respiratory Rate 23 Blood Pressure 181/83 H 171/84 H Pulse Oximetry 95 Oxygen Delivery Method Oxygen Flow Rate Fraction of Inspired Oxygen 07/22/22 14:00 07/22/22 14:15 07/22/22 14:15 Temperature Pulse Rate 97 H 88 Respiratory Rate 23 15 Blood Pressure 180/79 H Pulse Oximetry 94 95 Oxygen Delivery Method Oxygen Flow Rate Fraction of Inspired Oxygen 07/22/22 14:30 07/22/22 14:30 07/22/22 14:45 Temperature Pulse Rate 96 H Respiratory Rate 20 Blood Pressure 165/86 H 172/83 H Pulse Oximetry 93 Oxygen Delivery Method Oxygen Flow Rate Fraction of Inspired Oxygen 07/22/22 14:45 07/22/22 15:00 07/22/22 15:00 Temperature Pulse Rate 89 85 Respiratory Rate 21 21 Blood Pressure 162/77 H Pulse Oximetry 96 96 Oxygen Delivery Method BiPAP BiPAP Oxygen Flow Rate Fraction of Inspired Oxygen 07/22/22 15:00 07/22/22 15:15 07/22/22 15:15 Temperature Pulse Rate 76 Respiratory Rate 22 Blood Pressure 172/83 H 185/79 H Pulse Oximetry 97 Oxygen Delivery Method Oxygen Flow Rate Fraction of Inspired Oxygen 35 07/22/22 15:30 07/22/22 15:30 07/22/22 15:45 Temperature Pulse Rate 59 L Respiratory Rate 12 Blood Pressure 175/80 H 164/81 H Pulse Oximetry 97 Oxygen Delivery Method Oxygen Flow Rate Fraction of Inspired Oxygen 07/22/22 15:45 Temperature Pulse Rate 64 Respiratory Rate 14 Blood Pressure Pulse Oximetry 96 Oxygen Delivery Method Oxygen Flow Rate Fraction of Inspired Oxygen Medical Decision Making Lab Data Result diagrams: 07/22/22 11:33 07/22/22 11:33 Labs: Lab Results 07/22/22 07/22/22 07/22/22 Range/Units 11:33 11:33 11:33 WBC 15.2 H (4.5-11.0) X10^3/uL RBC 2.87 L (4.5-5.9) X10^6/uL Hgb 8.9 L (13.5-17.5) g/dL Hct 26.3 L (41-53) % MCV 91.7 (80-100) fL MCH 30.9 (26-34) PG MCHC 33.7 (30-36) % RDW 16.9 H (11.6-14.8) % Plt Count 224 (150-400) X10^3/uL Neut % (Auto) Not Reportable Lymph % (Auto) Not Reportable [place] % (Auto) Not Reportable Eos % (Auto) Not Reportable Baso % (Auto) Not Reportable Lymph # (Auto) Not Reportable [place] # (Auto) Not Reportable Baso # (Auto) Not Reportable Total Counted 100 Seg Neutrophils % 83.0 H (38-70) % Lymphocytes % (Manual) 5.0 L (25-45) % Atypical Lymphs % 1.0 H ( - 0) % Monocytes % (Manual) 10.0 (2-11) % Eosinophils % (Manual) 1.0 L (2-4) % Neutrophils # (Manual) 20454 H (0821-4697) /uL Nucleated RBCs 1 H ( - 0) #/Diff RBC Morphology Not Reportable Anisocytosis 2+ H PT 20.1 H (10.1-12.7) SECONDS INR 1.7 H (0.9-1.3) VBG pH (7.33-7.43) VBG pCO2 (45-50) mmHg VBG pO2 (35-45) mmHg VBG HCO3 (23-28) mmol/L VBG Total CO2 (24-29) mmol/L VBG O2 Saturation (70-75) % VBG Base Excess (0-4) mmol/L Sodium 140 (137-145) mmol/L Potassium 4.5 (3.4-5.1) mmol/L Chloride 108 H (98-107) mmol/L Carbon Dioxide 19 L (22-32) mmol/L BUN 73 H (9-20) mg/dL Creatinine 3.28 H (0.66-1.25) mg/dL Estimated GFR 19 L (>60) mL/min BUN/Creatinine Ratio 22.3 H (6-22) Glucose 120 H (80-110) mg/dL Lactate (0.7-2.1) mmol/L Calcium 7.9 L (8.4-10.2) mg/dL Total Bilirubin 0.8 (0.2-1.3) mg/dL AST 20 (17-59) IU/L ALT 19 (<50) IU/L Alkaline Phosphatase 35 L (38-126) U/L NT-Pro-B Natriuret Pep 66623 H (<450) pg/mL Total Protein 6.8 (6.3-8.2) g/dL Albumin 4.0 (3.5-5.0) g/dL Globulin 2.8 (1.7-4.1) g/dL Albumin/Globulin Ratio 1.4 (1.0-2.8) Chlamy pneumoniae PCR (Not Detect) Adenovirus (PCR) (Not Detect) B. pertussis DNA (PCR) (Not Detecte) B.parapertussis DNA PCR (Not Detecte) Coronavirus OC43 (PCR) (Not Detect) Coronavirus HKU1 (PCR) (Not Detect) Coronavirus 229E (PCR) (Not Detect) SARS-CoV-2 (PCR) (Negative) Coronavirus NL63 (PCR) (Not Detect) Human Metapneumovir PCR (Not Detect) Influenza Type A (PCR) (Not Detect) Influenza Type B (PCR) (Not Detect) M. pneumoniae (PCR) (Not Detect) Parainfluenza 1 (PCR) (Not Detect) Parainfluenza 2 (PCR) (Not Detect) Parainfluenza 3 (PCR) (Not Detect) Parainfluenza 4 (PCR) (Not Detect) RSV (PCR) (Not Detect) Entero/Rhino (PCR) (Not Detect) 07/22/22 07/22/22 07/22/22 Range/Units 11:33 12:23 13:05 WBC (4.5-11.0) X10^3/uL RBC (4.5-5.9) X10^6/uL Hgb (13.5-17.5) g/dL Hct (41-53) % MCV (80-100) fL MCH (26-34) PG MCHC (30-36) % RDW (11.6-14.8) % Plt Count (150-400) X10^3/uL Neut % (Auto) Lymph % (Auto) [place] % (Auto) Eos % (Auto) Baso % (Auto) Lymph # (Auto) [place] # (Auto) Baso # (Auto) Total Counted Seg Neutrophils % (38-70) % Lymphocytes % (Manual) (25-45) % Atypical Lymphs % ( - 0) % Monocytes % (Manual) (2-11) % Eosinophils % (Manual) (2-4) % Neutrophils # (Manual) (1735-9917) /uL Nucleated RBCs ( - 0) #/Diff RBC Morphology Anisocytosis PT (10.1-12.7) SECONDS INR (0.9-1.3) VBG pH 7.40 (7.33-7.43) VBG pCO2 33.1 L (45-50) mmHg VBG pO2 62 H (35-45) mmHg VBG HCO3 20 L (23-28) mmol/L VBG Total CO2 21 L (24-29) mmol/L VBG O2 Saturation 92 H (70-75) % VBG Base Excess -4.0 L (0-4) mmol/L Sodium (137-145) mmol/L Potassium (3.4-5.1) mmol/L Chloride (98-107) mmol/L Carbon Dioxide (22-32) mmol/L BUN (9-20) mg/dL Creatinine (0.66-1.25) mg/dL Estimated GFR (>60) mL/min BUN/Creatinine Ratio (6-22) Glucose (80-110) mg/dL Lactate 1.1 (0.7-2.1) mmol/L Calcium (8.4-10.2) mg/dL Total Bilirubin (0.2-1.3) mg/dL AST (17-59) IU/L ALT (<50) IU/L Alkaline Phosphatase (38-126) U/L NT-Pro-B Natriuret Pep (<450) pg/mL Total Protein (6.3-8.2) g/dL Albumin (3.5-5.0) g/dL Globulin (1.7-4.1) g/dL Albumin/Globulin Ratio (1.0-2.8) Chlamy pneumoniae PCR (Not Detect) Adenovirus (PCR) (Not Detect) B. pertussis DNA (PCR) (Not Detecte) B.parapertussis DNA PCR (Not Detecte) Coronavirus OC43 (PCR) (Not Detect) Coronavirus HKU1 (PCR) (Not Detect) Coronavirus 229E (PCR) (Not Detect) SARS-CoV-2 (PCR) Negative (Negative) Coronavirus NL63 (PCR) (Not Detect) Human Metapneumovir PCR (Not Detect) Influenza Type A (PCR) (Not Detect) Influenza Type B (PCR) (Not Detect) M. pneumoniae (PCR) (Not Detect) Parainfluenza 1 (PCR) (Not Detect) Parainfluenza 2 (PCR) (Not Detect) Parainfluenza 3 (PCR) (Not Detect) Parainfluenza 4 (PCR) (Not Detect) RSV (PCR) (Not Detect) Entero/Rhino (PCR) (Not Detect) 07/22/22 Range/Units 13:09 WBC (4.5-11.0) X10^3/uL RBC (4.5-5.9) X10^6/uL Hgb (13.5-17.5) g/dL Hct (41-53) % MCV (80-100) fL MCH (26-34) PG MCHC (30-36) % RDW (11.6-14.8) % Plt Count (150-400) X10^3/uL Neut % (Auto) Lymph % (Auto) [place] % (Auto) Eos % (Auto) Baso % (Auto) Lymph # (Auto) [place] # (Auto) Baso # (Auto) Total Counted Seg Neutrophils % (38-70) % Lymphocytes % (Manual) (25-45) % Atypical Lymphs % ( - 0) % Monocytes % (Manual) (2-11) % Eosinophils % (Manual) (2-4) % Neutrophils # (Manual) (7531-3183) /uL Nucleated RBCs ( - 0) #/Diff RBC Morphology Anisocytosis PT (10.1-12.7) SECONDS INR (0.9-1.3) VBG pH (7.33-7.43) VBG pCO2 (45-50) mmHg VBG pO2 (35-45) mmHg VBG HCO3 (23-28) mmol/L VBG Total CO2 (24-29) mmol/L VBG O2 Saturation (70-75) % VBG Base Excess (0-4) mmol/L Sodium (137-145) mmol/L Potassium (3.4-5.1) mmol/L Chloride (98-107) mmol/L Carbon Dioxide (22-32) mmol/L BUN (9-20) mg/dL Creatinine (0.66-1.25) mg/dL Estimated GFR (>60) mL/min BUN/Creatinine Ratio (6-22) Glucose (80-110) mg/dL Lactate (0.7-2.1) mmol/L Calcium (8.4-10.2) mg/dL Total Bilirubin (0.2-1.3) mg/dL AST (17-59) IU/L ALT (<50) IU/L Alkaline Phosphatase (38-126) U/L NT-Pro-B Natriuret Pep (<450) pg/mL Total Protein (6.3-8.2) g/dL Albumin (3.5-5.0) g/dL Globulin (1.7-4.1) g/dL Albumin/Globulin Ratio (1.0-2.8) Chlamy pneumoniae PCR Not detected (Not Detect) Adenovirus (PCR) Not detected (Not Detect) B. pertussis DNA (PCR) Not detected (Not Detecte) B.parapertussis DNA PCR Not detected (Not Detecte) Coronavirus OC43 (PCR) Not detected (Not Detect) Coronavirus HKU1 (PCR) Not detected (Not Detect) Coronavirus 229E (PCR) Not detected (Not Detect) SARS-CoV-2 (PCR) Not detected (Negative) Coronavirus NL63 (PCR) Not detected (Not Detect) Human Metapneumovir PCR Not detected (Not Detect) Influenza Type A (PCR) Not detected (Not Detect) Influenza Type B (PCR) Not detected (Not Detect) M. pneumoniae (PCR) Not detected (Not Detect) Parainfluenza 1 (PCR) Not detected (Not Detect) Parainfluenza 2 (PCR) Not detected (Not Detect) Parainfluenza 3 (PCR) Not detected (Not Detect) Parainfluenza 4 (PCR) Not detected (Not Detect) RSV (PCR) Not detected (Not Detect) Entero/Rhino (PCR) Not detected (Not Detect) Imaging Data Chest x-ray: Radiologist's Impression: FINDINGS: Surgical changes and devices: None. Lungs and pleura: Lungs are clear. No pleural effusions or pneumothorax. Mediastinum: Mediastinal contours appear normal. Heart size is normal. Bones and chest wall: No suspicious bony lesions. Overlying soft tissues appear unremarkable. Possible remote left humeral head neck fracture, not overtly changed in appearance. IMPRESSION: No acute cardiopulmonary abnormality. Dictated by: Meng White M.D. on 07/22/2022 at 11:14 CT scan - abdomen/pelvis: Radiologist's Impression: FINDINGS:? Image quality:? Excellent.? ? Lungs and pleura:? There are diffuse patchy airspace opacities throughout the aerated portions of both lungs.? Consolidation or collapse is present within the dependent lung bases bilaterally.? There are small bilateral pleural effusions which are slightly greater on the right than on the left. ? Mediastinum:? Heart size is enlarged.? No pericardial effusion.? No mediastinal adenopathy by size criteria.? Thoracic aorta and central pulmonary arteries are normal in size. Scattered atheromatous calcifications are present within the aortic arch.? Esophagus is normal in caliber.? No hiatal hernia.? ? Bones and chest wall:? No suspicious bony lesions.? No vertebral body com pression fractures.? No axillary or supraclavicular adenopathy by size criteria.? Thyroid gland is not visualized.? ? Abdomen:? Visualized upper abdominal solid organs and bowel loops appear normal in the absence of contrast.? ? IMPRESSION:? ? 1. Diffuse bilateral pulmonary radiopacities as above.? Differential considerations include florid pulmonary edema, ARDS, or multifocal pneumonia.? ? 2. Small bilateral low-density pleural effusions.? ? 3. Cardiomegaly which may be associated with congestive failure and fluid overload.? ? Dictated by: Leslie Gunter M.D. on 07/22/2022 at 14:27 ? ? ECG Data Interpretation: Atrial fibrillation at a rate of 88 Right bundle branch block No acute ischemic changes, similar to previous EKGs MDM Narrative Medical decision making narrative: 76-year-old gentleman with progressive exertional dyspnea and orthopnea. Clinical exam is consistent with volume overload/congestive heart failure. Significantly hypoxic on room air as low as 82%. Chemistries show a creatinine of 3.28 which is actually better than his baseline. BNP is significantly elevated consistent with clinical heart failure which fits with his overall clinical picture and complaints. The white count is slightly elevated and moderate anemia is pre she aided that I suspect is likely secondary to his fluid overload rather than true anemia. Will begin Lasix, topical nitrates to help with blood pressure and BiPAP to facilitate more rapid initial diuresis. Will need hospital admission. He states that he has been using his inhalers all morn ing and they have not been effective, I believe that is because his wheezes due to his failure rather than reactive airway disease. I do not see an active source for infection but will begin antibiotics with a presumed pulmonary source until proved otherwise. He did note that he typically does have somewhat productive sputum with occasional blood flecks in it. I think he would benefit from CT scanning as well. CT scan results are relatively benign and consistent with congestive heart failure. Patient is tolerating BiPAP well diuresing nicely. Care is reviewed with hospitalist and he is admitted for acute congestive heart failure with acute respiratory distress secondary to volume overload. Critical Care Time Critical Care Time Critical Care Time: Yes Total Critical Care Time: 33 Attestation: Critical care time is separate from other billable procedures. There is a high probability of a significant, sudden or life-threatening deterioration that requires my full and direct attention, intervention and personal management. This critical care time includes consultation with family and other consulting doctors, review of records, and interpretation of data from labs, EKGs and imaging as well as managements of acute congestive heart failure with IV medications as well as respiratory distress with BiPAP Discharge Plan Departure Patient Disposition: Admitted As Inpatient Clinical Impression: Acute respiratory distress Acute CHF (congestive heart failure) Qualifiers: Heart failure type: unspecified Qualified Code(s): I50.9 - Heart failure, unspecified Admit Date/Time: 07/22/22 15:56 Admit Provider: Maddy Pham
[2022-07-22 11:44] LABS: Add Manual Diff / Slide Review YES; Hematocrit 26.3 % (41-53); Hemoglobin 8.9 g/dL (13.5-17.5); Mean Corpuscular HGB Conc 33.7 % (30-36); Mean Corpuscular Hemoglobin 30.9 PG (26-34); Mean Corpuscular Volume 91.7 fL (80-100); Platelet Count 224 X10^3/uL (150-400); Red Blood Cell Count 2.87 X10^6/uL (4.5-5.9); Red Cell Distribution Width 16.9 % (11.6-14.8); White Blood Cell Count 15.2 X10^3/uL (4.5-11.0)
[2022-07-22 11:52] LABS: INR 1.7 (0.9-1.3); Prothrombin Time 20.1 SECONDS (10.1-12.7)
[2022-07-22 11:56] LABS: Alanine Aminotransferase 19 IU/L (<50); Albumin Globulin Ratio 1.4 (1.0-2.8); Alkaline Phosphatase 35 U/L (38-126); Aspartate Aminotransferase 20 IU/L (17-59); BUN Creatinine Ratio 22.3 (6-22); Bilirubin Total 0.8 mg/dL (0.2-1.3); Blood Urea Nitrogen 73 mg/dL (9-20); Calcium 7.9 mg/dL (8.4-10.2); Carbon Dioxide 19 mmol/L (22-32); Chloride 108 mmol/L (98-107); Estimated Glomerular Filt Rate 19 mL/min (>60); Globulin 2.8 g/dL (1.7-4.1); Glucose 120 mg/dL (80-110); HEMOLYSIS < 15 (0-50); Potassium 4.5 mmol/L (3.4-5.1); Sodium 140 mmol/L (137-145); Total Protein 6.8 g/dL (6.3-8.2)
[2022-07-22 11:57] LABS: Lactate (Lactic Acid) 1.1 mmol/L (0.7-2.1)
[2022-07-22 12:01] LABS: Anisocytosis 2+; Neutrophils Absolute Manual 12616 /uL (3000-5900); Nucleated Red Blood Cells 1 #/Diff; Total Cells Counted 100
[2022-07-22 12:05] LABS: NT-proBNP (BNP-Adult 18+) 13400 pg/mL (<450)
--- NOTE | 2022-07-22 12:53 | DI.CT.S_ITS ---
PROCEDURE: CT CHEST WO CON INDICATIONS: bloody sputum, progressive dyspnea TECHNIQUE: Noncontrast 5 mm thick sections acquired from the pulmonary apices to the posterior costophrenic angles. 1 mm lung window, 5 mm thick coronal and sagittal and 7 mm axial MIP reformats were then acquired. For radiation dose reduction, the following was used: automated exposure control, adjustment of mA and/or kV according to patient size. COMPARISON: [facility], CR, XR CHEST 1V, 04/16/2022, 17:50. [facility], CR, XR CHEST 1V, 07/22/2022, 10:53. [facility], CT, CT CHEST WO CON, 06/24/2020, 8:53. [facility], CT, CT CHEST WO CON, 01/21/2020, 8:59. FINDINGS: Image quality: Excellent. Lungs and pleura: There are diffuse patchy airspace opacities throughout the aerated portions of both lungs. Consolidation or collapse is present within the dependent lung bases bilaterally. There are small bilateral pleural effusions which are slightly greater on the right than on the left. Mediastinum: Heart size is enlarged. No pericardial effusion. No mediastinal adenopathy by size criteria. Thoracic aorta and central pulmonary arteries are normal in size. Scattered atheromatous calcifications are present within the aortic arch. Esophagus is normal in caliber. No hiatal hernia. Bones and chest wall: No suspicious bony lesions. No vertebral body compression fractures. No axillary or supraclavicular adenopathy by size criteria. Thyroid gland is not visualized. Abdomen: Visualized upper abdominal solid organs and bowel loops appear normal in the absence of contrast. IMPRESSION: 1. Diffuse bilateral pulmonary radiopacities as above. Differential considerations include florid pulmonary edema, ARDS, or multifocal pneumonia. 2. Small bilateral low-density pleural effusions. 3. Cardiomegaly which may be associated with congestive failure and fluid overload. Dictated by: Leslie Gunter M.D. on 07/22/2022 at 14:27 Approved by: Leslie Gunter M.D. on 07/22/2022 at 14:32
[2022-07-22] MEDS: NITROGLYCERIN OINT 1 INCH/GM OINT...G. TOP (13:00)
[2022-07-22 13:14] LABS: COVID19 -Nasal RAPID Negative (Negative)
[2022-07-22] MEDS: cefTRIAXone 2,000 MG in SODIUM CHLORIDE 0.9% 100 ML 200 MG IV (13:22)
[2022-07-22] MEDS: AZITHROMYCIN 500 MG in DEXTROSE 5% IN WATER 250 ML 250 MG IV (13:22)
[2022-07-22 13:47] LABS: HCO3 VBG 20 mmol/L (23-28); PCO2 VBG 33.1 mmHg (45-50); PO2 VBG 62 mmHg (35-45)
[2022-07-22 13:48] LABS: Oxygen Saturation VBG 92 % (70-75); Total CO2 VBG 21 mmol/L (24-29)
[2022-07-22 14:18] LABS: Adenovirus Not Detected (Not Detect); B. parapertussis Not Detected (Not Detecte); Bordetella pertussis Not Detected (Not Detecte); Chlamydophila pneumoniae Not Detected (Not Detect); Coronavirus 229E Not Detected (Not Detect); Coronavirus HKU1 Not Detected (Not Detect); Coronavirus NL 63 Not Detected (Not Detect); Coronavirus OC43 Not Detected (Not Detect); Human Metapneumovirus Not Detected (Not Detect); Human Rhinovirus/Enterovirus Not Detected (Not Detect); Influenza A Not Detected (Not Detect); Influenza B Not Detected (Not Detect); Mycoplasma pneumoniae Not Detected (Not Detect); Parainfluenza Virus 1 Not Detected (Not Detect); Parainfluenza Virus 2 Not Detected (Not Detect); Parainfluenza Virus 3 Not Detected (Not Detect); Parainfluenza Virus 4 Not Detected (Not Detect); Respiratory Syncytial Virus Not Detected (Not Detect); SARS- CoV-2 Not Detected (Not Detecte)
[2022-07-22] MEDS: FUROSEMIDE 120 MG in SODIUM CHLORIDE 0.9% 50 ML 124 MG IV (15:34)
--- NOTE | 2022-07-22 17:39 | P.TELICUCN_ITS ---
History of Present Illness Consult details IF CAMERA ACTIVATED, patient seen via real-time interactive audiovisual communication: Camera activated Date Patient Seen: 07/22/22 Chief complaint: SOB, O2 levels at 83, sent by [facility] Reason for consult: Acute hypoxemia respiratory failure Requesting provider: Maddy Pham Consent obtained for tele-seamer care: Yes Patient Location: ICU Provider location (State): [place] Other participants/roles: RN Narrative: Patient is a 76 year old male with history of atrial fibrillation on apixiban, asthma, and CKD stage 5, and hypertension who presents with shortness of breath. Associated with orthopnea and LE swelling. ON presentation he was found to be hypoxemia to the 80s and placed on BiPAP 16/10 FiO2 35%. Received lasix [address] chest showed alveolar filling process with pleural effusion. Admitted to ICU for further management. CT chest: 1. Diffuse bilateral pulmonary radiopacities as above.? Differential considerations include florid pulmonary edema, ARDS, or multifocal pneumonia.? ? 2. Small bilateral low-density pleural effusions.? ? 3. Cardiomegaly which may be associated with congestive failure and fluid overload.? TTE 04/2022: Left Ventricle: ? The left ventricle is normal in size. There is mild-moderate concentric left ventricular hypertrophy. Left ventricular systolic function is normal. The ejection fraction is estimated to be 60-65%. There are no focal wall motion abnormalities. Diastolic function was not assessed. Right Ventricle: ? The right ventricle is normal in size and function. Atria: ? Visually the left atrium is mildly dilated. The right atrium is normal in size. Mitral Valve: ? The mitral valve is normal. There is mild mitral regurgitation. Aortic Valve: ? The aortic valve opens well. There is mild aortic regurgitation. Tricuspid Valve: ? The tricuspid valve is normal. There is mild tricuspid regurgitation. PASP is approximately 65 to 70 mmHg. Great Vessels: ? The IVC is dilated (diameter is greater than 2.1 cm) and it collapses less than 50% with a sniff. This suggests a high right atrial pressure of 15 mm Hg. Pericardium/ Pleura ? There is no pericardial effusion. There is no pleural effusion. ? [facility] Medical History Atrial fibrillation CAD (coronary artery disease) CKD (chronic kidney disease) HLD (hyperlipidemia) HTN (hypertension) Hypothyroidism TIA (transient ischemic attack) Surgical History H/O knee surgery H/O shoulder surgery H/O thyroidectomy Family History Father Hypertension Social History marital status: household members: spouse Smoking Status: Never smoker alcohol intake: current substance use type: does not use Current Medications Current Medications Medications: Home Medications albuterol sulfate 90 mcg/actuation aerosol inhaler 2 puff inhalation Q4H PRN Wheezing 01/21/20 [History Confirmed 04/17/22] atorvastatin 20 mg tablet 20 mg PO DAILY 01/21/20 [History Confirmed 04/17/22] felodipine 10 mg tablet,extended release 24 hr 10 mg PO BID 01/21/20 [History C onfirmed 04/17/22] latanoprost 0.005 % eye drops 1 drp EYE-BOTH BEDTIME 01/21/20 [History Confirmed 04/17/22] finasteride 5 mg tablet 5 mg PO DAILY 12/10/20 [History Confirmed 04/17/22] fluticasone 250 mcg-salmeterol 50 mcg/dose blistr powdr for inhalation (Advair Diskus) 1 inh inhalation BID 12/10/20 [History Confirmed 04/17/22] tamsulosin 0.4 mg capsule 0.8 mg PO BEDTIME 12/10/20 [History Confirmed 04/17/22] trospium 20 mg tablet 20 mg PO DAILY 12/10/20 [History Confirmed 04/17/22] levothyroxine 175 mcg tablet 175 mcg PO DAILY #30 tabs 12/11/20 [Rx Confirmed 04/17/22] clonidine HCl 0.1 mg tablet 0.2 mg PO DAILY Hypertension 03/27/21 [History Confirmed 04/17/22] ezetimibe 10 mg tablet 10 mg PO DAILY 03/27/21 [History Confirmed 04/17/22] hydralazine 25 mg tablet 25 mg PO TID 09/18/21 [History Confirmed 04/17/22] metoprolol succinate 25 mg tablet,extended release 24 hr 25 mg PO BID 09/18/21 [History Confirmed 04/17/22] albuterol sulfate 90 mcg/actuation aerosol inhaler 2 puff inhalation Q4HR PRN Wheezing 04/17/22 [History Confirmed 04/17/22] montelukast 10 mg tablet 10 mg PO DAILY 04/17/22 [History Confirmed 04/17/22] nitroglycerin 0.4 mg sublingual tablet 0.4 mg sublingual Q5M PRN Chest Pain 04/17/22 [History Confirmed 04/17/22] furosemide 40 mg tablet (Lasix) 40 mg PO DAILY #30 tabs 04/20/22 [Rx] Exam Vital Signs (past 8 hours): - 07/22/22 10:45 07/22/22 10:44 07/22/22 10:45 Temperature 97.4 F L Pulse Rate 98 H 94 H 100 H Respiratory Rate 20 Blood Pressure 135/75 Pulse Oximetry 90 L Oxygen Delivery Method Room Air Oxygen Flow Rate Fraction of Inspired Oxygen 07/22/22 10:45 07/22/22 11:00 07/22/22 11:30 Temperature Pulse Rate 82 88 Respiratory Rate 22 20 Blood Pressure 135/75 Pulse Oximetry 93 94 Oxygen Delivery Method Nasal Cannula Nasal Cannula Oxygen Flow Rate 2 2 Fraction of Inspired Oxygen 07/22/22 11:35 07/22/22 11:35 07/22/22 11:45 Temperature Pulse Rate 85 88 Respiratory Rate 21 20 Blood Pressure 162/74 H Pulse Oximetry 94 94 Oxygen Delivery Method Oxygen Flow Rate Fraction of Inspired Oxygen 07/22/22 11:46 07/22/22 12:02 07/22/22 11:46 Temperature Pulse Rate 90 Respiratory Rate 19 Blood Pressure 177/103 H 173/77 H Pulse Oximetry 94 Oxygen Delivery Method Oxygen Flow Rate Fraction of Inspired Oxygen 07/22/22 12:00 07/22/22 12:00 07/22/22 12:15 Temperature Pulse Rate 76 Respiratory Rate 14 Blood Pressure 173/77 H 174/81 H Pulse Oximetry 94 Oxygen Delivery Method Oxygen Flow Rate Fraction of Inspired Oxygen 07/22/22 12:15 07/22/22 12:30 07/22/22 12:31 Temperature Pulse Rate 83 76 Respiratory Rate 13 Blood Pressure 172/78 H Pulse Oximetry 95 95 Oxygen Delivery Method Oxygen Flow Rate Fraction of Inspired Oxygen 07/22/22 12:31 07/22/22 12:45 07/22/22 12:45 Temperature Pulse Rate 79 76 Respiratory Rate 13 19 Blood Pressure 176/97 H Pulse Oximetry 94 94 Oxygen Delivery Method Oxygen Flow Rate Fraction of Inspired Oxygen 07/22/22 13:00 07/22/22 13:00 07/22/22 13:00 Temperature 97.5 F L Pulse Rate 90 90 Respiratory Rate 20 Blood Pressure 183/90 H 183/91 H Pulse Oximetry 94 Oxygen Delivery Method Oxygen Flow Rate Fraction of Inspired Oxygen 07/22/22 13:15 07/22/22 13:25 07/22/22 13:25 Temperature Pulse Rate 82 92 H Respiratory Rate 23 23 Blood Pressure 155/79 H Pulse Oximetry 93 94 Oxygen Delivery Method Nasal Cannula Oxygen Flow Rate 2 Fraction of Inspired Oxygen 07/22/22 13:30 07/22/22 13:30 07/22/22 13:56 Temperature Pulse Rate 77 90 Respiratory Rate 19 Blood Pressure 176/81 H Pulse Oximetry 93 93 Oxygen Delivery Method Nasal Cannula Nasal Cannula Oxygen Flow Rate 2 2 Fraction of Inspired Oxygen 07/22/22 13:58 07/22/22 13:58 07/22/22 14:00 Temperature Pulse Rate 91 H Respiratory Rate 23 Blood Pressure 181/83 H 171/84 H Pulse Oximetry 95 Oxygen Delivery Method Oxygen Flow Rate Fraction of Inspired Oxygen 07/22/22 14:00 07/22/22 14:15 07/22/22 14:15 Temperature Pulse Rate 97 H 88 Respiratory Rate 23 15 Blood Pressure 180/79 H Pulse Oximetry 94 95 Oxygen Delivery Method Oxygen Flow Rate Fraction of Inspired Oxygen 07/22/22 14:30 07/22/22 14:30 07/22/22 14:45 Temperature Pulse Rate 96 H Respiratory Rate 20 Blood Pressure 165/86 H 172/83 H Pulse Oximetry 93 Oxygen Delivery Method Oxygen Flow Rate Fraction of Inspired Oxygen 07/22/22 14:45 07/22/22 15:00 07/22/22 15:00 Temperature Pulse Rate 89 85 Respiratory Rate 21 21 Blood Pressure 162/77 H Pulse Oximetry 96 96 Oxygen Delivery Method BiPAP BiPAP Oxygen Flow Rate Fraction of Inspired Oxygen 07/22/22 15:00 07/22/22 15:15 07/22/22 15:15 Temperature Pulse Rate 76 Respiratory Rate 22 Blood Pressure 172/83 H 185/79 H Pulse Oximetry 97 Oxygen Delivery Method Oxygen Flow Rate Fraction of Inspired Oxygen 35 07/22/22 15:30 07/22/22 15:30 07/22/22 15:45 Temperature Pulse Rate 59 L Respiratory Rate 12 Blood Pressure 175/80 H 164/81 H Pulse Oximetry 97 Oxygen Delivery Method Oxygen Flow Rate Fraction of Inspired Oxygen 07/22/22 15:45 07/22/22 16:35 07/22/22 16:50 Temperature Pulse Rate 64 Respiratory Rate 14 Blood Pressure 158/75 H Pulse Oximetry 96 Oxygen Delivery Method BiPAP Oxygen Flow Rate Fraction of Inspired Oxygen 35 07/22/22 16:00 07/22/22 16:00 07/22/22 16:23 Temperature Pulse Rate 89 93 H Respiratory Rate 28 H Blood Pressure 154/71 H Pulse Oximetry 97 87 L Oxygen Delivery Method Oxygen Flow Rate Fraction of Inspired Oxygen 07/22/22 16:26 07/22/22 16:26 07/22/22 16:30 Temperature Pulse Rate 99 H Respiratory Rate 28 H Blood Pressure 153/80 H 158/75 H Pulse Oximetry 91 Oxygen Delivery Method Oxygen Flow Rate Fraction of Inspired Oxygen 07/22/22 16:30 07/22/22 16:15 07/22/22 16:45 Temperature 98.4 F Pulse Rate 111 H 110 H 92 H Respiratory Rate 29 H 28 H 27 H Blood Pressure 158/75 H Pulse Oximetry 88 L 92 98 Oxygen Delivery Method Oxygen Flow Rate 6 Fraction of Inspired Oxygen 07/22/22 17:00 07/22/22 17:00 Temperature Pulse Rate 85 Respiratory Rate 27 H Blood Pressure 173/74 H Pulse Oximetry 97 Oxygen Delivery Method Oxygen Flow Rate Fraction of Inspired Oxygen Fraction of Inspired Oxygen 35 Oxygen Delivery Method BiPAP Oxygen Flow Rate 6 Narrative Exam Narrative: Comfortable on BiPAP; following simple commands Objective Labs Result Diagrams: 07/22/22 11:33 07/22/22 11:33 Labs: Laboratory Results - last 24 hr 07/22/22 07/22/22 07/22/22 11:33 11:33 11:33 WBC 15.2 H RBC 2.87 L Hgb 8.9 L Hct 26.3 L MCV 91.7 MCH 30.9 MCHC 33.7 RDW 16.9 H Plt Count 224 Neut % (Auto) Not Reportable Lymph % (Auto) Not Reportable Garrard % (Auto) Not Reportable Eos % (Auto) Not Reportable Baso % (Auto) Not Reportable Lymph # (Auto) Not Reportable Garrard # (Auto) Not Reportable Baso # (Auto) Not Reportable Total Counted 100 Seg Neutrophils % 83.0 H Lymphocytes % (Manual) 5.0 L Atypical Lymphs % 1.0 H Monocytes % (Manual) 10.0 Eosinophils % (Manual) 1.0 L Neutrophils # (Manual) 11372 H Nucleated RBCs 1 H RBC Morphology Not Reportable Anisocytosis 2+ H PT 20.1 H INR 1.7 H VBG pH VBG pCO2 VBG pO2 VBG HCO3 VBG Total CO2 VBG O2 Saturation VBG Base Excess Sodium 140 Potassium 4.5 Chloride 108 H Carbon Dioxide 19 L BUN 73 H Creatinine 3.28 H Estimated GFR 19 L BUN/Creatinine Ratio 22.3 H Glucose 120 H Lactate Calcium 7.9 L Total Bilirubin 0.8 AST 20 ALT 19 Alkaline Phosphatase 35 L NT-Pro-B Natriuret Pep 86237 H Total Protein 6.8 Albumin 4.0 Globulin 2.8 Albumin/Globulin Ratio 1.4 Chlamy pneumoniae PCR Adenovirus (PCR) B. pertussis DNA (PCR) B.parapertussis DNA PCR Coronavirus OC43 (PCR) Coronavirus HKU1 (PCR) Coronavirus 229E (PCR) SARS-CoV-2 (PCR) Coronavirus NL63 (PCR) Human Metapneumovir PCR Influenza Type A (PCR) Influenza Type B (PCR) M. pneumoniae (PCR) Parainfluenza 1 (PCR) Parainfluenza 2 (PCR) Parainfluenza 3 (PCR) Parainfluenza 4 (PCR) RSV (PCR) Entero/Rhino (PCR) 07/22/22 07/22/22 07/22/22 11:33 12:23 13:05 WBC RBC Hgb Hct MCV MCH MCHC RDW Plt Count Neut % (Auto) Lymph % (Auto) Garrard % (Auto) Eos % (Auto) Baso % (Auto) Lymph # (Auto) Garrard # (Auto) Baso # (Auto) Total Counted Seg Neutrophils % Lymphocytes % (Manual) Atypical Lymphs % Monocytes % (Manual) Eosinophils % (Manual) Neutrophils # (Manual) Nucleated RBCs RBC Morphology Anisocytosis PT INR VBG pH 7.40 VBG pCO2 33.1 L VBG pO2 62 H VBG HCO3 20 L VBG Total CO2 21 L VBG O2 Saturation 92 H VBG Base Excess -4.0 L Sodium Potassium Chloride Carbon Dioxide BUN Creatinine Estimated GFR BUN/Creatinine Ratio Glucose Lactate 1.1 Calcium Total Bilirubin AST ALT Alkaline Phosphatase NT-Pro-B Natriuret Pep Total Protein Albumin Globulin Albumin/Globulin Ratio Chlamy pneumoniae PCR Adenovirus (PCR) B. pertussis DNA (PCR) B.parapertussis DNA PCR Coronavirus OC43 (PCR) Coronavirus HKU1 (PCR) Coronavirus 229E (PCR) SARS-CoV-2 (PCR) Negative Coronavirus NL63 (PCR) Human Metapneumovir PCR Influenza Type A (PCR) Influenza Type B (PCR) M. pneumoniae (PCR) Parainfluenza 1 (PCR) Parainfluenza 2 (PCR) Parainfluenza 3 (PCR) Parainfluenza 4 (PCR) RSV (PCR) Entero/Rhino (PCR) 07/22/22 13:09 WBC RBC Hgb Hct MCV MCH MCHC RDW Plt Count Neut % (Auto) Lymph % (Auto) Garrard % (Auto) Eos % (Auto) Baso % (Auto) Lymph # (Auto) Garrard # (Auto) Baso # (Auto) Total Counted Seg Neutrophils % Lymphocytes % (Manual) Atypical Lymphs % Monocytes % (Manual) Eosinophils % (Manual) Neutrophils # (Manual) Nucleated RBCs RBC Morphology Anisocytosis PT INR VBG pH VBG pCO2 VBG pO2 VBG HCO3 VBG Total CO2 VBG O2 Saturation VBG Base Excess Sodium Potassium Chloride Carbon Dioxide BUN Creatinine Estimated GFR BUN/Creatinine Ratio Glucose Lactate Calcium Total Bilirubin AST ALT Alkaline Phosphatase NT-Pro-B Natriuret Pep Total Protein Albumin Globulin Albumin/Globulin Ratio Chlamy pneumoniae PCR Not detected Adenovirus (PCR) Not detected B. pertussis DNA (PCR) Not detected B.parapertussis DNA PCR Not detected Coronavirus OC43 (PCR) Not detected Coronavirus HKU1 (PCR) Not detected Coronavirus 229E (PCR) Not detected SARS-CoV-2 (PCR) Not detected Coronavirus NL63 (PCR) Not detected Human Metapneumovir PCR Not detected Influenza Type A (PCR) Not detected Influenza Type B (PCR) Not detected M. pneumoniae (PCR) Not detected Parainfluenza 1 (PCR) Not detected Parainfluenza 2 (PCR) Not detected Parainfluenza 3 (PCR) Not detected Parainfluenza 4 (PCR) Not detected RSV (PCR) Not detected Entero/Rhino (PCR) Not detected Assessment & Plan Assessment & Plan narrative: RESP: # Acute hypoxemia respiratory failure -- Secondary to pulmonary edema given CT findings and clinical presentation w/ orthopnea and LE swelling -- Start lasix infusion to seek net negative fluid balance -- Cont BiPAP support -- HOB elevation -- Aspiration precaution CVS: # Acute on chronic CHF exacerbation -- Start aggressive diuresis with lasix infusion -- Strict I/O -- Low Na diet -- Resume metoprolol -- FG negative 2-3 liters in the next 24 hours # HTN -- Restart metoprolol -- Goal SBP < 140 : # CKD -- Start force diuresis to seek net negative fluid balance -- Will need nephrology consultation for potential HD if failed to respond to lasix -- Avoid nephrotoxin agents -- Daily BMP -- Monitor UOP ID: # [id number] -- No overt source of infection identified -- Monitor off abx ENDO: -- Goal BS < 180 D/w RN and patient at bedside. Time Spent With Patient Critical Care time: I spent a total of 32 minutes of critical care time on this patient's care today; this time is exclusive of procedural time.
[2022-07-22] MEDS: FUROSEMIDE 100 MG in SODIUM CHLORIDE 0.9% 50 ML IV (18:05)
[2022-07-22] MEDS: SODIUM CHLORIDE 0.9% 500 ML 21 ML IV (18:50)
--- NOTE | 2022-07-22 19:26 | PC.NURSE ---
Nursing progress note Pt admitted to ICU from ED ~1615. Pt AAOx4, VIRAMONTES, FC, denies pain. NSR. SBP 160/170s, Dr. Rivera made aware. Afebrile. Pt tolerating BiPAP. NPO. No BM. Leblanc placed per Dr. Rivera, 1L output. Started on Lasix gtt. Dual skin assessment completed w/ Annabelle, RN. Blanchable redness noted on buttocks, scattered dry skin/cracking, b/l knee scars.
--- NOTE | 2022-07-22 21:16 | DI.ECHO.S_ITS ---
[facility]---------[facility] +---------+ : : [address] [address] : : : : [id number] : : : : Phone: [phone] Echocardiogram Report + + :Name: BELKIS CALVERT Study Date: 07/23/2022 Height: 69 in : :[facility] ReadingLocation: Weight: 250 lb : : Gender: Male BSA: 2.3 m2 : :: 1945 Age: 76 yrs BP: 144/63 mmHg: :Reason For Study: CONGESTIVE HEART FAILURE : :Ordering Physician: Eric SCHERERformed By: Yadira Campos : :Referring: YUMIKO SCHERER : + + Interpretation Summary The ejection fraction is estimated to be 60-65%. Grade II diastolic dysfunction. The right ventricular systolic function is normal. The right ventricular systolic pressure is estimated to be at least 50 mmHg based on an estimated right atrial pressure of 3 mm Hg. The left atrium is severely dilated. There is mild to moderate aortic regurgitation. There is mild to moderate mitral regurgitation. The mitral valve mean gradient is 3.5 mmHg. Procedure: A two-dimensional transthoracic echocardiogram with color flow and Doppler was performed. The study quality was technically adequate. Comparison is made with the echocardiogram of 04/17/2022. The patient was in sinus bradycardia with heart rates between 58-73 bpm during the exam. Left Ventricle: The left ventricle is normal in size. Left ventricular wall thickness is mild-moderately increased. The ejection fraction is estimated to be 60-65%. There are no obvious focal wall motion abnormalities noted but poor endocardial definition reduces the sensitivity for the detection of such. Grade II diastolic dysfunction. Right Ventricle: The right ventricle is mildly dilated. The right ventricular systolic function is normal. Atria: The left atrium is severely dilated. Right atrial size is normal. There is no Doppler evidence for an interatrial shunt. Mitral Valve: There is mild mitral annular calcification. The mitral valve leaflets appear mildly thickened, but open well. The mitral valve mean gradient is 3.5 mmHg. There is mild to moderate mitral regurgitation. Aortic Valve: The aortic valve is mildly calcified. The aortic valve is trileaflet. There is no aortic valve stenosis. There is mild to moderate aortic regurgitation. Tricuspid Valve: The tricuspid valve is normal in structure and function. There is mild tricuspid regurgitation. The right ventricular systolic pressure is estimated to be at least 50 mmHg based on an estimated right atrial pressure of 3 mm Hg. Pulmonic Valve: The pulmonic valve leaflets are thin and pliable; valve motion is normal. There is trace pulmonic regurgitation. Great Vessels: The aortic root is normal size. The dimensions of the ascending aorta are normal. The IVC is dilated (diameter is greater than 2.1 cm) yet it collapses greater than 50% with a sniff. This suggests a right atrial pressure of 8 mm Hg. Pericardium/ Pleura There is no pericardial effusion. There is no pleural effusion. MMode/2D Measurements & Calculations LVIDd: 5.6 cm LVOT diam: 2.5 cm LVIDs: 3.6 cm Ao root diam: 3.7 cm FS: 34.9 % asc Aorta Diam: 3.4 cm EPSS: 1.4 cm IVSd: 1.3 cm LVPWd: 1.4 cm LV rodgers. diameter/BSA (cm/m^2): 2.5 LV sys. diameter/BSA (cm/m^2): 1.6 LA A2 area: 34.4 cm2 RA long axis: 6.0 cm LA A4 area: 29.1 cm2 RA area: 20.8 cm2 LA length (vol): 6.7 cm RA vol: 61.9 ml LA vol: 126.1 ml RA : 27.2 ml/m2 LA vol index: 55.5 ml/m2 IVC diam: 2.2 cm RVD1 (basal): 4.2 cm RVD2 (mid): 3.1 cm TAPSE: 2.1 cm Doppler Measurements & Calculations Ao V2 max: 160.4 cm/sec LVOT Max Marcelino: 69.6 cm/sec Ao V2 mean: 112.8 cm/sec LV V1 max P.9 mmHg Ao max P.3 mmHg LV V1 VTI: 19.3 cm Ao mean P.6 mmHg LEONIDES(I,D): 2.4 cm2 Ao V2 VTI: 38.6 cm LEONIDES(V,D): 2.1 cm2 sev ratio: 0.50 LEONIDES indexed to BSA (cm^2/m^2): 1.0 AI P1/2t: 541.3 msec AI dec slope: 210.1 cm/sec2 MV E max marcelino: 90.0 cm/sec TR max marcelino: 341.6 cm/sec MV A max marcelino: 76.0 cm/sec TR max P.7 mmHg MV E/A: 1.2 PA V2 max: 112.0 cm/sec Med Peak E' Marcelino: 4.2 cm/sec PA V2 mean: 76.0 cm/sec E/E' med: 21.4 PA mean P.6 mmHg Lat Peak E' Marcelino: 7.0 cm/sec PA pr(Accel): 31.0 mmHg E/E' lat: 12.9 E/e' average: 17.2 MV dec time: 0.21 sec MVA(VTI): 2.8 cm2 MV V2 mean: 89.0 cm/sec SV(LVOT): 91.8 ml MV mean P.5 mmHg MV V2 VTI: 32.5 cm Reading Physician:MARLA
--- NOTE | 2022-07-22 21:24 | P.HP_ITS ---
History of Present Illness History of Present Illness Date Patient Seen: 07/22/22 Time Patient Seen: 19:45 Chief complaint: SOB, O2 levels at 83, sent by [facility] Narrative: Mr. Borden is a 76M with PMH afib anticoagulated on apixaban, CKD stage 4, CAD, HTN, hypothyroidism, asthma, ZEESHAN who presents with shortness of breath. He states he has had shortness of breath for quite some time. It has become progressively worse to have shortness of breath with very little exertion.?He initially presented to urgent care complaining of 3 months of dyspnea worsening over the past 3 weeks, orthopnea now unable to walk 3-4 feet.? Oxygen saturations with minimal exertion were in the low 80s.? He insisted on driving himself to the emergency department.? He denies headaches or nasal congestion, any recent fevers, vomiting, abdominal pain, diarrhea or constipation.?He did note that he typically does have somewhat productive sputum with occasional blood seen in his sputum.? He states that he has been having difficulty sleeping because he can not lay down flat and appears physically exhausted with increased work of breathing. He states that he has been using his inhalers all morning and they have not been effective. He was significantly hypoxic on room air as low as 82%.? Patient is stage 3-4 chronic kidney disease and states he is due to have a fistula placed next week for dialysis, but did not seem to understand a future need to go to a hospital that offers dialysis if he needs hospitalization. He sees Dr. Figueroa, applications development consultant He stated EMS said that all of the hospitals are full and will not take [place] anywhere but [place]. Chemistries showed a creatinine of 3.28 which is actually better than his baseline.? BNP is significantly elevated consistent with clinical heart failure which fits with his overall clinical picture and complaints.? The white count is slightly elevated and moderate anemia is the ED provider suspected is likely secondary to his fluid overload rather than true anemia.? He was administered IV Lasix, topical nitrates to help with blood pressure and placed on BiPAP to facilitate more rapid initial diuresis.?In the ED, he was started on antibiotics with a presumed pulmonary source until proven otherwise.? He is afebrile, blood pressure 170/74, heart rate 86, respiratory rate 24, oxygen saturation of 95% on 2 L with an FiO2 of 35, he weighs 113.3 with a BMI of 36.9. His WBC was 15.2 hemoglobin 8.9 and hematocrit is 26.3 which is slightly lower than his baseline, he did have a left shift, his initial VBG pCO2 was 33.1 VBG PO2 was 62 VBG bicarb 20 VBG total CO2 21, chloride 108 serum bicarb to 19, creatinine 3.28, BUN 73 with a GFR of 19, glucose 120, calcium 7.9, magnesium 2.6 his proBNP was 57376, procalcitonin was 0.12, MRSA swab was negative and COVID 19 PCR is also negative. FH: Mother age 95 and had dementia and spent the last 10 years of her life in a long-term. Father is age 79 of renal failure, patient stated he went into surgery and they never offered him dialysis. Patient History Medical History Anticoagulated Atrial fibrillation CAD (coronary artery disease) CKD (chronic kidney disease) HLD (hyperlipidemia) HTN (hypertension) Hypothyroidism TIA (transient ischemic attack) Surgical History H/O knee surgery H/O shoulder surgery H/O thyroidectomy Family & Social History Family History Father Hypertension Social History: household members spouse Prior Living Arrangements House Safety & Behavioral: Feels Safe in Current Yes Environment Been Physically Hurt or No Threatened By a Person Tobacco & Substance use: Smoking Status Never smoker alcohol intake current alcohol intake frequency holiday/special occasion Substance Use Type does not use Meds Home Medications and Allergies Home Medications Medication Instructions Recorded Confirmed Type albuterol sulfate 90 mcg/actuation 2 puff inhalation Q4H PRN Wheezing 01/21/20 07/22/22 History aerosol inhaler atorvastatin 20 mg tablet 20 mg PO DAILY 01/21/20 07/22/22 History felodipine 10 mg tablet,extended 10 mg PO BID 01/21/20 07/22/22 History release 24 hr latanoprost 0.005 % eye drops 1 drp EYE-BOTH BEDTIME 01/21/20 07/22/22 History finasteride 5 mg tablet 5 mg PO DAILY 12/10/20 07/22/22 History fluticasone 250 mcg-salmeterol 50 1 inh inhalation BID 12/10/20 07/22/22 History mcg/dose blistr powdr for inhalation (Advair Diskus) tamsulosin 0.4 mg capsule 0.8 mg PO BEDTIME 12/10/20 07/22/22 History trospium 20 mg tablet 20 mg PO DAILY 12/10/20 07/22/22 History levothyroxine 175 mcg tablet 175 mcg PO DAILY #30 tabs 12/11/20 07/22/22 Rx clonidine HCl 0.1 mg tablet 0.2 mg PO DAILY Hypertension 03/27/21 04/17/22 History ezetimibe 10 mg tablet 10 mg PO DAILY 03/27/21 07/22/22 History hydralazine 25 mg tablet 50 mg PO TID 09/18/21 07/22/22 History metoprolol succinate 25 mg 25 mg PO BID 09/18/21 07/22/22 History tablet,extended release 24 hr albuterol sulfate 90 mcg/actuation 2 puff inhalation Q4HR PRN Wheezing 04/17/22 07/22/22 History aerosol inhaler montelukast 10 mg tablet 10 mg PO DAILY 04/17/22 07/22/22 History nitroglycerin 0.4 mg sublingual 0.4 mg sublingual Q5M PRN Chest 04/17/22 04/17/22 History tablet Pain furosemide 40 mg tablet (Lasix) 40 mg PO DAILY #30 tabs 04/20/22 07/22/22 Rx clonidine 0.2 mg/24 hr weekly 0.2 mg transdermal WEEKLY 07/22/22 07/22/22 History transdermal patch prednisone 20 mg tablet 20 mg DAILY 07/22/22 07/22/22 History Allergies Allergy/AdvReac Type Severity Reaction Status Date / Time No Known Drug Allergies Allergy Verified 07/22/22 10:49 Review of Systems Review of Systems ROS: Yes All systems reviewed with the patient and are negative except as otherwise documented Exam Vital Signs (past 8 hours): - 07/22/22 13:25 07/22/22 13:25 07/22/22 13:30 Temperature Pulse Rate 92 H Respiratory Rate 23 Blood Pressure 155/79 H 176/81 H Pulse Oximetry 94 Oxygen Delivery Method Nasal Cannula Oxygen Flow Rate 2 Fraction of Inspired Oxygen 07/22/22 13:30 07/22/22 13:56 07/22/22 13:58 Temperature Pulse Rate 77 90 Respiratory Rate 19 Blood Pressure 181/83 H Pulse Oximetry 93 93 Oxygen Delivery Method Nasal Cannula Nasal Cannula Oxygen Flow Rate 2 2 Fraction of Inspired Oxygen 07/22/22 13:58 07/22/22 14:00 07/22/22 14:00 Temperature Pulse Rate 91 H 97 H Respiratory Rate 23 23 Blood Pressure 171/84 H Pulse Oximetry 95 94 Oxygen Delivery Method Oxygen Flow Rate Fraction of Inspired Oxygen 07/22/22 14:15 07/22/22 14:15 07/22/22 14:30 Temperature Pulse Rate 88 Respiratory Rate 15 Blood Pressure 180/79 H 165/86 H Pulse Oximetry 95 Oxygen Delivery Method Oxygen Flow Rate Fraction of Inspired Oxygen 07/22/22 14:30 07/22/22 14:45 07/22/22 14:45 Temperature Pulse Rate 96 H 89 Respiratory Rate 20 21 Blood Pressure 172/83 H Pulse Oximetry 93 96 Oxygen Delivery Method BiPAP Oxygen Flow Rate Fraction of Inspired Oxygen 07/22/22 15:00 07/22/22 15:00 07/22/22 15:00 Temperature Pulse Rate 85 Respiratory Rate 21 Blood Pressure 162/77 H 172/83 H Pulse Oximetry 96 Oxygen Delivery Method BiPAP Oxygen Flow Rate Fraction of Inspired Oxygen 35 07/22/22 15:15 07/22/22 15:15 07/22/22 15:30 Temperature Pulse Rate 76 Respiratory Rate 22 Blood Pressure 185/79 H 175/80 H Pulse Oximetry 97 Oxygen Delivery Method Oxygen Flow Rate Fraction of Inspired Oxygen 07/22/22 15:30 07/22/22 15:45 07/22/22 15:45 Temperature Pulse Rate 59 L 64 Respiratory Rate 12 14 Blood Pressure 164/81 H Pulse Oximetry 97 96 Oxygen Delivery Method Oxygen Flow Rate Fraction of Inspired Oxygen 07/22/22 16:35 07/22/22 16:50 07/22/22 16:00 Temperature Pulse Rate Respiratory Rate Blood Pressure 158/75 H 154/71 H Pulse Oximetry Oxygen Delivery Method BiPAP Oxygen Flow Rate Fraction of Inspired Oxygen 35 07/22/22 16:00 07/22/22 16:23 07/22/22 16:26 Temperature Pulse Rate 89 93 H 99 H Respiratory Rate 28 H 28 H Blood Pressure Pulse Oximetry 97 87 L 91 Oxygen Delivery Method Oxygen Flow Rate Fraction of Inspired Oxygen 07/22/22 16:26 07/22/22 16:30 07/22/22 16:30 Temperature Pulse Rate 111 H Respiratory Rate 29 H Blood Pressure 153/80 H 158/75 H Pulse Oximetry 88 L Oxygen Delivery Method Oxygen Flow Rate Fraction of Inspired Oxygen 07/22/22 16:15 07/22/22 16:45 07/22/22 17:00 Temperature 98.4 F Pulse Rate 110 H 92 H Respiratory Rate 28 H 27 H Blood Pressure 158/75 H 173/74 H Pulse Oximetry 92 98 Oxygen Delivery Method Oxygen Flow Rate 6 Fraction of Inspired Oxygen 07/22/22 17:00 07/22/22 17:12 07/22/22 17:12 Temperature Pulse Rate 85 85 Respiratory Rate 27 H 27 H Blood Pressure 177/81 H Pulse Oximetry 97 97 Oxygen Delivery Method Oxygen Flow Rate Fraction of Inspired Oxygen 07/22/22 17:15 07/22/22 17:30 07/22/22 17:31 Temperature Pulse Rate 96 H 85 Respiratory Rate 27 H 27 H Blood Pressure 172/84 H Pulse Oximetry 98 98 Oxygen Delivery Method Oxygen Flow Rate Fraction of Inspired Oxygen 07/22/22 17:31 07/22/22 17:45 07/22/22 18:00 Temperature Pulse Rate 86 92 H 92 H Respiratory Rate 27 H 28 H 28 H Blood Pressure Pulse Oximetry 98 97 95 Oxygen Delivery Method Oxygen Flow Rate Fraction of Inspired Oxygen 07/22/22 18:01 07/22/22 18:01 07/22/22 18:15 Temperature Pulse Rate 81 78 Respiratory Rate 26 H 32 H Blood Pressure 173/82 H Pulse Oximetry 96 97 Oxygen Delivery Method Oxygen Flow Rate Fraction of Inspired Oxygen 07/22/22 18:30 07/22/22 18:31 07/22/22 18:31 Temperature Pulse Rate 79 66 Respiratory Rate 26 H 28 H Blood Pressure 177/77 H Pulse Oximetry 95 96 Oxygen Delivery Method Oxygen Flow Rate Fraction of Inspired Oxygen 07/22/22 18:45 07/22/22 19:00 07/22/22 19:00 Temperature Pulse Rate 67 72 Respiratory Rate 19 27 H Blood Pressure 168/81 H Pulse Oximetry 98 96 Oxygen Delivery Method Oxygen Flow Rate Fraction of Inspired Oxygen 07/22/22 19:15 07/22/22 20:00 07/22/22 20:00 Temperature Pulse Rate 66 81 Respiratory Rate 23 25 H Blood Pressure 169/80 H Pulse Oximetry 96 94 Oxygen Delivery Method Oxygen Flow Rate Fraction of Inspired Oxygen 07/22/22 21:00 07/22/22 21:00 Temperature Pulse Rate 86 Respiratory Rate 21 Blood Pressure 166/72 H Pulse Oximetry 94 Oxygen Delivery Method Oxygen Flow Rate Fraction of Inspired Oxygen Fraction of Inspired Oxygen 35 Oxygen Delivery Method BiPAP Oxygen Flow Rate 6 Narrative Exam Narrative: Gen: Alert, oriented, chronically ill appearing 76 y.o. male, on nasal cannula, cushionoid appearing HEENT: normocephalic, atraumatic, conjunctiva clear, sclera non-icteric, oral mucosa pink and moist Neck: supple, full ROM, no JVD, trachea is midline Resp: Lungs CTA, labored breathing, unable to complete full sentences CV: RRR, no murmur or rubs Abd: soft, non-tender, normoactive BTs Skin: no lesions or rashes, dry and intact Neuro: Alert and oriented X 4 w/no focal deficits. Speech clear and coherent. Extremities: moves all 4 extremities, is ambulatory, negative Wilian?s sign Psyche: anxious. Objective Labs Result Diagrams: 07/22/22 11:33 07/22/22 11:33 Labs: Laboratory Results - last 24 hr 07/22/22 07/22/22 07/22/22 11:33 11:33 11:33 WBC 15.2 H RBC 2.87 L Hgb 8.9 L Hct 26.3 L MCV 91.7 MCH 30.9 MCHC 33.7 RDW 16.9 H Plt Count 224 Neut % (Auto) Not Reportable Lymph % (Auto) Not Reportable Crenshaw % (Auto) Not Reportable Eos % (Auto) Not Reportable Baso % (Auto) Not Reportable Lymph # (Auto) Not Reportable Crenshaw # (Auto) Not Reportable Baso # (Auto) Not Reportable Total Counted 100 Seg Neutrophils % 83.0 H Lymphocytes % (Manual) 5.0 L Atypical Lymphs % 1.0 H Monocytes % (Manual) 10.0 Eosinophils % (Manual) 1.0 L Neutrophils # (Manual) 31125 H Nucleated RBCs 1 H RBC Morphology Not Reportable Anisocytosis 2+ H PT 20.1 H INR 1.7 H VBG pH VBG pCO2 VBG pO2 VBG HCO3 VBG Total CO2 VBG O2 Saturation VBG Base Excess Sodium 140 Potassium 4.5 Chloride 108 H Carbon Dioxide 19 L BUN 73 H Creatinine 3.28 H Estimated GFR 19 L BUN/Creatinine Ratio 22.3 H Glucose 120 H Lactate Calcium 7.9 L Total Bilirubin 0.8 AST 20 ALT 19 Alkaline Phosphatase 35 L NT-Pro-B Natriuret Pep 06546 H Total Protein 6.8 Albumin 4.0 Globulin 2.8 Albumin/Globulin Ratio 1.4 Nasal Screen MRSA (PCR) Chlamy pneumoniae PCR Adenovirus (PCR) B. pertussis DNA (PCR) B.parapertussis DNA PCR Coronavirus OC43 (PCR) Coronavirus HKU1 (PCR) Coronavirus 229E (PCR) SARS-CoV-2 (PCR) Coronavirus NL63 (PCR) Human Metapneumovir PCR Influenza Type A (PCR) Influenza Type B (PCR) M. pneumoniae (PCR) Parainfluenza 1 (PCR) Parainfluenza 2 (PCR) Parainfluenza 3 (PCR) Parainfluenza 4 (PCR) RSV (PCR) Entero/Rhino (PCR) 07/22/22 07/22/22 07/22/22 11:33 12:23 13:05 WBC RBC Hgb Hct MCV MCH MCHC RDW Plt Count Neut % (Auto) Lymph % (Auto) Crenshaw % (Auto) Eos % (Auto) Baso % (Auto) Lymph # (Auto) Crenshaw # (Auto) Baso # (Auto) Total Counted Seg Neutrophils % Lymphocytes % (Manual) Atypical Lymphs % Monocytes % (Manual) Eosinophils % (Manual) Neutrophils # (Manual) Nucleated RBCs RBC Morphology Anisocytosis PT INR VBG pH 7.40 VBG pCO2 33.1 L VBG pO2 62 H VBG HCO3 20 L VBG Total CO2 21 L VBG O2 Saturation 92 H VBG Base Excess -4.0 L Sodium Potassium Chloride Carbon Dioxide BUN Creatinine Estimated GFR BUN/Creatinine Ratio Glucose Lactate 1.1 Calcium Total Bilirubin AST ALT Alkaline Phosphatase NT-Pro-B Natriuret Pep Total Protein Albumin Globulin Albumin/Globulin Ratio Nasal Screen MRSA (PCR) Chlamy pneumoniae PCR Adenovirus (PCR) B. pertussis DNA (PCR) B.parapertussis DNA PCR Coronavirus OC43 (PCR) Coronavirus HKU1 (PCR) Coronavirus 229E (PCR) SARS-CoV-2 (PCR) Negative Coronavirus NL63 (PCR) Human Metapneumovir PCR Influenza Type A (PCR) Influenza Type B (PCR) M. pneumoniae (PCR) Parainfluenza 1 (PCR) Parainfluenza 2 (PCR) Parainfluenza 3 (PCR) Parainfluenza 4 (PCR) RSV (PCR) Entero/Rhino (PCR) 07/22/22 07/22/22 13:09 16:23 WBC RBC Hgb Hct MCV MCH MCHC RDW Plt Count Neut % (Auto) Lymph % (Auto) Crenshaw % (Auto) Eos % (Auto) Baso % (Auto) Lymph # (Auto) [place] # (Auto) Baso # (Auto) Total Counted Seg Neutrophils % Lymphocytes % (Manual) Atypical Lymphs % Monocytes % (Manual) Eosinophils % (Manual) Neutrophils # (Manual) Nucleated RBCs RBC Morphology Anisocytosis PT INR VBG pH VBG pCO2 VBG pO2 VBG HCO3 VBG Total CO2 VBG O2 Saturation VBG Base Excess Sodium Potassium Chloride Carbon Dioxide BUN Creatinine Estimated GFR BUN/Creatinine Ratio Glucose Lactate Calcium Total Bilirubin AST ALT Alkaline Phosphatase NT-Pro-B Natriuret Pep Total Protein Albumin Globulin Albumin/Globulin Ratio Nasal Screen MRSA (PCR) Negative for mrsa Chlamy pneumoniae PCR Not detected Adenovirus (PCR) Not detected B. pertussis DNA (PCR) Not detected B.parapertussis DNA PCR Not detected Coronavirus OC43 (PCR) Not detected Coronavirus HKU1 (PCR) Not detected Coronavirus 229E (PCR) Not detected SARS-CoV-2 (PCR) Not detected Coronavirus NL63 (PCR) Not detected Human Metapneumovir PCR Not detected Influenza Type A (PCR) Not detected Influenza Type B (PCR) Not detected M. pneumoniae (PCR) Not detected Parainfluenza 1 (PCR) Not detected Parainfluenza 2 (PCR) Not detected Parainfluenza 3 (PCR) Not detected Parainfluenza 4 (PCR) Not detected RSV (PCR) Not detected Entero/Rhino (PCR) Not detected Assessment & Plan Assessment & Plan narrative: Due to the need for BiPap respiratory therapy, Prosper Borden is admitted to the ICU for further management and treatment of his congestive heart failure exacerbation and a presumed pneumonia. Acute hypoxic respiratory failure, present on admission * CT of the chest indicated diffuse bilateral pulmonary opacities with consideration to florid pulmonary edema, ARDS and/or multifocal pneumonia. It also indicated cardiomegaly that may be associated with congestive heart failure and fluid overload. * Continue BiPAP per respiratory therapy * Aspiration precautions Acute on chronic CHF exacerbation, present on admission * He was started on Lasix drip by the journalism internship * Strict I&Os * Continue home dose of extended release metoprolol 25 mg p.o. b.i.d. * His last echocardiogram was done in March of this year and will be repeated given the severity of his CHF exacerbation. Essential hypertension, poor control * Continue home dose of metoprolol and floated pain 10 mg p.o. b.i.d. Stage 3-4 CKD, appears to be at baseline * Renal diet * Avoid nephrotoxic medications * Monitor urine output * Monitor daily BMP * May require Nephrology consultation if patient fails to respond to Lasix Suspected pneumonia, acute, present on admission * He does have a elevated white count of 15 however his procalcitonin is normal * We will continue IV ceftriaxone and azithromycin VTE Prophylaxis: Wells risk score 4 X Bilateral SCDs Patient is currently anticoagulated on Apixaban. Patient is admitted to the inpatient intensive care service due to the severity of disease, risks of further disease progression and this stay is expected to exceed 2 midnights. FEN: IV fluids: saline lock, diet: renal, labs: CBC, C/BMP, liver enzymes, Mag, PT/INR Consultants Intercept ICU care and involvement in the patient?s care is appreciated. Dispo: unknown at this time Code status: DNR/DNI as discussed with the patient who identifies his Lacy as his surrogate and POA. [X] I have utilized all available immediate resources to obtain, update, or review of the patient's current medications VTE Deep Vein Thrombosis/Pulmonary Embolism Present on Admission: No MIPS - Admit I confirm the patient?s Advance Care Plan is present, Code status is documented, Surrogate decision maker is in patient?s record: Yes MIPS - DC The patient has current or prior documentation of left ventricular ejection fraction (LVEF) less than 40%, or moderate or severely depressed left ventri cular systolic function.: No Time Spent With Patient Critical Care time: I spent a total of 45 minutes of critical care time on this patient's care today; this time is exclusive of procedural time. Scores Wells' Criteria for PE Clinical signs and symptoms of DVT: Yes PE is #1 Dx or equally likely: No Heart rate > 100: No Immobilization at least 3 days or surg in previous 4 weeks: No History of PE or DVT: No Hemoptysis: Yes Malignancy w/Treatment within 6 months or palliative: No Wells' PE Score total: 4 Quality VTE Deep Vein Thrombosis/Pulmonary Embolism Present on Admission: No MIPS - DC A. The patient was prescribed or already taking an Angiotensin-Converting Enzyme (TIFFANIE) Inhibitor, or Angiotensin Receptor Caridad (ARB).: No B. The patient was prescribed or already taking a beta-caridad. [If Yes to Both A & B, STOP here]: Yes Patient not prescribed/taking TIFFANIE or ARB for medical/patient/system reason(s) including (ex: allergy, intolerance, contraindication).: Stage 3/4 chronic kidne y disease
[2022-07-22 22:07] LABS: Lactate (Lactic Acid) 1.3 mmol/L (0.7-2.1); Magnesium 2.6 mg/dL (1.6-2.3)
[2022-07-22] MEDS: TAMSULOSIN 0.4 MG CAPSULE 0.8 MG PO (22:21)
[2022-07-22] MEDS: AMLODIPINE 5 MG TABLET 10 MG PO (22:21)
[2022-07-22] MEDS: APIXABAN 5 MG TABLET PO (22:21)
[2022-07-22] MEDS: METOPROLOL ER 25 MG TABLET PO (22:22)
[2022-07-22 22:25] LABS: Procalcitonin 0.12 ng/mL (<0.5)
[2022-07-23] VITALS (37 sets, daily range): BP systolic 132–185; BP diastolic 62–108; PULSE 56–99; RESP 15–26; TEMP 36.4–37.2; O2SAT 91–98
[2022-07-23 00:45] LABS: Bacteria Urine Occasional (0-1); Culture Indicated Urine Cult Not Indicated; RBC Urine 1-5/HPF (0-5/HPF); Squamous Epithelial Cell Urine 0-1 /HPF (0-5/HPF); WBC Urine 0-1/HPF (0-5/HPF)
[2022-07-23 05:50] LABS: Add Manual Diff / Slide Review NO; Basophils Absolute Auto 0 /uL (0-100); Basophils Percent Auto 0.4 % (0-2); Eosinophils Absolute Auto 300 /uL (0-450); Eosinophils Percent Auto 3.9 % (2-4); Hematocrit 24.1 % (41-53); Hemoglobin 8.2 g/dL (13.5-17.5); Lymphocytes Absolute Auto 800 /uL (1100-4500); Lymphocytes Percent Auto 10.8 % (25-40); Mean Corpuscular Hemoglobin 30.9 PG (26-34); Mean Corpuscular Volume 90.8 fL (80-100); Monocytes Absolute Auto 800 /uL (0-900); Monocytes Percent Auto 10.1 % (3-14); Neutrophils Absolute Auto 5800 /uL (1500-7000); Neutrophils Percent Auto 74.8 % (50-75); Platelet Count 205 X10^3/uL (150-400); Red Blood Cell Count 2.66 X10^6/uL (4.5-5.9); Red Cell Distribution Width 17.1 % (11.6-14.8); White Blood Cell Count 7.8 X10^3/uL (4.5-11.0)
[2022-07-23 05:57] LABS: Alanine Aminotransferase 18 IU/L (<50); Albumin 3.5 g/dL (3.5-5.0); Albumin Globulin Ratio 1.3 (1.0-2.8); Alkaline Phosphatase 32 U/L (38-126); Aspartate Aminotransferase 18 IU/L (17-59); BUN Creatinine Ratio 20.6 (6-22); Bilirubin Total 0.7 mg/dL (0.2-1.3); Blood Urea Nitrogen 72 mg/dL (9-20); Calcium 7.7 mg/dL (8.4-10.2); Carbon Dioxide 23 mmol/L (22-32); Chloride 105 mmol/L (98-107); Estimated Glomerular Filt Rate 17 mL/min (>60); Globulin 2.6 g/dL (1.7-4.1); Glucose 82 mg/dL (80-110); HEMOLYSIS < 15 (0-50); Magnesium 2.5 mg/dL (1.6-2.3); Potassium 4.8 mmol/L (3.4-5.1); Sodium 140 mmol/L (137-145); Total Protein 6.1 g/dL (6.3-8.2)
[2022-07-23] MEDS: LEVOTHYROXINE 100 MCG TABLET PO (06:13)
[2022-07-23] MEDS: LEVOTHYROXINE 75 MCG TABLET PO (06:13)
--- NOTE | 2022-07-23 07:02 | PM.PN.EICU ---
Subjective Subjective IF CAMERA ACTIVATED, patient seen via real-time interactive audiovisual communication: Camera activated Consent obtained for tele-welfare officer care: Yes Patient Location: ICU Provider location (State): [place] Other participants/roles: RN Interval history: Patient Summary: 76 yo man with PMH Of Afib, asthma, HTN, and CKD stage 5 admitted 07/22/22 with CHF/fuid overload and acute respiratory failure requiring BIPAP. Patient placed on Lasix drp for diuresis. Recent Events: -On Lasix drip at 5 mg/hr patient has diuresed out 3L net neg in the last 24 hours -Patient off BIPAP this morning -BP this morning elevated at 150-160s/60-70s Current Medications Current Medications Medications: Home Medications albuterol sulfate 90 mcg/actuation aerosol inhaler 2 puff inhalation Q4H PRN Wheezing 01/21/20 [History Confirmed 07/22/22] atorvastatin 20 mg tablet 20 mg PO DAILY 01/21/20 [History Confirmed 07/22/22] felodipine 10 mg tablet,extended release 24 hr 10 mg PO BID 01/21/20 [History Confirmed 07/22/22] latanoprost 0.005 % eye drops 1 drp EYE-BOTH BEDTIME 01/21/20 [History Confirmed 07/22/22] finasteride 5 mg tablet 5 mg PO DAILY 12/10/20 [History Confirmed 07/22/22] fluticasone 250 mcg-salmeterol 50 mcg/dose blistr powdr for inhalation (Advair Diskus) 1 inh inhalation BID 12/10/20 [History Confirmed 07/22/22] tamsulosin 0.4 mg capsule 0.8 mg PO BEDTIME 12/10/20 [History Confirmed 07/22/22] trospium 20 mg tablet 20 mg PO DAILY 12/10/20 [History Confirmed 07/22/22] levothyroxine 175 mcg tablet 175 mcg PO DAILY #30 tabs 12/11/20 [Rx Confirmed 07/22/22] clonidine HCl 0.1 mg tablet 0.2 mg PO DAILY Hypertension 03/27/21 [History Confirmed 04/17/22] ezetimibe 10 mg tablet 10 mg PO DAILY 03/27/21 [History Confirmed 07/22/22] hydralazine 25 mg tablet 50 mg PO TID 11/18/21 [History Confirmed 07/22/22] metoprolol succinate 25 mg tablet,extended release 24 hr 25 mg PO BID 09/18/21 [History Confirmed 07/22/22] albuterol sulfate 90 mcg/actuation aerosol inhaler 2 puff inhalation Q4HR PRN Wheezing 04/17/22 [History Confirmed 07/22/22] montelukast 10 mg tablet 10 mg PO DAILY 04/17/22 [History Confirmed 07/22/22] nitroglycerin 0.4 mg sublingual tablet 0.4 mg sublingual Q5M PRN Chest Pain 04/17/22 [History Confirmed 04/17/22] furosemide 40 mg tablet (Lasix) 40 mg PO DAILY #30 tabs 04/20/22 [Rx Confirmed 07/22/22] clonidine 0.2 mg/24 hr weekly transdermal patch 0.2 mg transdermal WEEKLY 07/22/22 [History Confirmed 07/22/22] prednisone 20 mg tablet 20 mg DAILY 07/22/22 [History Confirmed 07/22/22] Visit Medications (administered) Generic Name Dose Route Start Last Admin Trade Name Vineet PRN Reason Stop Dose Admin Amlodipine Besylate 10 mg 07/22/22 21:30 07/22/22 22:21 Amlodipine 5 Mg Tablet PO 10 mg BID KEVAN Administration Apixaban 5 mg 07/22/22 21:30 07/22/22 22:21 Apixaban 5 Mg Tablet PO 5 mg BID KEVAN Administration Furosemide 100 mg/ Sodium 60 mls @ 3 mls/hr 07/22/22 17:45 07/22/22 18:05 Chloride IV 5 mg/hr CONT KEVAN 3 mls/hr Administration 5 MG/HR Sodium Chloride 500 mls @ 21 mls/hr 07/22/22 18:45 07/22/22 18:50 Normal Saline 0.9% IV 21 mls/hr CONT KEVAN Administration Latanoprost 1 drops 07/22/22 21:30 07/22/22 23:47 Latanoprost 0.005% Ophth 2.5 Ml EYE-BOTH Not Given BEDTIME KEVAN Levothyroxine Sodium 75 mcg 07/23/22 06:00 07/23/22 06:13 Levothyroxine 75 Mcg Tablet PO 75 mcg 0600 KEVAN Administration Levothyroxine Sodium 100 mcg 07/23/22 06:00 07/23/22 06:13 Levothyroxine 100 Mcg Tablet PO 100 mcg 0600 KEVAN Administration Metoprolol Succinate 25 mg 07/22/22 21:15 07/22/22 22:22 Metoprolol Er 25 Mg Tablet PO 25 mg BID KEVAN Administration Tamsulosin HCl 0.8 mg 07/22/22 21:30 07/22/22 22:21 Tamsulosin 0.4 Mg Capsule PO 0.8 mg BEDTIME KEVAN Administration Objective Ventilator Parameters: Ventilator Settings FiO2 35 Labs Result Diagrams: 07/23/22 04:50 07/23/22 04:50 Labs: Laboratory Results - last 24 hr 07/22/22 07/22/22 07/22/22 11:33 11:33 11:33 WBC 15.2 H RBC 2.87 L Hgb 8.9 L Hct 26.3 L MCV 91.7 MCH 30.9 MCHC 33.7 RDW 16.9 H Plt Count 224 Neut % (Auto) Not Reportable Lymph % (Auto) Not Reportable Dickenson % (Auto) Not Reportable Eos % (Auto) Not Reportable Baso % (Auto) Not Reportable Neut # (Auto) Lymph # (Auto) Not Reportable Dickenson # (Auto) Not Reportable Eos # (Auto) Baso # (Auto) Not Reportable Total Counted 100 Seg Neutrophils % 83.0 H Lymphocytes % (Manual) 5.0 L Atypical Lymphs % 1.0 H Monocytes % (Manual) 10.0 Eosinophils % (Manual) 1.0 L Neutrophils # (Manual) 68135 H Nucleated RBCs 1 H RBC Morphology Not Reportable Anisocytosis 2+ H PT 20.1 H INR 1.7 H VBG pH VBG pCO2 VBG pO2 VBG HCO3 VBG Total CO2 VBG O2 Saturation VBG Base Excess Sodium 140 Potassium 4.5 Chloride 108 H Carbon Dioxide 19 L BUN 73 H Creatinine 3.28 H Estimated GFR 19 L BUN/Creatinine Ratio 22.3 H Glucose 120 H Lactate Calcium 7.9 L Magnesium Total Bilirubin 0.8 AST 20 ALT 19 Alkaline Phosphatase 35 L NT-Pro-B Natriuret Pep 68153 H Total Protein 6.8 Albumin 4.0 Globulin 2.8 Albumin/Globulin Ratio 1.4 Procalcitonin Urine RBC Urine WBC Ur Squamous Epith Cells Urine Bacteria Ur Culture Indicated? Nasal Screen MRSA (PCR) Chlamy pneumoniae PCR Adenovirus (PCR) B. pertussis DNA (PCR) B.parapertussis DNA PCR Coronavirus OC43 (PCR) Coronavirus HKU1 (PCR) Coronavirus 229E (PCR) SARS-CoV-2 (PCR) Coronavirus NL63 (PCR) Human Metapneumovir PCR Influenza Type A (PCR) Influenza Type B (PCR) M. pneumoniae (PCR) Parainfluenza 1 (PCR) Parainfluenza 2 (PCR) Parainfluenza 3 (PCR) Parainfluenza 4 (PCR) RSV (PCR) Entero/Rhino (PCR) 07/22/22 07/22/22 07/22/22 11:33 12:23 13:05 WBC RBC Hgb Hct MCV MCH MCHC RDW Plt Count Neut % (Auto) Lymph % (Auto) Dickenson % (Auto) Eos % (Auto) Baso % (Auto) Neut # (Auto) Lymph # (Auto) Dickenson # (Auto) Eos # (Auto) Baso # (Auto) Total Counted Seg Neutrophils % Lymphocytes % (Manual) Atypical Lymphs % Monocytes % (Manual) Eosinophils % (Manual) Neutrophils # (Manual) Nucleated RBCs RBC Morphology Anisocytosis PT INR VBG pH 7.40 VBG pCO2 33.1 L VBG pO2 62 H VBG HCO3 20 L VBG Total CO2 21 L VBG O2 Saturation 92 H VBG Base Excess -4.0 L Sodium Potassium Chloride Carbon Dioxide BUN Creatinine Estimated GFR BUN/Creatinine Ratio Glucose Lactate 1.1 Calcium Magnesium Total Bilirubin AST ALT Alkaline Phosphatase NT-Pro-B Natriuret Pep Total Protein Albumin Globulin Albumin/Globulin Ratio Procalcitonin Urine RBC Urine WBC Ur Squamous Epith Cells Urine Bacteria Ur Culture Indicated? Nasal Screen MRSA (PCR) Chlamy pneumoniae PCR Adenovirus (PCR) B. pertussis DNA (PCR) B.parapertussis DNA PCR Coronavirus OC43 (PCR) Coronavirus HKU1 (PCR) Coronavirus 229E (PCR) SARS-CoV-2 (PCR) Negative Coronavirus NL63 (PCR) Human Metapneumovir PCR Influenza Type A (PCR) Influenza Type B (PCR) M. pneumoniae (PCR) Parainfluenza 1 (PCR) Parainfluenza 2 (PCR) Parainfluenza 3 (PCR) Parainfluenza 4 (PCR) RSV (PCR) Entero/Rhino (PCR) 07/22/22 07/22/22 07/22/22 13:09 16:23 21:42 WBC RBC Hgb Hct MCV MCH MCHC RDW Plt Count Neut % (Auto) Lymph % (Auto) Dickenson % (Auto) Eos % (Auto) Baso % (Auto) Neut # (Auto) Lymph # (Auto) Dickenson # (Auto) Eos # (Auto) Baso # (Auto) Total Counted Seg Neutrophils % Lymphocytes % (Manual) Atypical Lymphs % Monocytes % (Manual) Eosinophils % (Manual) Neutrophils # (Manual) Nucleated RBCs RBC Morphology Anisocytosis PT INR VBG pH VBG pCO2 VBG pO2 VBG HCO3 VBG Total CO2 VBG O2 Saturation VBG Base Excess Sodium Potassium Chloride Carbon Dioxide BUN Creatinine Estimated GFR BUN/Creatinine Ratio Glucose Lactate 1.3 Calcium Magnesium Total Bilirubin AST ALT Alkaline Phosphatase NT-Pro-B Natriuret Pep Total Protein Albumin Globulin Albumin/Globulin Ratio Procalcitonin Urine RBC Urine WBC Ur Squamous Epith Cells Urine Bacteria Ur Culture Indicated? Nasal Screen MRSA (PCR) Negative for mrsa Chlamy pneumoniae PCR Not detected Adenovirus (PCR) Not detected B. pertussis DNA (PCR) Not detected B.parapertussis DNA PCR Not detected Coronavirus OC43 (PCR) Not detected Coronavirus HKU1 (PCR) Not detected Coronavirus 229E (PCR) Not detected SARS-CoV-2 (PCR) Not detected Coronavirus NL63 (PCR) Not detected Human Metapneumovir PCR Not detected Influenza Type A (PCR) Not detected Influenza Type B (PCR) Not detected M. pneumoniae (PCR) Not detected Parainfluenza 1 (PCR) Not detected Parainfluenza 2 (PCR) Not detected Parainfluenza 3 (PCR) Not detected Parainfluenza 4 (PCR) Not detected RSV (PCR) Not detected Entero/Rhino (PCR) Not detected 07/22/22 07/23/22 07/23/22 21:42 00:10 04:50 WBC 7.8 RBC 2.66 L Hgb 8.2 L Hct 24.1 L MCV 90.8 MCH 30.9 MCHC 34.0 RDW 17.1 H Plt Count 205 Neut % (Auto) 74.8 Lymph % (Auto) 10.8 L Dickenson % (Auto) 10.1 Eos % (Auto) 3.9 Baso % (Auto) 0.4 Neut # (Auto) 5800 Lymph # (Auto) 800 L Dickenson # (Auto) 800 Eos # (Auto) 300 Baso # (Auto) 0 Total Counted Seg Neutrophils % Lymphocytes % (Manual) Atypical Lymphs % Monocytes % (Manual) Eosinophils % (Manual) Neutrophils # (Manual) Nucleated RBCs RBC Morphology Anisocytosis PT INR VBG pH VBG pCO2 VBG pO2 VBG HCO3 VBG Total CO2 VBG O2 Saturation VBG Base Excess Sodium Potassium Chloride Carbon Dioxide BUN Creatinine Estimated GFR BUN/Creatinine Ratio Glucose Lactate Calcium Magnesium 2.6 H Total Bilirubin AST ALT Alkaline Phosphatase NT-Pro-B Natriuret Pep Total Protein Albumin Globulin Albumin/Globulin Ratio Procalcitonin 0.12 Urine RBC 1-5/hpf Urine WBC 0-1/hpf Ur Squamous Epith Cells 0-1 /hpf Urine Bacteria Occasional (0-1) Ur Culture Indicated? Cult not indicated Nasal Screen MRSA (PCR) Chlamy pneumoniae PCR Adenovirus (PCR) B. pertussis DNA (PCR) B.parapertussis DNA PCR Coronavirus OC43 (PCR) Coronavirus HKU1 (PCR) Coronavirus 229E (PCR) SARS-CoV-2 (PCR) Coronavirus NL63 (PCR) Human Metapneumovir PCR Influenza Type A (PCR) Influenza Type B (PCR) M. pneumoniae (PCR) Parainfluenza 1 (PCR) Parainfluenza 2 (PCR) Parainfluenza 3 (PCR) Parainfluenza 4 (PCR) RSV (PCR) Entero/Rhino (PCR) 07/23/22 04:50 WBC RBC Hgb Hct MCV MCH MCHC RDW Plt Count Neut % (Auto) Lymph % (Auto) Dickenson % (Auto) Eos % (Auto) Baso % (Auto) Neut # (Auto) Lymph # (Auto) Dickenson # (Auto) Eos # (Auto) Baso # (Auto) Total Counted Seg Neutrophils % Lymphocytes % (Manual) Atypical Lymphs % Monocytes % (Manual) Eosinophils % (Manual) Neutrophils # (Manual) Nucleated RBCs RBC Morphology Anisocytosis PT INR VBG pH VBG pCO2 VBG pO2 VBG HCO3 VBG Total CO2 VBG O2 Saturation VBG Base Excess Sodium 140 Potassium 4.8 Chloride 105 Carbon Dioxide 23 BUN 72 H Creatinine 3.49 H Estimated GFR 17 L BUN/Creatinine Ratio 20.6 Glucose 82 Lactate Calcium 7.7 L Magnesium 2.5 H Total Bilirubin 0.7 AST 18 ALT 18 Alkaline Phosphatase 32 L NT-Pro-B Natriuret Pep Total Protein 6.1 L Albumin 3.5 Globulin 2.6 Albumin/Globulin Ratio 1.3 Procalcitonin Urine RBC Urine WBC Ur Squamous Epith Cells Urine Bacteria Ur Culture Indicated? Nasal Screen MRSA (PCR) Chlamy pneumoniae PCR Adenovirus (PCR) B. pertussis DNA (PCR) B.parapertussis DNA PCR Coronavirus OC43 (PCR) Coronavirus HKU1 (PCR) Coronavirus 229E (PCR) SARS-CoV-2 (PCR) Coronavirus NL63 (PCR) Human Metapneumovir PCR Influenza Type A (PCR) Influenza Type B (PCR) M. pneumoniae (PCR) Parainfluenza 1 (PCR) Parainfluenza 2 (PCR) Parainfluenza 3 (PCR) Parainfluenza 4 (PCR) RSV (PCR) Entero/Rhino (PCR) Exam Vital Signs (past 8 hours): - 07/22/22 23:46 07/23/22 00:00 07/23/22 00:00 Temperature 98.9 F Pulse Rate 86 Respiratory Rate 24 Blood Pressure 157/68 H 170/74 H Pulse Oximetry 95 Oxygen Delivery Method Oxygen Flow Rate 07/23/22 00:00 07/23/22 00:00 07/23/22 01:00 Temperature Pulse Rate 76 Respiratory Rate Blood Pressure Pulse Oximetry 92 Oxygen Delivery Method CPAP Oxygen Flow Rate 3 07/23/22 01:01 07/23/22 01:01 07/23/22 02:00 Temperature Pulse Rate 64 74 Respiratory Rate 23 Blood Pressure 171/75 H Pulse Oximetry 93 94 Oxygen Delivery Method Oxygen Flow Rate 3 07/23/22 02:01 07/23/22 02:01 07/23/22 03:00 Temperature Pulse Rate 78 Respiratory Rate 26 H Blood Pressure 132/62 135/92 H Pulse Oximetry 94 Oxygen Delivery Method Oxygen Flow Rate 07/23/22 03:00 07/23/22 04:00 07/23/22 04:00 Temperature Pulse Rate 68 Respiratory Rate 24 Blood Pressure 148/67 H Pulse Oximetry 95 Oxygen Delivery Method CPAP Oxygen Flow Rate 07/23/22 04:00 07/23/22 05:00 07/23/22 05:00 Temperature 98.5 F Pulse Rate 73 59 L Respiratory Rate 25 H 23 Blood Pressure 151/68 H Pulse Oximetry 94 93 Oxygen Delivery Method Oxygen Flow Rate 07/23/22 06:00 07/23/22 06:00 Temperature 97.5 F L Pulse Rate 61 Respiratory Rate 25 H Blood Pressure 165/72 H Pulse Oximetry 92 Oxygen Delivery Method Oxygen Flow Rate 3 Fraction of Inspired Oxygen 35 Oxygen Delivery Method CPAP Oxygen Flow Rate 3 Narrative Exam Narrative: Patient seen through two way audio visual system. He appears to be breathing comfortbaly on n/c. 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 CV: restart patient's home hydralazine 50 mg TID for better BP control -continue metoprolol 25 mg BID Pulm: -continue diuresis for pulm edema -home CPAP when sleeping for ZEESHAN ID: continue Ceftriaxone and Azithromycin for now possible superimposed underlying PNA -if cultures neg can consider stopping Ceftriaxone and Azithromycin Heme: daily cbc FEN/Renal -switch from Lasix drip to Lasix 40 mg IV TID (goal diuresis 1-2 L net neg today) -monitor BMP GI:renal diet Endo: continue synthroid PT/OT PPX: apixaban CCT spent 50 min Time Spent With Patient Critical Care time: I spent a total of [] minutes of critical care time on this patient's care today; this time is exclusive of procedural time.
--- NOTE | 2022-07-23 08:37 | P.PN_ITS ---
Subjective Subjective Date Patient Seen: 07/23/22 Time Patient Seen: 12:00 Interval history: Patient's breathing improving. Still very tired. is at bedside. Exam Vital Signs (past 8 hours): - 07/23/22 01:00 07/23/22 01:01 07/23/22 01:01 Temperature Pulse Rate 76 64 Respiratory Rate Blood Pressure 171/75 H Pulse Oximetry 92 93 Oxygen Delivery Method Oxygen Flow Rate 3 07/23/22 02:00 07/23/22 02:01 07/23/22 02:01 Temperature Pulse Rate 74 78 Respiratory Rate 23 26 H Blood Pressure 132/62 Pulse Oximetry 94 94 Oxygen Delivery Method Oxygen Flow Rate 07/23/22 03:00 07/23/22 03:00 07/23/22 04:00 Temperature Pulse Rate 68 Respiratory Rate 24 Blood Pressure 135/92 H Pulse Oximetry 95 Oxygen Delivery Method CPAP Oxygen Flow Rate 07/23/22 04:00 07/23/22 04:00 07/23/22 05:00 Temperature Pulse Rate 73 Respiratory Rate 25 H Blood Pressure 148/67 H 151/68 H Pulse Oximetry 94 Oxygen Delivery Method Oxygen Flow Rate 07/23/22 05:00 07/23/22 06:00 07/23/22 06:00 Temperature 98.5 F 97.5 F L Pulse Rate 59 L 61 Respiratory Rate 23 25 H Blood Pressure 165/72 H Pulse Oximetry 93 92 Oxygen Delivery Method Oxygen Flow Rate 3 Fraction of Inspired Oxygen 35 Oxygen Delivery Method CPAP Oxygen Flow Rate 3 Narrative Exam Narrative: Gen: Alert, oriented, chronically ill appearing 76 y.o. male, on nasal cannula, diaphoretic and exhausted HEENT: normocephalic, atraumatic, conjunctiva clear, sclera non-icteric, oral mucosa pink and moist Neck: supple, full ROM, no JVD, trachea is midline Resp: Lungs CTA, labored breathing, unable to complete full sentences CV: RRR, no murmur or rubs Abd: soft, non-tender, normoactive BTs Skin: no lesions or rashes, dry and intact Neuro: Alert and oriented X 4 w/no focal deficits. Speech clear and coherent. Extremities: 1-2+ edema of LE's Psyche: anxious. Objective Labs Result Diagrams: 07/23/22 04:50 07/23/22 14:30 Labs: Laboratory Results - last 24 hr 07/22/22 07/22/22 07/22/22 11:33 11:33 11:33 WBC 15.2 H RBC 2.87 L Hgb 8.9 L Hct 26.3 L MCV 91.7 MCH 30.9 MCHC 33.7 RDW 16.9 H Plt Count 224 Neut % (Auto) Not Reportable Lymph % (Auto) Not Reportable Antelope % (Auto) Not Reportable Eos % (Auto) Not Reportable Baso % (Auto) Not Reportable Neut # (Auto) Lymph # (Auto) Not Reportable Antelope # (Auto) Not Reportable Eos # (Auto) Baso # (Auto) Not Reportable Total Counted 100 Seg Neutrophils % 83.0 H Lymphocytes % (Manual) 5.0 L Atypical Lymphs % 1.0 H Monocytes % (Manual) 10.0 Eosinophils % (Manual) 1.0 L Neutrophils # (Manual) 43544 H Nucleated RBCs 1 H RBC Morphology Not Reportable Anisocytosis 2+ H PT 20.1 H INR 1.7 H VBG pH VBG pCO2 VBG pO2 VBG HCO3 VBG Total CO2 VBG O2 Saturation VBG Base Excess Sodium 140 Potassium 4.5 Chloride 108 H Carbon Dioxide 19 L BUN 73 H Creatinine 3.28 H Estimated GFR 19 L BUN/Creatinine Ratio 22.3 H Glucose 120 H Lactate Calcium 7.9 L Magnesium Total Bilirubin 0.8 AST 20 ALT 19 Alkaline Phosphatase 35 L NT-Pro-B Natriuret Pep 93545 H Total Protein 6.8 Albumin 4.0 Globulin 2.8 Albumin/Globulin Ratio 1.4 Procalcitonin Urine RBC Urine WBC Ur Squamous Epith Cells Urine Bacteria Ur Culture Indicated? Nasal Screen MRSA (PCR) Chlamy pneumoniae PCR Adenovirus (PCR) B. pertussis DNA (PCR) B.parapertussis DNA PCR Coronavirus OC43 (PCR) Coronavirus HKU1 (PCR) Coronavirus 229E (PCR) SARS-CoV-2 (PCR) Coronavirus NL63 (PCR) Human Metapneumovir PCR Influenza Type A (PCR) Influenza Type B (PCR) M. pneumoniae (PCR) Parainfluenza 1 (PCR) Parainfluenza 2 (PCR) Parainfluenza 3 (PCR) Parainfluenza 4 (PCR) RSV (PCR) Entero/Rhino (PCR) 07/22/22 07/22/22 07/22/22 11:33 12:23 13:05 WBC RBC Hgb Hct MCV MCH MCHC RDW Plt Count Neut % (Auto) Lymph % (Auto) Antelope % (Auto) Eos % (Auto) Baso % (Auto) Neut # (Auto) Lymph # (Auto) [place]elope # (Auto) Eos # (Auto) Baso # (Auto) Total Counted Seg Neutrophils % Lymphocytes % (Manual) Atypical Lymphs % Monocytes % (Manual) Eosinophils % (Manual) Neutrophils # (Manual) Nucleated RBCs RBC Morphology Anisocytosis PT INR VBG pH 7.40 VBG pCO2 33.1 L VBG pO2 62 H VBG HCO3 20 L VBG Total CO2 21 L VBG O2 Saturation 92 H VBG Base Excess -4.0 L Sodium Potassium Chloride Carbon Dioxide BUN Creatinine Estimated GFR BUN/Creatinine Ratio Glucose Lactate 1.1 Calcium Magnesium Total Bilirubin AST ALT Alkaline Phosphatase NT-Pro-B Natriuret Pep Total Protein Albumin Globulin Albumin/Globulin Ratio Procalcitonin Urine RBC Urine WBC Ur Squamous Epith Cells Urine Bacteria Ur Culture Indicated? Nasal Screen MRSA (PCR) Chlamy pneumoniae PCR Adenovirus (PCR) B. pertussis DNA (PCR) B.parapertussis DNA PCR Coronavirus OC43 (PCR) Coronavirus HKU1 (PCR) Coronavirus 229E (PCR) SARS-CoV-2 (PCR) Negative Coronavirus NL63 (PCR) Human Metapneumovir PCR Influenza Type A (PCR) Influenza Type B (PCR) M. pneumoniae (PCR) Parainfluenza 1 (PCR) Parainfluenza 2 (PCR) Parainfluenza 3 (PCR) Parainfluenza 4 (PCR) RSV (PCR) Entero/Rhino (PCR) 07/22/22 07/22/22 07/22/22 13:09 16:23 21:42 WBC RBC Hgb Hct MCV MCH MCHC RDW Plt Count Neut % (Auto) Lymph % (Auto) [place]elope % (Auto) Eos % (Auto) Baso % (Auto) Neut # (Auto) Lymph # (Auto) [place] # (Auto) Eos # (Auto) Baso # (Auto) Total Counted Seg Neutrophils % Lymphocytes % (Manual) Atypical Lymphs % Monocytes % (Manual) Eosinophils % (Manual) Neutrophils # (Manual) Nucleated RBCs RBC Morphology Anisocytosis PT INR VBG pH VBG pCO2 VBG pO2 VBG HCO3 VBG Total CO2 VBG O2 Saturation VBG Base Excess Sodium Potassium Chloride Carbon Dioxide BUN Creatinine Estimated GFR BUN/Creatinine Ratio Glucose Lactate 1.3 Calcium Magnesium Total Bilirubin AST ALT Alkaline Phosphatase NT-Pro-B Natriuret Pep Total Protein Albumin Globulin Albumin/Globulin Ratio Procalcitonin Urine RBC Urine WBC Ur Squamous Epith Cells Urine Bacteria Ur Culture Indicated? Nasal Screen MRSA (PCR) Negative for mrsa Chlamy pneumoniae PCR Not detected Adenovirus (PCR) Not detected B. pertussis DNA (PCR) Not detected B.parapertussis DNA PCR Not detected Coronavirus OC43 (PCR) Not detected Coronavirus HKU1 (PCR) Not detected Coronavirus 229E (PCR) Not detected SARS-CoV-2 (PCR) Not detected Coronavirus NL63 (PCR) Not detected Human Metapneumovir PCR Not detected Influenza Type A (PCR) Not detected Influenza Type B (PCR) Not detected M. pneumoniae (PCR) Not detected Parainfluenza 1 (PCR) Not detected Parainfluenza 2 (PCR) Not detected Parainfluenza 3 (PCR) Not detected Parainfluenza 4 (PCR) Not detected RSV (PCR) Not detected Entero/Rhino (PCR) Not detected 07/22/22 07/23/22 07/23/22 21:42 00:10 04:50 WBC 7.8 RBC 2.66 L Hgb 8.2 L Hct 24.1 L MCV 90.8 MCH 30.9 MCHC 34.0 RDW 17.1 H Plt Count 205 Neut % (Auto) 74.8 Lymph % (Auto) 10.8 L [place]elope % (Auto) 10.1 Eos % (Auto) 3.9 Baso % (Auto) 0.4 Neut # (Auto) 5800 Lymph # (Auto) 800 L [place] # (Auto) 800 Eos # (Auto) 300 Baso # (Auto) 0 Total Counted Seg Neutrophils % Lymphocytes % (Manual) Atypical Lymphs % Monocytes % (Manual) Eosinophils % (Manual) Neutrophils # (Manual) Nucleated RBCs RBC Morphology Anisocytosis PT INR VBG pH VBG pCO2 VBG pO2 VBG HCO3 VBG Total CO2 VBG O2 Saturation VBG Base Excess Sodium Potassium Chloride Carbon Dioxide BUN Creatinine Estimated GFR BUN/Creatinine Ratio Glucose Lactate Calcium Magnesium 2.6 H Total Bilirubin AST ALT Alkaline Phosphatase NT-Pro-B Natriuret Pep Total Protein Albumin Globulin Albumin/Globulin Ratio Procalcitonin 0.12 Urine RBC 1-5/hpf Urine WBC 0-1/hpf Ur Squamous Epith Cells 0-1 /hpf Urine Bacteria Occasional (0-1) Ur Culture Indicated? Cult not indicated Nasal Screen MRSA (PCR) Chlamy pneumoniae PCR Adenovirus (PCR) B. pertussis DNA (PCR) B.parapertussis DNA PCR Coronavirus OC43 (PCR) Coronavirus HKU1 (PCR) Coronavirus 229E (PCR) SARS-CoV-2 (PCR) Coronavirus NL63 (PCR) Human Metapneumovir PCR Influenza Type A (PCR) Influenza Type B (PCR) M. pneumoniae (PCR) Parainfluenza 1 (PCR) Parainfluenza 2 (PCR) Parainfluenza 3 (PCR) Parainfluenza 4 (PCR) RSV (PCR) Entero/Rhino (PCR) 07/23/22 04:50 WBC RBC Hgb Hct MCV MCH MCHC RDW Plt Count Neut % (Auto) Lymph % (Auto) Antelope % (Auto) Eos % (Auto) Baso % (Auto) Neut # (Auto) Lymph # (Auto) [place]elope # (Auto) Eos # (Auto) Baso # (Auto) Total Counted Seg Neutrophils % Lymphocytes % (Manual) Atypical Lymphs % Monocytes % (Manual) Eosinophils % (Manual) Neutrophils # (Manual) Nucleated RBCs RBC Morphology Anisocytosis PT INR VBG pH VBG pCO2 VBG pO2 VBG HCO3 VBG Total CO2 VBG O2 Saturation VBG Base Excess Sodium 140 Potassium 4.8 Chloride 105 Carbon Dioxide 23 BUN 72 H Creatinine 3.49 H Estimated GFR 17 L BUN/Creatinine Ratio 20.6 Glucose 82 Lactate Calcium 7.7 L Magnesium 2.5 H Total Bilirubin 0.7 AST 18 ALT 18 Alkaline Phosphatase 32 L NT-Pro-B Natriuret Pep Total Protein 6.1 L Albumin 3.5 Globulin 2.6 Albumin/Globulin Ratio 1.3 Procalcitonin Urine RBC Urine WBC Ur Squamous Epith Cells Urine Bacteria Ur Culture Indicated? Nasal Screen MRSA (PCR) Chlamy pneumoniae PCR Adenovirus (PCR) B. pertussis DNA (PCR) B.parapertussis DNA PCR Coronavirus OC43 (PCR) Coronavirus HKU1 (PCR) Coronavirus 229E (PCR) SARS-CoV-2 (PCR) Coronavirus NL63 (PCR) Human Metapneumovir PCR Influenza Type A (PCR) Influenza Type B (PCR) M. pneumoniae (PCR) Parainfluenza 1 (PCR) Parainfluenza 2 (PCR) Parainfluenza 3 (PCR) Parainfluenza 4 (PCR) RSV (PCR) Entero/Rhino (PCR) PFSH Medical History Anticoagulated Atrial fibrillation CAD (coronary artery disease) CKD (chronic kidney disease) HLD (hyperlipidemia) HTN (hypertension) Hypothyroidism TIA (transient ischemic attack) Surgical History H/O knee surgery H/O shoulder surgery H/O thyroidectomy Family History Father Hypertension Social History marital status: household members: spouse Smoking Status: Never smoker alcohol intake: current substance use type: does not use Assessment & Plan Assessment & Plan narrative: Acute hypoxic respiratory failure, present on admission, improving * CT of the chest indicated diffuse bilateral pulmonary opacities with consideration to florid pulmonary edema, ARDS and/or multifocal pneumonia. It also indicated cardiomegaly that may be associated with congestive heart failure and fluid overload. * weaned off Bipap, will transfer out of ICU * now on 3L NC, wean as able Acute on chronic HFpEF exacerbation, present on admission * now off lasix drip and on lasix 40 IV TID * Strict I&Os * Continue home dose of extended release metoprolol 25 mg p.o. b.i.d. * repeat echo shows EF 60-65% with diastolic dysfunction, RVSP of 50 and mild mod aortic and mitral regurg Essential hypertension, poor control * Continue home hydralazine 50 mg p.o. TID Stage 5 CKD, appears to be at baseline * Renal diet * Avoid nephrotoxic medications * Monitor urine output * Monitor daily BMP * scheduled for fistula placement for dialysis next week Suspected pneumonia, acute, present on admission * He does have a elevated white count of 15 however his procalcitonin is normal and he was recently on steroids * We will continue IV ceftriaxone and azithromycin for now Paroxysmal A-fib, chronic * currently rate controlled * continue home metoprolol and eliquis Chronic asthma * patient recently on prednisone as outpatient for asthma exacerbation * continue singular * start duonebs PRN Hypothyroidism, chronic * continue home synthroid * TSH 10.5 HLD, chronic * continue home lipitor and ezetimibe VTE Prophylaxis: Apixaban. Dispo: 1-2 days and pending PT eval for placement Code status: DNR/DNI as discussed with the patient who identifies his Lacy as his surrogate and POA. Time Spent With Patient Critical Care time: I spent a total of [] minutes of critical care time on this patient's care today; this time is exclusive of procedural time. Quality VTE Deep Vein Thrombosis/Pulmonary Embolism Present on Admission: No
[2022-07-23] MEDS: APIXABAN 5 MG TABLET PO ×2 (09:09→20:07)
[2022-07-23] MEDS: FUROSEMIDE 40 MG/4 ML VIAL IV (09:09)
[2022-07-23] MEDS: AMLODIPINE 5 MG TABLET 10 MG PO ×2 (09:09→20:07)
[2022-07-23] MEDS: ATORVASTATIN 20 MG TABLET PO (09:09)
[2022-07-23] MEDS: MONTELUKAST 10 MG TABLET PO (09:09)
[2022-07-23] MEDS: EZETIMIBE 10 MG TABLET PO (09:09)
[2022-07-23] MEDS: OXYBUTYNIN 5 MG ER TAB PO (09:09)
[2022-07-23] MEDS: METOPROLOL ER 25 MG TABLET PO ×2 (09:09→20:07)
[2022-07-23] MEDS: FINASTERIDE 5 MG TABLET PO (09:09)
[2022-07-23] MEDS: cefTRIAXone 1,000 MG in SODIUM CHLORIDE 0.9% 100 ML 200 MG IV (11:35)
[2022-07-23] MEDS: AZITHROMYCIN 500 MG in DEXTROSE 5% IN WATER 250 ML 250 MG IV (12:50)
[2022-07-23] MEDS: HYDRALAZINE 10 MG TABLET 50 MG PO ×2 (14:14→21:22)
[2022-07-23 14:51] LABS: BUN Creatinine Ratio 22.8 (6-22); Blood Urea Nitrogen 76 mg/dL (9-20); Calcium 7.7 mg/dL (8.4-10.2); Carbon Dioxide 23 mmol/L (22-32); Chloride 104 mmol/L (98-107); Estimated Glomerular Filt Rate 18 mL/min (>60); Glucose 93 mg/dL (80-110); HEMOLYSIS < 15 (0-50); Potassium 4.4 mmol/L (3.4-5.1); Sodium 141 mmol/L (137-145)
--- NOTE | 2022-07-23 15:06 | CM.DANOTE ---
Patient is a 76 yo male who was admitted on 07/22/22 for SOB. Pt has [employer] and [employer] for insurance and his PCP is Cookie Acevedo and Crew Mess Attendant is Dr. Figueroa. EMR was reviewed. Per MD, pt with worsening dyspnea and SOB and has hx of stage 3-4 kidney disease and CHF and admitted for hypoxia of 82% on room air and started on bipap. Per RN, pt with scheduled stent placement next week 07/30/22 for plan of initiating dialysis. Pt last admitted in April 2022 this year and attempt was made for transfer for higher level of care and Nephrology needs but no beds available and pt stabilized and discharged home with spouse. SW met bedside with pt and adult son Annie and explained role and they confirm that pt still live in [place] with spouse Lacy who is pt's primary CG and DPOA and son Annie and KASSIE live next door on the same property and son and DIL both work time clock inspector. Pt denies hx of HH or SNF and confirms he has needed increased assist over the past month or so with his increased SOB and dyspnea. SW inquired if pt has decided where to start his dialysis and pt and son both state pt has not made this decision yet as pt is now unsure if he wants to pursue dialysis still. SW discussed with who kindly agrees to attempt Goals of Care discussion towards determining POC and d/c planning needs. Plan: SW to follow closely after Goals of Care discussion regarding tx vs comfort focused measures and ongoing discussion with pt and family to determine d/c planning needs. MELLISA Velarde Discharge Planning/Care Management CM Discharge Assessment Start: 07/23/22 15:02 Freq: Status: Active Protocol: Document 07/23/22 15:02 (Rec: 07/23/22 15:06 [id number]) Discharge Planning Assessment Assigned Manager Of Pharmacy MELLISA Wilson DPOA/Assigned Designee Name Spouse Lacy Marie Contact Information [phone] Advance Directives? Yes Advance Directives on File No History Provided By Patient,Family Member,Medical Record Has Patient been admitted in last 30 No days? Comment last admission in April 2022 this year and went home with spouse Prior Living Arrangements House Household Members spouse Type of transporation used prior to Relies on Others admit Independent with ADL's Yes: somewhat, increased assist with SOB Is patient alert and oriented? Yes Needs Assistance With Meal Prep,Managing Medications ,Home Chores / Shopping Caregiver for Another No Comment Crew Mess Attendant Dr. Figueroa at baseline DME Already Rented / Owned FWW / Walker,Cane Comment Pending progress and needs and POC (tx vs possible comfort?) Barriers to Discharge No Discharge Plan Home with Home Health Transportation Arrangement Family to provide transport if safe for home Additional Comment Pending progress HH vs SNF vs potential Hospice Whiteboard Updated in Patient Room with Yes name and ext. # of Manager Of Pharmacy Review Status In Process Please Provide Date Initial DC 07/23/22 Assessment Was Performed Next Review Type Continued Stay Review
[2022-07-23] MEDS: LATANOPROST 0.005% OPHTH 2.5 ML 1 DROPS EYE-BOTH (20:06)
[2022-07-23] MEDS: TAMSULOSIN 0.4 MG CAPSULE 0.8 MG PO (20:07)
[2022-07-23] MEDS: ALBUTEROL/IPRATROPIUM 3 ML AMPUL INH (20:41)
[2022-07-24] VITALS (8 sets, daily range): BP systolic 138–177; BP diastolic 64–87; PULSE 64–81; RESP 16–22; TEMP 36.3–37; O2SAT 93–98
[2022-07-24 05:47] LABS: BUN Creatinine Ratio 21.8 (6-22); Blood Urea Nitrogen 78 mg/dL (9-20); Calcium 7.7 mg/dL (8.4-10.2); Carbon Dioxide 23 mmol/L (22-32); Chloride 105 mmol/L (98-107); Estimated Glomerular Filt Rate 17 mL/min (>60); Glucose 89 mg/dL (80-110); HEMOLYSIS < 15 (0-50); Potassium 4.5 mmol/L (3.4-5.1); Sodium 138 mmol/L (137-145)
[2022-07-24 05:48] LABS: Add Manual Diff / Slide Review NO; Basophils Absolute Auto 0 /uL (0-100); Basophils Percent Auto 0.5 % (0-2); Eosinophils Absolute Auto 500 /uL (0-450); Eosinophils Percent Auto 5.2 % (2-4); Hematocrit 26.9 % (41-53); Hemoglobin 9.2 g/dL (13.5-17.5); Lymphocytes Absolute Auto 900 /uL (1100-4500); Lymphocytes Percent Auto 8.6 % (25-40); Mean Corpuscular HGB Conc 34.1 % (30-36); Mean Corpuscular Hemoglobin 30.9 PG (26-34); Mean Corpuscular Volume 90.7 fL (80-100); Monocytes Absolute Auto 1000 /uL (0-900); Monocytes Percent Auto 9.4 % (3-14); Neutrophils Absolute Auto 8000 /uL (1500-7000); Neutrophils Percent Auto 76.3 % (50-75); Platelet Count 202 X10^3/uL (150-400); Red Blood Cell Count 2.97 X10^6/uL (4.5-5.9); Red Cell Distribution Width 16.5 % (11.6-14.8); White Blood Cell Count 10.5 X10^3/uL (4.5-11.0)
[2022-07-24] MEDS: HYDRALAZINE 10 MG TABLET 50 MG PO ×2 (06:10→15:03)
[2022-07-24] MEDS: LEVOTHYROXINE 75 MCG TABLET PO (06:10)
[2022-07-24] MEDS: LEVOTHYROXINE 100 MCG TABLET PO (06:10)
[2022-07-24] MEDS: ALBUTEROL/IPRATROPIUM 3 ML AMPUL INH (07:06)
--- NOTE | 2022-07-24 08:17 | P.PN_ITS ---
Exam Vital Signs (past 8 hours): - 07/24/22 04:00 07/24/22 06:10 07/24/22 07:07 Temperature 98.5 F Pulse Rate 69 65 Respiratory Rate 22 Blood Pressure 177/77 H 177/77 H 165/81 H Pulse Oximetry 96 Oxygen Delivery Method Oxygen Flow Rate 3 07/24/22 07:15 Temperature Pulse Rate 64 Respiratory Rate 16 Blood Pressure Pulse Oximetry 98 Oxygen Delivery Method Nasal Cannula Oxygen Flow Rate 3 Fraction of Inspired Oxygen 35 Oxygen Delivery Method Nasal Cannula Oxygen Flow Rate 3 Narrative Exam Narrative: Gen: Alert, oriented, chronically ill appearing 76 y.o. male, on nasal cannula, diaphoretic and exhausted HEENT: normocephalic, atraumatic, conjunctiva clear, sclera non-icteric, oral mucosa pink and moist Neck: supple, full ROM, no JVD, trachea is midline Resp: Lungs CTA, labored breathing, unable to complete full sentences CV: RRR, no murmur or rubs Abd: soft, non-tender, normoactive BTs Skin: no lesions or rashes, dry and intact Neuro: Alert and oriented X 4 w/no focal deficits. Speech clear and coherent. Extremities: 1-2+ edema of LE's Psyche: anxious. Objective Labs Result Diagrams: 07/24/22 04:45 07/24/22 04:45 Labs: Laboratory Results - last 24 hr 07/23/22 07/24/22 07/24/22 14:30 04:45 04:45 WBC 10.5 RBC 2.97 L Hgb 9.2 L Hct 26.9 L MCV 90.7 MCH 30.9 MCHC 34.1 RDW 16.5 H Plt Count 202 Neut % (Auto) 76.3 H Lymph % (Auto) 8.6 L [place] % (Auto) 9.4 Eos % (Auto) 5.2 H Baso % (Auto) 0.5 Neut # (Auto) 8000 H Lymph # (Auto) 900 L [place] # (Auto) 1000 H Eos # (Auto) 500 H Baso # (Auto) 0 Sodium 141 138 Potassium 4.4 4.5 Chloride 104 105 Carbon Dioxide 23 23 BUN 76 H 78 H Creatinine 3.34 H 3.58 H Estimated GFR 18 L 17 L BUN/Creatinine Ratio 22.8 H 21.8 Glucose 93 89 Calcium 7.7 L 7.7 L [facility] Medical History Anticoagulated Atrial fibrillation CAD (coronary artery disease) CKD (chronic kidney disease) HLD (hyperlipidemia) HTN (hypertension) Hypothyroidism TIA (transient ischemic attack) Surgical History H/O knee surgery H/O shoulder surgery H/O thyroidectomy Family History Father Hypertension Social History marital status: household members: spouse Smoking Status: Never smoker alcohol intake: current substance use type: does not use Assessment & Plan Assessment & Plan narrative: Acute hypoxic respiratory failure, present on admission, improving * CT of the chest indicated diffuse bilateral pulmonary opacities with consideration to florid pulmonary edema, ARDS and/or multifocal pneumonia. It also indicated cardiomegaly that may be associated with congestive heart failure and fluid overload. * weaned off Bipap, will transfer out of ICU * now on 3L NC, wean as able Acute on chronic HFpEF exacerbation, present on admission * now off lasix drip and on lasix 40 IV TID * Strict I&Os * Continue home dose of extended release metoprolol 25 mg p.o. b.i.d. * repeat echo shows EF 60-65% with diastolic dysfunction, RVSP of 50 and mild mod aortic and mitral regurg Essential hypertension, poor control * Continue home hydralazine 50 mg p.o. TID Stage 5 CKD, appears to be at baseline * Renal diet * Avoid nephrotoxic medications * Monitor urine output * Monitor daily BMP * scheduled for fistula placement for dialysis next week Suspected pneumonia, acute, present on admission * He does have a elevated white count of 15 however his procalcitonin is normal and he was recently on steroids * We will continue IV ceftriaxone and azithromycin for now Paroxysmal A-fib, chronic * currently rate controlled * continue home metoprolol and eliquis Chronic asthma * patient recently on prednisone as outpatient for asthma exacerbation * continue singular * start duonebs PRN Hypothyroidism, chronic * continue home synthroid * TSH 10.5 HLD, chronic * continue home lipitor and ezetimibe VTE Prophylaxis: Apixaban. Dispo: 1-2 days and pending PT eval for placement Code status: DNR/DNI as discussed with the patient who identifies his Lacy as his surrogate and POA. Time Spent With Patient Critical Care time: I spent a total of [] minutes of critical care time on this patient's care today; this time is exclusive of procedural time. Quality VTE Deep Vein Thrombosis/Pulmonary Embolism Present on Admission: No
--- NOTE | 2022-07-24 10:52 | OT.IP.EVAL ---
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 (07/22/22) Past Medical History (Last Reviewed 07/23/22 @ 00:18 by COREY Warner) Anticoagulated Atrial fibrillation CAD (coronary artery disease) CKD (chronic kidney disease) HLD (hyperlipidemia) HTN (hypertension) Hypothyroidism TIA (transient ischemic attack) Surgical History (Last Reviewed 07/23/22 @ 00:18 by COREY Warner) H/O knee surgery H/O shoulder surgery H/O thyroidectomy Occupational Therapy Inpatient Evaluation/Re-Eval M1 PT/OT-IP Prior Functional Status Start: 07/24/22 11:00 Freq: NEEDED Status: Active Protocol: Document 07/24/22 11:01 CGR (Rec: 07/24/22 11:14 CGR [id number]) Medical Review Prior Functional Status Medical History Reviewed Yes Communication Pt is an effective verbal communicator. Pt is slightly [place]. Mobility and Gait Pt was IND in all mobility at baseline. Activities of Daily Living and IADL's Pt was IND in all ADLs and IADLs at baseline but states showers were difficult because the steam made it harder to breath. Pt states all activities have been more difficult in the past few months d/t SOB. 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 Social History Household Members spouse Living Arrangements House Number of Floors (Floors) One Floor Number of Stairs To Enter/Railing? 2 steps to enter without railing Home Environment High Toilet,Walk in Shower Employment Status Retired Additional Social History Comment Pt states he has no DME. Pt's drives most of the time but he does still drive when needed. His current is Lacy, and they have been for ~6 years. His first . M2 OT-IP Current Condition Start: 07/24/22 11:00 Freq: Status: Active Protocol: Document 07/24/22 11:01 CGR (Rec: 07/24/22 11:14 CGR [id number]) Occupational Therapy Current Condition Current Condition Evaluation Date 07/24/22 Treatment Diagnosis CHF exacerbation Diagnosis Onset Date 07/24/22 M3 OT- IP Subjective and Pain Start: 07/24/22 11:00 Freq: Status: Active Protocol: Document 07/24/22 11:01 CGR (Rec: 07/24/22 11:14 R [id number]) OT- Subjective Occupational Therapy Visit Type Type Initial Evaluation Visit Start Time 10:20 Visit Stop Time 10:52 Total Visit Minutes 32 OT Pain Assessment Pain When Pain Assessed At Rest Pain Present Pain Present Pain Reported Location Generalized Intensity 2 Scale Used Numeric (0 - 10) Management Techniques Modification of Treatment,Re- positioning M4 OT- IP ADL's Start: 07/24/22 11:00 Freq: Status: Active Protocol: Document 07/24/22 11:01 CGR (Rec: 07/24/22 11:14 CGR [id number]) OT [id number] Comments OT Self-Feeding Comments not meal time OT ADL-Grooming General Evaluation Grooming Ability Standby Assistance Areas Needing Assistance Combing/Brushing Hair,Face Washing Comments OT Grooming Comments standing at sink OT ADL-Oral Care General Eval Oral Care Ability Standby Assistance Areas of Assistance Brushing Teeth Comments Oral Care Comments standing at sink OT ADL-Dressing General Eval Lower Body Dressing Ability Total Assistance Areas Needing Assistance Socks Comments OT Dressing Comments This curriculum writer assisted with LB dressing d/t labored breathing after supine to sit. OT ADL-Toileting General Evaluation Toileting Ability Standby Assistance Comments OT Toileting Comments pt sat on toilet to attempt BM . Pt was unable to void but passed gas. OT ADL-Bathing Comments OT Bathing Comments not performed M5 OT- IP IADL's Start: 07/24/22 11:00 Freq: Status: Active Protocol: Document 07/24/22 11:01 CGR (Rec: 07/24/22 11:14 CGR [id number]) OT-Instrumental Activities of Daily Living Deficits IADL Deficits Identified No Deficits Home Safety Awareness Awareness of Need for Assistance at Home Good Awareness Ability to Problem Solve Emergency Able to Problem Solve Situations Medication Management Medication Management No Deficits Identified Money Management Money Management No Deficits Identified Meal Preparation Meal Preparation Caregiver Provides Assist Slot Attendant Slot Attendant Caregiver Provides Assist Driving Driving Comments Pt's drives most of the time but pt states he drives when needed. M6 OT- IP Functional Cognition Start: 07/24/22 11:00 Freq: Status: Active Protocol: Document 07/24/22 11:01 CGR (Rec: 07/24/22 11:14 R [id number]) Cognitive Factors Limiting Selfcare Function Cognitive Ability Level of Alertness Alert Patient Orientation Name,Age,Birthday,Month,Date, Year,Day of Week,Place, Situation Attention Span Ability Capable of Focused Attention, Capable of Sustained Attention Ability to Follow Commands Able to Follow Multi-Step Commands OT- Vision and Hearing OT- Hearing Assessment OT- Hearing Assessment Hearing Impaired OT- Vision Assessment Visual Acuity Glasses For Reading Visual Attentiveness Impaired Occular Pursuits WFL Visual Convergence WFL Vision Assessment Comments Pt needed extra time and further instructions to follow finger but able to perform once he started. M7 OT- IP Mobility and Balance Start: 07/24/22 11:00 Freq: Status: Active Protocol: Document 07/24/22 11:01 CGR (Rec: 07/24/22 11:14 CGR [id number]) OT- Bed Mobility Assessment Supine to Sit Supine to Sit Assist Standby Assistance Scooting Scooting to Edge of Bed Standby Assistance OT-Transfer Assessment Sit to and From Stand Sit to and from Stand Standby Assistance Transfers Transfer Ability Standby Assistance Technique Transfer Destination Bed,Chair,Toilet Transfer Technique Stand Step Pivot Devices Transfer Assistive Devices Front Wheeled Walker Comments Mobility Comments FWW used d/t labored breathing and burr. Pt is IND at baseline and will likely progress to being stable without walker. OT- Balance Assessment Sitting Balance and Reactions Static Sitting Balance Ability Good Dynamic Sitting Balance Ability Good M8 OT- IP Objective Assessments Start: 07/24/22 11:00 Freq: Status: Active Protocol: Document 07/24/22 11:01 CGR (Rec: 07/24/22 11:14 CGR [id number]) OT Gross Range of Motion Upper Extremity Range of Motion Assessment Left Impaired ROM Impairments L shld impairment, pt states hx of shld sx OT Strength Comments Strength Comments 4+/5 OT- Coordination Assessment Upper Extremity Finger to Nose Test Within Functional Limits Finger Tapping Test Within Functional Limits OT-Muscle Tone Assessment Muscle Tone WNL Yes OT Sensation Assessment Edema Edema Absent M9 OT- IP Assessment and Plan Start: 07/24/22 11:00 Freq: Status: Active Protocol: Document 07/24/22 11:01 CGR (Rec: 07/24/22 11:14 CGR [id number]) OT Summary Assessment and Plan Potential Rehabilitation Potential Excellent Analytic Complexity at Evaluation Moderate Summary OT Impairments Pain,Range of Motion,Balance, Functional Mobility,Dressing, Toileting,Bathing,Toilet Transfers,Shower Transfers, Activity Tolerance Progress Towards Goals Progressing Toward Goals Assessment Summary Pt presents as a moderate complexity evaluation s/p admit for SOB. Pt is progressing well and participated in mobility and ADLs today. Pt is however limited by his activity tolerance at this time. Pt will continue to benefit from therapy services. Recommend d/ c to home with family support. Goals Grooming Goal Independent Dressing Goal Independent Toileting Goal Independent Bathing Goal Independent Toilet Transfer Goal Independent Shower Transfer Goal Independent Days to Meet Goals 5 Frequency of Treatment Frequency Of Treatment Once a Day Treatment Plan OT Treatment Plan ADL Training,Functional Mobility,Patient/Family Education,Discharge Planning Other Treatment Recommendations and Next energy conservation, shower Treatment Focus Discharge Recommendations OT Discharge Recommendations Home with Assistance Transportation Needs at Discharge Private Vehicle
[2022-07-24] MEDS: APIXABAN 5 MG TABLET PO (11:11)
[2022-07-24] MEDS: METOPROLOL ER 25 MG TABLET PO (11:11)
[2022-07-24] MEDS: ATORVASTATIN 20 MG TABLET PO (11:11)
[2022-07-24] MEDS: FINASTERIDE 5 MG TABLET PO (11:11)
[2022-07-24] MEDS: AMLODIPINE 5 MG TABLET 10 MG PO (11:11)
[2022-07-24] MEDS: FUROSEMIDE 40 MG/4 ML VIAL IV (11:12)
[2022-07-24] MEDS: EZETIMIBE 10 MG TABLET PO (11:32)
[2022-07-24] MEDS: OXYBUTYNIN 5 MG ER TAB PO (11:32)
--- NOTE | 2022-07-24 11:46 | PT-IP ANOTE ---
11:46 Pt unavailable for PT eval due to catheter pain. Nursing request PT hold until catheter could be removed and activity orders could be changed from bedrest to amb as tolerated.
[2022-07-24] MEDS: MONTELUKAST 10 MG TABLET PO (11:59)
[2022-07-24] MEDS: cefTRIAXone 1,000 MG in SODIUM CHLORIDE 0.9% 100 ML 200 MG IV (11:59)
--- NOTE | 2022-07-24 14:43 | P.DS_ITS ---
History of Present Illness History of Present Illness Date Patient Seen: 07/24/22 Time Patient Seen: 14:00 Chief complaint: SOB, O2 levels at 83, sent by [facility] Narrative: Mr. Borden is a 76M with PMH afib anticoagulated on apixaban, CKD stage 4, CAD, HTN, hypothyroidism, asthma, ZEESHAN who presents with shortness of breath. He states he has had shortness of breath for quite some time. It has become progressively worse to have shortness of breath with very little exertion.?He initially presented to urgent care complaining of 3 months of dyspnea worsening over the past 3 weeks, orthopnea now unable to walk 3-4 feet.? Oxygen saturations with minimal exertion were in the low 80s.? He insisted on driving himself to the emergency department.? He denies headaches or nasal congestion, any recent fevers, vomiting, abdominal pain, diarrhea or constipation.?He did no te that he typically does have somewhat productive sputum with occasional blood seen in his sputum.? He states that he has been having difficulty sleeping because he can not lay down flat and appears physically exhausted with increased work of breathing. He states that he has been using his inhalers all morning and they have not been effective. He was significantly hypoxic on room air as low as 82%.? Patient is stage 3-4 chronic kidney disease and states he is due to have a fistula placed next week for dialysis, but did not seem to understand a future need to go to a hospital that offers dialysis if he needs hospitalization. He sees Dr. Figueroa, glost tile shader He stated EMS said that all of the hospitals are full and will not take him anywhere but [place]. Chemistries showed a creatinine of 3.28 which is actually better than his baseline.? BNP is significantly elevated consistent with clinical heart failure which fits with his overall clinical picture and complaints.? The white count is slightly elevated and moderate anemia is the ED provider suspected is likely secondary to his fluid overload rather than true anemia.? He was administered IV Lasix, topical nitrates to help with blood pressure and placed on BiPAP to facilitate more rapid initial diuresis.?In the ED, he was started on antibiotics with a presumed pulmonary source until proven otherwise.? He is afebrile, blood pressure 170/74, heart rate 86, respiratory rate 24, oxygen saturation of 95% on 2 L with an FiO2 of 35, he weighs 113.3 with a BMI of 36.9.? His WBC was 15.2 hemoglobin 8.9 and hematocrit is 26.3 which is s lightly lower than his baseline, he did have a left shift, his initial VBG pCO2 was 33.1 VBG PO2 was 62 VBG bicarb 20 VBG total CO2 21, chloride 108 serum bicarb to 19, creatinine 3.28, BUN 73 with a GFR of 19, glucose 120, calcium 7.9, magnesium 2.6 his proBNP was 18803, procalcitonin was 0.12, MRSA swab was negative and COVID 19 PCR is also negative. FH:? Mother age 95 and had dementia and spent the last 10 years of her life in a assisted.? Father is age 79 of renal failure, patient stated he went into surgery and they never offered him dialysis. Discharge Providers Provider Date of admission: 07/22/22 15:56 Discharge Date: 07/24/22 Primary care physician: Doctor Carter MD Consults: 07/22/22 21:04 Consult to Tele-fingernail technician Routine Comment: Consulting Provider: [facility] [employer] Reason for consultation: [employer] Tutor services Has provider been notified: Yes 07/24/22 08:18 Consult to Occupational Therapy Evaluate & Treat Comment: Physician Instructions: Evaluate and treat Consult to Physical Therapy Evaluate & Treat Comment: Physician Instructions: Evaluate and Treat Discharge provider: Jose Sherwood, Summary Hospital Course Discharge Diagnosis: Acute hypoxic respiratory failure, present on admission, improving * CT of the chest indicated diffuse bilateral pulmonary opacities with consideration to florid pulmonary edema, ARDS and/or multifocal pneumonia.? It also indicated cardiomegaly that may be associated with congestive heart failure and fluid overload. * weaned off Bipap, will transfer out of ICU * weaned off O2 via NC prior to dc Acute on chronic HFpEF exacerbation, present on admission * now off lasix drip and on lasix 40 IV TID, diuresed total of 7L * Strict I&Os * Continue home dose of extended release metoprolol 25 mg p.o. b.i.d. * repeat echo shows EF 60-65% with diastolic dysfunction, RVSP of 50 and mild mod aortic and mitral regurg Essential hypertension, poor control * Continue home hydralazine 50 mg p.o. TID Stage 5 CKD, appears to be at baseline * Renal diet * Avoid nephrotoxic medications * Monitor urine output * Monitor daily BMP * scheduled for fistula placement for dialysis next week Suspected pneumonia, acute, present on admission * He does have a elevated white count of 15 however his procalcitonin is normal and he was recently on steroids * We will continue IV ceftriaxone and azithromycin, then discharged on po azithro and augmentin to finish 3 and 5 day course respectively Paroxysmal A-fib, chronic * currently rate controlled * continue home metoprolol and eliquis Chronic asthma * patient recently on prednisone as outpatient for asthma exacerbation * continue singular * start duonebs PRN Hypothyroidism, chronic * continue home synthroid * TSH 10.5, may want to discuss raising synthoid with PCP HLD, chronic * continue home lipitor and ezetimibe Hospital Course: Admitted for acute HFpEF exacerbation with increased LE swelling and pulmonary edema initially requiring Bipap. Started on lasix drip and diuresed 3L and able to come off bipap and downgrade out of ICU. Lasix changed to 40 IV TID and diuresed 4L more to total 7L since admission. Able to wean off O2. Due to elevated WBC and pulm opacities, started on CAP treatment so discharged on a few additional days of po abx for this. Did well with OT and able to return home. Time Spent with Patient Time spent: Greater than 30 minutes Exam Vital Signs (past 8 hours): - 07/24/22 07:07 07/24/22 07:15 07/24/22 08:00 Temperature 98.6 F Pulse Rate 65 64 68 Respiratory Rate 16 21 Blood Pressure 165/81 H 171/72 H Pulse Oximetry 98 97 Oxygen Delivery Method Nasal Cannula Oxygen Flow Rate 3 2 07/24/22 12:00 07/24/22 07:00 07/24/22 14:18 Temperature Pulse Rate 81 Respiratory Rate 19 Blood Pressure 172/87 H Pulse Oximetry 97 95 Oxygen Delivery Method Nasal Cannula Room Air Oxygen Flow Rate 0 Fraction of Inspired Oxygen 35 Oxygen Delivery Method Room Air Oxygen Flow Rate 0 Narrative Exam Narrative: Gen: Alert, oriented, chronically ill appearing 76 y.o. male, on nasal cannula, sitting up eating in chair and looking better today HEENT: normocephalic, atraumatic, conjunctiva clear, sclera non-icteric, oral mucosa pink and moist Neck: supple, full ROM, no JVD, trachea is midline Resp: Lungs CTA, labored breathing, unable to complete full sentences CV: RRR, no murmur or rubs Abd: soft, non-tender, normoactive BTs Skin: no lesions or rashes, dry and intact Neuro: Alert and oriented X 4 w/no focal deficits. Speech clear and coherent. Extremities: 1-2+ edema of LE's Psyche: anxious. Objective Labs Result Diagrams: 07/24/22 04:45 07/24/22 04:45 Labs: Laboratory Results - last 24 hr 07/23/22 07/24/22 07/24/22 14:30 04:45 04:45 WBC 10.5 RBC 2.97 L Hgb 9.2 L Hct 26.9 L MCV 90.7 MCH 30.9 MCHC 34.1 RDW 16.5 H Plt Count 202 Neut % (Auto) 76.3 H Lymph % (Auto) 8.6 L [place] % (Auto) 9.4 Eos % (Auto) 5.2 H Baso % (Auto) 0.5 Neut # (Auto) 8000 H Lymph # (Auto) 900 L [place] # (Auto) 1000 H Eos # (Auto) 500 H Baso # (Auto) 0 Sodium 141 138 Potassium 4.4 4.5 Chloride 104 105 Carbon Dioxide 23 23 BUN 76 H 78 H Creatinine 3.34 H 3.58 H Estimated GFR 18 L 17 L BUN/Creatinine Ratio 22.8 H 21.8 Glucose 93 89 Calcium 7.7 L 7.7 L PFSH Medical History Anticoagulated Atrial fibrillation CAD (coronary artery disease) CKD (chronic kidney disease) HLD (hyperlipidemia) HTN (hypertension) Hypothyroidism TIA (transient ischemic attack) Surgical History H/O knee surgery H/O shoulder surgery H/O thyroidectomy Family History Father Hypertension Social History marital status: household members: spouse Smoking Status: Never smoker alcohol intake: current substance use type: does not use Discharge Plan Discharge Plan Patient Disposition: Home Provider Discharge Comment: You were admitted for water retention which was likely a result of the prednisone you were on. We gave you IV lasix and you peed off several liters of fluid which improved your breathing substantially. To cover for a pneumonia just in case you will have a few more days of oral antibiotics to take at home. Discharge orders & Medications Prescriptions: New azithromycin 500 mg tablet 500 mg PO DAILY 2 Days Qty: 2 0RF Rx Instructions: start on 07/25 amoxicillin-pot clavulanate 875-125 mg tablet 1 tab PO BID 3 Days Qty: 6 0RF Rx Instructions: start on 07/25 Continued hydralazine 25 mg tablet 50 mg PO TID metoprolol succinate 25 mg tablet extended release 24 hr 25 mg PO BID atorvastatin 20 mg tablet 20 mg PO DAILY Label Comments: TAKE 1 TABLET BY MOUTH ONCE DAILY IN THE EVENING FOR CHOLESTEROL felodipine 10 mg tablet extended release 24 hr 10 mg PO BID Label Comments: TAKE 1 TABLET BY MOUTH ONCE DAILY albuterol sulfate 90 mcg/actuation HFA aerosol inhaler 2 puff inhalation Q4H PRN (Reason: Wheezing) Label Comments: INHALE 2 PUFFS BY MOUTH EVERY 4 HOURS NEEDED FOR WHEEZE Rx Instructions: 2 puffs prn for shortness of breath latanoprost 0.005 % drops 1 drp EYE-BOTH BEDTIME Rx Instructions: 1 drop in affected BOTH eyes daily at HS fluticasone propion-salmeterol [Advair Diskus] 250-50 mcg/dose Blister With Device 1 inh INHALATION BID tamsulosin 0.4 mg Capsule 0.8 mg PO BEDTIME finasteride 5 mg Tablet 5 mg PO DAILY trospium 20 mg Tablet 20 mg PO DAILY levothyroxine 175 mcg tablet 175 mcg PO DAILY Qty: 30 1RF ezetimibe 10 mg tablet 10 mg PO DAILY nitroglycerin 0.4 mg Tablet, Sublingual 0.4 mg SUBLINGUAL Q5M PRN (Reason: Chest Pain) Rx Instructions: do not exceed 3 doses per episode montelukast 10 mg Tablet 10 mg PO DAILY albuterol sulfate 90 mcg/actuation Hfa Aerosol Inhaler 2 puff INHALATION Q4HR PRN (Reason: Wheezing) furosemide [Lasix] 40 mg tablet 40 mg PO DAILY Qty: 30 0RF prednisone 20 mg tablet 20 mg DAILY Rx Instructions: 1 tablet daily clonidine 0.2 mg/24 hr patch weekly 0.2 mg transdermal WEEKLY Label Comments: APPLY 1 PATCH TOPICALLY ONCE A WEEK Follow up/Referrals: Carter,MD Evelin [Primary Care Provider] - Discharge Data Primary Care Provider: Doctor Carter Quality VTE Deep Vein Thrombosis/Pulmonary Embolism Present on Admission: No
--- NOTE | 2022-07-24 16:40 | PT-IP ANOTE ---
Reviewed EMR and checked pt's room but pt not in room. Asked NAC and stated that pt d/c.
== END 2022-07-24 15:23 | disposition home or self-care (01) | DRG 291 ==
LOC: ED 15:55 → AC 15:57 → ICU 16:13
PROVIDERS: Nurse Practitioner Family; Student in an Organized Health Care Education/Training Program; Admitting Provider Neuromusculoskeletal Medicine, Sports Medicine; Emergency Provider Emergency Medicine; Family Provider Family Medicine; Referring Provider Emergency Medicine; Visit Provider Neuromusculoskeletal Medicine, Sports Medicine
DX: I13.2 Hypertensive heart and chronic kidney disease with heart failure and with stage 5 chronic kidney disease, or end stage renal disease (principal); I50.33 Acute on chronic diastolic (congestive) heart failure; J96.01 Acute respiratory failure with hypoxia; J18.9 Pneumonia, unspecified organism; N18.5 Chronic kidney disease, stage 5; I48.0 Paroxysmal atrial fibrillation; J45.909 Unspecified asthma, uncomplicated; E03.9 Hypothyroidism, unspecified; E78.5 Hyperlipidemia, unspecified; I25.10 Atherosclerotic heart disease of native coronary artery without angina pectoris; G47.33 Obstructive sleep apnea (adult) (pediatric); Z20.822 Contact with and (suspected) exposure to COVID-19; Z66 Do not resuscitate
CPT/HCPCS: 36415; 71045; 71250; 80048; 80053; 81015; 82805; 83605; 83735; 83880; 84145; 85007; 85025; 85610; 87040; 87070; 87205; 87633; 87635; 87797; 93005; 93010; 93306; 94618; 94640; 94660; 96365; 96366; 96367; 97166; 97535; 99285; 99291; C9803; J0696; J1940

== ENCOUNTER 2022-09-27 09:10 | Emergency (ER) | payer MEDICARE, OTHER, SELFPAY ==
[2022-07-22 16:35] VITALS: PULSE 96; RESP 28; O2SAT 97
[2022-07-22 16:42] VITALS: BMI 36.9
[2022-09-27 09:26] VITALS: BP 164/70; PULSE 60; RESP 19; TEMP 36.3; O2SAT 95; BMI 35.4
--- NOTE | 2022-09-27 09:46 | DI.CT.S_ITS ---
PROCEDURE: CT HEAD/BRAIN WO CON INDICATIONS: Right-sided week/numb TECHNIQUE: Noncontrast 4.5 mm thick angled axial sections acquired from the foramen magnum to the vertex, with coronal and sagittal reformats. For radiation dose reduction, the following was used: automated exposure control, adjustment of mA and/or kV according to patient size. COMPARISON: [facility], CT, CT HEAD/BRAIN WO CON, 12/10/2020, 14:54. FINDINGS: Image quality: Excellent. CSF spaces: Basal cisterns are patent. No extra-axial fluid collections. The ventricles are symmetric in size and shape. Brain: No intracranial bleeds or masses. There is cerebral volume loss for age, with resultant ventricular and sulcal prominence. There are periventricular and deep white matter chronic small vessel ischemic changes. There is intracranial internal carotid artery atherosclerosis. Skull and face: Calvarium and visualized facial bones appear intact, without suspicious lesions. Sinuses: Visualized sinuses and mastoids are clear. IMPRESSION: 1. No acute intracranial abnormalities. 2. Cerebral volume loss and chronic microvascular ischemic changes. Dictated by: Brian Reinoso M.D. on 09/27/2022 at 10:24 Approved by: Brian Reinoso M.D. on 09/27/2022 at 10:26
--- NOTE | 2022-09-27 09:47 | DI.MRI.S_ITS ---
PROCEDURE: MR STROKE Pre- and post-contrast brain MRI, non-contrast brain MR angiogram, pre- and postcontrast neck MR angiogram INDICATIONS: Right-sided week/no TECHNIQUE: Brain: Noncontrast axial T1 spin echo, axial T2 fast spin echo, sagittal and axial FLAIR, coronal T2 fast spin echo, axial gradient echo, axial diffusion and ADC through the brain. After the administration of contrast, axial 3D VIBE of the cranial vasculature and brain. Brain MRA: Non-contrast 3-D time of flight MR angiogram, with multiple qzmpqxl-sikdocfaw-cisubceovm (MIP) reformats performed. Neck MRA: Axial and sagittal TruFISP through the neck. Coronal dynamic MR angiogram during administration of contrast in the arterial and venous phases, with 3-dimenstional rcfxkob-ahqcplion-npkukeiqsp (MIP) reformats constructed from subtraction images. COMPARISON: [facility], CT, CT HEAD/BRAIN WO CON, 09/27/2022, 9:54. [facility], MR, STROKE PROTOCOL, 12/17/2015, 11:23. FINDINGS: Image quality: This examination is limited by involuntary motion artifact. BRAIN: CSF spaces: Ventricles are normal in size and shape. Basal cisterns are patent. No extra-axial fluid collections. Brain: No intracranial bleeds or mass effects. Jiang-white matter interface is normal. Diffusion weighted images show no acute ischemic insults. Brainstem appears normal. Normal intravascular flow voids are present. No abnormal intracranial enhancement. Note is made of age-appropriate brain parenchymal volume loss and chronic small vessel ischemic changes. Skull and face: Calvarial marrow signal is normal. Orbits appear normal. Note is made of bilateral lens replacements. Sinuses: Sinuses and mastoids are clear. BRAIN MR ANGIOGRAM: Anterior circulation: Intracranial internal carotid arteries are normal in size and enhancement. There is a hypoplastic right A1 segment, with a corresponding robust left A1 segment. This is considered to be a normal developmental variant of the [place] of [place], of typically no clinical consequence. The flow within the paired anterior cerebral arteries is otherwise normal and symmetric. The flow within the middle cerebral arteries is normal and symmetric. The anterior communicating artery is seen. No stenoses, occlusions, or aneurysms. Posterior circulation: The distal right vertebral artery largely terminates in the right posterior inferior cerebellar artery. The left V4 segment is within normal limits. There is a normal appearing basilar artery. There is a prominent left posterior communicating artery seen, with an accompanying diminutive left P1 segment. This is attributed to a type origin of the left posterior cerebral artery, which is considered to be a normal developmental variant of typically no clinical consequence. The flow within the posterior cerebral arteries is normal and symmetric. No stenoses, occlusions, or aneurysms. NECK MR ANGIOGRAM: Carotids: Great vessels demonstrate a conventional anatomy as they arise from the aortic arch. The origins of the common carotid arteries appear patent. The calibers and courses of both common carotid arteries are normal. The bifurcation regions appear normal bilaterally. The internal carotid arteries demonstrate normal course and caliber. Posterior circulation: The origins of the vertebral arteries appear patent. More superior extracranial portions of both vertebral arteries demonstrate normal course and caliber. The left vertebral artery is dominant to the right. Miscellaneous: Subclavian arteries appear patent. Pre-contrast images through the neck show no soft tissue abnormalities. IMPRESSION: BRAIN MRI: No findings of acute or subacute infarction can be seen. No masses or abnormal enhancement can be seen. Note is made of age-appropriate brain parenchymal volume loss and chronic small vessel ischemic changes. BRAIN MR ANGIOGRAM: No significant intracranial arterial abnormality is seen. [place] developmental anomalies are incidentally noted. NECK MR ANGIOGRAM: Within the arteries of the neck, no hemodynamically significant stenosis can be seen. Dictated by: Jovanny Lombardi M.D. on 09/27/2022 at 10:11 Approved by: Jovanny Lombardi M.D. on 09/27/2022 at 10:17
--- NOTE | 2022-09-27 09:49 | ED_ITS ---
HPI - Neuro Symptoms/Deficit General Chief Complaint: Neuro Symptoms/Deficit Stated Complaint: tingling on right side, weakness Time Seen by Provider: 09/27/22 09:35 Source: patient and family Mode of arrival: Ambulatory History of Present Illness HPI Narrative: Last well known 10:00 p.m. last night. Almost 12 hours ago. Patient awoke at 5:00 a.m. today with right-sided arm and leg tingling and numbness and slight weakness. He felt like he was going to fall over when he was walking/going to feed his pet. He does feel better compared to this morning. Symptoms seemed to have improved. Fast exam is negative. Has NIH score of 1 with the slight difference in light touch to the right foot. No chest pain or palpitations no headache. No slurred speech or facial droop. No prior history of stroke. Patient is being followed by a offset label rewinder and possible dialysis which has not been started yet. Patient can not get a CT angiogram at this time due to renal function. On Anticoagulants: No Related Data Home Medications Medication Instructions Recorded Confirmed albuterol sulfate 90 mcg/actuation 2 puff inhalation Q4H PRN Wheezing 01/21/20 07/22/22 aerosol inhaler atorvastatin 20 mg tablet 20 mg PO DAILY 01/21/20 07/22/22 felodipine 10 mg tablet,extended 10 mg PO BID 01/21/20 07/22/22 release 24 hr latanoprost 0.005 % eye drops 1 drp EYE-BOTH BEDTIME 01/21/20 07/22/22 finasteride 5 mg tablet 5 mg PO DAILY 12/10/20 07/22/22 fluticasone 250 mcg-salmeterol 50 1 inh inhalation BID 12/10/20 07/22/22 mcg/dose blistr powdr for inhalation (Advair Diskus) tamsulosin 0.4 mg capsule 0.8 mg PO BEDTIME 12/10/20 07/22/22 trospium 20 mg tablet 20 mg PO DAILY 12/10/20 07/22/22 ezetimibe 10 mg tablet 10 mg PO DAILY 03/27/21 07/22/22 hydralazine 25 mg tablet 50 mg PO TID 09/18/21 07/22/22 metoprolol succinate 25 mg 25 mg PO BID 11/18/21 09/21/22 tablet,extended release 24 hr albuterol sulfate 90 mcg/actuation 2 puff inhalation Q4HR PRN Wheezing 04/17/22 07/22/22 aerosol inhaler montelukast 10 mg tablet 10 mg PO DAILY 04/17/22 07/22/22 nitroglycerin 0.4 mg sublingual 0.4 mg sublingual Q5M PRN Chest 04/17/22 04/17/22 tablet Pain clonidine 0.2 mg/24 hr weekly 0.2 mg transdermal WEEKLY 07/22/22 07/22/22 transdermal patch prednisone 20 mg tablet 20 mg DAILY 07/22/22 07/22/22 Previous Rx's Medication Instructions Recorded levothyroxine 175 mcg tablet 175 mcg PO DAILY #30 tabs 12/11/20 furosemide 40 mg tablet (Lasix) 40 mg PO DAILY #30 tabs 04/20/22 Allergies Allergy/AdvReac Type Severity Reaction Status Date / Time No Known Drug Allergies Allergy Verified 07/22/22 10:49 Review of Systems Review of Systems Narrative: GENERAL: negative chills, fatigue, malaise, fever, sweats. HEENT: negative sinus pain, ear pain, sore throat RESPIRATORY: negative dyspnea, cough CARDIOVASCULAR: negative chest pain, palpitations GASTROINTESTINAL: negative nausea, vomiting, abdominal pain : negative dysuria, frequency, hematuria MUSCULOSKELETAL: negative muscle or bony pain SKIN: negative rash, skin lesions NEUROLOGIC: Negative slurred speech facial droop, positive limb weakness, numbness ROS Unobtainable: All systems reviewed & are unremarkable except as noted in HPI and below Hematologic/Lymphatic On Anticoagulants: No Patient History Medical History Anticoagulated Atrial fibrillation CAD (coronary artery disease) CKD (chronic kidney disease) HLD (hyperlipidemia) HTN (hypertension) Hypothyroidism TIA (transient ischemic attack) Surgical History H/O knee surgery H/O shoulder surgery H/O thyroidectomy Family History Father Hypertension Social History marital status: household members: spouse Smoking Status: Never smoker alcohol intake: current substance use type: does not use Smoking Status: Never smoker alcohol intake frequency: holidays/special occasions only Substance Use Type: does not use Exam Narrative Exam Narrative: GENERAL: in no distress, not toxic not dyspneic HEAD: Normocephalic. EYES: Pupils equal round No scleral icterus. ENT: Mucous membranes moist. NECK: Trachea midline. CARDIOVASCULAR: Regular rate and rhythm without murmurs RESPIRATORY: Clear to auscultation. Breath sounds equal bilaterally. No wheezes, rales, or rhonchi. GASTROINTESTINAL: Abdomen soft, non-tender EXTREMITIES: No gross deformities. BACK: No flank tenderness. NEURO: AOx4. Clear speech no facial droop light touch intact to bilateral face hands and legs. Strong equal manager discovery. Negative pronator drift. Steady bilateral leg lifts. SKIN: Warm and dry PSYCH: Not anxious, is cooperative Initial Vital Signs Initial Vital Signs: Vital Signs Temperature 97.4 F L 09/27/22 09:26 Pulse Rate 60 09/27/22 09:26 Respiratory Rate 19 09/27/22 09:26 Blood Pressure 164/70 H 09/27/22 09:26 Pulse Oximetry 95 09/27/22 09:26 Oxygen Delivery Method 09/27/22 09:26 Scores NIH Stroke Scale Level of Conciousness: Alert, keenly responsive Ask month/age: Answers both questions correctly. Open/close eyes, close hand: Performs both tasks correctly Best gaze horizontal: Normal Visual mcclain: No visual loss Facial palsy: Normal symetrical movement Left arm drift: No drift for full 10 sec Right arm drift: No drift for full 10 sec Left leg drift: No drift for full 5 sec Right leg drift: No drift for full 5 sec Limb ataxia: Absent Sensory on face/arms/legs: Mild to moderate sensory loss, can tell touch Best language: No aphasia, normal Dysarthria: Normal Extinction or inattention: No abnormality Total NIH Stroke scale score: 1 Course Course Course Narrative: No new issues during course of stay Orders Ordered: Discontinued Medications Furosemide (Furosemide 40 Mg/4 Ml Vial) 40 mg IV NOW ONE Stop: 09/27/22 10:50 Last Admin: 09/27/22 10:59 Dose: 40 mg Documented By: ROBINSON Reevaluation(s) Reevaluation #1: Patient does not want to be admitted today. He does agree for diuresis and observation here in the emergency department. He states he will increase his Lasix at home. He will take twice the amount at night. They will follow up with primary care this week for re-evaluation. Again and patient do not want to be admitted. Patient feeling better with Lasix. No weakness on the right side. Time: 12:16 Consultations Consultation #1: Spoke with Dr. Sherwood, hospitalist, no indication for admission right now. Patient just had echocardiogram 2 months ago for CHF exacerbation. No need for repeat echocardiogram. MRI today and MRI is reassuring. Patient is already on Eliquis. No anti-platelet dual medication needed. Time: 12:16 Vital Signs Vital signs: Vital Signs - 8 hr 09/27/22 09:26 Temperature 97.4 F L Pulse Rate 60 Respiratory Rate 19 Blood Pressure 164/70 H Pulse Oximetry 95 Oxygen Delivery Method Room Air MDM - Neuro Symptoms/Deficit Differential Diagnosis Differential diagnosis: Likely subarachnoid hemorrhage, cerebrovascular accident and transient cerebral ischemia Medical Records Medical records narrative: [address] [address] Echocardiography Report Addendum Patient: Belkis Borden MR#: [id number] : 1945 Acct:[id number] Age/Sex: 76 / M Date of Service: 07/22/22 Loc: ICU 231-1 Accession Number: [id number] ?? Procedure: EC echo doppler complete Ordering Provider: Yumiko Scherer ADDENDUM? [facility]---------+? [facility]? +---------+ : ? :? [address] [place] [address]. ? : ? : : ? :? [place], [place] ? : ? : : ? :? [address] ? : ? : : ? : ? Phone: 360-? : ? : +[phone]? [phone]? +---------+ ? Echocardiogram Report + + :Name: BELKIS BORDEN? Study Date: 07/23/2022 ? Height: 69 in? : :[facility] ? ? ReadingLocation: ? Weight: 250 lb : : ? Gender: Male ? BSA: 2.3 m2? ? : :: 1945? Age: 76 yrs? BP: 144/63 mmHg: :Reason For Study: CONGESTIVE HEART FAILURE ? : :Ordering Physician: Eric SCHERERformed By: Yadira Campos? : :Referring: YUMIKO SCHERER ? : + + Interpretation Summary The ejection fraction is estimated to be 60-65%. Grade II diastolic dysfunction. The right ventricular systolic function is normal. The right ventricular systolic pressure is estimated to be at least 50 mmHg based on an estimated right atrial pressure of 3 mm Hg. The left atrium is severely dilated. There is mild to moderate aortic regurgitation. There is mild to moderate mitral regurgitation. The mitral valve mean gradient is 3.5 mmHg. ? Procedure: ? A two-dimensional transthoracic echocardiogram with color flow and Doppler was performed. The study quality was technically adequate. Comparison is made with the echocardiogram of 04/17/2022. The patient was in sinus bradycardia with heart rates between 58-73 bpm during the exam. Left Ventricle: ? The left ventricle is normal in size. Left ventricular wall thickness is mild-moderately increased. The ejection fraction is estimated to be 60-65%. There are no obvious focal wall motion abnormalities noted but poor endocardial definition reduces the sensitivity for the detection of such. Grade II diastolic dysfunction. Right Ventricle: ? The right ventricle is mildly dilated. The right ventricular systolic function is normal. Atria: ? The left atrium is severely dilated. Right atrial size is normal. There is no Doppler evidence for an interatrial shunt. Mitral Valve: ? There is mild mitral annular calcification. The mitral valve leaflets appear mildly thickened, but open well. The mitral valve mean gradient is 3.5 mmHg. There is mild to moderate mitral regurgitation. Aortic Valve: ? The aortic valve is mildly calcified. The aortic valve is trileaflet. There is no aortic valve stenosis. There is mild to moderate aortic regurgitation. Tricuspid Valve: ? The tricuspid valve is normal in structure and function. There is mild tricuspid regurgitation. The right ventricular systolic pressure is estimated to be at least 50 mmHg based on an estimated right atrial pressure of 3 mm Hg. Pulmonic Valve: ? The pulmonic valve leaflets are thin and pliable; valve motion is normal. There is trace pulmonic regurgitation. Great Vessels: ? The aortic root is normal size. The dimensions of the ascending aorta are normal. The IVC is dilated (diameter is greater than 2.1 cm) yet it collapses greater than 50% with a sniff. This suggests a right atrial pressure of 8 mm Hg. Pericardium/ Pleura ? There is no pericardial effusion. There is no pleural effusion. ? MMode/2D Measurements & Calculations LVIDd: 5.6 cm ? LVOT diam: 2.5 cm LVIDs: 3.6 cm ? Ao root diam: 3.7 cm FS: 34.9 %? asc Aorta Diam: 3.4 cm EPSS: 1.4 cm IVSd: 1.3 cm LVPWd: 1.4 cm LV rodgers. diameter/BSA (cm/m^2): 2.5 LV sys. diameter/BSA (cm/m^2): 1.6 ? LA A2 area: 34.4 cm2? RA long axis: 6.0 cm LA A4 area: 29.1 cm2? RA area: 20.8 cm2 LA length (vol): 6.7 cm ? RA vol: 61.9 ml LA vol: 126.1 ml? RA : 27.2 ml/m2 LA vol index: 55.5 ml/m2? IVC diam: 2.2 cm ? RVD1 (basal): 4.2 cm RVD2 (mid): 3.1 cm TAPSE: 2.1 cm ? Doppler Measurements & Calculations Ao V2 max: 160.4 cm/sec ? LVOT Max Marcelino: 69.6 cm/sec Ao V2 mean: 112.8 cm/sec? LV V1 max P.9 mmHg Ao max P.3 mmHg? LV V1 VTI: 19.3 cm Ao mean P.6 mmHg? LEONIDES(I,D): 2.4 cm2 Ao V2 VTI: 38.6 cm? LEONIDES(V,D): 2.1 cm2 ? sev ratio: 0.50 ? LEONIDES indexed to BSA (cm^2/m^2): 1.0 ? AI P1/2t: 541.3 msec ? AI dec slope: 210.1 cm/sec2 ? MV E max marcelino: 90.0 cm/sec ? TR max marcelino: 341.6 cm/sec MV A max marcelino: 76.0 cm/sec ? TR max P.7 mmHg MV E/A: 1.2 ? PA V2 max: 112.0 cm/sec Med Peak E' Marcelino: 4.2 cm/sec ? ? ? PA V2 mean: 76.0 cm/sec E/E' med: 21.4? PA mean P.6 mmHg Lat Peak E' Marcelino: 7.0 cm/sec ? ? ? PA pr(Accel): 31.0 mmHg E/E' lat: 12.9 E/e' average: 17.2 MV dec time: 0.21 sec MVA(VTI): 2.8 cm2 ? MV V2 mean: 89.0 cm/sec ? SV(LVOT): 91.8 ml MV mean P.5 mmHg MV V2 VTI: 32.5 cm ? Reading Physician:PM ? Addendum Dictated By: Willam Voss MD Addendum Signed By: Addendum Cosigned By: DD/ TD/TT: 07/23/22 ? [facility]---------[facility]? [facility]? +---------+ : ? :? [address] ? : ? : : ? :? [place], [place] ? : ? : : ? :? [address] ? : ? : : ? : ? Phone: 360-? : ? : +---------[phone]? [phone]? +---------+ ? Echocardiogram Report + + :Name: BELKIS BORDEN? Study Date: 07/23/2022 ? Height: 69 in? : :[facility] ? ? ReadingLocation: ? Weight: 250 lb : : ? Gender: Male ? BSA: 2.3 m2? ? : :: 1945? Age: 76 yrs? BP: 144/63 mmHg: :Reason For Study: CONGESTIVE HEART FAILURE ? : :Ordering Physician: Eric SCHERERformed By: Yadira Campos? : :Referring: YUMIKO SCHERER ? : + + Interpretation Summary The ejection fraction is estimated to be 60-65%. Grade II diastolic dysfunction. The right ventricular systolic function is normal. The right ventricular systolic pressure is estimated to be at least 50 mmHg based on an estimated right atrial pressure of 3 mm Hg. The left atrium is severely dilated. There is mild to moderate aortic regurgitation. There is mild to moderate mitral regurgitation. The mitral valve mean gradient is 3.5 mmHg. ? Procedure: ? A two-dimensional transthoracic echocardiogram with color flow and Doppler was performed. The study quality was technically adequate. Comparison is made with the echocardiogram of 04/17/2022. The patient was in sinus bradycardia with heart rates between 58-73 bpm during the exam. Left Ventricle: ? The left ventricle is normal in size. Left ventricular wall thickness is mild-moderately increased. The ejection fraction is estimated to be 60-65%. There are no obvious focal wall motion abnormalities noted but poor endocardial definition reduces the sensitivity for the detection of such. Grade II diastolic dysfunction. Right Ventricle: ? The right ventricle is mildly dilated. The right ventricular systolic function is normal. Atria: ? The left atrium is severely dilated. Right atrial size is normal. There is no Doppler evidence for an interatrial shunt. Mitral Valve: ? There is mild mitral annular calcification. The mitral valve leaflets appear mildly thickened, but open well. The mitral valve mean gradient is 3.5 mmHg. There is mild to moderate mitral regurgitation. Aortic Valve: ? The aortic valve is mildly calcified. The aortic valve is trileaflet. There is no aortic valve stenosis. There is mild to moderate aortic regurgitation. Tricuspid Valve: ? The tricuspid valve is normal in structure and function. There is mild tricuspid regurgitation. The right ventricular systolic pressure is estimated to be at least 50 mmHg based on an estimated right atrial pressure of 3 mm Hg. Pulmonic Valve: ? The pulmonic valve leaflets are thin and pliable; valve motion is normal. There is trace pulmonic regurgitation. Great Vessels: ? The aortic root is normal size. The dimensions of the ascending aorta are normal. The IVC is dilated (diameter is greater than 2.1 cm) yet it collapses greater than 50% with a sniff. This suggests a right atrial pressure of 8 mm Hg. Pericardium/ Pleura ? There is no pericardial effusion. There is no pleural effusion. ? MMode/2D Measurements & Calculations LVIDd: 5.6 cm ? LVOT diam: 2.5 cm LVIDs: 3.6 cm ? Ao root diam: 3.7 cm FS: 34.9 %? asc Aorta Diam: 3.4 cm EPSS: 1.4 cm IVSd: 1.3 cm LVPWd: 1.4 cm LV rodgers. diameter/BSA (cm/m^2): 2.5 LV sys. diameter/BSA (cm/m^2): 1.6 ? LA A2 area: 34.4 cm2? RA long axis: 6.0 cm LA A4 area: 29.1 cm2? RA area: 20.8 cm2 LA length (vol): 6.7 cm ? RA vol: 61.9 ml LA vol: 126.1 ml? RA : 27.2 ml/m2 LA vol index: 55.5 ml/m2? IVC diam: 2.2 cm ? RVD1 (basal): 4.2 cm RVD2 (mid): 3.1 cm TAPSE: 2.1 cm ? Doppler Measurements & Calculations Ao V2 max: 160.4 cm/sec ? LVOT Max Marcelino: 69.6 cm/sec Ao V2 mean: 112.8 cm/sec? LV V1 max P.9 mmHg Ao max P.3 mmHg? LV V1 VTI: 19.3 cm Ao mean P.6 mmHg? LEONIDES(I,D): 2.4 cm2 Ao V2 VTI: 38.6 cm? LEONIDES(V,D): 2.1 cm2 ? sev ratio: 0.50 ? LEONIDES indexed to BSA (cm^2/m^2): 1.0 ? AI P1/2t: 541.3 msec ? AI dec slope: 210.1 cm/sec2 ? MV E max marcelino: 90.0 cm/sec ? TR max macrelino: 341.6 cm/sec MV A max marcelino: 76.0 cm/sec ? TR max P.7 mmHg MV E/A: 1.2 ? PA V2 max: 112.0 cm/sec Med Peak E' Marcelino: 4.2 cm/sec ? ? ? PA V2 mean: 76.0 cm/sec E/E' med: 21.4? PA mean P.6 mmHg Lat Peak E' Marcelino: 7.0 cm/sec ? ? ? PA pr(Accel): 31.0 mmHg E/E' lat: 12.9 E/e' average: 17.2 MV dec time: 0.21 sec MVA(VTI): 2.8 cm2 ? MV V2 mean: 89.0 cm/sec ? SV(LVOT): 91.8 ml MV mean P.5 mmHg MV V2 VTI: 32.5 cm ? Reading Physician:MARLA Lab Data Result diagrams: 09/27/22 09:41 09/27/22 09:41 Labs: Lab Results 09/27/22 09/27/22 09/27/22 Range/Units 09:41 09:41 09:41 WBC 6.5 (4.5-11.0) X10^3/uL RBC 3.08 L (4.5-5.9) X10^6/uL Hgb 9.2 L (13.5-17.5) g/dL Hct 28.0 L (41-53) % MCV 91.0 (80-100) fL MCH 30.0 (26-34) PG MCHC 33.0 (30-36) % RDW 14.6 (11.6-14.8) % Plt Count 133 L (150-400) X10^3/uL Neut % (Auto) 75.0 (50-75) % Lymph % (Auto) 11.0 L (25-40) % [place] % (Auto) 8.7 (3-14) % Eos % (Auto) 4.4 H (2-4) % Baso % (Auto) 0.9 (0-2) % Neut # (Auto) 4900 (4770-6057) /uL Lymph # (Auto) 700 L (4240-3120) /uL [place] # (Auto) 600 (0-900) /uL Eos # (Auto) 300 (0-450) /uL Baso # (Auto) 100 (0-100) /uL PT 21.8 H (10.1-12.7) SECONDS INR 1.9 H (0.9-1.3) APTT 40 H (26-36) SECONDS Sodium 140 (137-145) mmol/L Potassium 4.2 (3.4-5.1) mmol/L Chloride 103 (98-107) mmol/L Carbon Dioxide 23 (22-32) mmol/L BUN 58 H (9-20) mg/dL Creatinine 3.90 H (0.66-1.25) mg/dL Estimated GFR 15 L (>60) mL/min BUN/Creatinine Ratio 14.9 (6-22) Glucose 117 H (80-110) mg/dL Calcium 8.3 L (8.4-10.2) mg/dL Total Bilirubin 0.4 (0.2-1.3) mg/dL AST 17 (17-59) IU/L ALT 16 (<50) IU/L Alkaline Phosphatase 49 (38-126) U/L Total Creatine Kinase 67 (55-170) U/L CK-MB (CK-2) TNP CK-MB (CK-2) Rel Index TNP Troponin I 0.014 (0.01-0.034) ng/mL NT-Pro-B Natriuret Pep (<450) pg/mL Total Protein 6.7 (6.3-8.2) g/dL Albumin 4.0 (3.5-5.0) g/dL Globulin 2.7 (1.7-4.1) g/dL Albumin/Globulin Ratio 1.5 (1.0-2.8) SARS-CoV-2 (PCR) (Negative) Influenza A (RT-PCR) (NEGATIVE) Influenza B (RT-PCR) (NEGATIVE) RSV (PCR) (Negative) 09/27/22 09/27/22 Range/Units 09:41 09:41 WBC (4.5-11.0) X10^3/uL RBC (4.5-5.9) X10^6/uL Hgb (13.5-17.5) g/dL Hct (41-53) % MCV (80-100) fL MCH (26-34) PG MCHC (30-36) % RDW (11.6-14.8) % Plt Count (150-400) X10^3/uL Neut % (Auto) (50-75) % Lymph % (Auto) (25-40) % [place] % (Auto) (3-14) % Eos % (Auto) (2-4) % Baso % (Auto) (0-2) % Neut # (Auto) (8914-2251) /uL Lymph # (Auto) (3608-2451) /uL [place] # (Auto) (0-900) /uL Eos # (Auto) (0-450) /uL Baso # (Auto) (0-100) /uL PT (10.1-12.7) SECONDS INR (0.9-1.3) APTT (26-36) SECONDS Sodium (137-145) mmol/L Potassium (3.4-5.1) mmol/L Chloride (98-107) mmol/L Carbon Dioxide (22-32) mmol/L BUN (9-20) mg/dL Creatinine (0.66-1.25) mg/dL Estimated GFR (>60) mL/min BUN/Creatinine Ratio (6-22) Glucose (80-110) mg/dL Calcium (8.4-10.2) mg/dL Total Bilirubin (0.2-1.3) mg/dL AST (17-59) IU/L ALT (<50) IU/L Alkaline Phosphatase (38-126) U/L Total Creatine Kinase (55-170) U/L CK-MB (CK-2) CK-MB (CK-2) Rel Index Troponin I (0.01-0.034) ng/mL NT-Pro-B Natriuret Pep 5820 H (<450) pg/mL Total Protein (6.3-8.2) g/dL Albumin (3.5-5.0) g/dL Globulin (1.7-4.1) g/dL Albumin/Globulin Ratio (1.0-2.8) SARS-CoV-2 (PCR) Negative (Negative) Influenza A (RT-PCR) Flu a negative (NEGATIVE) Influenza B (RT-PCR) Flu b negative (NEGATIVE) RSV (PCR) Negative (Negative) Imaging Data CT scan - head: Radiologist's Impression: [address] [address] [address] Scan Report Signed Patient: Belkis Borden MR#: [id number] : 1945 Acct:[id number] Age/Sex: 77 / M Date of Service: 09/27/22 Loc: ED Accession Number: [id number] ?? Procedure: CT head/brain wo con Ordering Provider: Matteo Carrington MD PROCEDURE:? CT HEAD/BRAIN WO CON ? INDICATIONS:? Right-sided week/numb ? TECHNIQUE:? Noncontrast 4.5 mm thick angled axial sections acquired from the foramen magnum to the vertex, with coronal and sagittal reformats.? For radiation dose reduction, the following was used:? automated exposure control, adjustment of mA and/or kV according to patient size.? ? COMPARISON:? [facility], CT, CT HEAD/BRAIN WO CON, 12/10/2020, 14:54. ? FINDINGS:? Image quality:? Excellent.? ? CSF spaces:? Basal cisterns are patent.? No extra-axial fluid collections.? The ventricles are symmetric in size and shape.? ? Brain:? No intracranial bleeds or masses.? There is cerebral volume loss for age, with resultant ventricular and sulcal prominence.? There are periventricular and deep white matter chronic small vessel ischemic changes.? There is intracranial internal carotid artery atherosclerosis.? ? Skull and face:? Calvarium and visualized facial bones appear intact, without suspicious lesions.? ? Sinuses:? Visualized sinuses and mastoids are clear.? ? IMPRESSION:? ? 1. No acute intracranial abnormalities. ? 2. Cerebral volume loss and chronic microvascular ischemic changes. ? ? ? Dictated by: Brian Reinoso M.D. on 09/27/2022 at 10:24 ? ? Approved by: Brian Reinoso M.D. on 09/27/2022 at 10:26 ? Chest x-ray: Radiologist's Impression: [address] [address] XRay Report Signed Patient: Belkis Borden MR#: [id number] : 1945 Acct:[id number] Age/Sex: 77 / M Date of Service: 09/27/22 Loc: ED Accession Number: [id number] ?? Procedure: XR chest 1V Ordering Provider: Matteo Carrington MD PROCEDURE:? XR CHEST 1V ? INDICATIONS:? SOB ? TECHNIQUE:? One view of the chest was acquired.? ? COMPARISON:? [facility], CR, XR CHEST 1V, 07/22/2022, 10:53. ? FINDINGS:? ? Surgical changes and devices:? None.? ? Lungs and pleura:? Bilateral interstitial and airspace infiltrates compatible with mild pulmonary edema secondary to congestive heart failure.? No pleural effusions or pneumothorax.? ? Mediastinum:? Mediastinal contours appear normal.? Heart size is moderately increased.? ? Bones and chest wall:? No suspicious bony lesions.? Overlying soft tissues ap pear unremarkable.? ? IMPRESSION:? Congestive heart failure. ? ? Dictated by: Brian Reinoso M.D. on 09/27/2022 at 10:23 ? ? Approved by: Brian Reinoso M.D. on 09/27/2022 at 10:24 ? MRI brain: Radiologist's Impression: [place] [address] Magnetic Resonance Report Signed Patient: Belkis Borden MR#: [id number] : 1945 Acct:[id number] Age/Sex: 77 / M Date of Service: 09/27/22 Loc: ED Accession Number: [id number] ?? Procedure: MR stroke Ordering Provider: Matteo Carrington MD PROCEDURE:? MR STROKE Pre- and post-contrast brain MRI, non-contrast brain MR angiogram, pre- and postcontrast neck MR angiogram ? INDICATIONS:? Right-sided week/no ? TECHNIQUE:? Brain:? Noncontrast axial T1 spin echo, axial T2 fast spin echo, sagittal and axial FLAIR, coronal T2 fast spin echo, axial gradient echo, axial diffusion and ADC through the brain.? After the administration of contrast, axial 3D VIBE of the cranial vasculature and brain.? Brain MRA:? Non-contrast 3-D time of flight MR angiogram, with multiple qgwwiyz-pxaisrddu-uhilbjknyn (MIP) reformats performed.? Neck MRA:? Axial and sagittal TruFISP through the neck.? Coronal dynamic MR angiogram during administration of contrast in the arterial and venous phases, with 3- dimenstional cuxemiv-ymfcpdbjy-oohiaeveld (MIP) reformats constructed from subtraction images.? ? COMPARISON:? [facility], CT, CT HEAD/BRAIN WO CON, 09/27/2022, 9:54.? [facility], MR, STROKE PROTOCOL, 12/17/2015, 11:23. ? FINDINGS:? Image quality:? This examination is limited by involuntary motion artifact. ? ? BRAIN:? CSF spaces:? Ventricles are normal in size and shape.? Basal cisterns are patent.? No extra-axial fluid collections.? Brain:? No intracranial bleeds or mass effects.? Jiang-white matter interface is normal.? Diffusion weighted images show no acute ischemic insults.? Brainstem appears normal.? Normal intravascular flow voids are present.? No abnormal intracranial enhancement.? Note is made of age-appropriate brain parenchymal volume loss and chronic small vessel ischemic changes. Skull and face:? Calvarial marrow signal is normal.? Orbits appear normal.? Note is made of bilateral lens replacements. Sinuses:? Sinuses and mastoids are clear.? ? BRAIN MR ANGIOGRAM:? Anterior circulation:? Intracranial internal carotid arteries are normal in size and enhancement.? There is a hypoplastic right A1 segment, with a corresponding robust left A1 segment.? This is considered to be a normal developmental variant of the [place] of Maldonado, of typically no clinical consequence. ? The flow within the paired anterior cerebral arteries is otherwise normal and symmetric.? The flow within the middle cerebral arteries is normal and symmetric.? The anterior communicating artery is seen.? No stenoses, occlusions, or aneurysms.? Posterior circulation:? The distal right vertebral artery largely terminates in the right posterior inferior cerebellar artery.? The left V4 segment is within normal limits.? There is a normal appearing basilar artery.? There is a prominent left posterior communicating artery seen, with an accompanying diminutive left P1 segment. This is attributed to a type origin of the left posterior cerebral artery, which is considered to be a normal developmental variant of typically no clinical consequence. The flow within the posterior cerebral arteries is normal and symmetric.? No stenoses, occlusions, or aneurysms.? ? NECK MR ANGIOGRAM:? Carotids:? Great vessels demonstrate a conventional anatomy as they arise from the aortic arch.? The origins of the common carotid arteries appear patent.? The calibers and courses of both common carotid arteries are normal.? The bifurcation regions appear normal bilaterally.? The internal carotid arteries demonstrate normal course and caliber. ? Posterior circulation:? The origins of the vertebral arteries appear patent.? More superior extracranial portions of both vertebral arteries demonstrate normal course and caliber.? The left vertebral artery is dominant to the right. Miscellaneous:? Subclavian arteries appear patent.? Pre-contrast images through the neck show no soft tissue abnormalities.? ? IMPRESSION:? ? BRAIN MRI:? No findings of acute or subacute infarction can be seen. ? No masses or abnormal enhancement can be seen. ? Note is made of age-appropriate brain parenchymal volume loss and chronic small vessel ischemic changes. ? ? BRAIN MR ANGIOGRAM:? No significant intracranial arterial abnormality is seen.? ? Yqywer-yr-[id number] developmental anomalies are incidentally noted. ? NECK MR ANGIOGRAM:? Within the arteries of the neck, no hemodynamically significant stenosis can be seen. ? ? ? Dictated by: Jovanny Lombardi M.D. on 09/27/2022 at 10:11 ? ? Approved by: Jovanny Lombardi M.D. on 09/27/2022 at 10:17 ? ECG Data Interpretation: Sinus bradycardia rate [address] elevation or depression. Right bundle branch block present. MDM Narrative Medical decision making narrative: Appropriate for discharge home. I did review with hospitalist, at this time no indication for admission. MRI MRA are reassuring. No thrombus. Patient is already on Eliquis. No additional aspirin or Plavix needed, per Dr. Sherwood. Patient has been given Lasix here and feeling better. Patient can continue his Lasix at home. And follow up with primary care. I did review with patient and . They do not want to be admitted. They desire discharge home and increase their diuretics and see family doctor this week. Discharge Plan Departure Patient Disposition: Home Clinical Impression: CHF (congestive heart failure), Paresthesia Instructions: DI for Heart Failure, DI for Transient Ischemic Attack Activity Restrictions/Additional Instructions: See family doctor this week for re-evaluation. May continue home medications. Please increase your Lasix as reviewed here. You will take double the amount at nighttime dose. Return if worse if any questions or concerns or for any trouble speaking or walking or any numbness tingling or weakness or trouble breathing. Prescriptions: No Action hydralazine 25 mg tablet 50 mg PO TID metoprolol succinate 25 mg tablet extended release 24 hr 25 mg PO BID atorvastatin 20 mg tablet 20 mg PO DAILY Label Comments: TAKE 1 TABLET BY MOUTH ONCE DAILY IN THE EVENING FOR CHOLESTEROL felodipine 10 mg tablet extended release 24 hr 10 mg PO BID Label Comments: TAKE 1 TABLET BY MOUTH ONCE DAILY albuterol sulfate 90 mcg/actuation HFA aerosol inhaler 2 puff inhalation Q4H PRN (Reason: Wheezing) Label Comments: INHALE 2 PUFFS BY MOUTH EVERY 4 HOURS NEEDED FOR WHEEZE Rx Instructions: 2 puffs prn for shortness of breath latanoprost 0.005 % drops 1 drp EYE-BOTH BEDTIME Rx Instructions: 1 drop in affected BOTH eyes daily at HS fluticasone propion-salmeterol [Advair Diskus] 250-50 mcg/dose Blister With Device 1 inh INHALATION BID tamsulosin 0.4 mg Capsule 0.8 mg PO BEDTIME finasteride 5 mg Tablet 5 mg PO DAILY trospium 20 mg Tablet 20 mg PO DAILY levothyroxine 175 mcg tablet 175 mcg PO DAILY Qty: 30 1RF ezetimibe 10 mg tablet 10 mg PO DAILY nitroglycerin 0.4 mg Tablet, Sublingual 0.4 mg SUBLINGUAL Q5M PRN (Reason: Chest Pain) Rx Instructions: do not exceed 3 doses per episode montelukast 10 mg Tablet 10 mg PO DAILY albuterol sulfate 90 mcg/actuation Hfa Aerosol Inhaler 2 puff INHALATION Q4HR PRN (Reason: Wheezing) furosemide [Lasix] 40 mg tablet 40 mg PO DAILY Qty: 30 0RF prednisone 20 mg tablet 20 mg DAILY Rx Instructions: 1 tablet daily clonidine 0.2 mg/24 hr patch weekly 0.2 mg transdermal WEEKLY Label Comments: APPLY 1 PATCH TOPICALLY ONCE A WEEK Referrals: Miscellaneous,Doctor, MD [Primary Care Provider] - Visit Report Forms: Patient Portal/API
--- NOTE | 2022-09-27 09:58 | DI.RAD.S_ITS ---
PROCEDURE: XR CHEST 1V INDICATIONS: SOB TECHNIQUE: One view of the chest was acquired. COMPARISON: [facility], CR, XR CHEST 1V, 07/22/2022, 10:53. FINDINGS: Surgical changes and devices: None. Lungs and pleura: Bilateral interstitial and airspace infiltrates compatible with mild pulmonary edema secondary to congestive heart failure. No pleural effusions or pneumothorax. Mediastinum: Mediastinal contours appear normal. Heart size is moderately increased. Bones and chest wall: No suspicious bony lesions. Overlying soft tissues appear unremarkable. IMPRESSION: Congestive heart failure. Dictated by: Brian Reinoso M.D. on 09/27/2022 at 10:23 Approved by: Brian Reinoso M.D. on 09/27/2022 at 10:24
[2022-09-27 10:06] LABS: Add Manual Diff / Slide Review NO; Basophils Absolute Auto 100 /uL (0-100); Basophils Percent Auto 0.9 % (0-2); Eosinophils Absolute Auto 300 /uL (0-450); Eosinophils Percent Auto 4.4 % (2-4); Hemoglobin 9.2 g/dL (13.5-17.5); Lymphocytes Absolute Auto 700 /uL (1100-4500); Monocytes Absolute Auto 600 /uL (0-900); Monocytes Percent Auto 8.7 % (3-14); Neutrophils Absolute Auto 4900 /uL (1500-7000); Platelet Count 133 X10^3/uL (150-400); Red Blood Cell Count 3.08 X10^6/uL (4.5-5.9); Red Cell Distribution Width 14.6 % (11.6-14.8); White Blood Cell Count 6.5 X10^3/uL (4.5-11.0)
[2022-09-27 10:13] LABS: INR 1.9 (0.9-1.3); Prothrombin Time 21.8 SECONDS (10.1-12.7)
[2022-09-27 10:15] LABS: PTT Partial Thromboplastin Tim 40 SECONDS (26-36)
[2022-09-27 10:17] LABS: Alanine Aminotransferase 16 IU/L (<50); Albumin Globulin Ratio 1.5 (1.0-2.8); Alkaline Phosphatase 49 U/L (38-126); Aspartate Aminotransferase 17 IU/L (17-59); BUN Creatinine Ratio 14.9 (6-22); Bilirubin Total 0.4 mg/dL (0.2-1.3); Blood Urea Nitrogen 58 mg/dL (9-20); Calcium 8.3 mg/dL (8.4-10.2); Carbon Dioxide 23 mmol/L (22-32); Chloride 103 mmol/L (98-107); Creatine Kinase 67 U/L (55-170); Estimated Glomerular Filt Rate 15 mL/min (>60); Globulin 2.7 g/dL (1.7-4.1); Glucose 117 mg/dL (80-110); HEMOLYSIS < 15 (0-50); Potassium 4.2 mmol/L (3.4-5.1); Sodium 140 mmol/L (137-145); Total Protein 6.7 g/dL (6.3-8.2)
[2022-09-27 10:28] LABS: Troponin I 0.014 ng/mL (0.01-0.034)
[2022-09-27] MEDS: FUROSEMIDE 40 MG/4 ML VIAL IV (10:59)
[2022-09-27 11:08] LABS: Influenza A - CEPHEID Flu A NEGATIVE (NEGATIVE); Influenza B - CEPHEID Flu B NEGATIVE (NEGATIVE); Respiratory Syncytial Virus Negative (Negative)
[2022-09-27 11:15] LABS: NT-proBNP (BNP-Adult 18+) 5820 pg/mL (<450)
[2022-09-27 11:21] LABS: COVID-19 CEPHEID 4-PLEX PCR Negative (Negative)
[2022-09-27 12:34] VITALS: BP 153/65; PULSE 50; RESP 18; O2SAT 93
== END 2022-09-27 12:36 | disposition home or self-care (01) ==
PROVIDERS: Emergency Provider Emergency Medicine; Family Provider Family Medicine
DX: I50.9 Heart failure, unspecified (principal); R20.2 Paresthesia of skin; R06.02 Shortness of breath; Z79.01 Long term (current) use of anticoagulants; Z79.899 Other long term (current) drug therapy; Z20.822 Contact with and (suspected) exposure to COVID-19
CPT/HCPCS: 0241U; 36415; 70450; 70548; 70553; 71045; 80053; 82550; 83880; 84484; 85025; 85610; 85730; 93005; 96374; 99285; J1940

== ENCOUNTER → 2023-01-19 10:22 | Outpatient (CLI) | payer MEDICARE, OTHER, SELFPAY ==
[2022-07-22 16:35] VITALS: PULSE 96; RESP 28; O2SAT 97
[2022-07-22 16:42] VITALS: BMI 36.9
--- NOTE | 2023-01-19 10:25 | DI.RAD.S_ITS ---
PROCEDURE: XR ANKLE LT MIN 3V INDICATIONS: jesse pain, no injury TECHNIQUE: 3 views of the ankle were acquired. COMPARISON: None. FINDINGS: Bones: No fractures or dislocations. Mild degenerative change. Ankle mortise is normally aligned. No suspicious bony lesions. Soft tissues: No tibiotalar joint effusion. Achilles tendon appears normal. Arterial vascular calcifications. IMPRESSION: No acute fracture. Dictated by: Kenny Chacon M.D. on 01/19/2023 at 11:55 Approved by: Kenny Chacon M.D. on 01/19/2023 at 11:57
== END ==
PROVIDERS: Family Provider Family Medicine; Referring Provider Nurse Practitioner Family; Visit Provider Nurse Practitioner Family
DX: M25.572 Pain in left ankle and joints of left foot (principal)
CPT/HCPCS: 73610

== ENCOUNTER 2023-07-08 10:05 | Emergency (ER) | payer MEDICARE, OTHER, SELFPAY ==
[2022-07-22 16:35] VITALS: PULSE 96; RESP 28; O2SAT 97
[2022-07-22 16:42] VITALS: BMI 36.9
[2023-07-08] VITALS (20 sets, daily range): BP systolic 156–212; BP diastolic 75–95; PULSE 53–68; RESP 12–24; TEMP 36.5; O2SAT 93–98; BMI 34.7
--- NOTE | 2023-07-08 10:14 | DI.RAD.S_ITS ---
PROCEDURE: XR CHEST 1V INDICATIONS: Shortness of breath TECHNIQUE: One view of the chest was acquired. COMPARISON: [facility], , XR CHEST 1V, 09/27/2022, 9:53. [facility], CR, XR CHEST 1V, 07/22/2022, 10:53. FINDINGS: Surgical changes and devices: None. Lungs and pleura: Lungs are clear. No pleural effusions or pneumothorax. Mediastinum: Mediastinal contours appear normal. Heart size is normal. Bones and chest wall: No suspicious bony lesions. Overlying soft tissues appear unremarkable. IMPRESSION: Portable chest within normal limits for age. Dictated by: Matias Gonzalez M.D. on 07/08/2023 at 10:58 Approved by: Matias Gonzalez M.D. on 07/08/2023 at 10:58
[2023-07-08 10:58] LABS: Add Manual Diff / Slide Review NO; Basophils Absolute Auto 100 /uL (0-100); Basophils Percent Auto 1.1 % (0-2); Eosinophils Absolute Auto 300 /uL (0-450); Eosinophils Percent Auto 4.1 % (2-4); Hematocrit 25.9 % (41-53); Hemoglobin 8.5 g/dL (13.5-17.5); Lymphocytes Absolute Auto 600 /uL (1100-4500); Lymphocytes Percent Auto 8.6 % (25-40); Mean Corpuscular HGB Conc 32.9 % (30-36); Mean Corpuscular Hemoglobin 29.6 PG (26-34); Mean Corpuscular Volume 89.7 fL (80-100); Monocytes Absolute Auto 800 /uL (0-900); Monocytes Percent Auto 10.5 % (3-14); Neutrophils Absolute Auto 5700 /uL (1500-7000); Neutrophils Percent Auto 75.7 % (50-75); Platelet Count 219 X10^3/uL (150-400); Red Blood Cell Count 2.89 X10^6/uL (4.5-5.9); Red Cell Distribution Width 14.6 % (11.6-14.8); White Blood Cell Count 7.5 X10^3/uL (4.5-11.0)
[2023-07-08 11:07] LABS: Alanine Aminotransferase 26 IU/L (<50); Albumin 4.2 g/dL (3.5-5.0); Albumin Globulin Ratio 1.3 (1.0-2.8); Alkaline Phosphatase 51 U/L (38-126); Aspartate Aminotransferase 22 IU/L (17-59); BUN Creatinine Ratio 18.5 (6-22); Bilirubin Total 0.5 mg/dL (0.2-1.3); Blood Urea Nitrogen 79 mg/dL (9-20); Calcium 8.9 mg/dL (8.4-10.2); Carbon Dioxide 18 mmol/L (22-32); Chloride 105 mmol/L (98-107); Estimated Glomerular Filt Rate 13 mL/min (>60); Globulin 3.3 g/dL (1.7-4.1); Glucose 110 mg/dL (80-110); HEMOLYSIS < 15 (0-50); Potassium 4.2 mmol/L (3.4-5.1); Sodium 138 mmol/L (137-145); Total Protein 7.5 g/dL (6.3-8.2)
[2023-07-08 11:08] LABS: Lactate (Lactic Acid) 1.6 mmol/L (0.7-2.1)
[2023-07-08 11:19] LABS: NT-proBNP (BNP-Adult 18+) 12300 pg/mL (<450)
[2023-07-08 11:25] LABS: INR 1.5 (0.9-1.3); Prothrombin Time 17.3 SECONDS (10.1-12.7)
--- NOTE | 2023-07-08 11:39 | PC.NURSE ---
Patient was in the car on the way to [place] for fistula placement for dialysis stated to I don't feel well I don't think I will make it there Patient assisted out of car, was tingling all over and hyperventilating when getting out of the car. Since arrival to room and in bed patient is calm, sleeping with no acute distress noted. Patient woke and stated he was feeling better. Continue to monitor patient on youth nutritional monitor. VSS
[2023-07-08 11:53] LABS: RBC Urine None Seen (0-5/HPF); WBC Urine 0-1/HPF (0-5/HPF)
[2023-07-08 11:54] LABS: Bacteria Urine None Seen; Culture Indicated Urine Cult Not Indicated; Squamous Epithelial Cell Urine 0-1 /HPF (0-5/HPF)
--- NOTE | 2023-07-08 12:19 | PC.NURSE ---
I entered the room and the pts informed me that earlier this morning approx 0900 he had some blurred vision. Pt is not having blurred vision at this time. Dr Sierra aware,she is ordering head CT
[2023-07-08] MEDS: FUROSEMIDE 80 MG in SODIUM CHLORIDE 0.9% 50 ML 116 MG IV (13:13)
--- NOTE | 2023-07-08 13:27 | ED.SOB ---
HPI - SOB/Dyspnea General Chief Complaint: Shortness of Breath/Dyspnea Stated Complaint: SOB Time Seen by Provider: 07/08/23 12:12 Source: patient, RN notes reviewed and old records reviewed Mode of arrival: Wheelchair Limitations: no limitations History of Present Illness HPI Narrative: This is a 77-year-old male with history of end-stage renal disease that was supposed to go down to get scanned for a fistula, he is hypertension, dyslipidemia, remote history of atrial fibrillation on Eliquis. Patient states today he was getting in his car to go to [place] to either have a or some sort of preoperative fistula workup. Patient states he felt tingling all over, his breathing felt hard and he felt fuzzy. He states no syncope, he states feels better now, he states no prior episodes of felt similar. He described a little bit of blurred vision, no speech changes no weakness, numbness or tingling that was one-sided. He describes tingling all over. Denies any chest pain or pressure. He does feel short of breath he states that feels improved at this time. He denies cough cold or congestion. No fevers or chills. He denies any nausea or vomiting. He states he gets constipated easily but has had bowel movements that have been hard and small amounts. He states he does not really look or check very often with no bright red blood or melena reported. States he does make urine, no decrease in output, no dysuria, urgency frequency or incontinence. He does not appreciate any new swelling in his extremities. He denies any prior strokes or heart attacks, no diabetes, states hypertension, dyslipidemia atrial fibrillation he is unsure why he is in end-stage renal failure. He is had prior knee replacement on the right and partial knee replacement on the left in the left shoulder surgery. No known drug allergies. No tobacco, alcohol or illicit. 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 Dr. Powell is his alarm signaler and [facility] for his primary care. Related Data Home Medications Medication Instructions Recorded Confirmed albuterol sulfate 90 mcg/actuation 2 puff inhalation Q4H PRN Wheezing 01/21/20 01/19/23 aerosol inhaler atorvastatin 20 mg tablet 20 mg PO DAILY 01/21/20 01/19/23 felodipine 10 mg tablet,extended 10 mg PO BID 01/21/20 01/19/23 release 24 hr latanoprost 0.005 % eye drops 1 drp EYE-BOTH BEDTIME 01/21/20 01/19/23 finasteride 5 mg tablet 5 mg PO DAILY 12/10/20 01/19/23 fluticasone 250 mcg-salmeterol 50 1 inh inhalation BID 12/10/20 01/19/23 mcg/dose blistr powdr for inhalation (Advair Diskus) tamsulosin 0.4 mg capsule 0.8 mg PO BEDTIME 12/10/20 01/19/23 trospium 20 mg tablet 20 mg PO DAILY 12/10/20 01/19/23 ezetimibe 10 mg tablet 10 mg PO DAILY 03/27/21 01/19/23 hydralazine 25 mg tablet 50 mg PO TID 09/18/21 01/19/23 metoprolol succinate 25 mg 25 mg PO BID 09/18/21 01/19/23 tablet,extended release 24 hr albuterol sulfate 90 mcg/actuation 2 puff inhalation Q4HR PRN Wheezing 04/17/22 01/19/23 aerosol inhaler montelukast 10 mg tablet 10 mg PO DAILY 04/17/22 01/19/23 nitroglycerin 0.4 mg sublingual 0.4 mg sublingual Q5M PRN Chest 04/17/22 01/19/23 tablet Pain clonidine 0.2 mg/24 hr weekly 0.2 mg transdermal WEEKLY 07/22/22 01/19/23 transdermal patch prednisone 20 mg tablet 20 mg DAILY 07/22/22 01/19/23 budesonide inhalation 01/19/23 01/19/23 Previous Rx's Medication Instructions Recorded levothyroxine 175 mcg tablet 175 mcg PO DAILY #30 tabs 12/11/20 furosemide 40 mg tablet (Lasix) 40 mg PO DAILY #30 tabs 04/20/22 furosemide 80 mg tablet (Lasix) See Rx Instructions .Route 07/08/23 .COMPLEX #30 tabs Allergies Allergy/AdvReac Type Severity Reaction Status Date / Time No Known Drug Allergies Allergy Verified 07/08/23 10:08 Review of Systems Review of Systems ROS Unobtainable: All systems reviewed & are unremarkable except as noted in HPI and below Patient History Medical History Anticoagulated Atrial fibrillation CAD (coronary artery disease) CKD (chronic kidney disease) HLD (hyperlipidemia) HTN (hypertension) Hypothyroidism TIA (transient ischemic attack) Surgical History H/O knee surgery H/O shoulder surgery H/O thyroidectomy Family History Father Hypertension Social History marital status: household members: spouse Smoking Status: Never smoker alcohol intake: current substance use type: does not use Smoking Status: Never smoker alcohol intake frequency: holidays/special occasions only Substance Use Type: does not use Exam Narrative Exam Narrative: GENERAL: Alert and oriented x three, obese elderly male in mild distress. HEENT: Head normocephalic, atraumatic, EOMI, pupils reactive, face symmetric, moist mucous membranes NECK: Supple, full range of motion CARDIOVASCULAR: Regular rate and rhythm without murmurs, rubs or gallops. No JVD. 1+ edema bilateral lower extremities. RESPIRATORY: Breath sounds equal bilaterally, no wheezes rales or rhonchi. No tachypnea. No accessory muscle use. Speaks in full sentences. No pursed lip breathing. ABDOMEN: Soft, nontender. Normoactive bowel sounds all 4 quadrants. No guarding or rebound, rigidity, no mass : No CVA tenderness EXTREMITIES: Normal range of motion, no clubbing. Neurovascularly intact NEUROLOGICAL: Cranial nerves II through XII grossly intact. Moving all extremities. Patient did stand and use the urinal at bedside. SKIN: Warm, dry, no petechiae, no rashes or lesions. Initial Vital Signs Initial Vital Signs: Vital Signs Temperature 97.7 F 07/08/23 10:08 Pulse Rate 68 07/08/23 10:08 Respiratory Rate 16 07/08/23 10:08 Blood Pressure 156/78 H 07/08/23 10:08 Pulse Oximetry 98 07/08/23 10:08 Oxygen Delivery Method Room Air 07/08/23 10:08 Course Orders Ordered: ED Orders 07/08/23 10:14 XR chest 1V Stat Measure peak expiratory flow ONCE RT Consult Eval and Treat NOW 07/08/23 10:19 Urine Microscopic Stat 07/08/23 10:22 EKG-12 Lead Stat 07/08/23 10:43 Complete Blood Count AUTO DIFF Stat Comprehensive Metabolic Panel Stat Lactate (Lactic Acid) Stat NT-proBNP (BNP-Adult 18+) Stat Troponin I Stat 07/08/23 11:00 Prothrombin Time INR Stat 07/08/23 12:50 Trop I [Troponin I] Stat Discontinued Medications Hydralazine HCl (Hydralazine 20 Mg/Ml Vial) 5 mg IV NOW ONE Stop: 07/08/23 14:06 Last Admin: 07/08/23 14:27 Dose: 5 mg Documented By: TARA Furosemide 80 mg/ Sodium (Chloride) 58 mls @ 116 mls/hr IV NOW ONE Stop: 07/08/23 12:13 Last Infusion: 07/08/23 13:46 Dose: 0 mls/hr Documented By: Admin: 07/08/23 13:13 Dose: 116 mls/hr Documented By: TARA Vital Signs Vital signs: Vital Signs - 8 hr 07/08/23 10:42 07/08/23 11:00 07/08/23 11:30 Pulse Rate 62 58 L 55 L Respiratory Rate 22 18 12 Blood Pressure Pulse Oximetry 97 95 93 07/08/23 12:00 07/08/23 12:30 07/08/23 13:00 Pulse Rate 53 L 55 L 58 L Respiratory Rate 12 12 16 Blood Pressure Pulse Oximetry 96 95 96 07/08/23 13:28 07/08/23 13:28 07/08/23 13:30 Pulse Rate 65 Respiratory Rate 24 Blood Pressure 209/86 H 212/95 H Pulse Oximetry 97 07/08/23 13:30 07/08/23 14:00 07/08/23 14:27 Pulse Rate 61 58 L 56 L Respiratory Rate 21 15 Blood Pressure 211/88 H 211/88 H Pulse Oximetry 97 97 07/08/23 14:01 07/08/23 14:01 07/08/23 14:30 Pulse Rate 58 L 59 L Respiratory Rate 15 17 Blood Pressure 211/88 H Pulse Oximetry 96 98 07/08/23 14:31 07/08/23 14:31 07/08/23 14:45 Pulse Rate 58 L 62 Respiratory Rate 18 17 Blood Pressure 198/84 H Pulse Oximetry 97 96 07/08/23 14:53 07/08/23 14:53 07/08/23 14:53 Pulse Rate 63 Respiratory Rate 18 Blood Pressure 194/81 H 194/81 H Pulse Oximetry 96 07/08/23 15:00 07/08/23 15:00 07/08/23 15:15 Pulse Rate 57 L Respiratory Rate 16 Blood Pressure 198/77 H 193/75 H Pulse Oximetry 96 07/08/23 15:15 07/08/23 15:30 07/08/23 15:30 Pulse Rate 54 L 55 L Respiratory Rate Blood Pressure 198/77 H Pulse Oximetry 95 96 07/08/23 15:45 07/08/23 15:45 Pulse Rate 56 L Respiratory Rate Blood Pressure 179/77 H Pulse Oximetry 96 MDM - SOB/Dyspnea Lab Data 07/08/23 10:43 07/08/23 10:43 Labs: Lab Results 07/08/23 07/08/23 07/08/23 Range/Units 10:19 10:43 10:43 WBC 7.5 (4.5-11.0) X10^3/uL RBC 2.89 L (4.5-5.9) X10^6/uL Hgb 8.5 L (13.5-17.5) g/dL Hct 25.9 L (41-53) % MCV 89.7 (80-100) fL MCH 29.6 (26-34) PG MCHC 32.9 (30-36) % RDW 14.6 (11.6-14.8) % Plt Count 219 (150-400) X10^3/uL Neut % (Auto) 75.7 H (50-75) % Lymph % (Auto) 8.6 L (25-40) % [place] % (Auto) 10.5 (3-14) % Eos % (Auto) 4.1 H (2-4) % Baso % (Auto) 1.1 (0-2) % Neut # (Auto) 5700 (6814-6351) /uL Lymph # (Auto) 600 L (2947-0773) /uL [place] # (Auto) 800 (0-900) /uL Eos # (Auto) 300 (0-450) /uL Baso # (Auto) 100 (0-100) /uL PT (10.1-12.7) SECONDS INR (0.9-1.3) Sodium 138 (137-145) mmol/L Potassium 4.2 (3.4-5.1) mmol/L Chloride 105 (98-107) mmol/L Carbon Dioxide 18 L (22-32) mmol/L BUN 79 H (9-20) mg/dL Creatinine 4.28 H (0.66-1.25) mg/dL Estimated GFR 13 L (>60) mL/min BUN/Creatinine Ratio 18.5 (6-22) Glucose 110 (80-110) mg/dL Lactate (0.7-2.1) mmol/L Calcium 8.9 (8.4-10.2) mg/dL Total Bilirubin 0.5 (0.2-1.3) mg/dL AST 22 (17-59) IU/L ALT 26 (<50) IU/L Alkaline Phosphatase 51 (38-126) U/L Troponin I 0.030 (0.01-0.034) ng/mL NT-Pro-B Natriuret Pep 95229 H (<450) pg/mL Total Protein 7.5 (6.3-8.2) g/dL Albumin 4.2 (3.5-5.0) g/dL Globulin 3.3 (1.7-4.1) g/dL Albumin/Globulin Ratio 1.3 (1.0-2.8) Urine RBC None seen (0-5/HPF) Urine WBC 0-1/hpf (0-5/HPF) Ur Squamous Epith Cells 0-1 /hpf (0-5/HPF) Urine Bacteria None seen (None) Ur Culture Indicated? Cult not indicated 07/08/23 07/08/23 07/08/23 Range/Units 10:43 11:00 12:50 WBC (4.5-11.0) X10^3/uL RBC (4.5-5.9) X10^6/uL Hgb (13.5-17.5) g/dL Hct (41-53) % MCV (80-100) fL MCH (26-34) PG MCHC (30-36) % RDW (11.6-14.8) % Plt Count (150-400) X10^3/uL Neut % (Auto) (50-75) % Lymph % (Auto) (25-40) % [place] % (Auto) (3-14) % Eos % (Auto) (2-4) % Baso % (Auto) (0-2) % Neut # (Auto) (8659-5060) /uL Lymph # (Auto) (5394-6571) /uL [place] # (Auto) (0-900) /uL Eos # (Auto) (0-450) /uL Baso # (Auto) (0-100) /uL PT 17.3 H (10.1-12.7) SECONDS INR 1.5 H (0.9-1.3) Sodium (137-145) mmol/L Potassium (3.4-5.1) mmol/L Chloride (98-107) mmol/L Carbon Dioxide (22-32) mmol/L BUN (9-20) mg/dL Creatinine (0.66-1.25) mg/dL Estimated GFR (>60) mL/min BUN/Creatinine Ratio (6-22) Glucose (80-110) mg/dL Lactate 1.6 (0.7-2.1) mmol/L Calcium (8.4-10.2) mg/dL Total Bilirubin (0.2-1.3) mg/dL AST (17-59) IU/L ALT (<50) IU/L Alkaline Phosphatase (38-126) U/L Troponin I 0.025 (0.01-0.034) ng/mL NT-Pro-B Natriuret Pep (<450) pg/mL Total Protein (6.3-8.2) g/dL Albumin (3.5-5.0) g/dL Globulin (1.7-4.1) g/dL Albumin/Globulin Ratio (1.0-2.8) Urine RBC (0-5/HPF) Urine WBC (0-5/HPF) Ur Squamous Epith Cells (0-5/HPF) Urine Bacteria (None) Ur Culture Indicated? Urine Dip Bedside Urine Glucose Negative Bedside Urine Bilirubin - Negative Bedside Urine Ketone - Negative Urine Specific [place] 1.010 Bedside Urine Occult Blood - Negative Bedside Urine pH 6.0 Bedside Urine Protein + 30 Bedside Urine Urobilinogen - Negative Bedside Urine Nitrite - Negative Bedside Urine Leukocytes - Negative Esterase ECG Data Attestation: I personally reviewed and interpreted this ECG as follows: Prior ECG tracings: available for review Interpretation: Sinus rhythm first-degree AV block with premature atrial complexes, right bundle-branch block. Rate of 60 7p are 232, QRS 138 QTC of 541. Patient does not appear any dynamic ST changes prior EKG from 09/27/2022 shows sinus bradycardia. MDM Narrative Medical decision making narrative: This is a 77-year-old male with history of end-stage renal disease still makes urine was supposed to follow-up today for preoperative fistula placement visit. He notes his GFR is around 13. Patient's GFR today is consistent with this, creatinine 4.28, sodium potassium appear appropriate as well as calcium. Lactate negative, CO2 is 18. Initial troponin is 0.030 and trending down words 2.025, [place] [address] was in the 5000 range as of September of 2022. Hemoglobin appears stable with a hemoglobin of 8.5 and was 9.2-8 range in the last year. Platelets are 219 white count 7.5. Patient's chest x-ray shows no acute change. Patient notice shortness of breath tingling all over, he is anticoagulant Eliquis daily for atrial fibrillation no cardiac arrhythmias captured on EKG. Discussed with patient initially had a blood pressure in the 150s but is more elevated on recheck, patient states he has been taking his regular medications but did have a dose hydralazine ordered. Patient SBP 170s prior to discharge. Patient has had 400-500mL urine output. He feels somewhat better. Consult with patient's nephrology team, spoke with Henry on-call for Nephrology and patient's personal for urology team. He agrees with plan with 80 mg Lasix here he would recommend increasing Lasix to 60 mg daily he has follow up with the next 2 weeks with them. He is supposed to go back for a fistula revision. We did note patient's blood pressure has increased here in the department agrees with medication here but no adjustments at that point. Feels patient is likely appropriate for follow-up outpatient. Spoke with patient's was at bedside she notes he is actually on 80 mg in the morning and 80 mg in the evening so will just 120 mg of Lasix in the morning continue his 80 mg dose. Patient's family feels comfortable with this plan. Blood pressure is mildly improved with dose of blood pressure medication. Discharge Plan Departure Patient Disposition: Home Clinical Impression: CHF (congestive heart failure) Activity Restrictions/Additional Instructions: I spoke with your nephrology team, please call to see if they would like to see you before your follow-up in 2 weeks. They do recommend we increase your Lasix to 120mg in the am and continue 80mg in the evening. Continue your other home medications as prescribed. Prescription sent to [facility] in [place] if you need some additional. Please return for new or worsening symptoms increasing lightheadedness, chest pain, shortness of breath, increasing swelling of your extremities, passing out, nausea or vomiting, decrease or if you are no longer making urine or other new or concerning changes. Prescriptions: New furosemide [Lasix] 80 mg tablet See Rx Instructions .ROUTE .COMPLEX Qty: 30 0RF Rx Instructions: Take 120mg (1.5 tablets) in the am, and continue 80mg (1 tablet) in the afternoon/evening. No Action budesonide inhalation hydralazine 25 mg tablet 50 mg PO TID metoprolol succinate 25 mg tablet extended release 24 hr 25 mg PO BID atorvastatin 20 mg tablet 20 mg PO DAILY Patient Comments: TAKE 1 TABLET BY MOUTH ONCE DAILY IN THE EVENING FOR CHOLESTEROL felodipine 10 mg tablet extended release 24 hr 10 mg PO BID Patient Comments: TAKE 1 TABLET BY MOUTH ONCE DAILY albuterol sulfate 90 mcg/actuation HFA aerosol inhaler 2 puff inhalation Q4H PRN (Reason: Wheezing) Patient Comments: INHALE 2 PUFFS BY MOUTH EVERY 4 HOURS NEEDED FOR WHEEZE Rx Instructions: 2 puffs prn for shortness of breath latanoprost 0.005 % drops 1 drp EYE-BOTH BEDTIME Rx Instructions: 1 drop in affected BOTH eyes daily at HS fluticasone propion-salmeterol [Advair Diskus] 250-50 mcg/dose Blister With Device 1 inh INHALATION BID tamsulosin 0.4 mg Capsule 0.8 mg PO BEDTIME finasteride 5 mg Tablet 5 mg PO DAILY trospium 20 mg Tablet 20 mg PO DAILY levothyroxine 175 mcg tablet 175 mcg PO DAILY Qty: 30 1RF ezetimibe 10 mg tablet 10 mg PO DAILY nitroglycerin 0.4 mg Tablet, Sublingual 0.4 mg SUBLINGUAL Q5M PRN (Reason: Chest Pain) Rx Instructions: do not exceed 3 doses per episode montelukast 10 mg Tablet 10 mg PO DAILY albuterol sulfate 90 mcg/actuation Hfa Aerosol Inhaler 2 puff INHALATION Q4HR PRN (Reason: Wheezing) furosemide [Lasix] 40 mg tablet 40 mg PO DAILY Qty: 30 0RF prednisone 20 mg tablet 20 mg DAILY Rx Instructions: 1 tablet daily clonidine 0.2 mg/24 hr patch weekly 0.2 mg transdermal WEEKLY Patient Comments: APPLY 1 PATCH TOPICALLY ONCE A WEEK Stand Alone Forms: Patient Portal/API
[2023-07-08 13:28] LABS: Troponin I 0.025 ng/mL (0.01-0.034)
[2023-07-08] MEDS: HYDRALAZINE 20 MG/ML VIAL 5 MG IV (14:27)
== END 2023-07-08 15:53 | disposition home or self-care (01) ==
PROVIDERS: Emergency Provider Emergency Medicine
DX: I50.9 Heart failure, unspecified (principal); R06.02 Shortness of breath; Z79.899 Other long term (current) drug therapy; Z79.01 Long term (current) use of anticoagulants
CPT/HCPCS: 36415; 71045; 80053; 81003; 81015; 83605; 83880; 84484; 85025; 85610; 93005; 93010; 96365; 96375; 99284; J0360; J1940

== ENCOUNTER 2023-08-25 08:48 | Emergency (ER) | payer MEDICARE, OTHER, SELFPAY ==
[2022-07-22 16:35] VITALS: PULSE 96; RESP 28; O2SAT 97
[2022-07-22 16:42] VITALS: BMI 36.9
[2023-08-25] VITALS (14 sets, daily range): BP systolic 157–193; BP diastolic 65–89; PULSE 48–69; RESP 14–18; TEMP 36.6; O2SAT 92–99; BMI 33.3
--- NOTE | 2023-08-25 09:37 | DI.CT.S_ITS ---
PROCEDURE: CT THORACIC SPINE WO CON INDICATIONS: ATRAUMATIC MIDLINE PAIN TECHNIQUE: Noncontrast 3 mm thick sections acquired through the region of interest in the thoracic spine. Sagittal and coronal reformats were then constructed. For radiation dose reduction, the following was used: automated exposure control. COMPARISON: None. FINDINGS: Image quality: Excellent. Bones: There is normal overall bony alignment. No acute vertebral body compression fractures. No suspicious sclerotic or lytic bony lesions. Central spinal canal is of normal overall caliber in the thoracic spine. At C7-T1, degenerative grade 1 anterior spondylolisthesis associated with hypertrophic facet joints. Mild to moderate central stenosis C5-6 Disc space narrowing and anterior osteophytes are noted throughout the exam. No lytic lesion. Soft tissues: No paravertebral masses or hematomas. Visualized posteromedial lungs appear clear. IMPRESSION: No evidence of fracture or lytic lesion in the thoracic spine. Degenerative disc disease and arthropathy associated with mild to moderate central stenosis C5-6. No stenosis in the thoracic spine Approved by: Cb Werner M.D. on 08/25/2023 at 10:28
--- NOTE | 2023-08-25 09:37 | DI.CT.S_ITS ---
PROCEDURE: CT LUMBAR SPINE WO CON INDICATIONS: ATRAUMATIC MIDLINE PAIN TECHNIQUE: Noncontrast 3 mm thick sections acquired from the T12 level to the sacrum. Sagittal and coronal reformats were constructed. For radiation dose reduction, the following was used: automated exposure control. COMPARISON: [facility], CT, CT THORACIC SPINE WO CON, 08/25/2023, 9:41. FINDINGS: Image quality: Excellent. Vertebral body height and alignment is maintained. Multi focal osteolytic or cystic lesions noted throughout the lumbar spine as well as the pelvis. In the pelvis, there is a 1.4 cm lesion, and in the L3 vertebral body, there is a 1.4 cm lesion 1.1 cm lesion noted in the L2 vertebral body. Multiple additional smaller lesions noted. There is diffuse disc space narrowing and hypertrophic facet joints present throughout the lumbar spine. Disc bulge and hypertrophic facet joints results in moderate to severe central and moderate bilateral foraminal stenosis L2-3, moderate central and moderate bilateral foraminal stenosis at L4-5 and L5-S1. 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 While these may be degenerative cysts, follow-up MRI with contrast recommended to assess for osteolytic metastasis. Multilevel degenerative disc disease and arthropathy associated with moderate to severe central stenosis L2-3 Approved by: Cb Werner M.D. on 08/25/2023 at 9:59
--- NOTE | 2023-08-25 09:38 | ED.BACK ---
HPI - Back Pain/Injury General Chief Complaint: Back Pain/Injury Stated Complaint: Lower back pain Time Seen by Provider: 08/25/23 08:55 Source: patient History of Present Illness HPI Narrative: 78-year-old male with history of end-stage renal disease (not currently on dialysis) presents from home by private vehicle for 4 days of thoracic and lumbar back pain. Denies trauma. States that the pain wakes him up from sleep at night. Has been taking oxycodone at home left over from previous procedure but they are not helping his pain. Reports tingling in the tips of his toes that he noticed this morning. Denies bowel or bladder incontinence, denies saddle anesthesia. Related Data Home Medications Medication Instructions Recorded Confirmed albuterol sulfate 90 mcg/actuation 2 puff inhalation Q4H PRN Wheezing 01/21/20 01/19/23 aerosol inhaler atorvastatin 20 mg tablet 20 mg PO DAILY 01/21/20 01/19/23 felodipine 10 mg tablet,extended 10 mg PO BID 01/21/20 01/19/23 release 24 hr latanoprost 0.005 % eye drops 1 drp EYE-BOTH BEDTIME 01/21/20 01/19/23 finasteride 5 mg tablet 5 mg PO DAILY 12/10/20 01/19/23 fluticasone 250 mcg-salmeterol 50 1 inh inhalation BID 12/10/20 01/19/23 mcg/dose blistr powdr for inhalation (Advair Diskus) tamsulosin 0.4 mg capsule 0.8 mg PO BEDTIME 12/10/20 01/19/23 trospium 20 mg tablet 20 mg PO DAILY 12/10/20 01/19/23 ezetimibe 10 mg tablet 10 mg PO DAILY 03/27/21 01/19/23 hydralazine 25 mg tablet 50 mg PO TID 09/18/21 01/19/23 metoprolol succinate 25 mg 25 mg PO BID 09/18/21 01/19/23 tablet,extended release 24 hr albuterol sulfate 90 mcg/actuation 2 puff inhalation Q4HR PRN Wheezing 04/17/22 01/19/23 aerosol inhaler montelukast 10 mg tablet 10 mg PO DAILY 04/17/22 01/19/23 nitroglycerin 0.4 mg sublingual 0.4 mg sublingual Q5M PRN Chest 04/17/22 01/19/23 tablet Pain clonidine 0.2 mg/24 hr weekly 0.2 mg transdermal WEEKLY 07/22/22 01/19/23 transdermal patch prednisone 20 mg tablet 20 mg DAILY 07/22/22 01/19/23 budesonide inhalation 01/19/23 01/19/23 Previous Rx's Medication Instructions Recorded levothyroxine 175 mcg tablet 175 mcg PO DAILY #30 tabs 12/11/20 furosemide 40 mg tablet (Lasix) 40 mg PO DAILY #30 tabs 04/20/22 furosemide 80 mg tablet (Lasix) See Rx Instructions .Route 07/08/23 .COMPLEX #30 tabs methocarbamol 500 mg tablet 500 mg PO QID #14 tabs 08/25/23 oxycodone-acetaminophen 5 mg-325 1 tab PO Q4H PRN pain #20 tabs 08/25/23 mg tablet (Percocet) Allergies Allergy/AdvReac Type Severity Reaction Status Date / Time No Known Drug Allergies Allergy Verified 07/08/23 10:08 Review of Systems Review of Systems Narrative: Negative except as noted above Patient History Medical History Anticoagulated Atrial fibrillation CAD (coronary artery disease) CKD (chronic kidney disease) HLD (hyperlipidemia) HTN (hypertension) Hypothyroidism TIA (transient ischemic attack) Surgical History H/O knee surgery H/O shoulder surgery H/O thyroidectomy Family History Father Hypertension Social History marital status: household members: spouse Smoking Status: Never smoker alcohol intake: current substance use type: does not use Smoking Status: Never smoker alcohol intake frequency: holidays/special occasions only Substance Use Type: does not use Exam Initial Vital Signs Initial Vital Signs: Vital Signs Temperature 97.8 F 08/25/23 09:02 Pulse Rate 60 08/25/23 09:02 Respiratory Rate 18 08/25/23 09:02 Blood Pressure 172/76 H 08/25/23 09:02 Pulse Oximetry 97 08/25/23 09:02 Oxygen Delivery Method Room Air 08/25/23 09:02 Const: Awake, alert, in pain, frail Eyes: PERRL, EOMI, conjunctiva normal ENT: Atraumatic, dentition normal, mucous membranes moist Cardiac: regular rate, regular rhythm RESP: unlabored, clear bilaterally, no wheezing GI: Atraumatic, soft, nontender, nondistended, no rebound, no guarding MSK back: midline tenderness lower thoracic, lower lumbar spine. No step-offs, no deformity Skin: Warm, Dry, intact, no rashes Neuro: AO x3, CN II-XII grossly intact, moves all extremities, ambulatory with walker Psych: affect normal, mood normal, not suicidal, not homicidal Course Course Course Narrative: Progressively worsening back pain, not improving with Tylenol. Will order CT of thoracic and lumbar spine Orders Ordered: Discontinued Medications Acetaminophen (Acetaminophen 325 Mg Tablet) 975 mg PO NOW ONE Stop: 08/25/23 09:35 Last Admin: 08/25/23 09:56 Dose: 975 mg Documented By: NORA Dexamethasone (Dexamethasone 10 Mg/Ml Vial) 10 mg IV NOW ONE Stop: 08/25/23 12:20 Last Admin: 08/25/23 12:45 Dose: 10 mg Documented By: NORA Lidocaine (Lidocaine Patch 1 Each Adh..Patch) 1 each TOP NOW ONE Stop: 08/25/23 09:35 Last Admin: 08/25/23 10:21 Dose: Not Given Documented By: NORA Methocarbamol (Methocarbamol 500 Mg Tablet) 750 mg PO NOW ONE Stop: 08/25/23 09:35 Last Admin: 08/25/23 09:57 Dose: 750 mg Documented By: NORA Morphine Sulfate (Morphine 4 Mg/Ml Inj) 4 mg IV NOW ONE Stop: 08/25/23 12:20 Last Admin: 08/25/23 12:45 Dose: 4 mg Documented By: NORA Oxycodone HCl (Oxycodone Ir 5 Mg Tablet) 5 mg PO NOW ONE Stop: 08/25/23 09:35 Last Admin: 08/25/23 09:57 Dose: 5 mg Documented By: NORA Reevaluation(s) Reevaluation #1: Patient is still in significant discomfort, CTs show lumbar abnormalities concerning for possible cancer. Due to patient's persistent pain and these abnormal findings we will order an MRI. Patient and are amenable to waiting for MRI Reevaluation #2: MRI reviewed, no obvious cancerous lesions, recommended follow up bone scan recommended on nonemergent basis. Patient given MRI report, pain is much improved and he is ambulatory with a walker throughout the emergency department. Pain medication sent to pharmacy. PCP follow up advised. Vital Signs Vital signs: Vital Signs - 8 hr 08/25/23 12:11 08/25/23 12:28 08/25/23 12:29 Pulse Rate 48 L 60 Respiratory Rate 18 Blood Pressure 162/78 H 173/79 H Pulse Oximetry 99 94 Oxygen Delivery Method Room Air 08/25/23 12:30 08/25/23 13:00 08/25/23 13:00 Pulse Rate 60 55 L Respiratory Rate 16 Blood Pressure 186/82 H Pulse Oximetry 94 96 Oxygen Delivery Method Room Air 08/25/23 14:16 08/25/23 14:16 08/25/23 14:18 Pulse Rate 58 L 60 Respiratory Rate 14 Blood Pressure 193/84 H Pulse Oximetry 94 93 Oxygen Delivery Method Room Air 08/25/23 14:18 08/25/23 17:20 08/25/23 17:21 Pulse Rate 65 65 Respiratory Rate Blood Pressure 164/89 H Pulse Oximetry 93 95 Oxygen Delivery Method 08/25/23 17:21 08/25/23 17:30 08/25/23 17:30 Pulse Rate 61 Respiratory Rate Blood Pressure 172/77 H 157/72 H Pulse Oximetry 94 Oxygen Delivery Method 08/25/23 17:40 08/25/23 17:45 08/25/23 17:45 Pulse Rate 63 69 Respiratory Rate Blood Pressure 163/78 H Pulse Oximetry 93 92 Oxygen Delivery Method Room Air 08/25/23 18:00 08/25/23 18:00 Pulse Rate 57 L Respiratory Rate Blood Pressure 160/65 H Pulse Oximetry 94 Oxygen Delivery Method Room Air MDM - Back Pain/Injury Lab Data 08/25/23 12:40 08/25/23 12:40 Labs: Lab Results 08/25/23 Range/Units 12:40 WBC 9.6 (4.5-11.0) X10^3/uL RBC 3.36 L (4.5-5.9) X10^6/uL Hgb 10.1 L (13.5-17.5) g/dL Hct 30.3 L (41-53) % MCV 90.2 (80-100) fL MCH 30.1 (26-34) PG MCHC 33.4 (30-36) % RDW 16.5 H (11.6-14.8) % Plt Count 196 (150-400) X10^3/uL Neut % (Auto) 77.9 H (50-75) % Lymph % (Auto) 8.2 L (25-40) % Thomas % (Auto) 9.4 (3-14) % Eos % (Auto) 3.8 (2-4) % Baso % (Auto) 0.7 (0-2) % Neut # (Auto) 7400 H (0549-1263) /uL Lymph # (Auto) 800 L (7278-3819) /uL Thomas # (Auto) 900 (0-900) /uL Eos # (Auto) 400 (0-450) /uL Baso # (Auto) 100 (0-100) /uL Sodium 137 (137-145) mmol/L Potassium 4.6 (3.4-5.1) mmol/L Chloride 99 (98-107) mmol/L Carbon Dioxide 23 (22-32) mmol/L BUN 79 H (9-20) mg/dL Creatinine 4.32 H (0.66-1.25) mg/dL Estimated GFR 13 L (>60) mL/min BUN/Creatinine Ratio 18.3 (6-22) Glucose 90 (80-110) mg/dL Calcium 9.1 (8.4-10.2) mg/dL Total Bilirubin 0.4 (0.2-1.3) mg/dL AST 24 (17-59) IU/L ALT 21 (<50) IU/L Alkaline Phosphatase 53 (38-126) U/L Total Protein 7.9 (6.3-8.2) g/dL Albumin 4.5 (3.5-5.0) g/dL Globulin 3.4 (1.7-4.1) g/dL Albumin/Globulin Ratio 1.3 (1.0-2.8) Discharge Plan Departure Patient Disposition: Home Clinical Impression: Acute low back pain Qualifiers: Back pain laterality: bilateral Sciatica presence: without sciatica Qualified Code(s): M54.50 - Low back pain, unspecified Instructions: DI for Low Back Pain Activity Restrictions/Additional Instructions: YOUR MRI REPORT IS FOLLOWS. I HIGHLY RECOMMEND FOLLOWING UP WITH YOUR PRIMARY CARE PHYSICIAN TO OBTAIN A BONE SCAN. PROCEDURE: MR LUMBAR SPINE WO/W CON INDICATIONS: abnormal CT Lspine TECHNIQUE: Noncontrast sagittal T1 spin echo and T2 fast spin echo, sagittal STIR, axial T1 and T2 fast spin echo through the lumbar spine. In cases with scoliosis, additional coronal T2 fast spin echo may be performed. After the administration of contrast, sagittal and axial T1 spin echo with fat saturation through the lumbar spine. COMPARISON: [facility], CT, CT LUMBAR SPINE WO CON, 08/25/2023, 9:41. FINDINGS: Image quality: Excellent. Alignment and curvature: There is multilevel trace retrolisthesis most severe at L5-S1 measuring 1 cm. Marrow: Marrow is of normal overall signal. As identified on CT exam, there are multiple cyst-like areas within the vertebral bodies most significant at L3 and L2. These areas appear to correspond to hyperintense foci on both T1 and T2. The lesion at T2 demonstrates mild degree of enhancement the lesion at T3 demonstrates very little enhancement. Other lesions which are much smaller demonstrate similar signal changes. No acute vertebral body compression fractures. No suspicious marrow enhancement. Spinal cord: Conus medullaris terminates at the L2 level. Visualized spinal cord demonstrates normal signal, without suspicious enhancement. Paraspinous soft tissues: No paravertebral masses or abnormal enhancement. Discs: Multilevel moderate to severe disc desiccation. IMPRESSION: Foci corresponding to what appear to be cystic change within the vertebral bodies as described above. The overall have a benign appearance on MRI with the exception of the L2 vertebral body demonstrate mild enhancement. However, if these are arthritic changes, mild enhancement can be seen with inflammation. While they are not classic for a metastatic disease, it cannot be definitively excluded. Recommend further evaluation to determine if there is known primary malignancy. In addition, nonemergent bone scan may be helpful for correlation with CT and MRI. Prescriptions: New oxycodone-acetaminophen [Percocet] 5-325 mg tablet 1 tab PO Q4H PRN (Reason: pain) Qty: 20 0RF methocarbamol 500 mg tablet 500 mg PO QID Qty: 14 0RF No Action budesonide inhalation hydralazine 25 mg tablet 50 mg PO TID metoprolol succinate 25 mg tablet extended release 24 hr 25 mg PO BID atorvastatin 20 mg tablet 20 mg PO DAILY Patient Comments: TAKE 1 TABLET BY MOUTH ONCE DAILY IN THE EVENING FOR CHOLESTEROL felodipine 10 mg tablet extended release 24 hr 10 mg PO BID Patient Comments: TAKE 1 TABLET BY MOUTH ONCE DAILY albuterol sulfate 90 mcg/actuation HFA aerosol inhaler 2 puff inhalation Q4H PRN (Reason: Wheezing) Patient Comments: INHALE 2 PUFFS BY MOUTH EVERY 4 HOURS NEEDED FOR WHEEZE Rx Instructions: 2 puffs prn for shortness of breath latanoprost 0.005 % drops 1 drp EYE-BOTH BEDTIME Rx Instructions: 1 drop in affected BOTH eyes daily at HS fluticasone propion-salmeterol [Advair Diskus] 250-50 mcg/dose Blister With Device 1 inh INHALATION BID tamsulosin 0.4 mg Capsule 0.8 mg PO BEDTIME finasteride 5 mg Tablet 5 mg PO DAILY trospium 20 mg Tablet 20 mg PO DAILY levothyroxine 175 mcg tablet 175 mcg PO DAILY Qty: 30 1RF ezetimibe 10 mg tablet 10 mg PO DAILY nitroglycerin 0.4 mg Tablet, Sublingual 0.4 mg SUBLINGUAL Q5M PRN (Reason: Chest Pain) Rx Instructions: do not exceed 3 doses per episode montelukast 10 mg Tablet 10 mg PO DAILY albuterol sulfate 90 mcg/actuation Hfa Aerosol Inhaler 2 puff INHALATION Q4HR PRN (Reason: Wheezing) furosemide [Lasix] 40 mg tablet 40 mg PO DAILY Qty: 30 0RF prednisone 20 mg tablet 20 mg DAILY Rx Instructions: 1 tablet daily clonidine 0.2 mg/24 hr patch weekly 0.2 mg transdermal WEEKLY Patient Comments: APPLY 1 PATCH TOPICALLY ONCE A WEEK furosemide [Lasix] 80 mg tablet See Rx Instructions .ROUTE .COMPLEX Qty: 30 0RF Rx Instructions: Take 120mg (1.5 tablets) in the am, and continue 80mg (1 tablet) in the afternoon/evening. Referrals: Kelsey Hernandez ARNP [Primary Care Provider] - Stand Alone Forms: Patient Portal/API
[2023-08-25] MEDS: ACETAMINOPHEN 325 MG TABLET 975 MG PO (09:56)
[2023-08-25] MEDS: OXYCODONE IR 5 MG TABLET PO (09:57)
[2023-08-25] MEDS: methocarbamoL 500 MG TABLET 750 MG PO (09:57)
--- NOTE | 2023-08-25 12:18 | DI.MRI.S_ITS ---
PROCEDURE: MR LUMBAR SPINE WO/W CON INDICATIONS: abnormal CT Lspine TECHNIQUE: Noncontrast sagittal T1 spin echo and T2 fast spin echo, sagittal STIR, axial T1 and T2 fast spin echo through the lumbar spine. In cases with scoliosis, additional coronal T2 fast spin echo may be performed. After the administration of contrast, sagittal and axial T1 spin echo with fat saturation through the lumbar spine. COMPARISON: [facility], CT, CT LUMBAR SPINE WO CON, 08/25/2023, 9:41. FINDINGS: Image quality: Excellent. Alignment and curvature: There is multilevel trace retrolisthesis most severe at L5-S1 measuring 1 cm. Marrow: Marrow is of normal overall signal. As identified on CT exam, there are multiple cyst-like areas within the vertebral bodies most significant at L3 and L2. These areas appear to correspond to hyperintense foci on both T1 and T2. The lesion at T2 demonstrates mild degree of enhancement the lesion at T3 demonstrates very little enhancement. Other lesions which are much smaller demonstrate similar signal changes. No acute vertebral body compression fractures. No suspicious marrow enhancement. Spinal cord: Conus medullaris terminates at the L2 level. Visualized spinal cord demonstrates normal signal, without suspicious enhancement. Paraspinous soft tissues: No paravertebral masses or abnormal enhancement. Discs: Multilevel moderate to severe disc desiccation. IMPRESSION: Foci corresponding to what appear to be cystic change within the vertebral bodies as described above. The overall have a benign appearance on MRI with the exception of the L2 vertebral body demonstrate mild enhancement. However, if these are arthritic changes, mild enhancement can be seen with inflammation. While they are not classic for a metastatic disease, it cannot be definitively excluded. Recommend further evaluation to determine if there is known primary malignancy. In addition, nonemergent bone scan may be helpful for correlation with CT and MRI. Dictated by: Charley Headley M.D. on 08/25/2023 at 17:12 Approved by: Charley Headley M.D. on 08/25/2023 at 17:16
[2023-08-25] MEDS: DEXAMETHASONE 10 MG/ML VIAL IV (12:45)
[2023-08-25] MEDS: MORPHINE 4 MG/ML INJ IV (12:45)
[2023-08-25 12:54] LABS: Add Manual Diff / Slide Review NO; Basophils Absolute Auto 100 /uL (0-100); Basophils Percent Auto 0.7 % (0-2); Eosinophils Absolute Auto 400 /uL (0-450); Eosinophils Percent Auto 3.8 % (2-4); Hematocrit 30.3 % (41-53); Hemoglobin 10.1 g/dL (13.5-17.5); Lymphocytes Absolute Auto 800 /uL (1100-4500); Lymphocytes Percent Auto 8.2 % (25-40); Mean Corpuscular HGB Conc 33.4 % (30-36); Mean Corpuscular Hemoglobin 30.1 PG (26-34); Mean Corpuscular Volume 90.2 fL (80-100); Monocytes Absolute Auto 900 /uL (0-900); Monocytes Percent Auto 9.4 % (3-14); Neutrophils Absolute Auto 7400 /uL (1500-7000); Neutrophils Percent Auto 77.9 % (50-75); Platelet Count 196 X10^3/uL (150-400); Red Blood Cell Count 3.36 X10^6/uL (4.5-5.9); Red Cell Distribution Width 16.5 % (11.6-14.8); White Blood Cell Count 9.6 X10^3/uL (4.5-11.0)
[2023-08-25 13:13] LABS: HEMOLYSIS < 15 (0-50); Potassium 4.6 mmol/L (3.4-5.1)
[2023-08-25 13:14] LABS: Alanine Aminotransferase 21 IU/L (<50); Albumin 4.5 g/dL (3.5-5.0); Albumin Globulin Ratio 1.3 (1.0-2.8); Alkaline Phosphatase 53 U/L (38-126); Aspartate Aminotransferase 24 IU/L (17-59); BUN Creatinine Ratio 18.3 (6-22); Bilirubin Total 0.4 mg/dL (0.2-1.3); Blood Urea Nitrogen 79 mg/dL (9-20); Calcium 9.1 mg/dL (8.4-10.2); Carbon Dioxide 23 mmol/L (22-32); Chloride 99 mmol/L (98-107); Estimated Glomerular Filt Rate 13 mL/min (>60); Globulin 3.4 g/dL (1.7-4.1); Glucose 90 mg/dL (80-110); Sodium 137 mmol/L (137-145); Total Protein 7.9 g/dL (6.3-8.2)
== END 2023-08-25 18:27 | disposition home or self-care (01) ==
PROVIDERS: Emergency Provider Emergency Medicine; PCP Nurse Practitioner Family
DX: M54.50 Low back pain, unspecified (principal); Z79.899 Other long term (current) drug therapy
CPT/HCPCS: 36415; 72128; 72131; 72158; 80053; 85025; 96374; 96375; 99284; 99285; J1100; J2270

== ENCOUNTER → 2023-09-06 10:01 | Outpatient (CLI) | payer MEDICARE, OTHER, SELFPAY ==
[2022-07-22 16:35] VITALS: PULSE 96; RESP 28; O2SAT 97
[2022-07-22 16:42] VITALS: BMI 36.9
--- NOTE | 2023-09-06 10:06 | DI.NM.S_ITS ---
PROCEDURE: NM BONE SCAN WHOLE BODY RADIOPHARMACEUTICAL: 20.1 mCi Tc-99m MDP IV. INDICATIONS: LOW BACK PAIN TECHNIQUE: Delayed whole-body scintigrams were obtained approximately 3-4 hours after intravenous injection of radiotracer. Anterior and posterior views were acquired from vertex to feet. Additional left and right oblique views of the abdomen and pelvis were obtained. COMPARISON: None. FINDINGS: Degenerative uptake of radiotracer within the mid/lower thoracic spine, at the bilateral acromioclavicular and glenohumeral joints, bilateral knee joints and ankle joints. Right knee arthroplasty hardware is present. No evidence of metastatic disease. IMPRESSION: Multiple sites of degenerative uptake of radiotracer. No evidence of metastatic disease. Dictated by: Hailey Guajardo M.D. on 09/06/2023 at 15:01 Approved by: Hailey Guajardo M.D. on 09/06/2023 at 15:02
== END ==
PROVIDERS: PCP Nurse Practitioner Family; Referring Provider Family Medicine; Visit Provider Family Medicine
DX: M54.59 Other low back pain (principal)
CPT/HCPCS: 78306; A9503

== ENCOUNTER → 2024-06-08 09:22 | Outpatient (CLI) | payer MEDICARE, OTHER, SELFPAY ==
[2022-07-22 16:35] VITALS: PULSE 96; RESP 28; O2SAT 97
[2022-07-22 16:42] VITALS: BMI 36.9
--- NOTE | 2024-06-08 09:24 | DI.CT.S_ITS ---
PROCEDURE: CT HEAD/BRAIN WO CON INDICATIONS: OCCIPITAL PARLETAL ICH TECHNIQUE: Noncontrast 4.5 mm thick angled axial sections acquired from the foramen magnum to the vertex, with coronal and sagittal reformats. For radiation dose reduction, the following was used: automated exposure control, adjustment of mA and/or kV according to patient size. COMPARISON: [facility], CT, CT HEAD/BRAIN WO CON, 09/27/2022, 9:54. [facility], CT, CT HEAD WITHOUT CONTRAST, 05/30/2024, 3:26. [facility], CT, CT HEAD WITHOUT CONTRAST ANTICOAGULATED TRAUMA, 05/05/2024, 7:19. FINDINGS: Image quality: Diagnostic. CSF spaces: Basal cisterns are patent. No extra-axial fluid collections. The ventricles are symmetric in size and shape. Brain: No intracranial bleeds or masses. There is cerebral volume loss for age, with resultant ventricular and sulcal prominence. There are periventricular and deep white matter chronic small vessel ischemic changes. There is intracranial internal carotid artery atherosclerosis. Skull and face: There is a small scalp hematoma seen involving the right occipital/parietal region, as on series 2, image 26. No associated calvarial fracture is seen. Calvarium and visualized facial bones appear intact, without suspicious lesions. Sinuses: Visualized sinuses and mastoids are clear. IMPRESSION: The previously seen left occipital hemorrhage has resolved. No new intracranial hemorrhage is seen. Small right parietal/of segmental scalp hematoma seen, which has decreased in size compared to the prior. No displaced calvarial fracture can be seen. No acute intracranial process is seen. Dictated by: Jovanny Lombardi M.D. on 06/08/2024 at 10:53 Approved by: Jovanny Lombardi M.D. on 06/08/2024 at 11:00
== END ==
PROVIDERS: PCP Nurse Practitioner Family; Referring Provider Physician Assistant Surgical; Visit Provider Physician Assistant Surgical
DX: I61.9 Nontraumatic intracerebral hemorrhage, unspecified (principal); S00.03XD Contusion of scalp, subsequent encounter
CPT/HCPCS: 70450

== ENCOUNTER 2024-11-08 05:23 | Emergency (ER) | payer MEDICARE, OTHER, SELFPAY ==
[2022-07-22 16:35] VITALS: PULSE 96; RESP 28; O2SAT 97
[2022-07-22 16:42] VITALS: BMI 36.9
[2024-11-08] VITALS (10 sets, daily range): BP systolic 108–127; BP diastolic 58–75; PULSE 106–110; RESP 18–26; TEMP 36.4; O2SAT 95–100; BMI 33.2
--- NOTE | 2024-11-08 05:34 | DI.RAD.S_ITS ---
PROCEDURE: XR CHEST 1V INDICATIONS: dyspnea, ESRD TECHNIQUE: One view of the chest was acquired. COMPARISON: [facility], CR, XR CHEST 1V, 07/08/2023, 10:37. [facility], CR, XR CHEST 1V, 09/27/2022, 9:53. FINDINGS: Surgical changes and devices: Right IJ dialysis catheter tips project over the right atrium. Lungs and pleura: Increased pulmonary markings. Peribronchial cuffing. Low lung volumes. Mediastinum: Mediastinal contours appear normal. Heart size is enlarged. Bones and chest wall: No suspicious bony lesions. Overlying soft tissues appear unremarkable. Severe left shoulder osteoarthritis. IMPRESSION: Moderate pulmonary edema. Dictated by: Matias Gonzalez M.D. on 11/08/2024 at 7:35 Approved by: Matias Gonzalez M.D. on 11/08/2024 at 7:36
--- NOTE | 2024-11-08 05:43 | ED.SOB ---
HPI - SOB/Dyspnea General Chief Complaint: Shortness of Breath/Dyspnea Stated Complaint: SOB Time Seen by Provider: 11/08/24 05:33 Source: patient and EMS Mode of arrival: EMS Limitations: no limitations History of Present Illness HPI Narrative: 79yoM with PMH ESRD on MWF dialysis (Sees Dr. Escobar at [facility]) presents by EMS from home for shortness of breath. Patient last received dialysis Wednesday, he was due later this morning for dialysis. Patient states that he went to bed in his usual state of health and woke up around 2:00 a.m. feeling short of breath. He tried getting up and walking around but continued to feel short of breath and called 911. EMS reports that room oxygen saturations were 100% on room air. Related Data Home Medications Medication Instructions Recorded Confirmed albuterol sulfate 90 mcg/actuation 2 puff inhalation Q4H PRN Wheezing 01/21/20 01/19/23 aerosol inhaler atorvastatin 20 mg tablet 20 mg PO DAILY 01/21/20 01/19/23 felodipine 10 mg tablet,extended 10 mg PO BID 01/21/20 01/19/23 release 24 hr latanoprost 0.005 % eye drops 1 drp EYE-BOTH BEDTIME 01/21/20 01/19/23 finasteride 5 mg tablet 5 mg PO DAILY 12/10/20 01/19/23 fluticasone 250 mcg-salmeterol 50 1 inh inhalation BID 12/10/20 01/19/23 mcg/dose blistr powdr for inhalation (Advair Diskus) tamsulosin 0.4 mg capsule 0.8 mg PO BEDTIME 12/10/20 01/19/23 trospium 20 mg tablet 20 mg PO DAILY 12/10/20 01/19/23 ezetimibe 10 mg tablet 10 mg PO DAILY 03/27/21 01/19/23 hydralazine 25 mg tablet 50 mg PO TID 09/18/21 01/19/23 metoprolol succinate 25 mg 25 mg PO BID 09/18/21 01/19/23 tablet,extended release 24 hr albuterol sulfate 90 mcg/actuation 2 puff inhalation Q4HR PRN Wheezing 04/17/22 01/19/23 aerosol inhaler montelukast 10 mg tablet 10 mg PO DAILY 04/17/22 01/19/23 nitroglycerin 0.4 mg sublingual 0.4 mg sublingual Q5M PRN Chest 04/17/22 01/19/23 tablet Pain clonidine 0.2 mg/24 hr weekly 0.2 mg transdermal WEEKLY 07/22/22 01/19/23 transdermal patch prednisone 20 mg tablet 20 mg DAILY 07/22/22 01/19/23 budesonide inhalation 01/19/23 01/19/23 Previous Rx's Medication Instructions Recorded levothyroxine 175 mcg tablet 175 mcg PO DAILY #30 tabs 12/11/20 furosemide 40 mg tablet (Lasix) 40 mg PO DAILY #30 tabs 04/20/22 furosemide 80 mg tablet (Lasix) See Rx Instructions .Route 07/08/23 .COMPLEX #30 tabs methocarbamol 500 mg tablet 500 mg PO QID #14 tabs 08/25/23 oxycodone-acetaminophen 5 mg-325 1 tab PO Q4H PRN pain #20 tabs 08/25/23 mg tablet (Percocet) Allergies Allergy/AdvReac Type Severity Reaction Status Date / Time No Known Drug Allergies Allergy Verified 07/08/23 10:08 Patient History Medical History Anticoagulated Atrial fibrillation CAD (coronary artery disease) CKD (chronic kidney disease) HLD (hyperlipidemia) HTN (hypertension) Hypothyroidism TIA (transient ischemic attack) Surgical History H/O knee surgery H/O shoulder surgery H/O thyroidectomy Family History Father Hypertension Social History marital status: household members: spouse Smoking Status: Never smoker alcohol intake: current substance use type: does not use Smoking Status: Never smoker alcohol intake frequency: holidays/special occasions only Exam Initial Vital Signs Initial Vital Signs: Vital Signs Pulse Rate 109 H 11/08/24 05:28 Blood Pressure 127/73 11/08/24 05:28 Pulse Oximetry 100 11/08/24 05:28 Const: Awake, alert, frail, appears chronically unwell Cardiac: Tachycardia, regular rhythm RESP: Conversational without dyspnea, trace and expiratory wheezes GI: Soft, nontender, nondistended, no rebound, no guarding MSK: Atraumatic, full range of motion, pulses equal Skin: Warm, Dry, intact, no rashes Neuro: AO x3, CN II-XII grossly intact, moves all extremities Course Orders Ordered: ED Orders 11/08/24 05:34 Chest [XR chest 1V] Stat EKG-12 Lead Stat 11/08/24 06:20 CBC Auto Diff [Complete Blood Count AUTO DIFF] Stat CMP [Comprehensive Metabolic Panel] Stat Vital Signs Vital signs: Vital Signs - 8 hr 11/08/24 05:28 11/08/24 05:28 11/08/24 05:30 Temperature Pulse Rate 109 H Respiratory Rate Blood Pressure 127/73 124/66 Pulse Oximetry 100 Oxygen Delivery Method 11/08/24 05:30 11/08/24 05:34 11/08/24 06:00 Temperature 97.5 F L Pulse Rate 110 H 110 H 106 H Respiratory Rate 26 H Blood Pressure 127/73 Pulse Oximetry 100 100 100 Oxygen Delivery Method Room Air 11/08/24 06:00 11/08/24 06:30 Temperature Pulse Rate 110 H Respiratory Rate 18 Blood Pressure 125/75 Pulse Oximetry 95 Oxygen Delivery Method MDM - SOB/Dyspnea Lab Data 11/08/24 06:20 11/08/24 06:20 Labs: Lab Results 11/08/24 Range/Units 06:20 WBC 7.3 (4.5-11.0) X10^3/uL RBC 2.95 L (4.5-5.9) X10^6/uL Hgb 10.3 L (13.5-17.5) g/dL Hct 30.3 L (41-53) % MCV 102.6 H (80-100) fL MCH 34.7 H (26-34) PG MCHC 33.8 (30-36) % RDW 15.2 H (11.6-14.8) % Plt Count 106 L (150-400) X10^3/uL Neut % (Auto) 79.5 H (50-75) % Lymph % (Auto) 7.2 L (25-40) % [place] % (Auto) 9.1 (3-14) % Eos % (Auto) 3.4 (2-4) % Baso % (Auto) 0.8 (0-2) % Neut # (Auto) 5800 (9689-0543) /uL Lymph # (Auto) 500 L (5462-8138) /uL [place] # (Auto) 700 (0-900) /uL Eos # (Auto) 200 (0-450) /uL Baso # (Auto) 100 (0-100) /uL Sodium 137 (137-145) mmol/L Potassium 4.4 (3.4-5.1) mmol/L Chloride 97 L (98-107) mmol/L Carbon Dioxide 23 (22-32) mmol/L BUN 84 H (9-20) mg/dL Creatinine 6.49 H (0.66-1.25) mg/dL Estimated GFR 8 L (>60) mL/min BUN/Creatinine Ratio 12.9 (6-22) Glucose 106 (80-110) mg/dL Calcium 7.8 L (8.4-10.2) mg/dL Total Bilirubin 0.6 (0.2-1.3) mg/dL AST 26 (17-59) IU/L ALT 30 (<50) IU/L Alkaline Phosphatase 41 (38-126) U/L Total Protein 6.9 (6.3-8.2) g/dL Albumin 4.2 (3.5-5.0) g/dL Globulin 2.7 (1.7-4.1) g/dL Albumin/Globulin Ratio 1.6 (1.0-2.8) MDM Narrative Medical decision making narrative: ESRD patient with shortness of breath. While awake and on room air patient is saturating 100%. Patient does have brief dips of saturations into the 80s, however this only occurs when patient was sleeping and he does state that he has sleep apnea. Chest x-ray does show signs of vascular congestion which would be consistent with ESRD. Patient states he does not really make urine anymore 0635 - Case discussed with patient's underwriting analyst Dr. Escobar, who states that as long as patient was not have critical labs he can follow up outpatient for his normally scheduled dialysis. Labs negative for hyperkalemia or other significant electrolyte abnormality. Patient informed of labs as well as Nephrology recommendations. He states his can pick him up to take him to his noon dialysis appointment Discharge Plan Departure Patient Disposition: Home Clinical Impression: Cardiac volume overload, ESRD on dialysis Instructions: Chronic Kidney Disease Activity Restrictions/Additional Instructions: Your chest X ray does show you have fluid on your lungs. Make sure that you go to your dialysis appointment as scheduled this afternoon. Prescriptions: No Action budesonide inhalation hydralazine 25 mg tablet 50 mg PO TID metoprolol succinate 25 mg tablet extended release 24 hr 25 mg PO BID atorvastatin 20 mg tablet 20 mg PO DAILY Patient Comments: TAKE 1 TABLET BY MOUTH ONCE DAILY IN THE EVENING FOR CHOLESTEROL felodipine 10 mg tablet extended release 24 hr 10 mg PO BID Patient Comments: TAKE 1 TABLET BY MOUTH ONCE DAILY albuterol sulfate 90 mcg/actuation HFA aerosol inhaler 2 puff inhalation Q4H PRN (Reason: Wheezing) Patient Comments: INHALE 2 PUFFS BY MOUTH EVERY 4 HOURS NEEDED FOR WHEEZE Rx Instructions: 2 puffs prn for shortness of breath latanoprost 0.005 % drops 1 drp EYE-BOTH BEDTIME Rx Instructions: 1 drop in affected BOTH eyes daily at HS fluticasone propion-salmeterol [Advair Diskus] 250-50 mcg/dose Blister With Device 1 inh INHALATION BID tamsulosin 0.4 mg Capsule 0.8 mg PO BEDTIME finasteride 5 mg Tablet 5 mg PO DAILY trospium 20 mg Tablet 20 mg PO DAILY levothyroxine 175 mcg tablet 175 mcg PO DAILY Qty: 30 1RF ezetimibe 10 mg tablet 10 mg PO DAILY nitroglycerin 0.4 mg Tablet, Sublingual 0.4 mg SUBLINGUAL Q5M PRN (Reason: Chest Pain) Rx Instructions: do not exceed 3 doses per episode montelukast 10 mg Tablet 10 mg PO DAILY albuterol sulfate 90 mcg/actuation Hfa Aerosol Inhaler 2 puff INHALATION Q4HR PRN (Reason: Wheezing) furosemide [Lasix] 40 mg tablet 40 mg PO DAILY Qty: 30 0RF prednisone 20 mg tablet 20 mg DAILY Rx Instructions: 1 tablet daily clonidine 0.2 mg/24 hr patch weekly 0.2 mg transdermal WEEKLY Patient Comments: APPLY 1 PATCH TOPICALLY ONCE A WEEK furosemide [Lasix] 80 mg tablet See Rx Instructions .ROUTE .COMPLEX Qty: 30 0RF Rx Instructions: Take 120mg (1.5 tablets) in the am, and continue 80mg (1 tablet) in the afternoon/evening. oxycodone-acetaminophen [Percocet] 5-325 mg tablet 1 tab PO Q4H PRN (Reason: pain) Qty: 20 0RF methocarbamol 500 mg tablet 500 mg PO QID Qty: 14 0RF Referrals: Kelsey Hernandez ARNP [Primary Care Provider] - Stand Alone Forms: Patient Portal/API/Survey
--- NOTE | 2024-11-08 06:10 | EKG_ITS ---
[address] [address] [place] [address] Test Date: 2024-11-08 Pat Name: Prosper Borden Department: [facility] Room: Gender: Male Sand Analyst: BRYSON : 1945 Requested By: Order Number: [id number] Reading MD: Jeff Salinas MD Measurements Intervals [place] Rate: 109 P: OR: QRS: -19 QRSD: 126 T: -3 QT: 408 QTc: 549 Interpretive Statements Undetermined rhythm Right bundle branch block NO SIGNIFICANT CHANGE FROM PRIOR TRACING Electronically Signed On 11-08-2024 6:41:07 PST by Jeff Salinas MD
[2024-11-08 06:35] LABS: Add Manual Diff / Slide Review NO; Basophils Absolute Auto 100 /uL (0-100); Basophils Percent Auto 0.8 % (0-2); Eosinophils Absolute Auto 200 /uL (0-450); Eosinophils Percent Auto 3.4 % (2-4); Hematocrit 30.3 % (41-53); Hemoglobin 10.3 g/dL (13.5-17.5); Lymphocytes Absolute Auto 500 /uL (1100-4500); Lymphocytes Percent Auto 7.2 % (25-40); Mean Corpuscular HGB Conc 33.8 % (30-36); Mean Corpuscular Hemoglobin 34.7 PG (26-34); Mean Corpuscular Volume 102.6 fL (80-100); Monocytes Absolute Auto 700 /uL (0-900); Monocytes Percent Auto 9.1 % (3-14); Neutrophils Absolute Auto 5800 /uL (1500-7000); Neutrophils Percent Auto 79.5 % (50-75); Platelet Count 106 X10^3/uL (150-400); Red Blood Cell Count 2.95 X10^6/uL (4.5-5.9); Red Cell Distribution Width 15.2 % (11.6-14.8); White Blood Cell Count 7.3 X10^3/uL (4.5-11.0)
[2024-11-08 06:39] LABS: Alanine Aminotransferase 30 IU/L (<50); Albumin 4.2 g/dL (3.5-5.0); Albumin Globulin Ratio 1.6 (1.0-2.8); Alkaline Phosphatase 41 U/L (38-126); Aspartate Aminotransferase 26 IU/L (17-59); BUN Creatinine Ratio 12.9 (6-22); Bilirubin Total 0.6 mg/dL (0.2-1.3); Blood Urea Nitrogen 84 mg/dL (9-20); Calcium 7.8 mg/dL (8.4-10.2); Carbon Dioxide 23 mmol/L (22-32); Chloride 97 mmol/L (98-107); Estimated Glomerular Filt Rate 8 mL/min (>60); Globulin 2.7 g/dL (1.7-4.1); Glucose 106 mg/dL (80-110); HEMOLYSIS < 15 (0-50); Potassium 4.4 mmol/L (3.4-5.1); Sodium 137 mmol/L (137-145); Total Protein 6.9 g/dL (6.3-8.2)
--- NOTE | 2024-11-08 07:53 | PC.NURSE ---
awaiting wifees arrival at 0900. sleeping with mouth open. SPO2 88%. placed on 2L while sleeping. appears comfortable.
--- NOTE | 2024-11-08 08:27 | PC.NURSE ---
Provider aware of patient tachycardia prior to discharge and approved patient to still discharge.
== END 2024-11-08 08:28 | disposition home or self-care (01) ==
PROVIDERS: Emergency Provider Emergency Medicine; PCP Nurse Practitioner Family
DX: E87.79 Other fluid overload (principal); N18.6 End stage renal disease; R07.9 Chest pain, unspecified; Z99.2 Dependence on renal dialysis
CPT/HCPCS: 36415; 71045; 80053; 85025; 93005; 93010; 99283; 99284